=== PATIENT | female | born 1955 | race Caucasian/White ===

== ENCOUNTER 2017-10-11 14:17 | Inpatient (IN) | payer SELFPAY ==
[2017-10-11 15:46] LABS: Urine Blood 1+ (NEG); Urine Glucose NEGATIVE (NEG); Urine Protein TRACE (NEG); Urine Specific Gravity 1.025 (1.005-1.030); Urine pH 5.5 (5.0-7.0)
[2017-10-11 15:57] LABS: Absolute Lymphocytes (CBC) 1.8 K/uL (0.7-4.9); Absolute Monocytes 0.4 K/uL (0.1-1.3); Absolute Neutrophil 2.5 K/uL (1.8-8.0); Basophils % 0.5 % (0-1.3); Eosinophils % 0.9 % (0-4.4); Hematocrit 37.6 % (36.0-45.0); Lymphocytes % 38.3 % (15.3-44.8); MCH 30.5 pg (27.0-35.0); MPV 7.5 fL (7.6-11.3); Monocytes % 7.9 % (3.3-12.3); RBC Red Blood Cell Count 4.22 M/uL (3.86-4.86)
--- NOTE | 2017-10-11 16:09 | EDPHYS ---
Physician Documentation [facility] Name: Grace Case Age: 62 yrs Sex: Female : 1955 Arrival Date: 10/11/2017 Time: 14:19 Bed 8 Private MD: ED Physician Chapito Bautista HPI: 10/11 16:11 This 62 yrs old Female presents to ER via Wheelchair with complaints of Leg kdr Swelling. 16:11 The patient presents with a deformity, pain, that is chronic, swelling, Chronic kdr lymphedema with ulcerated area on left posterior distal calf. The complaints affect the left calf, left Achilles and medial aspect of left calf. Context: the patient can partially bear weight, the patient is able to ambulate, with mild difficulty, Problem is a result from a previous injury: Yes. Lympedema. Onset: The symptoms/episode began/occurred gradually, at an unknown time. Modifying factors: The symptoms are alleviated by nothing. the symptoms are aggravated by movement, weight bearing, bending knee. Associated signs and symptoms: Pertinent positives: vaginal bleeding. Treatment prior to arrival includes: no previous treatment. Severity of symptoms: At their worst the symptoms were moderate, in the emergency department the symptoms are unchanged. The patient has experienced similar episodes in the past, chronically. The patient has not recently seen a physician. Historical: - Allergies: 14:45 No Known Allergies; aa5 - PMHx: 14:45 cellulits; UTI; Lymphedema; aa5 - PSHx: 14:45 blood clot surgery; aa5 - Immunization history:: Adult Immunizations unknown. - Ebola Screening: : No symptoms or risks identified at this time. - Social history:: Smoking status: unknown. ROS: 16:13 Constitutional: Negative for fever, chills, and weight loss, Eyes: Negative for injury, kdr pain, redness, and discharge, ENT: Negative for injury, pain, and discharge, Neck: Negative for injury, pain, and swelling, Cardiovascular: Negative for chest pain, palpitations, and edema, Respiratory: Negative for shortness of breath, cough, wheezing, and pleuritic chest pain, Abdomen/GI: Negative for abdominal pain, nausea, vomiting, diarrhea, and constipation, Back: Negative for injury and pain, Neuro: Negative for headache, weakness, numbness, tingling, and seizure activity. Psych: Negative for depression, anxiety, suicide ideation, homicidal ideation, and hallucinations, Allergy/Immunology: Negative for hives, rash, and allergies, Endocrine: Negative for neck swelling, polydipsia, polyuria, polyphagia, and marked weight changes, Hematologic/Lymphatic: Negative for swollen nodes, abnormal bleeding, and unusual bruising. 16:13 : Positive for urinary symptoms, urinary frequency, small amounts, vaginal bleeding, Negative for vaginal itching. Exam: 16:13 Constitutional: This is a well developed, well nourished obese patient who is awake, kdr alert, and in no acute distress. Head/Face: Normocephalic, atraumatic. Eyes: Pupils equal round and reactive to light, extra-ocular motions intact. Lids and lashes normal. Conjunctiva and sclera are non-icteric and not injected. Cornea within normal limits. Periorbital areas with no swelling, redness, or edema. Neck: Trachea midline, no thyromegaly or masses palpated, and no cervical lymphadenopathy. Supple, full range of motion without nuchal rigidity, or vertebral point tenderness. No Meningismus. Chest/axilla: Normal chest wall appearance and motion. Nontender with no deformity. No lesions are appreciated. Cardiovascular: Regular rate and rhythm with a normal S1 and S2. No gallops, murmurs, or rubs. Normal PMI, no JVD. No pulse deficits. Respiratory: Lungs have equal breath sounds bilaterally, clear to auscultation and percussion. No rales, rhonchi or wheezes noted. No increased work of breathing, no retractions or nasal flaring. Abdomen/GI: Soft, obese non-tender, with normal bowel sounds. No distension or tympany. No guarding or rebound. Back: No spinal tenderness. No costovertebral tenderness. Full range of motion. Skin: The patient has significant swelling to both lower extremities wtih chronic lymphedema. There is a 4 cm x 6 cm ulceration that is draining to the left lower extremity. Neuro: Awake and alert, GCS 15, oriented to person, place, time, and situation. Cranial nerves II-XII grossly intact. Motor strength 5/5 in all extremities. Sensory grossly intact. Cerebellar exam normal. Normal gait. Psych: Awake, alert, with orientation to person, place and time. Behavior, mood, and affect are within normal limits. Vital Signs: 14:38 BP 156 / 77; Pulse 81; Resp 20; Temp 98.3; Pulse Ox 96% on R/A; Weight 136.08 kg (R); jl7 Height 5 ft. 5 in. (165.10 cm); 16:00 BP 138 / 67; Pulse 74; Resp 18 S; Pulse Ox 99% on R/A; aa5 17:30 BP 156 / 69; Pulse 87; Resp 18 S; Pulse Ox 97% on R/A; aa5 18:45 BP 124 / 81; Pulse 75; Resp 16 S; Pulse Ox 100% on R/A; jl7 14:38 Body Mass Index 49.92 (136.08 kg, 165.10 cm) jl7 MDM: 16:09 Patient medically screened. kdr 16:13 Data reviewed: vital signs, nurses notes, lab test result(s), radiologic studies. kdr Counseling: I had a detailed discussion with the patient and/or guardian regarding: the historical points, exam findings, and any diagnostic results supporting the discharge/admit diagnosis, lab results, radiology results. 10/11 15:30 Order name: Blood Culture Adult (2) kdr 10/11 15:30 Order name: Urine Culture kdr 10/11 15:30 Order name: CBC with Diff; Complete Time: 16:04 kdr 10/11 15:30 Order name: Chem 7; Complete Time: 17:00 kdr 10/11 15:30 Order name: LFT's; Complete Time: 17:00 kdr 10/11 15:44 Order name: Urine Dipstick--Ancillary (enter results); Complete Time: 16:04 ag 10/11 16:59 Order name: US Extremity Venous W Compression Bean kdr 10/11 17:23 Order name: C-Reactive Protein EDME 10/11 17:43 Order name: Procalcitonin EDME 10/11 18:39 Order name: EDME Administered Medications: 16:20 Drug: Lasix 60 mg Route: IVP; Site: left forearm; aa5 16:35 Follow up: Response: No adverse reaction aa5 17:03 Drug: Zofran 4 mg Route: IVP; Site: left forearm; aa5 17:10 Follow up: Response: No adverse reaction aa5 17:05 Drug: morphine 4 mg Route: IVP; Site: left forearm; aa5 17:10 Follow up: Response: No adverse reaction aa5 17:11 CANCELLED (Physician Discretion): vancoMYCIN 1 grams IVPB once over 2 hrs aa5 17:21 CANCELLED (Physician Discretion): vancoMYCIN 1.5 grams IVPB at calculated rate once aa5 17:40 Drug: Zosyn 4.5 grams Route: IVPB; Infused Over: 60 mins; Site: left forearm; aa5 18:00 Follow up: Response: No adverse reaction aa5 18:42 Follow up: Response: No adverse reaction; IV Status: Completed infusion aa5 18:47 Drug: vancomycin 2 grams Route: IV; Rate: calculated rate; Site: left forearm; aa5 19:07 Follow up: IV Status: Infusion continued upon admission jd3 Disposition: 10/11/17 16:09 Hospitalization ordered by Dontrell Reid for Inpatient Admission. Preliminary diagnosis is Lymphedema, not elsewhere classified. - Bed requested for Telemetry/MedSurg (Inpatient). - Status is Inpatient Admission. jd3 - Condition is Fair. - Problem is an ongoing problem. - Symptoms are unchanged. UTI on Admission? Yes Signatures: Dispatcher [employer] EDME Ronel Piña RN RN Chapito Bautista MD MD [facility] Tisha Cadet RN RN [facility] Michael Tejeda RN RN jd3 Corrections: (The following items were deleted from the chart) 17:11 16:58 vancoMYCIN 1 grams IVPB once over 2 hrs ordered. aa5 aa5 17:21 16:59 vancoMYCIN 1.5 grams IVPB at calculated rate once ordered. [facility] aa5 17:21 17:21 vancoMYCIN 1.5 grams IVPB at calculated rate once ordered. [facility] aa 18:18 16:09 Hospitalization Ordered by Dontrell Reid MD for Inpatient Admission. Preliminary diagnosis is Lymphedema, not elsewhere classified. Bed requested for Telemetry/MedSurg (Inpatient). Status is Inpatient Admission. Condition is Fair. Problem is an ongoing problem. Symptoms are unchanged. UTI on Admission? Yes. kdr 19:39 18:18 10/11/2017 16:09 Hospitalization Ordered by Dontrell Reid MD for Inpatient jd3 Admission. Preliminary diagnosis is Lymphedema, not elsewhere classified. Bed requested for Telemetry/MedSurg (Inpatient). Status is Inpatient Admission. Condition is Fair. Problem is an ongoing problem. Symptoms are unchanged. UTI on Admission? Yes. dw
--- NOTE | 2017-10-11 16:09 | ER ---
Nurse's Notes [facility] Name: Grace Case Age: 62 yrs Sex: Female : 1955 Arrival Date: 10/11/2017 Time: 14:19 Bed 8 Private MD: Diagnosis: Lymphedema, not elsewhere classified Presentation: 10/11 14:38 Presenting complaint: Patient states: Swelling in legs has been going on for 2-3 months jl7 but she has come in today because the weeping has gotten worse and there is a wound on her left lateral calf/ankle that is "probably infected". Pt is upset by the possibility that she may be admitted. Transition of care: patient was not received from another setting of care. Onset of symptoms is unknown. Risk Assessment: Do you want to hurt yourself or someone else?. Initial Sepsis Screen: Does the patient meet any 2 criteria? No. Patient's initial sepsis screen is negative. Does the patient have a suspected source of infection? Yes: Skin breakdown/wound. Care prior to arrival: None. 14:38 Method Of Arrival: Wheelchair jl7 14:38 Acuity: ESTEPHANIA 3 jl7 14:44 Note documentation done at 1438 was by Tammy Carrillo RN not Karie Valenzuela RN. dm5 Triage Assessment: 14:38 General: Appears in no apparent distress. uncomfortable, Behavior is cooperative, jl7 anxious. Pain: Complains of pain in right leg and left leg. Neuro: Level of Consciousness is awake, alert, obeys commands, Oriented to person, place, time. Respiratory: Airway is patent Respiratory effort is even, unlabored, Respiratory pattern is regular, symmetrical. GI: No signs and/or symptoms were reported involving the gastrointestinal system. : No signs and/or symptoms were reported regarding the genitourinary system. Derm: Skin has blisters on bilateral lower legs Skin is mostly warm pink and dry, except bilateral lower legs that are dark in color, weeping and has skin break down. Large wound noted to left lower leg. Historical: - Allergies: 14:45 No Known Allergies; aa5 - PMHx: 14:45 cellulits; UTI; Lymphedema; aa5 - PSHx: 14:45 blood clot surgery; aa5 - Immunization history:: Adult Immunizations unknown. - Ebola Screening: : No symptoms or risks identified at this time. - Social history:: Smoking status: unknown. Screenin:45 Abuse screen: Denies threats or abuse. Nutritional screening: No deficits noted. aa5 Tuberculosis screening: No symptoms or risk factors identified. Fall Risk None identified. Assessment: 14:45 General: Appears comfortable, Behavior is calm, cooperative. Pain: Complains of pain in aa5 left leg and right leg Pain does not radiate. Pain currently is 5 out of 10 on a pain scale. Quality of pain is described as pressure, Pain began 2-3 months ago Is continuous, Aggravated by increased activity, weight bearing. Neuro: Level of Consciousness is awake, alert, obeys commands, Oriented to person, place, time, situation. Cardiovascular: Heart tones S1 S2 present Rhythm is regular. Respiratory: Airway is patent Respiratory effort is even, unlabored, Respiratory pattern is regular, symmetrical, Breath sounds are clear bilaterally. GI: Abdomen is obese, Bowel sounds present X 4 quads. Abd is soft and non tender X 4 quads. : Denies burning with urination. EENT: No signs and/or symptoms were reported regarding the EENT system. Derm: Skin is pink, warm \\T\\ dry. Lymphedema noted to zander lower extremities with weeping yellowish fluid. Wound noted to left calf that is macerated with black tissue to some parts of the edges, wound measures approximately 3in in diameter, pt reports wound x 2-3 months ago. Redness noted to right lower extremity x 3 days ago. Musculoskeletal: Range of motion: intact in all extremities. 15:55 Reassessment: Patient and/or family updated on plan of care and expected duration. Pain aa5 level reassessed. Patient is alert, oriented x 3, equal unlabored respirations, skin warm/dry/pink. 16:55 Reassessment: Patient and/or family updated on plan of care and expected duration. Pain aa5 level reassessed. Patient is alert, oriented x 3, equal unlabored respirations, skin warm/dry/pink. Pt requesting pain medication, MD notified . Pain: Pain currently is 5 out of 10 on a pain scale. 17:30 Reassessment: Patient and/or family updated on plan of care and expected duration. Pain aa5 level reassessed. Patient is alert, oriented x 3, equal unlabored respirations, skin warm/dry/pink. Pain: Pain currently is 3 out of 10 on a pain scale. Quality of pain is described as dull. 18:45 Reassessment: Patient and/or family updated on plan of care and expected duration. Pain aa5 level reassessed. Patient is alert, oriented x 3, equal unlabored respirations, skin warm/dry/pink. Pt notified of wait time for transport to Room 213. 19:03 Reassessment: Patient appears in no apparent distress at this time. No changes from jd3 previously documented assessment. Patient and/or family updated on plan of care and expected duration. Pain level reassessed. Patient is alert, oriented x 3, equal unlabored respirations, skin warm/dry/pink. Vital Signs: 14:38 BP 156 / 77; Pulse 81; Resp 20; Temp 98.3; Pulse Ox 96% on R/A; Weight 136.08 kg (R); jl7 Height 5 ft. 5 in. (165.10 cm); 16:00 BP 138 / 67; Pulse 74; Resp 18 S; Pulse Ox 99% on R/A; aa5 17:30 BP 156 / 69; Pulse 87; Resp 18 S; Pulse Ox 97% on R/A; aa5 18:45 BP 124 / 81; Pulse 75; Resp 16 S; Pulse Ox 100% on R/A; jl7 14:38 Body Mass Index 49.92 (136.08 kg, 165.10 cm) jl7 ED Course: 14:19 Patient arrived in ED. rg4 14:36 Tisha Cadet, RN is Primary Nurse. aa5 14:38 Arm band placed on right wrist. Patient placed in an exam room, in a wheelchair, pt jl7 remains in wheelchair per patient request. 14:40 Triage completed. jl7 14:45 Patient has correct armband on for positive identification. Call light in reach. Pt aa5 refused to be placed on stretcher, pt states she prefers to be in wheelchair. 14:49 Chapito Bautista MD is Attending Physician. kdr 15:43 Urine collected: clean catch specimen, cloudy, fidelina colored. jb1 15:44 Initial lab(s) drawn, by me, sent to lab. Inserted saline lock: 20 gauge in left aa5 forearm, using aseptic technique. Blood collected. 16:05 No provider procedures requiring assistance completed. aa5 16:07 Dontrell Reid MD is Hospitalizing Provider. kdr 18:22 Ultrasound completed. Patient tolerated well. sg3 19:00 Report given to GIL Rodriguez. aa5 19:04 Patient admitted, IV remains in place. jd3 Administered Medications: 16:20 Drug: Lasix 60 mg Route: IVP; Site: left forearm; aa5 16:35 Follow up: Response: No adverse reaction aa5 17:03 Drug: Zofran 4 mg Route: IVP; Site: left forearm; aa5 17:10 Follow up: Response: No adverse reaction aa5 17:05 Drug: morphine 4 mg Route: IVP; Site: left forearm; aa5 17:10 Follow up: Response: No adverse reaction aa5 17:11 CANCELLED (Physician Discretion): vancoMYCIN 1 grams IVPB once over 2 hrs aa5 17:21 CANCELLED (Physician Discretion): vancoMYCIN 1.5 grams IVPB at calculated rate once aa5 17:40 Drug: Zosyn 4.5 grams Route: IVPB; Infused Over: 60 mins; Site: left forearm; aa5 18:00 Follow up: Response: No adverse reaction aa5 18:42 Follow up: Response: No adverse reaction; IV Status: Completed infusion aa5 18:47 Drug: vancomycin 2 grams Route: IV; Rate: calculated rate; Site: left forearm; aa5 19:07 Follow up: IV Status: Infusion continued upon admission jd3 Outcome: 16:09 Decision to Hospitalize by Provider. kdr 19:37 Admitted to Med/surg accompanied by tech, via wheelchair, room 213, with chart, Report jd3 called to Marilou CORDERO 19:37 Condition: stable 19:37 Instructed on the need for admit, Demonstrated understanding of instructions. 19:39 Patient left the ED. jd3 Signatures: Jeet Manriquez jbTammy Acosta RN RN dm5 Chapito Bautista MD MD kdr Tisha Cadet RN RN aa5 Ruth Cosme rg4 Karie Valenzuela RN RN jl7 Michael Tejeda, RN RN jd3 Angie Granado sg3 Corrections: (The following items were deleted from the chart) 16:04 14:45 Derm: Skin is pink, warm \\T\\ dry. Lymphedema noted to zander lower extremities with aa5 weeping yellowish fluid. Wound noted to left calf that is macerated with black tissue to some parts of the edges, wound measures approximately 3in in diameter, pt reports wound x 2-3 months ago. aa5 18:37 17:30 Pain: Pain currently is 5 out of 10 on a pain scale. aa5 aa5 18:37 17:30 Pain: Pain currently is 3 out of 10 on a pain scale. aa5 aa5 18:37 16:15 Reassessment: Patient and/or family updated on plan of care and expected aa5 duration. Pain level reassessed. Patient is alert, oriented x 3, equal unlabored respirations, skin warm/dry/pink. Pt requesting pain medication, MD notified . aa5 18:37 16:15 Pain: Pain currently is 5 out of 10 on a pain scale. aa5 aa5
[2017-10-11 16:15] LABS: Albumin 3.6 g/dL (3.4-5.0); Bilirubin Direct 0.3 mg/dL (0-0.2); Bilirubin Total 0.8 mg/dL (0.2-1.0); Potassium 3.8 mmol/L (3.5-5.1); Protein, Total 8.8 g/dL (6.4-8.2)
[2017-10-11] MEDS ORDERED: ONDANSETRON 4 MG/2 ML VIAL IV PRN (16:24)
[2017-10-11] MEDS ORDERED: ACETAMINOPHEN 500 MG TAB PO PRN (16:24)
[2017-10-11] MEDS ORDERED: VANCOMYCIN 1 GM/250 ML BAG ONE (16:55)
[2017-10-11] MEDS ORDERED: ONDANSETRON 4 MG/2 ML VIAL ONE (16:55)
[2017-10-11] MEDS ORDERED: MORPHINE 4 MG/ML SYR ONE (16:56)
[2017-10-11] MEDS ORDERED: PIPER/TAZO/NS 4.5gm 4.5 GM/100 ML BAG IV SCH (18:00)
[2017-10-11] MEDS: VANCOMYCIN 2 GM in NA CHLORIDE 0.9% 500 ML IV SCH (18:00)
--- NOTE | 2017-10-11 18:37 | HP ---
Date of Admission: 10/11/2017 Consultants: Dr. Cheatham, General Surgery. Primary Care Physician: None. Chief Complaint: Lower extremity swelling, redness, ulceration. Code Status: Full. History Of Present Illness: The patient is a 62-year-old female with past medical history of chronic lymphedema of the lower extremities, history of DVT, status post IVC filter, who was in the hospital in April 2016 for similar symptoms. The patient reports lower extremity edema, which has been wo rsening over the past 3 months. The patient also reports some ulceration on the left lower extremity with seeping wounds and some erythema. The patient denies any fevers or chills. The patient's symp toms are constant, moderate, progressively worsening. Does have some pain on the wound. Denies any trauma or insect bite. The patient otherwise denies any chest pain, shortness of breath, abdominal p ain. Comes into the ER for further evaluation. Upon arrival, her white count was normal, does not a ppear to be septic. Her vital signs were stable. The patient was then referred for admission for lo wer extremity edema with large ulcerated wound. Past Medical History: Chronic lymphedema, history of DVT, gastroesophageal reflux disease, morbid ob esity, osteoarthritis, anemia, obstructive sleep apnea. Past Surgical History: IVC filter, tubal ligation. Allergies: NO KNOWN DRUG ALLERGIES. Medications: None. Family History: Mother had lung disease. Father had cancer. Social History: The patient lives at home with her children. Ambulates without any assistive ambula tory devices. Independent in her activities of daily living. Denies any tobacco use, alcohol use, o r illicit drug use. Physical Examination: Vital Signs: Blood pressure 156/77, respirations 20, pulse 81, temperature 98.3, O2 96% on room air. General: Awake, alert, oriented x3, in some mild distress, elderly female. HEENT: Normocephalic, atraumatic. PERRLA. EOMI. Moist mucous membranes. Poor dentition. Conjunc tiva is anicteric. Neck: Supple. No JVD. Trachea midline. CV: S1, S2. Regular rate and rhythm. Peripheral pulses weak bilaterally. No murmurs. Respiratory: Clear to auscultation bilaterally. No wheezing. No stridor. No use of accessory musc les. Gastrointestinal: Abdomen is soft, nontender, nondistended. Positive bowel sounds. No guarding or rigidity. Extremities: No clubbing, cyanosis. The patient has 3+ edema bilateral lower extremities with chron ic venous stasis changes. No calf tenderness. Skin: Chronic venous stasis changes of bilateral lower extremities. The patient also has ulceration of the posterior lateral left lower extremity with weeping wound. Neuro: Cranial nerves 2 through 12 intact grossly. No focal neurological deficit. Speech is normal . Strength is 5/5 bilateral upper and lower extremities. Psych: Mood is depressed. Affect is congruent with mood. Insight and judgment are poor. Laboratory Data: Sodium 139, potassium 3.8, chloride 105, CO2 31, BUN 16, creatinine 1.2, glucose 10 1, calcium 9.2. AST 22, ALT 23. WBC 4.8, H and H 12.9 and 37.6, platelets 245. Imaging Studies: Pending. Assessment And Plan: A 62-year-old female with: 1.Cellulitis and bilateral lower extremity edema. 2.Left lower extremity ulceration. We will cover with IV antibiotics, broad-spectrum. Obtain blood cultures and wound cultures. 3.Chronic lymphedema. 4.Morbid obesity due to excess calories. 5.Gastroesophageal reflux disease without esophagitis. 6.Osteoarthritis, generalized. 7.Obstructive sleep apnea. 8.Gastrointestinal and deep venous thrombosis prophylaxis with PPI and Lovenox. Plan: Admit the patient to Med-Surg, place as inpatient. MICHEL Voice ID: [id number]
--- NOTE | 2017-10-11 18:38 | RAD REPORT ---
EXAM DESCRIPTION: VAS - Extrem Venous W Compress Bean - 10/11/2017 6:19 pm CLINICAL HISTORY: Bilateral leg pain and swelling COMPARISON: None. TECHNIQUE: Real-time sonographic evaluation of the bilateral lower extremity deep venous systems was performed. FINDINGS: Normal compressibility, flow augmentation, phasic flow and spontaneous flow are identified in the left and right lower extremity common femoral, superficial femoral and popliteal veins. Poste rior tibial veins are believed to be negative. Exam was limited at the ankle and limited in the calf soft tissues. . No intraluminal filling defects seen. IMPRESSION: Examination is limited as detailed. No DVT identifiable.
[2017-10-11 20:57] VITALS: BMI 57.0
[2017-10-11] MEDS: ENOXAPARIN 40 MG/0.4 ML SQ SCH (22:16)
[2017-10-11] MEDS ORDERED: TEMAZEPAM 15 MG CAP PO ONE (23:18)
[2017-10-12 00:17] LABS: Urine Appearance CLEAR; Urine Bilirubin NEGATIVE (NEG); Urine Blood TRACE (NEG); Urine Color YELLOW; Urine Glucose NEGATIVE (NEG); Urine Protein NEGATIVE (NEG); Urine Urobilinogen 0.2 mg/dL (0.2-1.0)
[2017-10-12 00:18] LABS: Urine Microscopic Reflex ORDER UMIC
[2017-10-12 01:19] LABS: Urine Bacteria <20 /HPF (<20); Urine Culture Reflex Order NOT NEEDED; Urine RBC <5 /HPF (NONE SEEN)
[2017-10-12] MEDS: MORPHINE 4 MG/ML SYR IV PRN ×2 (02:44→13:44)
[2017-10-12 05:00] LABS: Absolute Lymphocytes (CBC) 1.4 K/uL (0.7-4.9); Absolute Monocytes 0.4 K/uL (0.1-1.3); Hematocrit 37.6 % (36.0-45.0); Lymphocytes % 23.3 % (15.3-44.8); MCH 30.7 pg (27.0-35.0); MCV 89.7 fL (80-100); MPV 7.6 fL (7.6-11.3); Monocytes % 6.4 % (3.3-12.3)
[2017-10-12 05:27] LABS: Potassium 3.9 mmol/L (3.5-5.1)
--- NOTE | 2017-10-12 08:58 | CON ---
Date of Consultation: 10/12/2017 Reason: Lymphedema with cellulitis of left leg with an ulceration. History Of Present Illness: The patient is a 62-year-old female who comes in with a wound on her lef t leg for about 3 months. She has a history of DVT, history of chronic lymphedema. She does not hav e a primary care physician. She does not seek any medical attention until it becomes really bad and then she comes to the emergency room. She was admitted for cellulitis and ulceration. I was consult ed. She is awake, alert, sitting in a chair, complaining of some discomfort. No fever or chills. N o purulent discharge. Review of Systems: Otherwise, unremarkable. Past Medical History: Lymphedema, history of DVT, GERD, morbid obesity, osteoarthritis, anemia, slee p apnea. Past Surgical History: IVC filter placement, bilateral tubal ligation. Allergies: NO ALLERGIES. Social History: She does not smoke or drink. Family History: Significant for unknown type of cancer in the father and lung disease in the mother. Physical Examination: Vital Signs: Stable. She is afebrile. She is awake, alert, and oriented x3. Head and neck: Cranial nerves 2 through 12 grossly within normal limits. No neck masses. No JVD. Throat clear. Neck is supple. Chest: Clear. Heart: S1, S2. Abdomen: Soft. Extremities: Diminished dorsalis pedis and posterior tibial pulses secondary to significant 3+ lymph edema. On the posterior aspect of the left leg, there is approximately a 6 x 6 cm area of an ulcerat ion with some granulation tissue, a moderate amount of fibrin, surrounding erythema, warmth, and enio a. No purulent discharge. Nothing that needs immediate surgical intervention. Laboratory Data: Significant for white count of 5.9. Her procalcitonin is less than 0.05. BUN and creatinine are 20 and 1.5. Venous Dopplers are negative for acute DVT at this time. Assessment: Cellulitis with wound in left leg with chronic lymphedema. Recommendation: Medical management. For the fluid status of the patient, she has just started Lasix yesterday. Continue IV antibiotics. Check the cultures. Adjust the antibiotics accordingly. She will need a collagenase dressing and upon discharge, she can follow up with me in the [facility]. JOAN/MODL Voice ID: [id number] Report ID: [id number]
[2017-10-12] MEDS ORDERED: COLLAGENASE 30 GM OINTMENT TOP SCH (09:15)
[2017-10-12] MEDS ORDERED: FUROSEMIDE 20 MG/ 2ML VIAL IV ONE (11:52)
--- NOTE | 2017-10-12 12:56 | DS ---
Discharge Diagnoses: 1.Cellulitis of the lower extremity, improved. 2.Left lower extremity ulcerations. 3.Chronic lymphedema. 4.Morbid obesity. 5.Acid reflux. 6.Osteoarthritis. 7.Obstructive sleep apnea. Consult: General surgery, Dr. Cheatham. Procedure: Lower extremity Doppler, which was negative for DVT. History Of Present Illness: Please refer to Dr. Reid's admission note. Hospital Course: Initially, the patient presented with a progressive lower extremity edema. It was getting worse. A new ulceration on the left lower extremity. It was little bit oozing. In the ER s he was evaluated. Lower extremity Doppler was negative for DVT. Consult by Dr. Cheatham from [facility] obtained and Dr. Cheatham recommended the patient to follow up with the [facility] as well as collagenase dressing upon discharge. The patient's UA was positive and urine culture showed gram -negative rods with mixed roberto carlos. She was started initially on vancomycin IV. Wound culture done yes day is still pending. We will switch vancomycin to oral Cipro 500 mg for 14 days today after 5 p. m. as the patient should receive another dose of vancomycin before she discharged home. The patient would like to go home today, so we will start her Cipro hoping that it would cover her UTI and wound possible infection. She will be seen by Saturday at the [facility] and they will adjust antibiotic accordingly as needed after followup on culture result. The patient will be discharged o n low dose of Lasix at 20 mg once a day. She advised strongly to wear elastic stocking and see [facility] physician as outpatient to check her labs and make sure she is not getting dehydrated and adj ust Lasix accordingly. Discharge Condition: Stable. Discharge Diet: Regular. Discharge Followup: With primary care physician in 1 week. Follow up with [facility] on Saturday. Discharge Activity: As tolerated. Discharge Medications: Lasix 20 mg once a day, 7 given. Ciprofloxacin 500 mg twice a day for 14 day s. Discharge Physical Examination: Vital signs: Blood pressure is 130/58, respiratory rate 18, pulse 8 6, temperature 97.9. General: The patient is alert and oriented x3. Does not look in any distress. HEENT: Atraumatic, normocephalic. PERRLA. Oral mucosa is moist. Neck: Supple. No JVD. No bruits. Chest: Clear to auscultation. Good air entry. Heart: Regular rate and rhythm. S1, S2 normal. No gallop. Abdomen: Massively obese. Nondistended and nontender. Positive bowel sounds. Extremities: No clubbing or cyanosis. She does have +3 edema on lower extremity both side. Skin: Chronic venous stasis. Small ulceration to the posterior lateral left lower extremity. No oo zing currently. Neuro: Grossly intact. SUMAN/ELMER Voice ID: [id number] Report ID: [id number]
[2017-10-12] MEDS: ENOXAPARIN 40 MG/0.4 ML SQ SCH (17:01)
[2017-10-12] MEDS: VANCOMYCIN 2 GM in NA CHLORIDE 0.9% 500 ML IV SCH (17:01)
[2017-10-12 19:37] VITALS: BP 126/81; TEMP 98.1
[2017-10-12 20:07] VITALS: O2SAT 94
[2017-10-13] MEDS ORDERED: COLLAGENASE 30 GM OINTMENT TOP SCH (09:00)
== END 2017-10-12 20:05 | disposition home or self-care (01) | DRG 603 ==
LOC: ER 14:17 → ERHOLD 16:24 → 2ND 19:13
PROVIDERS: ADMIT Family Medicine; ATTEND Internal Medicine
DX: L03.116 Cellulitis of left lower limb (principal); L97.829 Non-pressure chronic ulcer of other part of left lower leg with unspecified severity; N39.0 Urinary tract infection, site not specified; Z68.42 Body mass index [BMI] 45.0-49.9, adult; I89.0 Lymphedema, not elsewhere classified; K21.9 Gastro-esophageal reflux disease without esophagitis; E66.01 Morbid (severe) obesity due to excess calories; G47.33 Obstructive sleep apnea (adult) (pediatric); M19.90 Unspecified osteoarthritis, unspecified site; D64.9 Anemia, unspecified; Z86.718 Personal history of other venous thrombosis and embolism; B96.89 Other specified bacterial agents as the cause of diseases classified elsewhere; I87.2 Venous insufficiency (chronic) (peripheral)
CPT/HCPCS: 36415; 80048; 80076; 81003; 81015; 84145; 85025; 86140; 87040; 87070; 87077; 87086; 87088; 87186; 87205; 93970; 94760; 96365; 96367; 96375; 99285; J1650; J1940; J2405; J3370; J3590

== ENCOUNTER 2018-02-01 21:13 | Emergency (ER) | payer SELFPAY ==
[2018-02-01 22:15] LABS: Urine Blood 3+ (NEG); Urine Glucose NEGATIVE (NEG); Urine Protein 1+ (NEG); Urine Specific Gravity 1.025 (1.005-1.030); Urine pH 6.5 (5.0-7.0)
[2018-02-01 22:22] LABS: Urine Bacteria LOADED /HPF (<20); Urine RBC 20-50 /HPF (NONE SEEN)
[2018-02-01 22:23] LABS: Calcium Oxalate Crystals- Ur FEW (NONE SEEN); Urine Culture Reflex Order NOT NEEDED
[2018-02-01] MEDS ORDERED: CLINDAMYCIN 600MG/D5W 600 MG/50 ML BAG IV ONE (22:25)
[2018-02-01] MEDS ORDERED: FENTANYL CITR 100 MCG/2 ML ONE (22:26)
[2018-02-01] MEDS ORDERED: SMZ./TMP. 800/160 MG TABLET ONE (23:03)
[2018-02-01 23:07] LABS: Absolute Monocytes 0.4 K/uL (0.1-1.3); Absolute Neutrophil 6.2 K/uL (1.8-8.0); Basophils % 0.5 % (0-1.3); Eosinophils % 0.5 % (0-4.4); Hematocrit 38.8 % (36.0-45.0); Lymphocytes % 12.7 % (15.3-44.8); MCH 30.7 pg (27.0-35.0); MCV 88.7 fL (80-100); MPV 7.8 fL (7.6-11.3); Monocytes % 4.7 % (3.3-12.3); RBC Red Blood Cell Count 4.37 M/uL (3.86-4.86)
--- NOTE | 2018-02-01 23:25 | ER ---
Nurse's Notes [facility] Name: Grace Case Age: 62 yrs Sex: Female : 1955 Arrival Date: 02/01/2018 Time: 21:15 Bed 20 Private MD: Diagnosis: Urinary tract infection, site not specified;Cellulitis of right lower limb;Lymphedema, not elsewhere classified Presentation: 02/01 21:30 Presenting complaint: Patient states: right lower leg redness, swelling and pain since cc3 2 hours back. Transition of care: patient was not received from another setting of care. Onset of symptoms was February 01, 2018. Risk Assessment: Do you want to hurt yourself or someone else? Patient reports no desire to harm self or others. Initial Sepsis Screen: Does the patient meet any 2 criteria? No. Patient's initial sepsis screen is negative. Does the patient have a suspected source of infection? No. Patient's initial sepsis screen is negative. Care prior to arrival: Medication(s) given: Tylenol, patient not sure of the dosage of each Tylenol tablet but she said she took 2 tabs. 21:30 Method Of Arrival: Wheelchair cc3 21:30 Acuity: ESTEPHANIA 3 cc3 Triage Assessment: 21:30 General: Appears in no apparent distress. uncomfortable, Behavior is calm, cooperative, cc3 appropriate for age. Historical: - Allergies: 21:30 No Known Allergies; cc3 - Home Meds: 21:30 Tylenol #3 Oral [Active]; cc3 - PMHx: 21:30 cellulits; lymphedema; UTI; cc3 - PSHx: 21:30 D \T\ C; cc3 - Immunization history:: Adult Immunizations not up to date. - Social history:: Smoking status: Patient/guardian denies using tobacco, never smoked. - Ebola Screening: : No symptoms or risks identified at this time. Screenin:30 Abuse screen: Denies threats or abuse. Denies injuries from another. Nutritional cc3 screening: No deficits noted. Tuberculosis screening: No symptoms or risk factors identified. Fall Risk Ambulatory Aid- None/Bed Rest/Nurse Assist (0 pts). Gait- Normal/Bed Rest/Wheelchair (0 pts) Mental Status- Oriented to own ability (0 pts). Assessment: 21:30 General: Appears in no apparent distress. uncomfortable, Behavior is calm, cooperative, cc3 appropriate for age. Pain: Complains of pain in right leg and right rosen and right posterior tibial artery Pain currently is 10 out of 10 on a pain scale. Quality of pain is described as aching. Neuro: Level of Consciousness is awake, alert, obeys commands, Oriented to person, place, time, situation, Appropriate for age. Cardiovascular: Denies chest pain. Respiratory: Airway is patent Respiratory effort is even, unlabored, Respiratory pattern is regular, symmetrical. GI: Abdomen is round obese. : No signs and/or symptoms were reported regarding the genitourinary system. EENT: No signs and/or symptoms were reported regarding the EENT system. Derm: bilateral lower limb edema with blisters. Musculoskeletal: Circulation, motion, and sensation intact. Range of motion: limited in bilateral lower extremities. 22:30 Reassessment: Patient appears in no apparent distress at this time. Patient and/or cc3 family updated on plan of care and expected duration. Pain level reassessed. Patient is alert, oriented x 3, equal unlabored respirations, skin warm/dry/pink. 23:50 Reassessment: Patient appears in no apparent distress at this time. Patient and/or cc3 family updated on plan of care and expected duration. Pain level reassessed. Patient is alert, oriented x 3, equal unlabored respirations, skin warm/dry/pink. JEF Reed discharged the patient home with prescription given. IV cannula removed and patient left ER vitally stable by wheelchair escorted by her son. Vital Signs: 21:30 BP 158 / 64; Pulse 111; Resp 20 S; Temp 99(O); Pulse Ox 100% on R/A; Weight 136.08 kg cc3 (R); Height 5 ft. 6 in. (167.64 cm); 22:15 BP 148 / 58; Pulse 104; Resp 20 S; Pulse Ox 98% on R/A; cc3 23:30 BP 149 / 63; Pulse 102; Resp 19 S; Pulse Ox 98% on R/A; cc3 21:30 Body Mass Index 48.42 (136.08 kg, 167.64 cm) cc3 ED Course: 21:15 Patient arrived in ED. am2 21:24 Gloria Engle is Primary Nurse. cc3 21:24 [facility]err[facility] snw 21:24 Pam Thrasher MD is Attending Physician. snw 21:30 Arm band placed on right wrist. cc3 21:30 Patient has correct armband on for positive identification. Bed in low position. Call cc3 light in reach. Pulse ox on. NIBP on. 21:43 Triage completed. cc3 22:30 Inserted saline lock: 22 gauge in right antecubital area, using aseptic technique. cc3 Blood collected. 23:50 No provider procedures requiring assistance completed. IV discontinued, intact, cc3 bleeding controlled, No redness/swelling at site. Pressure dressing applied. Administered Medications: 22:35 Drug: fentaNYL (PF) 25 mcg Route: IVP; Site: right antecubital; cc3 23:00 Follow up: Response: No adverse reaction; Pain is decreased cc3 22:39 Drug: Clindamycin 600 mg Route: IVPB; Infused Over: 30 mins; Site: right forearm; ea 23:15 Follow up: Response: No adverse reaction; IV Status: Completed infusion; IV Intake: [id number] 22:57 Drug: Bactrim (160 mg-800 mg (DS) 1 tablet Route: PO; ea 23:30 Follow up: Response: No adverse reaction cc3 23:38 Drug: Valium 5 mg Route: IVP; Site: right antecubital; cc3 23:50 Follow up: Response: No adverse reaction cc3 Intake: 23:15 IV: 50ml; Total: 50ml. cc3 Outcome: 23:25 Discharge ordered by . snw 23:50 Discharged to home via wheelchair, with family. cc3 23:50 Condition: stable 23:50 Discharge instructions given to patient, family, Instructed on discharge instructions, follow up and referral plans. medication usage, Demonstrated understanding of instructions, follow-up care, medications, Prescriptions given X 2. 23:53 Patient left the ED. cc3 Addendum: 02/07/2018 08:10 Addendum: Culture Results: Positive urine culture. Positive blood culture. Bacteria s s sensitive to prescribed antibiotics. Given Positive blood cultures, attempted to call patient to follow up and see if follow up care has been set up. Pt did not answer phone call and VM box has not been setup. Certified letter sent to listed address for patient. Signatures: Brianna Serrano FNP-C FNP-Csnw Gabby Encinas, RN RN Marjorie Aviles am2 Jaylene Hameed, RN RN Gloria Becker cc3
--- NOTE | 2018-02-01 23:25 | EDPHYS ---
Physician Documentation [facility] Name: Grace Case Age: 62 yrs Sex: Female : 1955 Arrival Date: 02/01/2018 Time: 21:15 Bed 20 Private MD: ED Physician Pam Thrasher HPI: 02/01 22:07 This 62 yrs old Female presents to ER via Wheelchair with complaints of Leg snw Swelling. 22:07 The patient presents with pain, that is acute. The complaints affect the right rosen. snw Context: The problem was sustained at home, resulted from a chronic condition, the patient can partially bear weight, must have assistance, from family. Onset: The symptoms/episode began/occurred suddenly, 2 hour(s) ago, and became persistent. Associated signs and symptoms: Pertinent positives: fever, warmth. Severity of symptoms: At their worst the symptoms were moderate, severe. The patient has experienced similar episodes in the past, multiple times. Historical: - Allergies: 21:30 No Known Allergies; cc3 - Home Meds: 21:30 Tylenol #3 Oral [Active]; cc3 - PMHx: 21:30 cellulits; lymphedema; UTI; cc3 - PSHx: 21:30 D \T\ C; cc3 - Immunization history:: Adult Immunizations not up to date. - Social history:: Smoking status: Patient/guardian denies using tobacco, never smoked. - Ebola Screening: : No symptoms or risks identified at this time. ROS: 22:06 Constitutional: Negative for fever, chills, and weight loss, Eyes: Negative for injury, snw pain, redness, and discharge, ENT: Negative for injury, pain, and discharge, Neck: Negative for injury, pain, and swelling, Cardiovascular: Negative for chest pain, palpitations, and edema, Respiratory: Negative for shortness of breath, cough, wheezing, and pleuritic chest pain, Abdomen/GI: Negative for abdominal pain, nausea, vomiting, diarrhea, and constipation, Back: Negative for injury and pain, : Negative for injury, bleeding, discharge, and swelling, Skin: Negative for injury, rash, and discoloration, Neuro: Negative for headache, weakness, numbness, tingling, and seizure. 22:06 MS/extremity: Positive for pain, of the right rosen. Exam: 22:04 Head/Face: Normocephalic, atraumatic. Eyes: Pupils equal round and reactive to light, snw extra-ocular motions intact. Lids and lashes normal. Conjunctiva and sclera are non-icteric and not injected. Cornea within normal limits. Periorbital areas with no swelling, redness, or edema. ENT: Nares patent. No nasal discharge, no septal abnormalities noted. Tympanic membranes are normal and external auditory canals are clear. Oropharynx with no redness, swelling, or masses, exudates, or evidence of obstruction, uvula midline. Mucous membranes moist. Neck: Trachea midline, no thyromegaly or masses palpated, and no cervical lymphadenopathy. Supple, full range of motion without nuchal rigidity, or vertebral point tenderness. No Meningismus. Chest/axilla: Normal chest wall appearance and motion. Nontender with no deformity. No lesions are appreciated. 22:04 Respiratory: Lungs have equal breath sounds bilaterally, clear to auscultation and percussion. No rales, rhonchi or wheezes noted. No increased work of breathing, no retractions or nasal flaring. Abdomen/GI: Soft, non-tender, with normal bowel sounds. No distension or tympany. No guarding or rebound. No evidence of tenderness throughout. Back: No spinal tenderness. No costovertebral tenderness. Full range of motion. 22:04 Neuro: Awake and alert, GCS 15, oriented to person, place, time, and situation. Cranial nerves II-XII grossly intact. Motor strength 5/5 in all extremities. Sensory grossly intact. Cerebellar exam normal. Normal gait. 22:04 Constitutional: The patient appears alert, awake, obese, uncomfortable. 22:04 Cardiovascular: Rate: tachycardic, Heart sounds: normal. 22:04 Musculoskeletal/extremity: ROM: intact in all extremities, Pulses: noted to be 2+ in the right posterior tibial artery and left posterior tibial artery, Compartment Syndrome exam of affected extremity: is normal. 22:04 Skin: Appearance: Color: normal in color, except to lower extremities, + dusky color with lymphedema. Right mid-rosen area with heat, redness, and extreme tenderness x 2 hours. Vital Signs: 21:30 BP 158 / 64; Pulse 111; Resp 20 S; Temp 99(O); Pulse Ox 100% on R/A; Weight 136.08 kg cc3 (R); Height 5 ft. 6 in. (167.64 cm); 22:15 BP 148 / 58; Pulse 104; Resp 20 S; Pulse Ox 98% on R/A; cc3 23:30 BP 149 / 63; Pulse 102; Resp 19 S; Pulse Ox 98% on R/A; cc3 21:30 Body Mass Index 48.42 (136.08 kg, 167.64 cm) cc3 MDM: 21:24 Patient medically screened. snw 23:25 Data reviewed: vital signs, nurses notes. Data interpreted: Pulse oximetry: on room air snw is 98 %. Interpretation: normal. Counseling: I had a detailed discussion with the patient and/or guardian regarding: the historical points, exam findings, and any diagnostic results supporting the discharge/admit diagnosis, the presence of at least one elevated blood pressure reading (>120/80) during this emergency department visit, lab results, the need for outpatient follow up, to return to the emergency department if symptoms worsen or persist or if there are any questions or concerns that arise at home. Special discussion: I have referred the patient to see his PCP for further evaluation of high blood pressure. Based on the history and exam findings, there is no indication for further emergent testing or inpatient evaluation. I discussed with the patient/guardian the need to see the primary care provider for further evaluation of the symptoms. 02/01 22:02 Order name: CBC with Diff; Complete Time: 23:19 snw 02/01 22:02 Order name: Chem 7; Complete Time: 23:24 snw 02/01 22:02 Order name: Blood Culture Adult (2) snw 02/01 22:02 Order name: Urine Culture snw 02/01 22:02 Order name: Urine Microscopic Only; Complete Time: 22:32 snw 02/01 22:10 Order name: Urine Dipstick--Ancillary (enter results); Complete Time: 22:18 ar5 02/01 22:02 Order name: Urine Dipstick-Ancillary (obtain specimen); Complete Time: 22:05 snw Administered Medications: 22:35 Drug: fentaNYL (PF) 25 mcg Route: IVP; Site: right antecubital; cc3 23:00 Follow up: Response: No adverse reaction; Pain is decreased cc3 22:39 Drug: Clindamycin 600 mg Route: IVPB; Infused Over: 30 mins; Site: right forearm; ea 23:15 Follow up: Response: No adverse reaction; IV Status: Completed infusion; IV Intake: [id number] 22:57 Drug: Bactrim (160 mg-800 mg (DS) 1 tablet Route: PO; ea 23:30 Follow up: Response: No adverse reaction cc3 23:38 Drug: Valium 5 mg Route: IVP; Site: right antecubital; cc3 23:50 Follow up: Response: No adverse reaction cc3 Disposition: 02/02 06:01 Co-signature as Attending Physician, Pam Thrasher MD. ma2 Disposition: 02/01/18 23:25 Discharged to Home. Impression: Urinary tract infection, site not specified, Cellulitis of right lower limb, Lymphedema, not elsewhere classified. - Condition is Stable. - Discharge Instructions: Cellulitis, Adult, Hypertension, Urinary Tract Infection, Adult, Rehydration, Adult, Heat Therapy. - Prescriptions for Clindamycin HCl 300 mg Oral Capsule - take 1 capsule by ORAL route every 6 hours for 10 days; 40 capsule. Bactrim DS 800- 160 mg Oral Tablet - take 1 tablet by ORAL route every 12 hours for 10 days; 20 tablet. - Medication Reconciliation Form, Thank You Letter, Antibiotic Education, Prescription Opioid Use form. - Follow up: Private Physician; When: 2 - 3 days; Reason: Recheck today's complaints, Continuance of care, Re-evaluation by your physician. Follow up: Emergency Department; When: As needed; Reason: Worsening of condition. Signatures: Dispatcher [employer] EDBrianna Wong FNP-C FNP-Jaylene Blevins, RN Pam Flood ea, MD MD ma2 Gloria Engle cc3 Corrections: (The following items were deleted from the chart) 02/01 23:53 23:25 02/01/2018 23:25 Discharged to Home. Impression: Urinary tract infection, site cc3 not specified; Cellulitis of right lower limb; Lymphedema, not elsewhere classified. Condition is Stable. Discharge Instructions: Cellulitis, Adult, Hypertension, Urinary Tract Infection, Adult, Rehydration, Adult, Heat Therapy. Prescriptions for Clindamycin HCl 300 mg Oral Capsule - take 1 capsule by ORAL route every 6 hours for 10 days; 40 capsule, Bactrim DS 800-160 mg Oral Tablet - take 1 tablet by ORAL route every 12 hours for 10 days; 20 tablet. and Forms are Medication Reconciliation Form, Thank You Letter, Antibiotic Education, Prescription Opioid Use. Follow up: Private Physician; When: 2 - 3 days; Reason: Recheck today's complaints, Continuance of care, Re-evaluation by your physician. Follow up: Emergency Department; When: As needed; Reason: Worsening of condition. snw
[2018-02-01] MEDS ORDERED: DIAZEPAM 10 MG/2 ML INJ SYRINGE ONE (23:45)
[2018-02-01 23:57] VITALS: TEMP 99
[2018-02-01 23:58] VITALS: BP 148/58; O2SAT 98
== END 2018-02-01 23:53 | disposition home or self-care (01) ==
LOC: ER 21:13
DX: L03.115 Cellulitis of right lower limb (principal); I89.0 Lymphedema, not elsewhere classified; N39.0 Urinary tract infection, site not specified
CPT/HCPCS: 36415; 80048; 81003; 81015; 85025; 87040; 87077; 87086; 87088; 87184; 87186; 87205; 96365; 96375; 99284; J3010; J3360

== ENCOUNTER 2018-07-14 20:50 | Inpatient (IN) | payer SELFPAY ==
[2018-07-14] MEDS ORDERED: Levofloxacin500mg IV 500 MG/100 ML BAG IV ONE (22:40)
[2018-07-14] MEDS ORDERED: NA CHLORIDE 0.9% 250 ML ONE (22:40)
[2018-07-14] MEDS ORDERED: VANCOMYCIN 1 GM/VIAL ONE (22:40)
[2018-07-14 23:03] LABS: Absolute Lymphocytes (CBC) 1.1 K/uL (0.7-4.9); Absolute Monocytes 0.4 K/uL (0.1-1.3); Absolute Neutrophil 5.9 K/uL (1.8-8.0); Basophils % 0.4 % (0-1.3); Eosinophils % 0.4 % (0-4.4); Hematocrit 40.1 % (36.0-45.0); Lymphocytes % 14.7 % (15.3-44.8); Monocytes % 5.9 % (3.3-12.3); RBC Red Blood Cell Count 4.49 M/uL (3.86-4.86)
--- NOTE | 2018-07-14 23:13 | EDPHYS ---
Physician Documentation [facility] Name: Grace Case Age: 63 yrs Sex: Female : 1955 Arrival Date: 07/14/2018 Time: 20:51 Bed 30 Private MD: ED Physician Trace Win HPI: 07/14 23:09 This 63 yrs old Female presents to ER via Wheelchair with complaints of jr8 Fever, Leg Pain. 23:09 The patient reports fever, not measured (subjective). Onset: The symptoms/episode jr8 began/occurred acutely, today. Modifying factors: there are no obvious modifying factors. Associated signs and symptoms: Pertinent positives: leg pain and erythema. Severity of symptoms: At their worst the symptoms were moderate in the emergency department the symptoms are unchanged. The patient has experienced a previous episode. The patient has not recently seen a physician. History of lymphedema and cellulitis in past. Noticed that her left leg became more swollen, tender, and red. Now having fevers at home . Historical: - Allergies: 21:14 No Known Allergies; aa1 - Home Meds: 21:14 Tylenol #3 Oral [Active]; aa1 - PMHx: 21:14 lymphedema; UTI; cellulits; aa1 - PSHx: 21:14 D \T\ C; aa1 - Immunization history:: Flu vaccine is not up to date. - Social history:: Smoking status: Patient/guardian denies using tobacco. - Ebola Screening: : No symptoms or risks identified at this time. ROS: 23:09 Eyes: Negative for injury, pain, redness, and discharge, ENT: Negative for injury, jr8 pain, and discharge, Neck: Negative for injury, pain, and swelling, Cardiovascular: Negative for chest pain, palpitations, and edema, Respiratory: Negative for shortness of breath, cough, wheezing, and pleuritic chest pain, Abdomen/GI: Negative for abdominal pain, nausea, vomiting, diarrhea, and constipation, Back: Negative for injury and pain, Neuro: Negative for headache, weakness, numbness, tingling, and seizure. 23:09 MS/extremity: Positive for erythema, pain, swelling, tenderness, warmth, of the left leg. Exam: 23:09 Eyes: Pupils equal round and reactive to light, extra-ocular motions intact. Lids and jr8 lashes normal. Conjunctiva and sclera are non-icteric and not injected. Cornea within normal limits. Periorbital areas with no swelling, redness, or edema. ENT: Nares patent. No nasal discharge, no septal abnormalities noted. Tympanic membranes are normal and external auditory canals are clear. Oropharynx with no redness, swelling, or masses, exudates, or evidence of obstruction, uvula midline. Mucous membranes moist. Neck: Trachea midline, no thyromegaly or masses palpated, and no cervical lymphadenopathy. Supple, full range of motion without nuchal rigidity, or vertebral point tenderness. No Meningismus. Cardiovascular: Regular rate and rhythm with a normal S1 and S2. No gallops, murmurs, or rubs. Normal PMI, no JVD. No pulse deficits. Respiratory: Lungs have equal breath sounds bilaterally, clear to auscultation and percussion. No rales, rhonchi or wheezes noted. No increased work of breathing, no retractions or nasal flaring. Abdomen/GI: Soft, non-tender, with normal bowel sounds. No distension or tympany. No guarding or rebound. No evidence of tenderness throughout. Back: No spinal tenderness. No costovertebral tenderness. Full range of motion. Neuro: Awake and alert, GCS 15, oriented to person, place, time, and situation. Cranial nerves II-XII grossly intact. Motor strength 5/5 in all extremities. Sensory grossly intact. Cerebellar exam normal. Normal gait. 23:09 Musculoskeletal/extremity: Extremities: grossly normal except: noted in the left leg: erythema, pain, swelling, tenderness, all noted from left foot to proximal tibia , ROM: intact in all extremities, Circulation is intact in all extremities. Sensation intact. Vital Signs: 21:14 BP 141 / 107; Pulse 98; Resp 20; Temp 99.8(O); Pulse Ox 97% on R/A; Weight 136.08 kg aa1 (R); Height 5 ft. 5 in. (165.10 cm); Pain 7/10; 23:44 BP 131 / 78; Pulse 111; Resp 18; Temp 101(O); Pulse Ox 95% on R/A; Pain 6/10; mg2 05/07 01:38 BP 130 / 78; Pulse 90; Resp 18; Temp 98.9(O); Pulse Ox 98% on R/A; Pain 1/; mg2 07/14 21:14 Body Mass Index 49.92 (136.08 kg, 165.10 cm) aa1 MDM: 07/14 21:51 Patient medically screened. jr8 23:09 Data reviewed: vital signs, nurses notes, lab test result(s). Data interpreted: Pulse jr8 oximetry: on room air is 97 %. Interpretation: normal. Counseling: I had a detailed discussion with the patient and/or guardian regarding: the historical points, exam findings, and any diagnostic results supporting the discharge/admit diagnosis, lab results, the need for further work-up and treatment in the hospital. 07/14 22:12 Order name: CBC with Diff jr8 07/14 22:12 Order name: Basic Metabolic Panel; Complete Time: 23:36 jr8 07/14 22:12 Order name: LFT's; Complete Time: 23:36 jr8 07/14 22:12 Order name: Blood Culture Adult (2) jr8 07/14 22:13 Order name: CBC with Automated Diff; Complete Time: 23:09 EDMS 07/15 00:14 Order name: Basic Metabolic Panel EDMS 07/15 00:14 Order name: CONS Pharmacy Consult EDMS 07/15 00:14 Order name: CONS Pharmacy Consult EDMS 07/15 00:22 Order name: Consistent Carb (ADA) [address] EDMS 07/15 00:22 Order name: CBC with Automated Diff EDMS 07/14 22:13 Order name: IV; Complete Time: 22:23 jr8 Administered Medications: 22:43 Drug: LevaQUIN 500 mg Volume: 100 ml; Route: IVPB; Infused Over: 60 mins; Site: right mg2 forearm; 07/15 01:00 Follow up: Response: No adverse reaction; IV Status: Completed infusion mg2 07/14 23:44 Drug: vancoMYCIN 1 grams Route: IVPB; Infused Over: 2 hrs; Site: right forearm; mg2 07/15 02:20 Follow up: Response: No adverse reaction; IV Status: Completed infusion; IV Intake: mg2 250ml 07/14 23:54 Drug: Tylenol 1000 mg Route: PO; mg2 07/15 01:00 Follow up: Response: No adverse reaction; Marked relief of symptoms mg2 00:30 Drug: fentaNYL (PF) 75 mcg Route: IVP; Site: right forearm; mg2 01:00 Follow up: Response: No adverse reaction; Marked relief of symptoms mg2 Disposition: 01:52 Co-signature as Attending Physician, Trace Win MD. federico Disposition: 07/14/18 23:13 Hospitalization ordered by Pam Bonner for Inpatient Admission. Preliminary diagnosis is Cellulitis of left lower limb. - Bed requested for Telemetry/MedSurg (Inpatient). - Status is Inpatient Admission. mg2 - Condition is Stable. - Problem is new. - Symptoms have improved. UTI on Admission? No Signatures: Dispatcher [employer] EDMS Sherry Hu RN RN aa1 Trace Win MD MD pkl Santhosh Olsen PA PA jr8 Selena Cosme, RN RN cg Crescencio Bustamante RN RN mg2 Corrections: (The following items were deleted from the chart) 01:07/14 23:13 Hospitalization Ordered by Pam Bonner MD for Inpatient Admission. cg Preliminary diagnosis is Cellulitis of left lower limb. Bed requested for Telemetry/MedSurg (Inpatient). Status is Inpatient Admission. Condition is Stable. Problem is new. Symptoms have improved. UTI on Admission? No. jr8 07/15 01:52 01:01 07/14/2018 23:13 Hospitalization Ordered by Pam Bonner MD for Inpatient mg2 Admission. Preliminary diagnosis is Cellulitis of left lower limb. Bed requested for Telemetry/MedSurg (Inpatient). Status is Inpatient Admission. Condition is Stable. Problem is new. Symptoms have improved. UTI on Admission? No. cg
--- NOTE | 2018-07-14 23:13 | ER ---
Nurse's Notes [facility] Name: Grace Case Age: 63 yrs Sex: Female : 1955 Arrival Date: 07/14/2018 Time: 20:51 Bed 30 Private MD: Diagnosis: Cellulitis of left lower limb Presentation: 07/14 21:11 Presenting complaint: Patient states: fever and L leg pain since this am. Reports hx of aa1 chronic cellulitis and lymphedema. Transition of care: patient was not received from another setting of care. Onset of symptoms was July 14, 2018 at 09:00. Risk Assessment: Do you want to hurt yourself or someone else? Patient reports no desire to harm self or others. Initial Sepsis Screen: Does the patient meet any 2 criteria? HR > 90 bpm. No. Patient's initial sepsis screen is negative. Does the patient have a suspected source of infection? Yes: Skin breakdown/wound. Care prior to arrival: None. 21:11 Method Of Arrival: Wheelchair aa1 21:11 Acuity: ESTEPHANIA 3 aa1 Triage Assessment: 21:14 General: Appears in no apparent distress. comfortable, Behavior is calm, cooperative, aa1 appropriate for age. Historical: - Allergies: 21:14 No Known Allergies; aa1 - Home Meds: 21:14 Tylenol #3 Oral [Active]; aa1 - PMHx: 21:14 lymphedema; UTI; cellulits; aa1 - PSHx: 21:14 D \T\ C; aa1 - Immunization history:: Flu vaccine is not up to date. - Social history:: Smoking status: Patient/guardian denies using tobacco. - Ebola Screening: : No symptoms or risks identified at this time. Screenin:43 Abuse screen: Denies threats or abuse. Denies injuries from another. Nutritional mg2 screening: No deficits noted. Tuberculosis screening: No symptoms or risk factors identified. Fall Risk IV access (20 points). Assessment: 23:32 General: Appears in no apparent distress. comfortable, Behavior is calm, cooperative. mg2 Pain: Complains of pain in left leg Pain does not radiate. Pain currently is 6 out of 10 on a pain scale. Quality of pain is described as burning, aching, Pain began gradually, months Is intermittent. Neuro: Level of Consciousness is awake, alert, obeys commands, Oriented to person, place, time, situation. Cardiovascular: Capillary refill < 3 seconds Patient's skin is warm and dry. Respiratory: Airway is patent Respiratory effort is even, unlabored, Respiratory pattern is regular, symmetrical. GI: No signs and/or symptoms were reported involving the gastrointestinal system. : No signs and/or symptoms were reported regarding the genitourinary system. EENT: No signs and/or symptoms were reported regarding the EENT system. Derm: Skin temperature is warm cellulitis/redness and swelling in both legs. Musculoskeletal: Circulation, motion, and sensation intact. Capillary refill < 3 seconds, Swelling present in left leg and right leg. Vital Signs: 21:14 BP 141 / 107; Pulse 98; Resp 20; Temp 99.8(O); Pulse Ox 97% on R/A; Weight 136.08 kg aa1 (R); Height 5 ft. 5 in. (165.10 cm); Pain 7/10; 23:44 BP 131 / 78; Pulse 111; Resp 18; Temp 101(O); Pulse Ox 95% on R/A; Pain 6/10; mg2 07/15 01:38 BP 130 / 78; Pulse 90; Resp 18; Temp 98.9(O); Pulse Ox 98% on R/A; Pain 1/10; mg2 07/14 21:14 Body Mass Index 49.92 (136.08 kg, 165.10 cm) aa1 ED Course: 07/14 20:51 Patient arrived in ED. mr 21:13 Triage completed. aa1 21:14 Arm band placed on right wrist. aa1 21:39 Crescencio Bustamante, GIL is Primary Nurse. mg2 21:44 Santhosh Olsen PA is PHCP. jr8 21:44 Trace Win MD is Attending Physician. jr8 23:12 Pam Bonner MD is Hospitalizing Provider. jr8 23:43 No provider procedures requiring assistance completed. Inserted saline lock: 22 gauge mg2 in right forearm, using aseptic technique. Blood collected. 23:44 Patient has correct armband on for positive identification. Pulse ox on. NIBP on. Door mg2 closed. 07/15 01:42 Patient admitted, IV remains in place. mg2 Administered Medications: 07/14 22:43 Drug: LevaQUIN 500 mg Volume: 100 ml; Route: IVPB; Infused Over: 60 mins; Site: right mg2 forearm; 07/15 01:00 Follow up: Response: No adverse reaction; IV Status: Completed infusion mg2 07/14 23:44 Drug: vancoMYCIN 1 grams Route: IVPB; Infused Over: 2 hrs; Site: right forearm; mg2 07/15 02:20 Follow up: Response: No adverse reaction; IV Status: Completed infusion; IV Intake: mg2 250ml 07/14 23:54 Drug: Tylenol 1000 mg Route: PO; mg2 07/15 01:00 Follow up: Response: No adverse reaction; Marked relief of symptoms mg2 00:30 Drug: fentaNYL (PF) 75 mcg Route: IVP; Site: right forearm; mg2 01:00 Follow up: Response: No adverse reaction; Marked relief of symptoms mg2 Intake: 02:20 IV: 250ml; Total: 250ml. mg2 Outcome: 07/14 23:13 Decision to Hospitalize by Provider. jr8 07/15 01:43 Admitted to Med/surg accompanied by tech, via wheelchair, room 220, with chart, Report mg2 called to GIL Espinal Condition: stable Instructed on the need for admit, Demonstrated understanding of instructions. 01:52 Patient left the ED. mg2 Signatures: Sherry Hu RN RN aa1 Grace Herrera mr Santhosh Olsen PA PA jr8 Crescencio Bustamante RN RN mg2
[2018-07-14 23:23] LABS: Bilirubin Direct 0.2 mg/dL (0-0.2); Bilirubin Total 0.9 mg/dL (0.2-1.0); Protein, Total 9.3 g/dL (6.4-8.2)
[2018-07-15] MEDS ORDERED: ACETAMINOPHEN 500 MG TAB ONE (00:02)
[2018-07-15] MEDS ORDERED: ACETAMINOPHEN 500 MG TAB PO PRN (00:05)
[2018-07-15] MEDS ORDERED: MORPHINE 4 MG/ML SYR IV PRN (00:05)
[2018-07-15] MEDS ORDERED: VANCOMYCIN/NS 1 gm 1 GM/250 ML BAG IVPB SCH (00:15)
[2018-07-15] MEDS ORDERED: FENTANYL CITR 100 MCG/2 ML ONE (00:28)
[2018-07-15] MEDS ORDERED: NA CHLORIDE 0.9% 1,000 ML IV SCH (01:00)
[2018-07-15] MEDS ORDERED: VANCOMYCIN 2 GM in NA CHLORIDE 0.9% 500 ML IVPB SCH ×2 (02:00→18:00)
[2018-07-15] MEDS ORDERED: VANCOMYCIN/NS 1 gm 1 GM/250 ML BAG IVPB ONE (02:30)
[2018-07-15] MEDS ORDERED: VANCOMYCIN 1 GM/VIAL ONE (03:07)
[2018-07-15] MEDS ORDERED: NA CHLORIDE 0.9% 250 ML ONE (03:11)
[2018-07-15] MEDS ORDERED: HYDROCORTISONE SUC 100 MG INJ IV ONE (03:43)
[2018-07-15] MEDS ORDERED: WATER FOR INJ,STERILE 10 ML ONE (04:32)
[2018-07-15 04:41] VITALS: BMI 49.9
[2018-07-15] MEDS ORDERED: AMPICILLIN/SULBACT 1.5GM VIAL ONE (05:30)
[2018-07-15] MEDS ORDERED: NA CHLORIDE 0.9% 100 ML ONE (05:35)
[2018-07-15] MEDS: AMPICILLIN/SULBACT 3 GM in NA CHLORIDE 0.9% 100 ML IVPB SCH ×3 (06:00→17:04)
[2018-07-15] MEDS: FUROSEMIDE 40 MG/4 ML VIAL IV SCH ×3 (06:21→16:24)
[2018-07-15 07:41] LABS: Absolute Lymphocytes (CBC) 1.1 K/uL (0.7-4.9); Absolute Monocytes 0.5 K/uL (0.1-1.3); Absolute Neutrophil 6.6 K/uL (1.8-8.0); Basophils % 0.6 % (0-1.3); Eosinophils % 0.1 % (0-4.4); Hematocrit 40.2 % (36.0-45.0); Lymphocytes % 13.3 % (15.3-44.8); MPV 7.8 fL (7.6-11.3); Monocytes % 5.5 % (3.3-12.3); RBC Red Blood Cell Count 4.56 M/uL (3.86-4.86)
[2018-07-15 07:52] LABS: Potassium 4.1 mmol/L (3.5-5.1)
--- NOTE | 2018-07-15 09:17 | RAD REPORT ---
EXAM DESCRIPTION: US - Extremity Venous Uni Ltd - 07/15/2018 9:12 am CLINICAL HISTORY: History of DVT, left lower extremity erythema COMPARISON: None. TECHNIQUE: Real-time sonographic evaluation of the left lower extremity deep venous system was perfo rmed. FINDINGS: Normal compressibility, flow augmentation, phasic flow and spontaneous flow are identified in the left lower extremity common femoral, superficial femoral, popliteal and posterior tibial vein s. No intraluminal filling defects seen. IMPRESSION: No DVT in the left lower extremity.
[2018-07-15] MEDS ORDERED: TRAMADOL HCL 50 MG TAB PO PRN (15:04)
--- NOTE | 2018-07-15 20:33 | P.HP ---
Certification for Inpatient Patient admitted to: Inpatient With expected LOS: >2 Midnights Patient will require the following post-hospital care: None Practitioner: I am a practitioner with admitting privileges, knowledge of patient current condition, hospital course, and medical plan of care. Services: Services provided to patient in accordance with Admission requirements found in Title 42 Section 412.3 of the Code of Federal Regulations Patient History Date of Service: 07/15/18 Reason for admission: left lower extremity cellulitis in a patient with lymphedema History of Present Illness: Patient is a 63-year-old female who came into the hospital with left lower extremity cellulitis. Patient has lymphedema. Patient has had recurrent cellulitis in the past. She also has a history of DVT. Patient came into the emergency room for further evaluation. In the ER her workup revealed that she had cellulitis that extended from the foot all the way to the left knee. She had significant swelling and pain and tenderness. There is not a Doppler of her lower extremity. We will get a Doppler of her left lower extremity as well. Patient will be admitted to the hospital for further workup. Allergies No Known Allergies Allergy (Verified 12/02/15 04:00) Home Medications: NK [No Home Meds] 07/15/18 - Past Medical/Surgical History Has patient received pneumonia vaccine in the past: No Diabetic: No -: chronic edema -: DVT -: UTI -: Lymphedema -: cellulitis; left calf -: tubal ligation -: IVC vinny filter placement - Family History Mother Medical History: Lung disease, Other (see notes) Notes: pulmonary embolism; emphysema Father Medical History: Cancer, Other (see notes) Notes: throat and tongue CA - Social History Smoking Status: Never smoker Alcohol use: No CD- Drugs: No Caffeine use: Yes Place of Residence: Home Review of Systems 10-point ROS is otherwise unremarkable Physical Examination - Vital Signs Temperature: 98.3 F Blood Pressure: 127/60 Pulse: 70 Respirations: 18 Pulse Ox (%): 97 - Physical Exam General: Alert, In no apparent distress, Oriented x3 HEENT: Atraumatic, PERRLA, Mucous membr. moist/pink, EOMI, Sclerae nonicteric Neck: Supple, 2+ carotid pulse no bruit, No LAD, Without JVD or thyroid abnormality Respiratory: Clear to auscultation bilaterally, Normal air movement Cardiovascular: Regular rate/rhythm, Normal S1 S2, No murmurs Gastrointestinal: Normal bowel sounds, Soft and benign, Non-distended, No tenderness Musculoskeletal: No clubbing, No swelling, No tenderness Integumentary: No rashes Neurological: Normal gait, Normal speech, Normal strength at 5/5 x4 extr, Normal tone, Sensation intact, Cranial nerves 3-12 intact, Normal affect Lymphatics: No axilla or inguinal lymphadenopathy - Studies Laboratory Data (last 24 hrs) 07/14/18 22:15: Sodium 140, Potassium 4.0, BUN 12, Creatinine 1.19, Glucose 104 , Total Bilirubin 0.9, AST 22, ALT 25, Alkaline Phosphatase 93 07/14/18 22:15: WBC 7.5, Hgb 13.7, Hct 40.1, Plt Count 239 Assessment & Plan - Problems (Diagnosis) (1) Cellulitis of left lower extremity Onset Date: 05/03/16 Current Visit: No Status: Acute (2) Lymphedema Current Visit: No Status: Acute (3) Renal insufficiency Current Visit: No Status: Acute (4) Morbid obesity Current Visit: No Status: Chronic (5) Osteoarthritis Current Visit: No Status: Chronic Qualifiers: (6) RICCARDO (obstructive sleep apnea) Current Visit: No Status: Suspected - Plan 1. Continue with IV antibiotic 2. Continue with local wound care 3. Wound care consultation 4. Gentle IV hydration 5. Monitor CBC 6. Strict blood sugar monitoring 7. Pain control 8. DVT studies 9. GI and DVT prophylaxis Discharge Plan: Home Plan to discharge in: Greater than 2 days - Advance Directives Does patient have a Living Will: No Does patient have a Durable POA for Healthcare: No - Code Status/Comfort Care Code Status Assessed: Yes Code Status: Full Code Critical Care: No Time Spent Managing PTS Care (In Minutes): 50
[2018-07-15] MEDS ORDERED: DIPHENHYDRAMINE 50 MG/ML VIAL IV ONE (21:00)
[2018-07-16] MEDS: AMPICILLIN/SULBACT 3 GM in NA CHLORIDE 0.9% 100 ML IVPB SCH ×4 (00:24→17:04)
[2018-07-16] MEDS: FUROSEMIDE 40 MG/4 ML VIAL IV SCH ×3 (00:48→17:03)
[2018-07-16 02:09] LABS: Urine Appearance CLOUDY; Urine Bilirubin NEGATIVE (NEG); Urine Blood 3+ (NEG); Urine Color YELLOW; Urine Glucose NEGATIVE (NEG); Urine Protein TRACE (NEG); Urine pH 5.5 (5.0-7.0)
[2018-07-16 02:10] LABS: Urine Microscopic Reflex ORDER UMIC
[2018-07-16 02:51] LABS: Urine Bacteria <20 /HPF (<20); Urine Culture Reflex Order REFLEXED; Urine Mucus 1+ /HPF (NONE SEEN); Urine RBC >50 /HPF (NONE SEEN)
[2018-07-16 06:38] LABS: Absolute Lymphocytes (CBC) 2.1 K/uL (0.7-4.9); Absolute Monocytes 0.5 K/uL (0.1-1.3); Absolute Neutrophil 3.8 K/uL (1.8-8.0); Basophils % 0.6 % (0-1.3); Eosinophils % 0.7 % (0-4.4); Hematocrit 39.9 % (36.0-45.0); Lymphocytes % 32.5 % (15.3-44.8); MPV 7.9 fL (7.6-11.3); Monocytes % 7.3 % (3.3-12.3); RBC Red Blood Cell Count 4.54 M/uL (3.86-4.86)
[2018-07-16 06:51] LABS: Albumin 3.7 g/dL (3.4-5.0); Bilirubin Total 0.9 mg/dL (0.2-1.0); Potassium 3.4 mmol/L (3.5-5.1)
[2018-07-16] MEDS: MUPIROCIN 2% OINT 22GM TUBE TOP SCH (09:00)
[2018-07-16] MEDS: LIDOCAINE 5% PATCH TOP SCH (10:38)
--- NOTE | 2018-07-16 13:08 | P.PN ---
Subjective Date of Service: 07/16/18 Chief Complaint: left lower extremity cellulitis in a patient with lymphedema Subjective: Improving Patient seen and examined at bedside. No family at bedside. Chart reviewed and case discussed with nursing staff. Reports improved swelling, pain and erythema Continues to be inside demarcation No other complaints or concerns this morning. No acute events noted overnight Review of Systems 10-point ROS is otherwise unremarkable Physical Examination - Vital Signs Temperature: 98.3 F Blood Pressure: 146/64 Pulse: 78 Respirations: 20 Pulse Ox (%): 95 - Physical Exam General: Alert, In no apparent distress, Oriented x3, Obese Respiratory: Clear to auscultation bilaterally, Normal air movement Cardiovascular: Regular rate/rhythm, Normal S1 S2 Musculoskeletal: Erythema, Tenderness Integumentary: Tenderness/swelling, Erythema, Warmth, Other (Chronic lymph edema and skin changes bilateral lower extremities) Assessment And Plan - Current Problems (Diagnosis) (1) Cellulitis Current Visit: No Status: Acute Plan: Continue IV antibiotics, local wound care. Wound care consulted, recommendations appreciated. Qualifiers: Site of cellulitis: extremity Site of cellulitis of extremity: lower extremity Laterality: left Qualified Code(s): L03.116 - Cellulitis of left lower limb (2) Lymphedema Current Visit: No Status: Acute Plan: Ultrasound lower extremity negative for DVT at this time. (3) Osteoarthritis Current Visit: No Status: Chronic Plan: Physical therapy consulted. Lidocaine patch to the right knee to help with symptoms. She will eventually need outpatient follow up with orthopedics, the patient is uninsured and has no resources for any outpatient/elective surgical interventions at this time. Qualifiers: Osteoarthritis location: knee Osteoarthritis type: primary Laterality: right Qualified Code(s): M17.11 - Unilateral primary osteoarthritis, right knee (4) RICCARDO (obstructive sleep apnea) Current Visit: No Status: Suspected (5) Morbid obesity Current Visit: No Status: Chronic - Plan DVT prophylaxis: Lovenox GI prophylaxis: Protonix Diet: Heart healthy/diabetic Disposition: Continue IV antibiotics. Pending symptomatic improvement. Possible discharge home in the next 24-48 hr on oral antibiotics. Discharge Plan: Home Plan to discharge in: 24 Hours
[2018-07-16] MEDS ORDERED: VANCOMYCIN 2 GM in NA CHLORIDE 0.9% 500 ML IVPB SCH (18:00)
[2018-07-16 23:57] VITALS: O2SAT 98
[2018-07-17] MEDS: AMPICILLIN/SULBACT 3 GM in NA CHLORIDE 0.9% 100 ML IVPB SCH ×2 (00:02→05:04)
[2018-07-17] MEDS: FUROSEMIDE 40 MG/4 ML VIAL IV SCH ×2 (00:25→10:06)
[2018-07-17] MEDS: MUPIROCIN 2% OINT 22GM TUBE TOP SCH (10:07)
[2018-07-17] MEDS: LIDOCAINE 5% PATCH TOP SCH (10:07)
--- NOTE | 2018-07-17 11:08 | P.DS ---
Admission Date: 07/15/18 Discharge Date: 07/17/18 Disposition: ROUTINE DISCHARGE Discharge Condition: GOOD Reason for Admission: left lower extremity cellulitis in a patient with lymphedema - Problems (1) Cellulitis Current Visit: No Status: Acute Qualifiers: Site of cellulitis: extremity Site of cellulitis of extremity: lower extremity Laterality: left Qualified Code(s): L03.116 - Cellulitis of left lower limb (2) Lymphedema Current Visit: No Status: Acute (3) Osteoarthritis Current Visit: No Status: Chronic Qualifiers: Osteoarthritis location: knee Osteoarthritis type: primary Laterality: right Qualified Code(s): M17.11 - Unilateral primary osteoarthritis, right knee (4) RICCARDO (obstructive sleep apnea) Current Visit: No Status: Suspected (5) Morbid obesity Current Visit: No Status: Chronic Brief History of Present Illness: Patient is a 63-year-old female who came into the hospital with left lower extremity cellulitis. Patient has lymphedema. Patient has had recurrent cellulitis in the past. She also has a history of DVT. Patient came into the emergency room for further evaluation. In the ER her workup revealed that she had cellulitis that extended from the foot all the way to the left knee. She had significant swelling and pain and tenderness. There is not a Doppler of her lower extremity. We will get a Doppler of her left lower extremity as well. Patient will be admitted to the hospital for further workup. Hospital Course: Patient was admitted for left lower extremity cellulitis. Doppler left lower extremity was negative for DVT. She was started on IV antibiotics and local wound care. Wound care was consulted. Her area of cellulitis improved. She otherwise remained hemodynamically stable throughout the stay. Patient does have a history of chronic lymphedema, her ultrasound lower extremity was negative for DVT at this time. She also has a history of osteoarthritis. Physical therapy was consulted. Lidocaine patch was placed on the right need to help with the symptoms. It was discussed with patient that she will need outpatient follow up with orthopedics. Patient stated that she has been told that she needs a knee surgery, but she cannot afford that at this time. She states that she will have to wait until she gets some financial help along with insurance. Prior to discharge, patient was alert oriented x3, in no acute distress and hemodynamically stable. Her area of cellulitis had improved, gotten smaller inside the area of demarcation. Patient was discharged home on oral Bactrim. Her diagnoses and treatment plan was explained to her. All questions were answered, patient verbalized understanding. She was discharged home in a safe and stable manner. Vital Signs/Physical Exam: Temp Pulse Resp BP Pulse Ox 98.1 F 78 20 116/64 96 07/17/18 08:00 07/17/18 08:00 07/17/18 08:00 07/17/18 08:00 07/17/18 08:00 General: Alert, In no apparent distress, Oriented x3, Obese HEENT: Atraumatic, PERRLA, EOMI Respiratory: Clear to auscultation bilaterally, Normal air movement Cardiovascular: Regular rate/rhythm, Normal S1 S2, Edema (Chronic, lymphedema) Gastrointestinal: Normal bowel sounds, No tenderness Integumentary: Erythema (Improved) Laboratory Data at Discharge: WBC 6.4 K/uL (4.3-10.9) D 07/16/18 06:15 Hgb 13.5 g/dL (12.0-15.0) 07/16/18 06:15 Hct 39.9 % (36.0-45.0) 07/16/18 06:15 Plt Count 230 K/uL (152-406) 07/16/18 06:15 Sodium 138 mmol/L (136-145) 07/16/18 06:15 Potassium 3.4 mmol/L (3.5-5.1) L 07/16/18 06:15 BUN 16 mg/dL (7-18) 07/16/18 06:15 Creatinine 1.24 mg/dL (0.55-1.3) 07/16/18 06:15 Glucose 114 mg/dL (74-106) H 07/16/18 06:15 Total Bilirubin 0.9 mg/dL (0.2-1.0) 07/16/18 06:15 AST 20 U/L (15-37) 07/16/18 06:15 ALT 20 U/L (12-78) 07/16/18 06:15 Alkaline Phosphatase 85 U/L (45-117) 07/16/18 06:15 Home Medications: Lidocaine 5% Patch [Lidoderm 5% Patch*] 1 patch TOP DAILY #10 patch 07/17/18 Mupirocin Oint [Bactroban 2% Ointment*] 1 appl TOP DAILY #1 tube 07/17/18 Sulfamethoxazole/Trimethoprim [Bactrim Ds Tablet] 1 each PO BID #14 tablet 07/17 traMADol HCL [Ultram*] 50 mg PO Q6H PRN #10 tab 07/17/18 New Medications: Lidocaine 5% Patch [Lidoderm 5% Patch*] 1 patch TOP DAILY #10 patch Mupirocin Oint [Bactroban 2% Ointment*] 1 appl TOP DAILY #1 tube Sulfamethoxazole/Trimethoprim [Bactrim Ds Tablet] 1 each PO BID #14 tablet traMADol HCL [Ultram*] 50 mg PO Q6H PRN #10 tab PRN Reason: Pain Scale 5-7 (Moderate) Patient Discharge Instructions: Please follow up with the primary care physician to 3 days. Please follow up with wound care in 1 week. New medications: Bactrim, an antibiotic for your infection. Bactroban and tramadol for pain. Please return to the emergency room for worsening symptoms Diet: ADA Activity: Ad javid Time spent managing pt's care (in minutes): 55
[2018-07-17 12:34] VITALS: BP 116/56; TEMP 98.2
== END 2018-07-17 13:00 | disposition home or self-care (01) | DRG 603 ==
LOC: ER 20:50 → ERHOLD 07-15 00:28 → 2ND 07-15 01:43
PROVIDERS: ADMIT Hospitalist; ATTEND Family Medicine
DX: L03.116 Cellulitis of left lower limb (principal); Z68.42 Body mass index [BMI] 45.0-49.9, adult; I89.0 Lymphedema, not elsewhere classified; E66.01 Morbid (severe) obesity due to excess calories; G47.33 Obstructive sleep apnea (adult) (pediatric); J43.9 Emphysema, unspecified; M19.90 Unspecified osteoarthritis, unspecified site; Z86.718 Personal history of other venous thrombosis and embolism; Z86.711 Personal history of pulmonary embolism; M17.11 Unilateral primary osteoarthritis, right knee
CPT/HCPCS: 36415; 80048; 80053; 80076; 80202; 81003; 81015; 83036; 85025; 87040; 87086; 87088; 93971; 96365; 96366; 96367; 96375; 97163; 99251; 99285; J0295; J1720; J1940; J3010; J3370; J7030

== ENCOUNTER 2018-10-11 04:14 | Emergency (ER) | payer SELFPAY ==
[2018-10-11] MEDS ORDERED: FUROSEMIDE 20 MG/ 2ML VIAL ONE (05:09)
[2018-10-11] MEDS ORDERED: HYDROMORPHONE HCL 1 MG/ML INJ ONE (05:10)
[2018-10-11] MEDS ORDERED: ONDANSETRON 4 MG/2 ML VIAL ONE (05:10)
[2018-10-11 05:49] LABS: Urine Blood TRACE (NEG); Urine Glucose NEGATIVE (NEG); Urine Protein TRACE (NEG); Urine pH 5.5 (5.0-7.0)
[2018-10-11 06:12] LABS: Absolute Lymphocytes (CBC) 1.5 K/uL (0.7-4.9); Basophils % 0.4 % (0-1.3); Lymphocytes % 35.5 % (15.3-44.8); MPV 7.8 fL (7.6-11.3); RBC Red Blood Cell Count 3.84 M/uL (3.86-4.86)
[2018-10-11 06:13] LABS: Protime INR 1.11
[2018-10-11 06:20] LABS: ALT/SGPT 20 U/L (12-78); AST/SGOT 17 U/L (15-37); Albumin 3.3 g/dL (3.4-5.0); Alkaline Phosphatase 80 U/L (45-117); BUN Blood Urea Nitrogen 9 mg/dL (7-18); Bicarbonate 30 mmol/L (21-32); Bilirubin Direct 0.3 mg/dL (0-0.2); Bilirubin Total 0.7 mg/dL (0.2-1.0); Glucose Level 108 mg/dL (74-106); Lipase 160 U/L (73-393); Magnesium 2.3 mg/dL (1.8-2.4); NT PRO-BNP 166 pg/mL (<125); Potassium 3.8 mmol/L (3.5-5.1); Protein, Total 8.4 g/dL (6.4-8.2); Sodium Level 141 mmol/L (136-145); Troponin (Emerg Dept Use Only) < 0.02 ng/mL (0.0-0.045)
--- NOTE | 2018-10-11 06:46 | EKG ---
Test Date: 2018-10-11 Test Time: 05:27:34 Custodian Supervisor: RR MEASUREMENT RESULTS: Intervals: Rate: 83 DE: 152 QRSD: 100 QT: 370 QTc: 434 Wilmot: P: 31 DE: 152 QRS: 55 T: 45 INTERPRETIVE STATEMENTS: Normal sinus rhythm Normal ECG Compared to ECG 03/18/2017 17:05:27 No significant changes Electronically Signed On 10-11-18 06:45:39 CDT by Azeem Moran
[2018-10-11] MEDS ORDERED: SMZ./TMP. 800/160 MG TABLET ONE (07:01)
--- NOTE | 2018-10-11 08:02 | EDPHYS ---
Physician Documentation [facility] Name: Grace Case Age: 63 yrs Sex: Female : 1955 Arrival Date: 10/11/2018 Time: 04:16 Bed 20 Private MD: SOFIA Physician Rene Mason HPI: 10/11 05:05 This 63 yrs old Female presents to ER via Wheelchair with complaints of Leg aníbal Pain. 05:05 The patient presents with decreased range of motion, pain, swelling, tenderness. The aníbal complaints affect the lateral aspect of left calf, left lateral ankle, left calf, left Achilles, medial aspect of left calf, left medial ankle, left rosen and anterior aspect of left ankle. Context: The problem was sustained at an unknown site. Onset: The symptoms/episode began/occurred 2 year(s) ago. Modifying factors: The symptoms are alleviated by elevating leg, remaining still, the symptoms are aggravated by movement, weight bearing. Associated signs and symptoms: The patient has no apparent associated signs or symptoms. Severity of symptoms: At their worst the symptoms were moderate, in the emergency department the symptoms are unchanged. The patient has not experienced similar symptoms in the past. Historical: - Allergies: 04:36 No Known Allergies; rr5 - Home Meds: 04:36 Tylenol #3 Oral [Active]; rr5 - PMHx: 04:36 cellulits; lymphedema; UTI; rr5 - PSHx: 04:36 D \T\ C; green filter in my heart and lungs; Tubal ligation; rr5 - Immunization history:: Adult Immunizations up to date. - Social history:: Smoking status: Patient/guardian denies using tobacco, Patient/guardian denies using alcohol, street drugs. - Ebola Screening: : Patient negative for fever greater than or equal to 101.5 degrees Fahrenheit, and additional compatible Ebola Virus Disease symptoms Patient denies exposure to infectious person Patient denies travel to an Ebola-affected area in the 21 days before illness onset. ROS: 05:05 Constitutional: Negative for fever, chills, and weight loss, Eyes: Negative for injury, aníbal pain, redness, and discharge, ENT: Negative for injury, pain, and discharge, Neck: Negative for injury, pain, and swelling, Cardiovascular: Negative for chest pain, palpitations, and edema, Abdomen/GI: Negative for abdominal pain, nausea, vomiting, diarrhea, and constipation, Back: Negative for injury and pain, : Negative for injury, bleeding, discharge, and swelling, Skin: Negative for injury, rash, and discoloration, Neuro: Negative for headache, weakness, numbness, tingling, and seizure, Psych: Negative for depression, anxiety, suicide ideation, homicidal ideation, and hallucinations, Allergy/Immunology: Negative for hives, rash, and allergies, Endocrine: Negative for neck swelling, polydipsia, polyuria, polyphagia, and marked weight changes, Hematologic/Lymphatic: Negative for swollen nodes, abnormal bleeding, and unusual bruising. 05:05 Respiratory: Positive for cough, shortness of breath, on exertion. 05:05 MS/extremity: Positive for decreased range of motion, erythema, pain, swelling, tenderness, of the right leg and left leg. Exam: 05:05 Constitutional: This is a well developed, well nourished patient who is awake, alert, aníbal and in no acute distress. Head/Face: Normocephalic, atraumatic. Eyes: Pupils equal round and reactive to light, extra-ocular motions intact. Lids and lashes normal. Conjunctiva and sclera are non-icteric and not injected. Cornea within normal limits. Periorbital areas with no swelling, redness, or edema. ENT: Nares patent. No nasal discharge, no septal abnormalities noted. Tympanic membranes are normal and external auditory canals are clear. Oropharynx with no redness, swelling, or masses, exudates, or evidence of obstruction, uvula midline. Mucous membranes moist. Neck: Trachea midline, no thyromegaly or masses palpated, and no cervical lymphadenopathy. Supple, full range of motion without nuchal rigidity, or vertebral point tenderness. No Meningismus. Chest/axilla: Normal chest wall appearance and motion. Nontender with no deformity. No lesions are appreciated. Cardiovascular: Regular rate and rhythm with a normal S1 and S2. No gallops, murmurs, or rubs. Normal PMI, no JVD. No pulse deficits. Respiratory: Lungs have equal breath sounds bilaterally, clear to auscultation and percussion. No rales, rhonchi or wheezes noted. No increased work of breathing, no retractions or nasal flaring. Abdomen/GI: Soft, non-tender, with normal bowel sounds. No distension or tympany. No guarding or rebound. No evidence of tenderness throughout. Back: No spinal tenderness. No costovertebral tenderness. Full range of motion. Skin: Warm, dry with normal turgor. Normal color with no rashes, no lesions, and no evidence of cellulitis. Neuro: Awake and alert, GCS 15, oriented to person, place, time, and situation. Cranial nerves II-XII grossly intact. Motor strength 5/5 in all extremities. Sensory grossly intact. Cerebellar exam normal. Normal gait. Psych: Awake, alert, with orientation to person, place and time. Behavior, mood, and affect are within normal limits. 05:05 Musculoskeletal/extremity: Extremities: decreased ROM, erythema, pain, ROM: limited active range of motion, limited passive range of motion, Circulation is intact in all extremities. Sensation intact. Compartment Syndrome exam of affected extremity: is normal. DVT Exam: negative Homans' sign noted on exam, no appreciated bluish discoloration, pain, swelling, tenderness, erythema, increased warmth. Vital Signs: 04:30 BP 132 / 40; Pulse 82; Resp 19; Temp 99.2; Pulse Ox 99% ; Weight 136.08 kg; Height 5 rr5 ft. 6 in. (167.64 cm); Pain 6/10; 05:30 BP 131 / 52; Pulse 75; Resp 17; Pulse Ox 99% on R/A; rr5 05:50 BP 126 / 79; Pulse 79; Resp 16; Pulse Ox 100% on R/A; rr5 06:00 BP 123 / 62; Pulse 70; Resp 16; Pulse Ox 93% on 2 lpm NC; Pain 0/10; rr5 06:05 Pulse Ox 100% on 2 lpm NC; rr5 07:16 BP 126 / 64; Pulse 70; Resp 18; Pulse Ox 97% on R/A; Pain 0/10; em 04:30 Body Mass Index 48.42 (136.08 kg, 167.64 cm) rr5 MDM: 04:49 Patient medically screened. [facility] 05:08 Data reviewed: vital signs, nurses notes, lab test result(s), EKG, radiologic studies, aníbal doppler, plain films. 10/11 05:05 Order name: Basic Metabolic Panel; Complete Time: 06:46 [facility] 10/11 05:05 Order name: CBC with Diff; Complete Time: 06:46 [facility] 10/11 05:05 Order name: LFT's; Complete Time: 06:46 [facility] 10/11 05:05 Order name: Magnesium; Complete Time: 06:46 [facility] 10/11 05:05 Order name: NT PRO-BNP; Complete Time: 06:46 [facility] 10/11 05:05 Order name: PT-INR; Complete Time: 06:46 [facility] 10/11 05:05 Order name: Troponin (emerg Dept Use Only); Complete Time: 06:46 [facility] 10/11 05:05 Order name: XRAY Chest (1 view) [facility] 10/11 05:05 Order name: Lipase; Complete Time: 06:46 [facility] 10/11 05:05 Order name: Urine Culture [facility] 10/11 05:05 Order name: US Extremity Venous W Compression Bean [facility] 10/11 05:29 Order name: Urine Dipstick--Ancillary (enter results); Complete Time: 06:16 cm6 10/11 05:05 Order name: EKG; Complete Time: 05:07 [facility] 10/11 05:05 Order name: Cardiac monitoring; Complete Time: 05:48 [facility] 10/11 05:05 Order name: EKG - Nurse/Tech; Complete Time: 05:48 [facility] 10/11 05:05 Order name: IV Saline Lock; Complete Time: 05:48 [facility] 10/11 05:05 Order name: Labs collected and sent; Complete Time: 05:48 [facility] 10/11 05:05 Order name: O2 Per Protocol; Complete Time: 05:48 [facility] 10/11 05:05 Order name: O2 Sat Monitoring; Complete Time: 05:48 [facility] 10/11 05:05 Order name: Urine Dipstick-Ancillary (obtain specimen); Complete Time: 05:25 [facility] Administered Medications: 05:40 Drug: Zofran 4 mg Route: IVP; Site: right forearm; rr5 06:40 Follow up: Response: No adverse reaction rr5 05:43 Drug: Lasix 20 mg Route: IVP; Site: right forearm; rr5 06:40 Follow up: Response: No adverse reaction rr5 05:45 Drug: Dilaudid 0.5 mg Route: IVP; Site: right forearm; rr5 06:45 Follow up: Response: No adverse reaction rr5 07:04 Drug: Bactrim (160 mg-800 mg (DS) 1 tablet Route: PO; rr5 07:29 Follow up: Response: No adverse reaction em 08:13 Not Given (Physician Discretion): Dilaudid 0.5 mg IVP once em Disposition: 10/11/18 08:00 Discharged to Home. Impression: Lymphedema, not elsewhere classified, Obesity, unspecified. - Condition is Fair. - Discharge Instructions: Edema, Obesity, Adult, Lymphedema, Edema, Lfio-[id number], Obesity, Adult, Qeal-mf-Eovg, Peripheral Edema. - Prescriptions for gabapentin 400 mg Oral capsule - take 1 capsule by ORAL route 3 times per day; 90 capsule. Tylenol- Codeine #3 300-30 mg Oral Tablet - take 2 tablets by ORAL route every 6 hours As needed; 20 tablet. Lasix 20 mg Oral Tablet - take 1 tablet by ORAL route once daily; 20 tablet. Potassium Chloride 20 meq Oral Packet - take 1 packet by ORAL route once daily 1 packet in 6 (six) ounces of water or juice; Take after meal; 30 packet. Bactrim DS 800- 160 mg Oral Tablet - take 1 tablet by ORAL route every 12 hours for 10 days; 20 tablet. - Medication Reconciliation Form, Thank You Letter, Antibiotic Education, Prescription Opioid Use form. - Follow up: Private Physician; When: 2 - 3 days; Reason: Recheck today's complaints, Continuance of care, Re-evaluation by your physician. Follow up: Bam Smith; When: 2 - 3 days; Reason: Recheck today's complaints, Continuance of care, Re-evaluation by your physician. - Problem is new. - Symptoms have improved. Signatures: Dispatcher [employer] EDNY Rene Mason MD MD cha Therrien, Shelly, COMMERCIAL INSTALLER-C COMMERCIAL INSTALLER-Kylahw Garett Forrest, AIR TUBE RELEASER AIR TUBE RELEASER Jack Sommer, RN RN rr5 Corrections: (The following items were deleted from the chart) 08:21 08:00 10/11/2018 08:00 Discharged to Home. Impression: Lymphedema, not elsewhere em classified; Obesity, unspecified. Condition is Fair. Discharge Instructions: Edema, Obesity, Adult, Lymphedema, Edema, Etjw-io-Bwus, Obesity, Adult, Ajof-hs-Rixn, Peripheral Edema. Prescriptions for gabapentin 400 mg Oral capsule - take 1 capsule by ORAL route 3 times per day; 90 capsule, Tylenol-Codeine #3 300-30 mg Oral Tablet - take 2 tablets by ORAL route every 6 hours As needed; 20 tablet, Lasix 20 mg Oral Tablet - take 1 tablet by ORAL route once daily; 20 tablet, Potassium Chloride 20 meq Oral Packet - take 1 packet by ORAL route once daily 1 packet in 6 (six) ounces of water or juice; Take after meal; 30 packet, Bactrim DS 800-160 mg Oral Tablet - take 1 tablet by ORAL route every 12 hours for 10 days; 20 tablet. and Forms are Medication Reconciliation Form, Thank You Letter, Antibiotic Education, Prescription Opioid Use. Follow up: Private Physician; When: 2 - 3 days; Reason: Recheck today's complaints, Continuance of care, Re-evaluation by your physician. Follow up: Bam Smith; When: 2 - 3 days; Reason: Recheck today's complaints, Continuance of care, Re-evaluation by your physician. Problem is new. Symptoms have improved. snw
--- NOTE | 2018-10-11 08:02 | ER ---
Nurse's Notes [facility] Name: Grace Case Age: 63 yrs Sex: Female : 1955 Arrival Date: 10/11/2018 Time: 04:16 Bed 20 Private MD: Diagnosis: Lymphedema, not elsewhere classified;Obesity, unspecified Presentation: 10/11 04:30 Presenting complaint: Patient states: my legs is hurting so bad. I have been diagnosed rr5 with lymph edema years ago, having this constant pain but few days ago it getting worse and worse now I cannot tolerate the pain anymore. 04:30 Transition of care: patient was not received from another setting of care. Onset of rr5 symptoms was September 2018. Risk Assessment: Do you want to hurt yourself or someone else? Patient reports no desire to harm self or others. Initial Sepsis Screen: Does the patient meet any 2 criteria? No. Patient's initial sepsis screen is negative. Does the patient have a suspected source of infection? Yes: Skin breakdown/wound. Care prior to arrival: None. 04:30 Method Of Arrival: Wheelchair rr5 04:30 Acuity: ESTEPHANIA 3 rr5 Historical: - Allergies: 04:36 No Known Allergies; rr5 - Home Meds: 04:36 Tylenol #3 Oral [Active]; rr5 - PMHx: 04:36 cellulits; lymphedema; UTI; rr5 - PSHx: 04:36 D \T\ C; green filter in my heart and lungs; Tubal ligation; rr5 - Immunization history:: Adult Immunizations up to date. - Social history:: Smoking status: Patient/guardian denies using tobacco, Patient/guardian denies using alcohol, street drugs. - Ebola Screening: : Patient negative for fever greater than or equal to 101.5 degrees Fahrenheit, and additional compatible Ebola Virus Disease symptoms Patient denies exposure to infectious person Patient denies travel to an Ebola-affected area in the 21 days before illness onset. Screenin:36 Abuse screen: Denies threats or abuse. Denies injuries from another. Nutritional rr5 screening: No deficits noted. Tuberculosis screening: No symptoms or risk factors identified. Fall Risk Gait- Normal/Bed Rest/Wheelchair (0 pts) Total Menon Fall Scale indicates No Risk (0-24 pts). Assessment: 04:30 General: Appears in no apparent distress. uncomfortable, Behavior is calm, cooperative, rr5 appropriate for age, Reports fever for. 04:30 Pain: Complains of pain in right leg and left leg Pain does not radiate. Pain currently rr5 is 6 out of 10 on a pain scale. Quality of pain is described as aching, Pain began gradually, years ago. Is intermittent, chronic. Neuro: Level of Consciousness is awake, alert, obeys commands, Oriented to person, place, time, situation, Appropriate for age. Cardiovascular: Capillary refill < 3 seconds Patient's skin is warm and dry. Respiratory: Airway is patent Respiratory effort is even, unlabored, Respiratory pattern is regular, symmetrical. GI: No signs and/or symptoms were reported involving the gastrointestinal system. : No signs and/or symptoms were reported regarding the genitourinary system. EENT: No signs and/or symptoms were reported regarding the EENT system. Derm: Skin with poor turgor has blisters on lower legs has skin tears on lower legs Skin temperature is warm Wound noted left leg Wound is skin peeled. Musculoskeletal: Capillary refill < 3 seconds, Swelling present in right leg and left leg. 05:10 Reassessment: Patient appears in no apparent distress at this time. Patient and/or rr5 family updated on plan of care and expected duration. Pain level reassessed. Patient is alert, oriented x 3, equal unlabored respirations, skin warm/dry/pink. 05:50 Reassessment: Patient appears in no apparent distress at this time. Patient is alert, rr5 oriented x 3, equal unlabored respirations, skin warm/dry/pink. eyes closed breathing spontaneously, vital signs taken hemodynamically stable. 06:04 Reassessment: Patient appears in no apparent distress at this time. Patient is alert, rr5 oriented x 3, equal unlabored respirations, skin warm/dry/pink. Patient denies pain at this time. Patient states feeling better. Patient states symptoms have improved. 06:40 Reassessment: call made by charge nurse to xray department. ultrasound staff will be rr5 available at 0700H. 06:55 Reassessment: Patient appears in no apparent distress at this time. Patient is alert, rr5 oriented x 3, equal unlabored respirations, skin warm/dry/pink. went restroom voided freely, post lasix. 07:15 Reassessment: Patient appears in no apparent distress at this time. Patient and/or em family updated on plan of care and expected duration. Pain level reassessed. Patient is alert, oriented x 3, equal unlabored respirations, skin warm/dry/pink. US at bedside Patient states feeling better. Vital Signs: 04:30 BP 132 / 40; Pulse 82; Resp 19; Temp 99.2; Pulse Ox 99% ; Weight 136.08 kg; Height 5 rr5 ft. 6 in. (167.64 cm); Pain 6/10; 05:30 BP 131 / 52; Pulse 75; Resp 17; Pulse Ox 99% on R/A; rr5 05:50 BP 126 / 79; Pulse 79; Resp 16; Pulse Ox 100% on R/A; rr5 06:00 BP 123 / 62; Pulse 70; Resp 16; Pulse Ox 93% on 2 lpm NC; Pain 0/10; rr5 06:05 Pulse Ox 100% on 2 lpm NC; rr5 07:16 BP 126 / 64; Pulse 70; Resp 18; Pulse Ox 97% on R/A; Pain 0/10; em 04:30 Body Mass Index 48.42 (136.08 kg, 167.64 cm) rr5 ED Course: 04:16 Patient arrived in ED. ag3 04:31 Jack Phelps, GIL is Primary Nurse. rr5 04:34 Triage completed. rr5 04:36 Arm band placed on left wrist. rr5 04:37 Patient has correct armband on for positive identification. Call light in reach. rr5 04:37 No provider procedures requiring assistance completed. rr5 04:49 Rene Mason MD is Attending Physician. aníbal 05:15 Urine collected: clean catch specimen, clear. rr5 05:25 EKG done, by ED staff, reviewed by Rene Mason MD. rr5 05:26 library monitor on. Pulse ox on. NIBP on. rr5 05:30 Inserted saline lock: 20 gauge in right forearm, using aseptic technique. Blood rr5 collected. 05:31 XRAY Chest (1 view) In Process Unspecified. EDMS 08:00 Bam Smith MD is Referral Physician. snw 08:02 Ultrasound completed. Patient tolerated well. Notified BUCKRAM SEWER/TOM jasso. sg3 08:14 IV discontinued, intact, bleeding controlled, No redness/swelling at site. Pressure em dressing applied. 08:23 US Extremity Venous W Compression Bean In Process Unspecified. EDMS Administered Medications: 05:40 Drug: Zofran 4 mg Route: IVP; Site: right forearm; rr5 06:40 Follow up: Response: No adverse reaction rr5 05:43 Drug: Lasix 20 mg Route: IVP; Site: right forearm; rr5 06:40 Follow up: Response: No adverse reaction rr5 05:45 Drug: Dilaudid 0.5 mg Route: IVP; Site: right forearm; rr5 06:45 Follow up: Response: No adverse reaction rr5 07:04 Drug: Bactrim (160 mg-800 mg (DS) 1 tablet Route: PO; rr5 07:29 Follow up: Response: No adverse reaction em 08:13 Not Given (Physician Discretion): Dilaudid 0.5 mg IVP once em Outcome: 08:00 Discharge ordered by . snw 08:13 Discharged to home ambulatory, with family. em 08:13 Condition: good 08:13 Discharge instructions given to patient, family, Instructed on discharge instructions, follow up and referral plans. medication usage, Demonstrated understanding of instructions, follow-up care, medications, wound care, Prescriptions given X 5 08:21 Patient left the ED. em Addendum: 10/14/2018 10:37 Addendum: Culture Results: Positive urine culture. If symptoms still persist or have s s worsened, add Augmentin 875 mg PO BID # 20 and continue Bactrim. Called patient who stated she was feeling better, but was currently visiting granddaughter who just had baby in [place] and will call back. Bacteria is resistant to, has intermediate sensitivity, or is not tested against prescribed antibiotics. Report given to MERT for further evaluation and then to cricket coach for follow up with patient. Signatures: Dispatcher [employer] EDMS Rene Mason MD MD cha Therrien, Shelly, FOOD SAMPLER-C FOOD SAMPLER-Kylahw Garett Forrest, TRUST OPERATIONS ASSISTANT TRUST OPERATIONS ASSISTANT em Gabby Encinas, GIL CORDERO ss Angie Granado sg3 Natalie Robles 3 Jack Phelps, RN RN rr5
[2018-10-11 08:40] VITALS: TEMP 99.2
[2018-10-11 08:47] VITALS: BP 126/64; O2SAT 97
--- NOTE | 2018-10-11 09:25 | RAD REPORT ---
EXAM DESCRIPTION: USExtrem Venous W Compress Bil10/11/2018 8:23 am CLINICAL HISTORY: Bilateral leg swelling COMPARISON: July 2018 FINDINGS: The common femoral, superficial femoral, popliteal veins bilaterally are compressible and demonstrate augmentation. Doppler demonstrates good flow. IMPRESSION: No evidence of deep venous thrombosis involving either lower extremity.
--- NOTE | 2018-10-11 11:05 | RAD REPORT ---
EXAM DESCRIPTION: Karen Single View10/11/2018 5:31 am CLINICAL HISTORY: cough COMPARISON: 2018 FINDINGS: The lungs appear clear of acute infiltrate. The heart is mildly enlarged IMPRESSION: No acute abnormalities displayed
== END 2018-10-11 08:21 | disposition home or self-care (01) ==
LOC: ER 04:14
DX: I89.0 Lymphedema, not elsewhere classified (principal); E66.9 Obesity, unspecified
CPT/HCPCS: 36415; 71045; 80048; 80076; 81003; 83690; 83735; 83880; 84484; 85025; 85610; 87077; 87086; 87088; 87186; 93005; 93970; 96374; 96375; 99285; J1170; J1940; J2405

== ENCOUNTER 2018-11-21 20:30 | Emergency (ER) | payer SELFPAY ==
[2018-11-21] MEDS ORDERED: SMZ./TMP. 800/160 MG TABLET ONE (22:10)
[2018-11-21] MEDS ORDERED: HYDROMORPHONE HCL 0.5 MG/0.5 ML INJ ONE (22:11)
[2018-11-21] MEDS ORDERED: NA CHLORIDE 0.9% 0 ML ONE (22:11)
[2018-11-21] MEDS ORDERED: DOXYCYCLINE 100 MG CAP PO ONE (22:11)
[2018-11-21] MEDS ORDERED: ONDANSETRON 4 MG/2 ML VIAL ONE (22:11)
[2018-11-22 00:12] LABS: Absolute Lymphocytes (CBC) 1.6 K/uL (0.7-4.9); Basophils % 0.4 % (0-1.3); Hematocrit 35.8 % (36.0-45.0); Lymphocytes % 30.7 % (15.3-44.8); MPV 7.5 fL (7.6-11.3); RBC Red Blood Cell Count 4.02 M/uL (3.86-4.86)
[2018-11-22] MEDS ORDERED: ONDANSETRON 4 MG (ODT) TAB ONE (00:12)
[2018-11-22] MEDS ORDERED: HYDROCODONE/APAP 10/325 TAB ONE (00:12)
[2018-11-22 00:19] LABS: Protime INR 1.13
[2018-11-22 00:29] LABS: ALT/SGPT 20 U/L (12-78); AST/SGOT 20 U/L (15-37); Albumin 3.5 g/dL (3.4-5.0); Alkaline Phosphatase 88 U/L (45-117); BUN Blood Urea Nitrogen 12 mg/dL (7-18); Bicarbonate 30 mmol/L (21-32); Bilirubin Direct 0.2 mg/dL (0-0.2); Bilirubin Total 0.6 mg/dL (0.2-1.0); Glucose Level 111 mg/dL (74-106); Lipase 171 U/L (73-393); Magnesium 2.2 mg/dL (1.8-2.4); NT PRO-BNP 46 pg/mL (<125); Potassium 3.9 mmol/L (3.5-5.1); Protein, Total 8.9 g/dL (6.4-8.2); Sodium Level 140 mmol/L (136-145); Troponin (Emerg Dept Use Only) < 0.02 ng/mL (0.0-0.045)
--- NOTE | 2018-11-22 00:42 | ER ---
Nurse's Notes [facility] Name: Grace Case Age: 63 yrs Sex: Female : 1955 Arrival Date: 11/21/2018 Time: 20:32 Bed 7 Private MD: Diagnosis: Lymphedema, not elsewhere classified;Cellulitis and acute lymphangitis of other parts of limb;Obesity, unspecified Presentation: 11/21 21:00 Presenting complaint: Patient states: Increased pain, swelling; States "there are bumps lp1 on my ankles that are causing severe pain and making my skin break"; Hx of lymphedema. Transition of care: patient was not received from another setting of care. Onset of symptoms was November 21, 2018. Risk Assessment: Do you want to hurt yourself or someone else? Patient reports no desire to harm self or others. Initial Sepsis Screen: Does the patient meet any 2 criteria? No. Patient's initial sepsis screen is negative. Does the patient have a suspected source of infection? No. Patient's initial sepsis screen is negative. Care prior to arrival: None. 21:00 Method Of Arrival: Wheelchair lp1 21:00 Acuity: ESTEPHANIA 3 lp1 Historical: - Allergies: 21:03 No Known Allergies; lp1 - Home Meds: 21:03 gabapentin oral oral [Active]; Tylenol #3 Oral [Active]; lp1 - PMHx: 21:03 cellulits; lymphedema; UTI; lp1 - PSHx: 21:03 "green filter"; Tubal ligation; D \\T\\ C; lp1 - Immunization history:: Adult Immunizations up to date. - Social history:: Smoking status: Patient/guardian denies using tobacco. - Ebola Screening: : No symptoms or risks identified at this time. - Family history:: not pertinent. Screenin:20 Abuse screen: Denies threats or abuse. Denies injuries from another. Nutritional aa1 screening: No deficits noted. Tuberculosis screening: No symptoms or risk factors identified. Fall Risk Gait- Impaired (20 pts.). Assessment: 21:20 General: Appears in no apparent distress. comfortable, obese, Behavior is calm, aa1 cooperative, appropriate for age. Pain: Complains of pain in left leg and right leg Quality of pain is described as shooting, throbbing, Is episodic, chronic, Aggravated by weight bearing. Neuro: Level of Consciousness is awake, alert, obeys commands, Oriented to person, place, time, situation, Moves all extremities. Cardiovascular: Denies chest pain, palpitations, shortness of breath, Heart tones S1 S2 present Rhythm is regular. Respiratory: Airway is patent Respiratory effort is even, unlabored, Respiratory pattern is regular, symmetrical. GI: No signs and/or symptoms were reported involving the gastrointestinal system. : No signs and/or symptoms were reported regarding the genitourinary system. EENT: No signs and/or symptoms were reported regarding the EENT system. Derm: Skin is intact, is healthy with good turgor, Skin is pink, warm \\T\\ dry. erythema and duskiness noted BLE. Musculoskeletal: Circulation, motion, and sensation intact. Capillary refill is sluggish, in bilateral toes. Swelling present in right foot, left foot, right leg and left leg. 21:45 Reassessment: Patient appears in no apparent distress at this time. Patient and/or aa1 family updated on plan of care and expected duration. Pain level reassessed. Patient is alert, oriented x 3, equal unlabored respirations, skin warm/dry/pink. MD at bedside for initial assessment. 22:03 Reassessment: Patient appears in no apparent distress at this time. Patient is alert, aa1 oriented x 3, equal unlabored respirations, skin warm/dry/pink. Pt taken to radiology department at this time for u/s and x-rays. 22:22 Reassessment: patient is in xray. mg2 22:44 Reassessment: Pt still in radiology department; unable to complete orders at this time. aa1 23:50 Reassessment: Patient appears in no apparent distress at this time. Patient and/or aa1 family updated on plan of care and expected duration. Pain level reassessed. Patient is alert, oriented x 3, equal unlabored respirations, skin warm/dry/pink. MD notified of multiple failed attempts to obtain IV access; per MD will have lab draw pt's blood and cancel IV at this time. 11/22 00:51 Reassessment: Patient appears in no apparent distress at this time. Patient is alert, aa1 oriented x 3, equal unlabored respirations, skin warm/dry/pink. Discussed d/c \\T\\ f/u instructions with pt; denies questions or concerns at this time Patient states feeling better. Vital Signs: 11/21 21:02 BP 139 / 71; Pulse 85; Resp 18; Temp 98.5(O); Pulse Ox 99% on R/A; Weight 136.08 kg lp1 (R); Height 5 ft. 6 in. (167.64 cm); Pain 9/10; 22:30 BP 137 / 81; Pulse 85; Resp 20; Pulse Ox 96% on R/A; aa1 23:40 BP 127 / 76; Pulse 88; Resp 18; Pulse Ox 97% on R/A; aa1 11/22 00:43 BP 121 / 61; Pulse 89; Resp 17; Temp 99.4(TE); Pulse Ox 97% on R/A; ar5 11/21 21:02 Body Mass Index 48.42 (136.08 kg, 167.64 cm) lp1 ED Course: 11/21 20:32 Patient arrived in ED. cf2 21:01 Triage completed. lp1 21:02 Arm band placed on right wrist. lp1 21:08 Rene Mason MD is Attending Physician. aníbal 21:09 Sherry Hu, GIL is Primary Nurse. aa1 21:20 Patient has correct armband on for positive identification. Bed in low position. Call aa1 light in reach. Pulse ox on. NIBP on. Warm blanket given. 22:38 XRAY Chest (1 view) In Process Unspecified. EDMS 22:39 Tib Fib Right XRAY In Process Unspecified. EDMS 22:39 Tib Fib Left XRAY In Process Unspecified. EDMS 23:06 Ultrasound completed. Patient tolerated well. Notified ED Physician haily. dean 23:10 US Extremity Venous W Compression Bean In Process Unspecified. EDMS 23:35 Missed attempt(s): 22 gauge in left antecubital area. Bleeding controlled, band aid aa1 applied, catheter tip intact. 23:45 Missed attempt(s): 24 gauge in right forearm. Bleeding controlled, band aid applied, aa1 catheter tip intact. 11/22 00:40 Bam Smith MD is Referral Physician. aníbal 00:53 No provider procedures requiring assistance completed. Patient did not have IV access aa1 during this emergency room visit. Administered Medications: 00:20 Drug: Doxycycline 200 mg Route: PO; mg2 00:53 Follow up: Response: No adverse reaction aa1 00:20 Drug: Bactrim (160 mg-800 mg (DS) 1 tablet Route: PO; mg2 00:53 Follow up: Response: No adverse reaction aa1 00:21 Not Given (no iv): NS 0.9% 1000 ml IV at 125 ml/hr continuous mg2 00:21 Not Given (no iv): Dilaudid 0.5 mg IVP once; RASS on ADMIN: Combtv4, Very Agttd3, mg2 Agttd2, Rstlss1, AlertClm0, Drwsy-1, Lt Sdtn-2, Mod Sdtn-3, Dp Sdtn-4, UnArsble-5 00:21 Not Given (no iv): Dilaudid 0.5 mg IVP once; RASS on ADMIN: Combtv4, Very Agttd3, mg2 Agttd2, Rstlss1, AlertClm0, Drwsy-1, Lt Sdtn-2, Mod Sdtn-3, Dp Sdtn-4, UnArsble-5 00:21 Not Given (no iv): Zofran 4 mg IVP once; over 2 minutes mg2 00:22 Drug: [place] 10 mg-325 mg 1 tabs Route: PO; mg2 00:53 Follow up: Response: No adverse reaction; Pain is decreased aa1 00:22 Drug: Zofran 4 mg Route: PO; mg2 00:53 Follow up: Response: No adverse reaction; Nausea is decreased aa1 Outcome: 00:40 Discharge ordered by . aníbal 01:00 Discharged to home via wheelchair, with family. aa1 01:00 Condition: good 01:00 Discharge instructions given to patient, family, Instructed on discharge instructions, follow up and referral plans. medication usage, Demonstrated understanding of instructions, follow-up care, medications, Prescriptions given X 5 01:01 Patient left the ED. aa1 Signatures: Dispatcher [employer] EDMS Sherry Hu RN RN aa1 Rene Mason MD MD cha Pena, Laura, RN RN lp1 Tomas Breaux jd, Michele, RN RN mg2 Yanci Zhao ar5 Mariya Modi
--- NOTE | 2018-11-22 00:43 | EDPHYS ---
Physician Documentation [facility] Name: Grace Case Age: 63 yrs Sex: Female : 1955 Arrival Date: 11/21/2018 Time: 20:32 Bed 7 Private MD: SOFIA Physician Rene Mason HPI: 11/21 21:51 This 63 yrs old Female presents to ER via Wheelchair with complaints of Leg aníbal Swelling, Leg Pain. 21:51 The patient presents with decreased range of motion, pain, swelling, tenderness. The aníbal complaints affect the right leg and left leg. Context: The problem was sustained at an unknown site. Onset: The symptoms/episode began/occurred 3 year(s) ago. Modifying factors: The symptoms are alleviated by nothing. elevating leg, the symptoms are aggravated by movement, weight bearing. Associated signs and symptoms: Pertinent positives: calf tenderness, swelling. Severity of symptoms: At their worst the symptoms were mild, moderate, in the emergency department the symptoms are unchanged. The patient has experienced similar episodes in the past, several times. Historical: - Allergies: 21:03 No Known Allergies; lp1 - Home Meds: 21:03 gabapentin oral oral [Active]; Tylenol #3 Oral [Active]; lp1 - PMHx: 21:03 cellulits; lymphedema; UTI; lp1 - PSHx: 21:03 "green filter"; Tubal ligation; D \\T\\ C; lp1 - Immunization history:: Adult Immunizations up to date. - Social history:: Smoking status: Patient/guardian denies using tobacco. - Ebola Screening: : No symptoms or risks identified at this time. - Family history:: not pertinent. ROS: 21:51 Constitutional: Negative for fever, chills, and weight loss, Eyes: Negative for injury, aníbal pain, redness, and discharge, ENT: Negative for injury, pain, and discharge, Neck: Negative for injury, pain, and swelling, Cardiovascular: Negative for chest pain, palpitations, and edema, Respiratory: Negative for shortness of breath, cough, wheezing, and pleuritic chest pain, Abdomen/GI: Negative for abdominal pain, nausea, vomiting, diarrhea, and constipation, Back: Negative for injury and pain, : Negative for injury, bleeding, discharge, and swelling, Neuro: Negative for headache, weakness, numbness, tingling, and seizure, Psych: Negative for depression, anxiety, suicide ideation, homicidal ideation, and hallucinations, Allergy/Immunology: Negative for hives, rash, and allergies, Endocrine: Negative for neck swelling, polydipsia, polyuria, polyphagia, and marked weight changes, Hematologic/Lymphatic: Negative for swollen nodes, abnormal bleeding, and unusual bruising. 21:51 MS/extremity: Positive for decreased range of motion, erythema, pain, swelling, tenderness, of the right leg and left leg. 21:51 Skin: Positive for erythema, swelling, of the right leg and left leg. Exam: 21:51 Constitutional: This is a well developed, well nourished patient who is awake, alert, aníbal and in no acute distress. Head/Face: Normocephalic, atraumatic. Eyes: Pupils equal round and reactive to light, extra-ocular motions intact. Lids and lashes normal. Conjunctiva and sclera are non-icteric and not injected. Cornea within normal limits. Periorbital areas with no swelling, redness, or edema. ENT: Nares patent. No nasal discharge, no septal abnormalities noted. Tympanic membranes are normal and external auditory canals are clear. Oropharynx with no redness, swelling, or masses, exudates, or evidence of obstruction, uvula midline. Mucous membranes moist. Neck: Trachea midline, no thyromegaly or masses palpated, and no cervical lymphadenopathy. Supple, full range of motion without nuchal rigidity, or vertebral point tenderness. No Meningismus. Chest/axilla: Normal chest wall appearance and motion. Nontender with no deformity. No lesions are appreciated. Cardiovascular: Regular rate and rhythm with a normal S1 and S2. No gallops, murmurs, or rubs. Normal PMI, no JVD. No pulse deficits. Respiratory: Lungs have equal breath sounds bilaterally, clear to auscultation and percussion. No rales, rhonchi or wheezes noted. No increased work of breathing, no retractions or nasal flaring. Back: No spinal tenderness. No costovertebral tenderness. Full range of motion. Neuro: Awake and alert, GCS 15, oriented to person, place, time, and situation. Cranial nerves II-XII grossly intact. Motor strength 5/5 in all extremities. Sensory grossly intact. Cerebellar exam normal. Normal gait. Psych: Awake, alert, with orientation to person, place and time. Behavior, mood, and affect are within normal limits. 21:51 Abdomen/GI: Inspection: distension, Bowel sounds: normal, Palpation: abdomen is soft and non-tender, Liver: no appreciated palpable abnormalities, Hernia: not appreciated. Vital Signs: 21:02 BP 139 / 71; Pulse 85; Resp 18; Temp 98.5(O); Pulse Ox 99% on R/A; Weight 136.08 kg lp1 (R); Height 5 ft. 6 in. (167.64 cm); Pain 9/10; 22:30 BP 137 / 81; Pulse 85; Resp 20; Pulse Ox 96% on R/A; aa1 23:40 BP 127 / 76; Pulse 88; Resp 18; Pulse Ox 97% on R/A; aa1 11/22 00:43 BP 121 / 61; Pulse 89; Resp 17; Temp 99.4(TE); Pulse Ox 97% on R/A; ar5 11/21 21:02 Body Mass Index 48.42 (136.08 kg, 167.64 cm) lp1 MDM: 11/21 21:08 Patient medically screened. [facility] 21:54 Data reviewed: vital signs, nurses notes, lab test result(s), EKG, radiologic studies, aníbal ultrasound. 11/21 21:51 Order name: Basic Metabolic Panel; Complete Time: 00:40 [facility] 11/21 21:51 Order name: CBC with Diff [facility] 11/21 21:51 Order name: LFT's; Complete Time: 00:40 [facility] 11/21 21:51 Order name: Magnesium; Complete Time: 00:40 [facility] 11/21 21:51 Order name: NT PRO-BNP; Complete Time: 00:40 [facility] 11/21 21:51 Order name: PT-INR; Complete Time: 00:40 [facility] 11/21 21:51 Order name: Troponin (emerg Dept Use Only); Complete Time: 00:40 [facility] 11/21 21:51 Order name: XRAY Chest (1 view) [facility] 11/21 21:51 Order name: US Extremity Venous W Compression Bean [facility] 11/21 21:51 Order name: Lipase; Complete Time: 00:40 [facility] 11/21 21:51 Order name: Tib Fib Right XRAY [facility] 11/21 21:51 Order name: Tib Fib Left XRAY [facility] 11/21 21:51 Order name: EKG; Complete Time: 21:52 [facility] 11/21 21:51 Order name: Cardiac monitoring; Complete Time: 00:03 [facility] 11/21 21:51 Order name: EKG - Nurse/Tech; Complete Time: 23:10 [facility] 11/21 21:51 Order name: Labs collected and sent; Complete Time: 00:54 [facility] 11/21 21:51 Order name: O2 Per Protocol; Complete Time: 00:03 [facility] 11/21 21:51 Order name: O2 Sat Monitoring; Complete Time: 00:03 [facility] Administered Medications: 11/22 00:20 Drug: Doxycycline 200 mg Route: PO; mg2 00:53 Follow up: Response: No adverse reaction aa1 00:20 Drug: Bactrim (160 mg-800 mg (DS) 1 tablet Route: PO; mg2 00:53 Follow up: Response: No adverse reaction aa1 00:21 Not Given (no iv): NS 0.9% 1000 ml IV at 125 ml/hr continuous mg2 00:21 Not Given (no iv): Dilaudid 0.5 mg IVP once; RASS on ADMIN: Combtv4, Very Agttd3, mg2 Agttd2, Rstlss1, AlertClm0, Drwsy-1, Lt Sdtn-2, Mod Sdtn-3, Dp Sdtn-4, UnArsble-5 00:21 Not Given (no iv): Dilaudid 0.5 mg IVP once; RASS on ADMIN: Combtv4, Very Agttd3, mg2 Agttd2, Rstlss1, AlertClm0, Drwsy-1, Lt Sdtn-2, Mod Sdtn-3, Dp Sdtn-4, UnArsble-5 00:21 Not Given (no iv): Zofran 4 mg IVP once; over 2 minutes mg2 00:22 Drug: [place] 10 mg-325 mg 1 tabs Route: PO; mg2 00:53 Follow up: Response: No adverse reaction; Pain is decreased aa1 00:22 Drug: Zofran 4 mg Route: PO; mg2 00:53 Follow up: Response: No adverse reaction; Nausea is decreased aa1 Disposition: 11/22/18 00:40 Discharged to Home. Impression: Lymphedema, not elsewhere classified, Cellulitis and acute lymphangitis of other parts of limb, Obesity, unspecified. - Condition is Stable. - Discharge Instructions: Obesity, Adult, Cellulitis, Adult, [id number], Lymphedema, Obesity, Adult, [id number]. - Prescriptions for Maxzide- 25mg 37.5-25 mg Oral tablet - take 1 tablet by ORAL route every 3 days; 10 tablet. Tylenol- Codeine #3 300-30 mg Oral Tablet - take 2 tablet by ORAL route every 6 hours As needed; 30 tablet. Doxycycline Hyclate 100 mg Oral Tablet - take 1 tablet by ORAL route every 12 hours; 20 tablet. Bactrim DS 800- 160 mg Oral Tablet - take 1 tablet by ORAL route every 12 hours for 10 days; 20 tablet. Restoril 15 mg Oral capsule - take 1 capsule by ORAL route once daily at bedtime as needed; 20 capsule. - Medication Reconciliation Form, Thank You Letter, Antibiotic Education, Prescription Opioid Use form. - Follow up: Private Physician; When: 2 - 3 days; Reason: Recheck today's complaints, Continuance of care, Re-evaluation by your physician. Follow up: Bam Smith; When: 2 - 3 days; Reason: Recheck today's complaints, Continuance of care, Re-evaluation by your physician. - Problem is new. - Symptoms have improved. Signatures: Dispatcher [employer] EDSherry Mena RN RN aa1 Rene Mason MD MD cha Pena, Laura, GIL RN lp1 Crescencio Bustamante RN RN mg2 Corrections: (The following items were deleted from the chart) 00:54 11/21 21:51 IV Saline Lock ordered. aníbal gomez 11/22 01:01 00:40 11/22/2018 00:40 Discharged to Home. Impression: Lymphedema, not elsewhere aa1 classified; Cellulitis and acute lymphangitis of other parts of limb; Obesity, unspecified. Condition is Stable. Discharge Instructions: Obesity, Adult, Cellulitis, Adult, [id number], Lymphedema, Obesity, Adult, [id number]. Prescriptions for Maxzide-25mg 37.5-25 mg Oral tablet - take 1 tablet by ORAL route every 3 days; 10 tablet, Tylenol-Codeine #3 300-30 mg Oral Tablet - take 2 tablet by ORAL route every 6 hours As needed; 30 tablet, Doxycycline Hyclate 100 mg Oral Tablet - take 1 tablet by ORAL route every 12 hours; 20 tablet, Bactrim DS 800-160 mg Oral Tablet - take 1 tablet by ORAL route every 12 hours for 10 days; 20 tablet. and Forms are Medication Reconciliation Form, Thank You Letter, Antibiotic Education, Prescription Opioid Use. Follow up: Private Physician; When: 2 - 3 days; Reason: Recheck today's complaints, Continuance of care, Re-evaluation by your physician. Follow up: Bam Smith; When: 2 - 3 days; Reason: Recheck today's complaints, Continuance of care, Re-evaluation by your physician. Problem is new. Symptoms have improved. aníbal
[2018-11-22 02:09] VITALS: O2SAT 97
[2018-11-22 02:10] VITALS: BP 121/61; TEMP 99.4
--- NOTE | 2018-11-22 09:01 | RAD REPORT ---
EXAM DESCRIPTION: USExtrem Venous W Compress Bil11/21/2018 11:09 pm CLINICAL HISTORY: Bilateral leg swelling COMPARISON: October 2018 FINDINGS: The common femoral, superficial femoral, popliteal and posterior tibial veins bilaterally are compressible and demonstrate augmentation. Doppler demonstrates good flow. IMPRESSION: No evidence of deep venous thrombosis involving either lower extremity.
--- NOTE | 2018-11-22 09:21 | RAD REPORT ---
EXAM DESCRIPTION: Karen Single View11/21/2018 10:40 pm CLINICAL HISTORY: Chest pain COMPARISON: October 2018 FINDINGS: Areas subsegmental atelectasis present within the left lung base Remainder lungs appear clear of acute infiltrate The heart is borderline enlarged
--- NOTE | 2018-11-22 09:27 | RAD REPORT ---
EXAM DESCRIPTION: RAD - Tib Fib Right - 11/21/2018 10:40 pm CLINICAL HISTORY: Right leg pain FINDINGS: No fracture is seen No bony lesion. Diffuse edema within the subcutaneous tissues with small calcifications Marked arthritis medial joint space knee
--- NOTE | 2018-11-22 09:28 | RAD REPORT ---
EXAM DESCRIPTION: Jeromy Chowdhury Left11/21/2018 10:38 pm CLINICAL HISTORY: Left leg pain FINDINGS: No fracture is seen No bony lesion. Diffuse edema within the subcutaneous tissues with small calcifications Moderate osteoarthritis medial compartment knee
--- NOTE | 2018-11-23 18:26 | EKG ---
Test Date: 2018-11-21 Test Time: 23:09:17 Instructional Technology Instructor: SANDRITA MEASUREMENT RESULTS: Intervals: Rate: 82 MA: 156 QRSD: 96 QT: 382 QTc: 446 [place]: P: 47 MA: 156 QRS: 53 T: 54 INTERPRETIVE STATEMENTS: Normal sinus rhythm Normal ECG Compared to ECG 10/11/2018 05:27:34 No significant changes Electronically Signed On 11-23-18 18:23:09 CDT by Azeem Moran
== END 2018-11-22 01:01 | disposition home or self-care (01) ==
LOC: ER 20:30
DX: L03.116 Cellulitis of left lower limb (principal); L03.115 Cellulitis of right lower limb; L03.126 Acute lymphangitis of left lower limb; L03.125 Acute lymphangitis of right lower limb; E66.9 Obesity, unspecified
CPT/HCPCS: 36415; 71045; 80048; 80076; 83690; 83735; 83880; 84484; 85025; 85610; 93005; 93970; 99284; J1170; J2405; J7030

== ENCOUNTER 2018-12-11 01:05 | Inpatient (IN) | payer SELFPAY ==
[2018-12-11] MEDS ORDERED: ACETAMINOPHEN 500 MG TAB ONE (02:50)
[2018-12-11] MEDS ORDERED: VANCOMYCIN 1 GM/VIAL ONE (03:42)
[2018-12-11] MEDS ORDERED: CLINDAMYCIN 900MG/D5W 900 MG/50 ML IVPB IV ONE (03:43)
[2018-12-11] MEDS ORDERED: NA CHLORIDE 0.9% 250 ML ONE (03:43)
[2018-12-11 03:56] LABS: Absolute Lymphocytes (CBC) 0.9 K/uL (0.7-4.9); Basophils % 0.4 % (0-1.3); Hematocrit 35.1 % (36.0-45.0); Lymphocytes % 9.9 % (15.3-44.8); MPV 7.6 fL (7.6-11.3); RBC Red Blood Cell Count 3.96 M/uL (3.86-4.86)
--- NOTE | 2018-12-11 03:57 | P.HP ---
Certification for Inpatient Patient admitted to: Observation With expected LOS: <2 Midnights Patient will require the following post-hospital care: None Practitioner: I am a practitioner with admitting privileges, knowledge of patient current condition, hospital course, and medical plan of care. Services: Services provided to patient in accordance with Admission requirements found in Title 42 Section 412.3 of the Code of Federal Regulations Patient History Date of Service: 12/11/18 Primary Care Provider: Failed outpatient recurrent LLE cellulitis Allergies No Known Allergies Allergy (Verified 12/02/15 04:00) Home Medications: Lidocaine 5% Patch [Lidoderm 5% Patch*] 1 patch TOP DAILY #10 patch 07/17/18 Mupirocin Oint [Bactroban 2% Ointment*] 1 appl TOP DAILY #1 tube 07/17/18 Sulfamethoxazole/Trimethoprim [Bactrim Ds Tablet] 1 each PO BID #14 tablet 07/17 traMADol HCL [Ultram*] 50 mg PO Q6H PRN #10 tab 07/17/18 - Past Medical/Surgical History Diabetic: No -: chronic edema -: DVT -: UTI -: Lymphedema -: cellulitis; left calf -: tubal ligation -: IVC vinny filter placement - Family History Mother -: Lung disease, Other (see notes) Notes: pulmonary embolism; emphysema Father -: Cancer, Other (see notes) Notes: throat and tongue CA - Social History Alcohol use: No CD- Drugs: No Caffeine use: Yes Assessment and Plan - Advance Directives Does patient have a Living Will: No Does patient have a Durable POA for Healthcare: No
--- NOTE | 2018-12-11 03:59 | ER ---
Nurse's Notes [facility] Name: Grace Case Age: 63 yrs Sex: Female : 1955 Arrival Date: 12/11/2018 Time: 01:07 Bed 4 Private MD: Diagnosis: Cellulitis of lower extremities;Lymphedema;SIRS Presentation: 12/11 01:16 Presenting complaint: Patient states: she has not been feeling well for the past couple aa1 days and has been extremely cold and can't stop shaking. Transition of care: patient was not received from another setting of care. Onset of symptoms was December 09, 2018. Risk Assessment: Do you want to hurt yourself or someone else? Patient reports no desire to harm self or others. Initial Sepsis Screen: Does the patient meet any 2 criteria? Temp <36.0*C (96.8*F)) or > 38.3*C (100.9*F). HR > 90 bpm. Yes Does the patient have a suspected source of infection? No. Patient's initial sepsis screen is negative. Care prior to arrival: None. 01:16 Method Of Arrival: Wheelchair aa1 01:16 Acuity: ESTEPHANIA 3 aa1 Triage Assessment: 01:16 General: Appears in no apparent distress. uncomfortable, Behavior is calm, cooperative, aa1 appropriate for age. Pain: Denies pain. Historical: - Allergies: 02:05 No Known Allergies; aa1 - Home Meds: 02:05 gabapentin Oral [Active]; Tylenol #3 Oral [Active]; aa1 - PMHx: 02:05 cellulits; lymphedema; UTI; aa1 - PSHx: 02:05 "green filter"; Tubal ligation; D \\T\\ C; aa1 - Immunization history:: Flu vaccine is not up to date. - Social history:: Smoking status: Patient/guardian denies using tobacco. - Ebola Screening: : Patient denies exposure to infectious person Patient denies travel to an Ebola-affected area in the 21 days before illness onset. Screenin:30 Abuse screen: Denies threats or abuse. Denies injuries from another. Nutritional rr5 screening: No deficits noted. Tuberculosis screening: No symptoms or risk factors identified. Fall Risk IV access (20 points). Gait- Normal/Bed Rest/Wheelchair (0 pts) Total Menon Fall Scale indicates No Risk (0-24 pts). Assessment: 01:16 General: Appears in no apparent distress. uncomfortable, Behavior is calm, cooperative, rr5 appropriate for age, Reports chills for fever for feeling ill for. 01:16 Pain: Complains of pain in right leg and left leg Pain does not radiate. Pain Quality rr5 of pain is described as aching, Pain began gradually, Is intermittent. Neuro: Level of Consciousness is awake, alert, obeys commands, Oriented to person, place, time, situation, Appropriate for age. Cardiovascular: Capillary refill < 3 seconds Patient's skin is warm and dry. Edema. Respiratory: Airway is patent Respiratory effort is even, unlabored, Respiratory pattern is regular, symmetrical. GI: No signs and/or symptoms were reported involving the gastrointestinal system. : No signs and/or symptoms were reported regarding the genitourinary system. EENT: No signs and/or symptoms were reported regarding the EENT system. Derm: Skin with poor turgor has blisters on right and left lower leg has skin tears on multiple abrasion at right and left lower leg Skin temperature is warm swelling cellulitis with multiple wounds lower legs. Musculoskeletal: Circulation, motion, and sensation intact. Capillary refill < 3 seconds. 02:20 Reassessment: Patient appears in no apparent distress at this time. Patient is alert, rr5 oriented x 3, equal unlabored respirations, skin warm/dry/pink. Patient states feeling better. Patient states symptoms have improved. 03:40 Reassessment: Patient appears in no apparent distress at this time. Patient is alert, rr5 oriented x 3, equal unlabored respirations, skin warm/dry/pink. seen and examined by , advised for admission patient agreed. 04:40 Reassessment: Patient appears in no apparent distress at this time. Patient is alert, rr5 oriented x 3, equal unlabored respirations, skin warm/dry/pink. ongoing antibiotic no complaints made for transfer to room 413. Patient states feeling better. Patient states symptoms have improved. Vital Signs: 01:16 BP 154 / 106; Pulse 105; Resp 20; Temp 102.0(O); Pulse Ox 99% on R/A; Weight 136.08 kg aa1 (R); Height 5 ft. 6 in. (167.64 cm); Pain 0/10; 02:00 BP 159 / 98; Pulse 110; Resp 23; Temp 102; Pulse Ox 98% ; rr5 03:00 BP 140 / 89; Pulse 105; Resp 22; Temp 101.2; Pulse Ox 99% ; rr5 04:20 BP 143 / 74; Pulse 98; Resp 19; Temp 100.9; Pulse Ox 98% ; rr5 01:16 Body Mass Index 48.42 (136.08 kg, 167.64 cm) aa1 ED Course: 01:07 Patient arrived in ED. cf2 01:16 Arm band placed on right wrist. Patient placed in an exam room, on a stretcher. aa1 01:20 Patient has correct armband on for positive identification. Bed in low position. Call rr5 light in reach. Pulse ox on. NIBP on. 01:39 Jack Phelps RN is Primary Nurse. rr5 02:03 Triage completed. aa1 02:52 Papa Plasencia MD is Attending Physician. ps1 03:53 Inserted saline lock: 22 gauge in right antecubital area, using aseptic technique. oe Blood collected. 03:58 Cody Montes DO is Hospitalizing Provider. ps1 04:32 No provider procedures requiring assistance completed. Patient admitted, IV remains in rr5 place. intact, No redness/swelling at site. Administered Medications: 02:52 Drug: Tylenol 1000 mg Route: PO; cc3 04:00 Follow up: Response: No adverse reaction; Temperature is decreased rr5 03:55 Drug: Clindamycin 900 mg Route: IVPB; Infused Over: 30 mins; Site: right antecubital; rr5 04:25 Follow up: Response: No adverse reaction; IV Status: Completed infusion; IV Intake: [id number] 04:25 Drug: vancoMYCIN 1 grams Route: IVPB; Infused Over: 2 hrs; Site: right antecubital; rr5 04:44 Follow up: Response: No adverse reaction; IV Status: Infusion continued upon admission rr5 Intake: 04:25 IV: 50ml; Total: 50ml. rr5 Outcome: 03:59 Decision to Hospitalize by Provider. ps1 04:32 Admitted to Tele accompanied by tech, room 413, with chart, Report called to maikel rr5 04:32 Condition: stable 04:32 Instructed on the need for admit. 05:07 Patient left the ED. rr5 Signatures: Sherry Hu RN RN aa1 Zay Arroyo Phillip, MD MD ps1 Gloria Engle cc3 Jack Phelps RN RN rr5 Mariya Modi cf2 Corrections: (The following items were deleted from the chart) 04:53 01:16 Derm: Skin is intact, Skin temperature is warm swelling cellulitis with multiple rr5 wounds lower legs rr5
--- NOTE | 2018-12-11 04:00 | EDPHYS ---
Physician Documentation [facility] Name: Grace Case Age: 63 yrs Sex: Female : 1955 Arrival Date: 12/11/2018 Time: 01:07 Bed 4 Private MD: ED Physician Papa Plasencia HPI: 12/11 03:10 This 63 yrs old Female presents to ER via Wheelchair with complaints of ps1 SHIVERING. 03:10 aptient was recently seen and evaluated for lower extremity cellulitis. Patient states ps1 that she finished her antibiotic therapy (bactrim and doxy) and did not improve her symptoms. She has red and painful legs complicated from longstanding lymphedema and granulation tissue. She is febrile and has chills. Temp 102. Tachy. . Historical: - Allergies: 02:05 No Known Allergies; aa1 - Home Meds: 02:05 gabapentin Oral [Active]; Tylenol #3 Oral [Active]; aa1 - PMHx: 02:05 cellulits; lymphedema; UTI; aa1 - PSHx: 02:05 "green filter"; Tubal ligation; D \\T\\ C; aa1 - Immunization history:: Flu vaccine is not up to date. - Social history:: Smoking status: Patient/guardian denies using tobacco. - Ebola Screening: : Patient denies exposure to infectious person Patient denies travel to an Ebola-affected area in the 21 days before illness onset. ROS: 03:10 Eyes: Negative for injury, pain, redness, and discharge, ENT: Negative for injury, ps1 pain, and discharge, Cardiovascular: Negative for chest pain, palpitations, and edema, Respiratory: Negative for shortness of breath, cough, wheezing, and pleuritic chest pain, Abdomen/GI: Negative for abdominal pain, nausea, vomiting, diarrhea, and constipation, MS/Extremity: Negative for injury and deformity, Neuro: Negative for headache, weakness, numbness, tingling, and seizure. 03:10 Constitutional: Positive for body aches, chills, fatigue, fever. 03:10 Skin: Positive for cellulitis, discoloration, erythema, lesions, swelling, of the right leg and left leg. Exam: 03:10 Constitutional: This is a well developed, well nourished patient who is awake, alert, ps1 and in no acute distress. Head/Face: Normocephalic, atraumatic. Eyes: Pupils equal round and reactive to light, extra-ocular motions intact. Lids and lashes normal. Conjunctiva and sclera are non-icteric and not injected. Chest/axilla: Normal chest wall appearance and motion. Nontender with no deformity. No lesions are appreciated. Cardiovascular: Regular rate and rhythm. No gallops, murmurs, or rubs. Normal PMI, no JVD. No pulse deficits. Respiratory: Lungs have equal breath sounds bilaterally, clear to auscultation and percussion. No rales, rhonchi or wheezes noted. No increased work of breathing, no retractions or nasal flaring. Abdomen/GI: Soft, non-tender, with normal bowel sounds. No distension or tympany. No guarding or rebound. No evidence of tenderness throughout. 03:10 Skin: cellulitis, lesion(s), severe lymphedema. Vital Signs: 01:16 BP 154 / 106; Pulse 105; Resp 20; Temp 102.0(O); Pulse Ox 99% on R/A; Weight 136.08 kg aa1 (R); Height 5 ft. 6 in. (167.64 cm); Pain 0/10; 02:00 BP 159 / 98; Pulse 110; Resp 23; Temp 102; Pulse Ox 98% ; rr5 03:00 BP 140 / 89; Pulse 105; Resp 22; Temp 101.2; Pulse Ox 99% ; rr5 04:20 BP 143 / 74; Pulse 98; Resp 19; Temp 100.9; Pulse Ox 98% ; rr5 01:16 Body Mass Index 48.42 (136.08 kg, 167.64 cm) aa1 MDM: 03:31 Patient medically screened. ps1 03:59 Data reviewed: vital signs, nurses notes, lab test result(s), and as a result, I will ps1 admit patient. Counseling: I had a detailed discussion with the patient and/or guardian regarding: the historical points, exam findings, and any diagnostic results supporting the discharge/admit diagnosis, lab results, the need for further work-up and treatment in the hospital. 12/11 03:04 Order name: CBC with Diff ps1 12/11 03:04 Order name: CMP; Complete Time: 04:21 ps1 12/11 03:04 Order name: Blood Culture Adult (2) ps1 12/11 03:04 Order name: Procalcitonin ps1 12/11 03:04 Order name: Lactate; Complete Time: 04:21 ps1 12/11 04:05 Order name: Manual Differential EDMS 12/11 04:12 Order name: Social Service Consult EDMS Administered Medications: 02:52 Drug: Tylenol 1000 mg Route: PO; cc3 04:00 Follow up: Response: No adverse reaction; Temperature is decreased rr5 03:55 Drug: Clindamycin 900 mg Route: IVPB; Infused Over: 30 mins; Site: right antecubital; rr5 04:25 Follow up: Response: No adverse reaction; IV Status: Completed infusion; IV Intake: [id number] 04:25 Drug: vancoMYCIN 1 grams Route: IVPB; Infused Over: 2 hrs; Site: right antecubital; rr5 04:44 Follow up: Response: No adverse reaction; IV Status: Infusion continued upon admission rr5 Disposition: 12/11/18 03:59 Hospitalization ordered by Cody Montes for Inpatient Admission. Preliminary diagnosis are Cellulitis of lower extremities, Lymphedema, SIRS. - Bed requested for Telemetry/MedSurg (Inpatient). - Status is Inpatient Admission. rr5 - Condition is Stable. - Problem is an ongoing problem. - Symptoms have worsened. UTI on Admission? No Signatures: Dispatcher [employer] EDSherry Mena RN RN aa1 Selena Cosme RN RN cg Papa Plasencia MD MD ps1 Gloria Engle cc3 Jack Phelps RN RN rr5 Corrections: (The following items were deleted from the chart) 04:10 03:59 Hospitalization Ordered by Cody Montes DO for Inpatient Admission. Preliminary cg diagnosis is Cellulitis of lower extremities; Lymphedema; SIRS. Bed requested for Telemetry/MedSurg (Inpatient). Status is Inpatient Admission. Condition is Stable. Problem is an ongoing problem. Symptoms have worsened. UTI on Admission? No. ps1 04:10 04:10 12/11/2018 03:59 Hospitalization Ordered by Cody Montes DO for Inpatient cg Admission. Preliminary diagnosis is Cellulitis of lower extremities; Lymphedema; SIRS. Bed requested for Telemetry/MedSurg (Inpatient). Status is Inpatient Admission. Condition is Stable. Problem is an ongoing problem. Symptoms have worsened. UTI on Admission? No. cg 05:07 04:10 12/11/2018 03:59 Hospitalization Ordered by Cody Montes DO for Inpatient rr5 Admission. Preliminary diagnosis is Cellulitis of lower extremities; Lymphedema; SIRS. Bed requested for Telemetry/MedSurg (Inpatient). Status is Inpatient Admission. Condition is Stable. Problem is an ongoing problem. Symptoms have worsened. UTI on Admission? No. cg
--- NOTE | 2018-12-11 04:10 | P.HP ---
Certification for Inpatient Patient admitted to: Inpatient With expected LOS: >2 Midnights Patient will require the following post-hospital care: Other (Set up PCP) Practitioner: I am a practitioner with admitting privileges, knowledge of patient current condition, hospital course, and medical plan of care. Services: Services provided to patient in accordance with Admission requirements found in Title 42 Section 412.3 of the Code of Federal Regulations Patient History Date of Service: 12/11/18 Primary Care Provider: None Reason for admission: Failed outpatient recurrent LLE cellulitis History of Present Illness: 63-year-old female presented to the emergency room with fever, and left lower extremity cellulitis. Patient with history of chronic lymphedema and recurrent cellulitis. Patient last hospitalized for left lower extremity cellulitis in July of 2018. Since that time patient has been seen multiple times in the emergency room. She was recently seen in the ER and given Bactrim and doxycycline without any significant relief. Today she reported fever, swelling to the left lower extremity. Warmth also noted. Patient can the ER for further evaluation. In the ER patient evaluated. Patient found have a fever of 102. Patient with mild tachycardia. CBC, BMP and blood cultures pending at this time. Patient was given IV antibiotic therapy and IV fluids. Patient admitted for failed outpatient treatment. When I saw the patient in the ER, she was sitting. She felt warm to touch. Left lower extremity erythema and warmth noted. Patient admitted for further treatment. Allergies No Known Allergies Allergy (Verified 12/02/15 04:00) Home medications list reviewed: Yes Home Medications: Lidocaine 5% Patch [Lidoderm 5% Patch*] 1 patch TOP DAILY #10 patch 07/17/18 Mupirocin Oint [Bactroban 2% Ointment*] 1 appl TOP DAILY #1 tube 07/17/18 Sulfamethoxazole/Trimethoprim [Bactrim Ds Tablet] 1 each PO BID #14 tablet 07/17 traMADol HCL [Ultram*] 50 mg PO Q6H PRN #10 tab 07/17/18 - Past Medical/Surgical History Diabetic: No -: Chronic lymphedema -: History of DVT -: Morbid obesity -: Recurrent left lower extremity cellulitis -: Tubal ligation -: IVC vinny filter placement Psychosocial/ Personal History: Patient is . She lives at home. - Family History Family History: Reviewed- Non-Contributory - Family History Mother -: Lung disease, Other (see notes) Notes: pulmonary embolism; emphysema Father -: Cancer, Other (see notes) Notes: throat and tongue CA - Social History Smoking Status: Never smoker Alcohol use: No CD- Drugs: No Caffeine use: Yes Place of Residence: Home Review of Systems General: Fever, Weakness, As per HPI Eyes: Unremarkable ENT: Unremarkable Respiratory: Unremarkable Cardiovascular: Unremarkable Gastrointestinal: Unremarkable Genitourinary: Unremarkable Musculoskeletal: Leg Pain, Pedal edema, As per HPI Integumentary: As per HPI Neurological: Unremarkable Lymphatics: Unremarkable Physical Examination - Physical Exam General: Alert, In no apparent distress, Oriented x3, Cooperative HEENT: Atraumatic, Normocephalic, PERRLA, Mucous membr. moist/pink Neck: Supple, No Thyromegaly Respiratory: Clear to auscultation bilaterally, Normal air movement Cardiovascular: Normal pulses, Regular rate/rhythm Gastrointestinal: Normal bowel sounds, Soft and benign, Non-distended, No tenderness, No masses, No rebound, No guarding Musculoskeletal: Other (Warmth to the left lower extremity below the knee) Integumentary: Other (Erythema noted to the left lower extremity below the knee. Chronic lymphedema noted bilaterally. Mild swelling noted to the left lower extremity greater than the right.) Neurological: Normal speech, Normal strength at 5/5 x4 extr, Normal tone, Normal affect Assessment and Plan - Plan Impression: Recurrent left lower extremity cellulitis with chronic lymphedema, failed outpatient therapy Morbid obesity Plan: Recurrent left lower extremity cellulitis with chronic lymphedema, failed outpatient therapy: Patient will be admitted for further evaluation and treatment. Patient failed outpatient therapy for cellulitis. Patient with recurrent cellulitis at this time. Will start IV vancomycin and cefepime. Pharmacy to monitor and adjust medication. Blood cultures obtained. Await CBC , BMP, lactic acid and pro calcitonin. Patient given IV fluid bolus in the emergency room. Will continue with IV fluid hydration. Will monitor for sepsis. Will provide medication for pain. Will elevate leg when sitting or lying. Will check venous Doppler to rule out DVT. Will provide DVT prophylaxis -Lovenox. Daytime hospitalist will continue her care. Anticipate discharge in the next 3-5 days pending clinical improvement. Morbid obesity: Will address lifestyle modification education. Calculate BMI. Discharge Plan: Home Plan to discharge in: Greater than 2 days - Advance Directives Does patient have a Living Will: No Does patient have a Durable POA for Healthcare: No - Code Status/Comfort Care Code Status Assessed: Yes (Patient is full code) Time Spent Managing Pts Care (In Minutes): 55
[2018-12-11 04:13] LABS: Albumin 3.6 g/dL (3.4-5.0); Bilirubin Total 0.8 mg/dL (0.2-1.0); Potassium 4.1 mmol/L (3.5-5.1)
[2018-12-11] MEDS ORDERED: ONDANSETRON 4 MG/2 ML VIAL IV PRN (05:14)
[2018-12-11] MEDS ORDERED: TRAMADOL HCL 50 MG TAB PO PRN (05:14)
[2018-12-11 05:20] LABS: Blood Morphology Comment NOT SEEN (NOT SEEN); Platelet Estimate ADEQ
[2018-12-11 05:46] VITALS: BMI 55.3
[2018-12-11] MEDS: NA CHLORIDE 0.9% 1,000 ML IV SCH ×2 (06:27→16:34)
[2018-12-11] MEDS: ACETAMINOPHEN 500 MG TAB PO PRN ×2 (06:27→10:40)
[2018-12-11] MEDS ORDERED: VANCOMYCIN 1 GM in NA CHLORIDE 0.9% 500 ML IVPB SCH (09:00)
[2018-12-11] MEDS ORDERED: CEFEPIME 1 GM/VIAL IV SCH (09:00)
[2018-12-11] MEDS: HYDROCODONE/APAP 7.5/325 MG TAB PO PRN (09:21)
[2018-12-11] MEDS: CEFEPIME/SWI 1gm 10 ML IV SCH ×2 (09:22→22:27)
[2018-12-11] MEDS: ENOXAPARIN 40 MG/0.4 ML SQ SCH (09:23)
[2018-12-11] MEDS: FAMOTIDINE 20 MG TAB PO SCH ×2 (09:23→22:27)
[2018-12-11] MEDS: GABAPENTIN 100 MG CAP PO SCH ×2 (09:23→22:27)
[2018-12-11] MEDS: FOLIC ACID 1 MG TABLET PO SCH (09:23)
[2018-12-11] MEDS ORDERED: IBUPROFEN 400 MG TAB PO ONE (12:49)
--- NOTE | 2018-12-11 13:55 | RAD REPORT ---
EXAM DESCRIPTION: US - Extrem Venous W Compress Bean - 12/11/2018 1:43 pm CLINICAL HISTORY: LLE edema, cellulitis Bilateral leg edema and swelling. COMPARISON: Extrem Venous W Compress Bean dated 11/21/2018 TECHNIQUE: Real-time sonographic interrogation of the left and right lower extremity deep venous sys tems was performed. FINDINGS: Normal compressibility, flow augmentation, phasic flow and spontaneous flow is identified in both the left and right lower extremity deep venous systems to the level of the popliteal vessels. Lower leg vessels could not be adequately interrogated. IMPRESSION: No sonographic evidence of left or right lower extremity deep venous thrombosis to the l evel of the popliteal vessels.
[2018-12-11] MEDS: DIPHENHYDRAMINE 25 MG TAB/CAP PO PRN (22:47)
[2018-12-12] MEDS ORDERED: VANCOMYCIN 2 GM in NA CHLORIDE 0.9% 500 ML IVPB SCH (01:00)
[2018-12-12] MEDS: NA CHLORIDE 0.9% 1,000 ML IV SCH ×3 (01:14→11:14)
[2018-12-12] MEDS: VANCOMYCIN 2 GM in NA CHLORIDE 0.9% 500 ML IVPB SCH (05:15)
[2018-12-12 06:26] LABS: Absolute Lymphocytes (CBC) 1.2 K/uL (0.7-4.9); Basophils % 0.2 % (0-1.3); Hematocrit 34.9 % (36.0-45.0); Lymphocytes % 21.1 % (15.3-44.8); MPV 7.7 fL (7.6-11.3); RBC Red Blood Cell Count 3.87 M/uL (3.86-4.86)
[2018-12-12 06:30] LABS: Potassium 4.1 mmol/L (3.5-5.1)
[2018-12-12] MEDS: GABAPENTIN 100 MG CAP PO SCH ×2 (09:09→21:13)
[2018-12-12] MEDS: FAMOTIDINE 20 MG TAB PO SCH ×2 (09:09→21:13)
[2018-12-12] MEDS: ENOXAPARIN 40 MG/0.4 ML SQ SCH (09:09)
[2018-12-12] MEDS: FOLIC ACID 1 MG TABLET PO SCH (09:10)
[2018-12-12] MEDS: ACETAMINOPHEN 500 MG TAB PO PRN (09:10)
[2018-12-12] MEDS: CEFEPIME/SWI 1gm 10 ML IV SCH ×2 (09:10→21:13)
--- NOTE | 2018-12-12 17:52 | P.PN ---
Subjective Date of Service: 12/12/18 Primary Care Provider: None Chief Complaint: Failed outpatient recurrent LLE cellulitis Subjective: No new changes, Improving Patient seen and examined at bedside. No family at bedside. Chart reviewed and case discussed with nursing staff. Continued to have fever overnight Review of Systems 10-point ROS is otherwise unremarkable Physical Examination - Vital Signs Temperature: 97.3 F Blood Pressure: 125/55 Pulse: 67 Respirations: 20 Pulse Ox (%): 95 - Physical Exam General: Alert, In no apparent distress, Oriented x3, Obese HEENT: Atraumatic, PERRLA, EOMI Neck: Supple, JVD not distended Respiratory: Clear to auscultation bilaterally, Normal air movement Cardiovascular: Regular rate/rhythm, Normal S1 S2, Edema Gastrointestinal: Normal bowel sounds, No tenderness Musculoskeletal: No tenderness Integumentary: No rashes Neurological: Normal speech, Normal tone, Normal affect Assessment And Plan - Plan Impression: Recurrent left lower extremity cellulitis with chronic lymphedema, failed outpatient therapy Morbid obesity Plan: Recurrent left lower extremity cellulitis with chronic lymphedema, failed outpatient therapy: Patient will be admitted for further evaluation and treatment. Patient failed outpatient therapy for cellulitis. Patient with recurrent cellulitis at this time. Will start IV vancomycin and cefepime. Pharmacy to monitor and adjust medication. Blood cultures obtained. Will continue with IV fluid hydration. Will monitor for sepsis. Will provide medication for pain. Will elevate leg when sitting or lying. Morbid obesity: Will address lifestyle modification education. Calculate BMI. Discharge Plan: Home Plan to discharge in: 48 Hours
[2018-12-12] MEDS: DIPHENHYDRAMINE 25 MG TAB/CAP PO PRN (21:37)
[2018-12-12 21:54] LABS: Urine Appearance CLEAR; Urine Bilirubin NEGATIVE (NEG); Urine Blood NEGATIVE (NEG); Urine Color YELLOW; Urine Glucose NEGATIVE (NEG); Urine Protein NEGATIVE (NEG); Urine Specific Gravity 1.015 (1.005-1.030)
[2018-12-12 21:56] LABS: Urine Microscopic Reflex NO UMIC
[2018-12-13] MEDS: HYDROCODONE/APAP 7.5/325 MG TAB PO PRN (00:56)
[2018-12-13] MEDS: VANCOMYCIN 2 GM in NA CHLORIDE 0.9% 500 ML IVPB SCH (03:28)
[2018-12-13 06:12] LABS: Magnesium 2.1 mg/dL (1.8-2.4)
[2018-12-13 06:21] LABS: Absolute Lymphocytes (CBC) 1.6 K/uL (0.7-4.9); Basophils % 0.7 % (0-1.3); Hematocrit 28.6 % (36.0-45.0); Lymphocytes % 38.9 % (15.3-44.8); MPV 8.1 fL (7.6-11.3); RBC Red Blood Cell Count 3.24 M/uL (3.86-4.86)
[2018-12-13] MEDS ORDERED: MAXZIDE (HCTZ 25/TRIAMTERENE 37.5MG) TAB PO SCH (09:00)
[2018-12-13 09:06] VITALS: O2SAT 96
[2018-12-13] MEDS: CEFEPIME/SWI 1gm 10 ML IV SCH (09:09)
[2018-12-13] MEDS: GABAPENTIN 100 MG CAP PO SCH (09:14)
[2018-12-13] MEDS: FOLIC ACID 1 MG TABLET PO SCH (09:14)
[2018-12-13] MEDS: ENOXAPARIN 40 MG/0.4 ML SQ SCH (09:14)
[2018-12-13] MEDS: FAMOTIDINE 20 MG TAB PO SCH (09:15)
--- NOTE | 2018-12-13 11:48 | RAD REPORT ---
EXAM DESCRIPTION: [facility] Single View12/13/2018 8:31 am CLINICAL HISTORY: Shortness of breath COMPARISON: November 2018 FINDINGS: The lungs appear clear of acute infiltrate. The heart is borderline enlarged Mediastinum is more prominent IMPRESSION: Mediastinum is more prominent. I suspect this is secondary to positioning and technique. PA and lateral chest series recommended
--- NOTE | 2018-12-13 12:15 | P.DS ---
Admission Date: 12/11/18 Discharge Date: 12/13/18 Primary Care Provider: None Disposition: ROUTINE DISCHARGE Discharge Condition: GOOD Reason for Admission: Failed outpatient recurrent LLE cellulitis Brief History of Present Illness: 63-year-old female presented to the emergency room with fever, and left lower extremity cellulitis. Patient with history of chronic lymphedema and recurrent cellulitis. Patient last hospitalized for left lower extremity cellulitis in July of 2018. Since that time patient has been seen multiple times in the emergency room. She was recently seen in the ER and given Bactrim and doxycycline without any significant relief. Today she reported fever, swelling to the left lower extremity. Warmth also noted. Patient can the ER for further evaluation. In the ER patient evaluated. Patient found have a fever of 102. Patient with mild tachycardia. CBC, BMP and blood cultures pending at this time. Patient was given IV antibiotic therapy and IV fluids. Patient admitted for failed outpatient treatment. When I saw the patient in the ER, she was sitting. She felt warm to touch. Left lower extremity erythema and warmth noted. Patient admitted for further treatment. Hospital Course: Patient was admitted for recurrent left lower extremity cellulitis with chronic lymphedema. She was started on IV vancomycin and cefepime. Wound cultures were sent, cultures grew Pseudomonas that is sensitive to Levaquin. Extensive discussion was had regarding the chronic lymphedema and recurrent cellulitis of the patient. She will likely benefit from some sort of wound care help once her benefits her sorted out. Her diagnoses and treatment plan was explained to her, all questions were answered and she verbalized understanding. She was discharged home on oral Levaquin. She was discharged in a safe and stable manner. Vital Signs/Physical Exam: Temp Pulse Resp BP Pulse Ox 97.2 F 62 16 133/67 95 12/13/18 08:00 12/13/18 08:00 12/13/18 08:00 12/13/18 08:00 12/13/18 08:00 General: Alert, In no apparent distress, Obese HEENT: Atraumatic, PERRLA, EOMI Neck: Supple, JVD not distended Respiratory: Clear to auscultation bilaterally, Normal air movement Cardiovascular: Regular rate/rhythm, Normal S1 S2 Gastrointestinal: Normal bowel sounds, No tenderness Musculoskeletal: No tenderness Integumentary: Other (Bilateral lower extremity: Chronic skin changes, chronic lymphedema. Erythema improved) Neurological: Normal speech, Normal tone, Normal affect Lymphatics: No axilla or inguinal lymphadenopathy Laboratory Data at Discharge: WBC 4.2 K/uL (4.3-10.9) L D 12/13/18 05:33 Hgb 9.8 g/dL (12.0-15.0) L 12/13/18 05:33 Hct 28.6 % (36.0-45.0) L D 12/13/18 05:33 Plt Count 196 K/uL (152-406) 12/13/18 05:33 Sodium 143 mmol/L (136-145) 12/13/18 05:33 Potassium 4.0 mmol/L (3.5-5.1) 12/13/18 05:33 BUN 14 mg/dL (7-18) 12/13/18 05:33 Creatinine 1.06 mg/dL (0.55-1.3) 12/13/18 05:33 Glucose 94 mg/dL (74-106) 12/13/18 05:33 Magnesium 2.1 mg/dL (1.8-2.4) 12/13/18 05:33 Total Bilirubin 0.8 mg/dL (0.2-1.0) 12/11/18 03:35 AST 24 U/L (15-37) 12/11/18 03:35 ALT 20 U/L (12-78) 12/11/18 03:35 Alkaline Phosphatase 89 U/L (45-117) 12/11/18 03:35 Home Medications: Acetaminophen with Codeine [Acetaminophen-Cod #3 Tablet] 2 tab PO Q6H 12/11/18 Triamterene/Hydrochlorothiazid [Triamterene-Hctz 37.5-25 mg Tb] 1 tab PO DIRECTED 12/11/18 Gabapentin 400 mg PO TID #120 capsule 12/13/18 Levofloxacin [Levaquin] 500 mg PO DAILY #7 tablet 12/13/18 New Medications: Gabapentin 400 mg PO TID #120 capsule Levofloxacin [Levaquin] 500 mg PO DAILY #7 tablet Patient Discharge Instructions: Please make sure to keep your appointment with Dr. Nj on the as scheduled. Return to the ER for worsening sympotms. Diet: Regular Activity: Ad javid Followup: Angelo Saucedo MD [ACTIVE - CAN ADMIT] - (as scheduled) Time spent managing pt's care (in minutes): 60
[2018-12-13 12:21] VITALS: BP 127/62; TEMP 98
== END 2018-12-13 13:50 | disposition home or self-care (01) | DRG 603 ==
LOC: ER 01:05 → 4TH 04:39
PROVIDERS: ADMIT Family Medicine; ATTEND Family Medicine
DX: L03.116 Cellulitis of left lower limb (principal); Z68.43 Body mass index [BMI] 50.0-59.9, adult; I89.0 Lymphedema, not elsewhere classified; B96.5 Pseudomonas (aeruginosa) (mallei) (pseudomallei) as the cause of diseases classified elsewhere; E66.01 Morbid (severe) obesity due to excess calories; Z86.718 Personal history of other venous thrombosis and embolism
CPT/HCPCS: 36415; 71045; 80048; 80053; 80202; 81003; 83605; 83735; 84145; 85025; 87040; 87070; 87077; 87186; 87205; 93970; 96365; 96367; 97116; 97161; 97530; 99285; J0692; J1650; J7030; J7040

== ENCOUNTER 2019-02-21 14:44 | Inpatient (IN) | payer SELFPAY ==
--- OUTSIDE RECORDS SUMMARY | 2019-02-21 14:45 | XMS REPORT ---
:1955 [facility] Organization [facility] Address [address] [place] [address] [address] [place] [address] Care Team Providers Name Role Phone Unavailable Unavailable Unavailable Problems This patient has no known problems. Allergies, Adverse Reactions, Alerts This patient has no known allergies or adverse reactions. Medications This patient has no known medications.
[2019-02-21] MEDS ORDERED: ACETAMINOPHEN 500 MG TAB ONE (15:13)
[2019-02-21] MEDS ORDERED: NA CHLORIDE 0.9% 4,000 ML ONE (15:14)
[2019-02-21] MEDS ORDERED: CEFEPIME 2 GM/200 ML BAG IV ONE (15:31)
[2019-02-21] MEDS ORDERED: CEFTRIAXONE/SWI 1gm 2 GM/20 ML SYR ONE (15:32)
[2019-02-21] MEDS ORDERED: VANCOMYCIN/NS 1 gm 1 GM/250 ML BAG IV ONE (15:45)
[2019-02-21 15:46] LABS: Absolute Lymphocytes (CBC) 0.7 K/uL (0.7-4.9); Basophils % 0.5 % (0-1.3); Hematocrit 34.8 % (36.0-45.0); Lymphocytes % 8.7 % (15.3-44.8); MPV 7.6 fL (7.6-11.3); RBC Red Blood Cell Count 3.96 M/uL (3.86-4.86)
[2019-02-21 16:05] LABS: ALT/SGPT 24 U/L (12-78); AST/SGOT 10 U/L (15-37); Albumin 3.4 g/dL (3.4-5.0); Alkaline Phosphatase 97 U/L (45-117); BUN Blood Urea Nitrogen 12 mg/dL (7-18); Bicarbonate 28 mmol/L (21-32); Bilirubin Direct 0.4 mg/dL (0-0.2); Bilirubin Total 1.1 mg/dL (0.2-1.0); CKMB Creatine Kinase MB < 1.0 ng/mL (0.3-3.6); Creatine Phosphokinase 69 U/L (26-192); Glucose Level 111 mg/dL (74-106); Lipase 138 U/L (73-393); Potassium 4.2 mmol/L (3.5-5.1); Protein, Total 9.8 g/dL (6.4-8.2); Sodium Level 136 mmol/L (136-145); Troponin (Emerg Dept Use Only) < 0.02 ng/mL (0.0-0.045)
[2019-02-21 16:33] LABS: Protime INR 1.18
--- NOTE | 2019-02-21 16:33 | RAD REPORT ---
EXAM DESCRIPTION: RAD - Chest Single View - 02/21/2019 3:49 pm CLINICAL HISTORY: FEVER Chest pain. COMPARISON: Chest Single View dated 12/12/2018; Chest Single View dated 11/21/2018; Chest Single View dated 10/11/2018; Chest Pa And Lat (2 Views) dated 03/18/2017 FINDINGS: Portable technique limits examination quality. The lungs are grossly clear. The heart is moderately enlarged in size. Fullness in the upper mediasti num persists, similar to comparative study. . No displaced fractures. IMPRESSION: No acute intrathoracic process suspected.
[2019-02-21 16:36] LABS: Blood Morphology Comment NOT SEEN (NOT SEEN); Platelet Estimate ADEQ; Urine White Blood Cell Casts OK
--- NOTE | 2019-02-21 17:22 | ER ---
Nurse's Notes [facility] Name: Grace Case Age: 63 yrs Sex: Female : 1955 Arrival Date: 02/21/2019 Time: 14:45 Bed 17 Private MD: Diagnosis: Cellulitis of left lower limb;Cellulitis of right lower limb;Urinary tract infection, site not specified;Urosepsis Presentation: 02/21 14:47 Presenting complaint: Patient states: fever Tmax 103, BLE seeping hx lyphedema " I just sv feel bad, it sucks.". Transition of care: patient was not received from another setting of care. Onset of symptoms was February 21, 2019. Care prior to arrival: None. 14:47 Method Of Arrival: Wheelchair sv 14:47 Acuity: ESTEPHANIA 2 sv 14:56 Risk Assessment: Do you want to hurt yourself or someone else? Patient reports no iw desire to harm self or others. Initial Sepsis Screen: Does the patient meet any 2 criteria? RR > 20 per min. Temp <36.0*C (96.8*F)) or > 38.3*C (100.9*F). Systolic BP < 90 mmHg. HR > 90 bpm. Does the patient have a suspected source of infection? Yes: Skin breakdown/wound If YES to both, name of provider notified: Rene Mason MD Historical: - Allergies: 14:50 No Known Allergies; sv - PMHx: 16:04 cellulits; lymphedema; UTI; aj1 - PSHx: 16:04 "green filter"; Tubal ligation; D \\T\\ C; aj1 - Immunization history:: Adult Immunizations not up to date. - Social history:: Smoking status: . - Ebola Screening: : Patient negative for fever greater than or equal to 101.5 degrees Fahrenheit, and additional compatible Ebola Virus Disease symptoms Patient denies exposure to infectious person. Screenin:00 Abuse screen: Denies threats or abuse. Denies injuries from another. Nutritional aj1 screening: No deficits noted. Tuberculosis screening: No symptoms or risk factors identified. 19:15 Fall Risk None identified. wh Assessment: 14:57 Reassessment: Code Sepsis called. aj1 15:00 General: Appears uncomfortable, ill, Behavior is agitated, anxious. Pain: Complains of aj1 pain in right leg and left leg. Neuro: Level of Consciousness is awake, alert, obeys commands, Oriented to person, place, time, situation. Cardiovascular: Heart tones S1 S2 present Patient's skin is warm and dry. Rhythm is sinus tachycardia. Respiratory: Reports cough that is non-productive, Airway is patent Respiratory effort is even, unlabored, Respiratory pattern is regular, symmetrical, tachypnea Breath sounds are diminished bilaterally. GI: Abdomen is distended, Bowel sounds present X 4 quads. Abd is non tender X 4 quads. : No signs and/or symptoms were reported regarding the genitourinary system. EENT: No signs and/or symptoms were reported regarding the EENT system. Derm: Wound noted Other: multiple wounds noted to stomach, patient states that she picks at her stomach when she gets mad. Patient has lymphedema to bilateral lower legs, redness noted to bilateral lower legs with open wounds. Patient states that her legs have been hurting her. Musculoskeletal: Circulation, motion, and sensation intact. 15:05 Reassessment: Patient is upset that staff will not allow her to sit in a wheelchair. aj1 Explained to patient that because she has low blood pressure, high heart rate and a fever it is not safe for her to do so. Patient verbalized understanding. 15:30 Reassessment: Patient is yelling at X-Ray staff, states that she does not want to do aj1 the X-Ray because the position they are putting her in is making her uncomfortable. Explained to patient that she needs the X-Ray to rule out pneumonia. Patient verbalized understanding. 16:25 Reassessment: Patient states that she wants to scoot to the end of the bed and hang her aj1 feet off. Explained to patient that this is not safe for her to do with how sick she is and with her limited mobility. Patient verbalized understanding, but remains agitated. 16:40 Reassessment: Patient is screaming that she wants to leave, she is uncomfortable and aj1 wants to sit in a chair. Notified Nellie Henriquez NP who will come speak to the patient. 16:45 Reassessment: Nellie Henriquez NP at bedside to talk to patient. aj1 17:00 Reassessment: pt appears a bit agitated but cooperative, pt educated on need for iw admission and further evaluation. pt updated on need for urine specimen , pt verbalizes need for urine collection via straight cath, urine specimen collected and sent to lab. 17:29 Reassessment: pt transported to Ct via stretcher with radiation control technician. iw 18:00 Reassessment: Patient appears in no apparent distress at this time. pt appears relaxed, iw states she feels comfortable in the bed for now, denies need to be moved to recliner chair, pt updated on POC. 19:15 Reassessment: Patient appears in no apparent distress at this time. Patient and/or wh family updated on plan of care and expected duration. Pain level reassessed. Patient is alert, oriented x 3, equal unlabored respirations, skin warm/dry/pink. Vital Signs: 14:50 BP 84 / 57; Pulse 105; Resp 22; Temp 101.9(O); Pulse Ox 95% ; Weight 158.76 kg; Height sv 5 ft. 8 in. (172.72 cm); 15:50 BP 144 / 54; Pulse 117; Resp 26 S; Temp 100.3(O); Pulse Ox 96% on R/A; iw 16:53 BP 110 / 96; Pulse 112; Resp 28 S; Temp 101.7(O); Pulse Ox 96% on R/A; iw 18:41 BP 99 / 52; Pulse 114; Resp 36; Temp 101.3(O); Pulse Ox 96% on R/A; mh5 19:30 BP 104 / 46; Pulse 116; Resp 20; Temp 100; Pulse Ox 98% on R/A; wh 14:50 Body Mass Index 53.22 (158.76 kg, 172.72 cm) sv ED Course: 14:45 Patient arrived in ED. as 14:49 Triage completed. sv 14:52 Arm band placed on. sv 14:58 Bouchra Horn, RN is Primary Nurse. aj1 15:00 No provider procedures requiring assistance completed. aj1 15:01 Lucho Henriquez NP is PHCP. pm1 15:01 Rene Mason MD is Attending Physician. pm1 15:05 First set of blood cultures drawn by oh. jp3 15:08 Inserted saline lock: 20 gauge in right antecubital area, using aseptic technique. iw Blood collected. IV inserted by Bo, diesel lube tech. 15:10 Inserted saline lock: 20 gauge in left antecubital area, using aseptic technique. iw 15:10 Second set of blood cultures drawn. iw 15:32 Placed in gown. Call light in reach. Side rails up X 1. Side rails up X2. Verbal jp3 reassurance given. monitor tech on. Pulse ox on. NIBP on. 15:32 Flu and/or RSV swab sent to lab. Patient maintains SpO2 saturation greater than 95% on jp3 room air. 15:33 X-ray(s) taken. jp3 15:50 Chest Single View XRAY In Process Unspecified. EDMS 17:15 Radiology exam delayed due to procedure being done by nurses. sg3 17:15 Urine collected: straight cath specimen, fidelina colored. Straight cath inserted, using iw sterile technique, 16 Fr. Returned fidelina urine. Patient tolerated well. 17:21 Dontrell Reid MD is Hospitalizing Provider. pm1 17:48 CT Head Brain wo Cont In Process Unspecified. EDMS 19:53 Patient admitted, IV remains in place. wh Administered Medications: 15:10 Drug: NS 0.9% (30 ml/kg) 30 ml/kg Route: IV; Rate: bolus; Site: right antecubital; aj1 19:54 Follow up: Response: No adverse reaction; IV Status: Completed infusion; IV Intake: wh 3500ml 20:10 Follow up: IV Status: Infusion continued upon admission 15:10 Drug: Tylenol 1000 mg Route: PO; aj1 16:15 Follow up: Response: No adverse reaction iw 15:30 Drug: Rocephin 2 grams Route: IV; Rate: bolus; Site: right antecubital; iw 15:35 Follow up: IV Status: Completed infusion iw 15:39 CANCELLED (Duplicate Order): NS 0.9% (30 ml/kg) 30 ml/kg IV at bolus once; Sepsis aj1 Protocol 15:39 CANCELLED (Duplicate Order): Tylenol 1000 mg PO once aj1 15:40 Drug: Cefepime 2 grams Route: IVPB; Rate: 200 ml/hr; Infused Over: 30 mins; Site: right iw antecubital; 16:10 Follow up: IV Status: Completed infusion iw 16:50 Drug: vancoMYCIN 1 grams Route: IVPB; Infused Over: 2 hrs; Site: right antecubital; aj1 19:40 Follow up: Response: No adverse reaction; IV Status: Completed infusion 18:15 Drug: Ibuprofen 600 mg Route: PO; iw 19:42 Follow up: Response: No adverse reaction; Temperature is decreased Intake: 19:54 IV: 3500ml; Total: 3500ml. Outcome: 17:21 Decision to Hospitalize by Provider. pm1 19:52 Admitted to Tele accompanied by tech, via wheelchair, room 409, with chart, Report called to Diana Blackman RN 19:52 Condition: stable 19:52 Instructed on the need for admit. 20:10 Patient left the ED. Signatures: Dispatcher [employer] EDMS Bouchra Horn RN RN aj1 Miya Crowley RN Eva Cain Irene, RN RN Lucho Henriquez, DELI WORKER DELI WORKER pm1 Vernon, Taya 5 Nelsy, Nancie Loy, Angie 3 Rogelio Cramer jp3 Corrections: (The following items were deleted from the chart) 14:53 14:47 Acuity: ESTEPHANIA 3 sv sv 14:53 14:50 Resp 22bpm; Pulse Ox 95%; Temp 101.9F Oral; sv sv 15:20 15:10 Inserted saline lock: 20 gauge in left antecubital area, using aseptic technique. iw iw 16:55 16:53 BP 110 / 96; Pulse 112bpm; Resp 30bpm; Spontaneous; Pulse Ox 96% RA; Temp 101.7F iw Oral; iw 17:28 17:00 Reassessment: pt updated on need for urine specimen , pt verbalizes need for iw urine collection via straight cath, urine specimen collected and sent to lab iw 19:50 19:30 BP 104 / 46; Pulse 116bpm; Resp 20bpm; Pulse Ox 98% RA; [facility]
--- NOTE | 2019-02-21 17:23 | EDPHYS ---
Physician Documentation [facility] Name: Grace Case Age: 63 yrs Sex: Female : 1955 Arrival Date: 02/21/2019 Time: 14:45 Bed 17 Private MD: ED Physician Rene Mason HPI: 02/21 15:29 This 63 yrs old Female presents to ER via Wheelchair with complaints of Cold pm1 Symptoms. 15:29 The patient reports fever, not measured (subjective). Onset: The symptoms/episode pm1 began/occurred today. Modifying factors: history of recurrent lower extremity cellulitis with lymphedema. Associated signs and symptoms: Pertinent positives: chills, lower extremity pain and weeping from wounds, Pertinent negatives: abdominal pain, chest pain, cough, diarrhea, shortness of breath, vomiting. The patient has experienced similar episodes in the past. The patient has not recently seen a physician, and does not have an established primary care provider. Historical: - Allergies: 14:50 No Known Allergies; sv - PMHx: 16:04 cellulits; lymphedema; UTI; aj1 - PSHx: 16:04 "green filter"; Tubal ligation; D \\T\\ C; aj1 - Immunization history:: Adult Immunizations not up to date. - Social history:: Smoking status: . - Ebola Screening: : Patient negative for fever greater than or equal to 101.5 degrees Fahrenheit, and additional compatible Ebola Virus Disease symptoms Patient denies exposure to infectious person. ROS: 17:00 Eyes: Negative for injury, pain, redness, and discharge, ENT: Negative for injury, pm1 pain, and discharge, Neck: Negative for injury, pain, and swelling, Cardiovascular: Negative for chest pain, palpitations, and edema, Respiratory: Negative for shortness of breath, cough, wheezing, and pleuritic chest pain, Abdomen/GI: Negative for abdominal pain, nausea, vomiting, diarrhea, and constipation, Back: Negative for injury and pain, : Negative for injury, bleeding, discharge, and swelling, MS/Extremity: Negative for injury and deformity, Skin: Negative for injury, rash, and discoloration. 17:00 Neuro: Negative for headache, weakness, numbness, tingling, and seizure. 17:00 Constitutional: Positive for chills, fever, Negative for poor PO intake. Exam: 17:00 Head/Face: Normocephalic, atraumatic. Neck: Trachea midline, no thyromegaly or masses pm1 palpated, and no cervical lymphadenopathy. Supple, full range of motion without nuchal rigidity, or vertebral point tenderness. No Meningismus. Chest/axilla: Normal chest wall appearance and motion. Nontender with no deformity. No lesions are appreciated. Cardiovascular: Regular rate and rhythm with a normal S1 and S2. No gallops, murmurs, or rubs. Normal PMI, no JVD. No pulse deficits. Respiratory: Lungs have equal breath sounds bilaterally, clear to auscultation and percussion. No rales, rhonchi or wheezes noted. No increased work of breathing, no retractions or nasal flaring. Abdomen/GI: Soft, non-tender, with normal bowel sounds. No distension or tympany. No guarding or rebound. No evidence of tenderness throughout. Back: No spinal tenderness. No costovertebral tenderness. Full range of motion. 17:00 MS/ Extremity: Pulses equal, no cyanosis. Neurovascular intact. Full, normal range of motion. 17:00 Constitutional: The patient appears alert, awake, non-toxic, febrile, obese, obviously ill, unkempt. 17:00 Skin: Appearance: normal except for affected area, abscess, not appreciated, Bilateral lower extremity lymphedema with redness and serous fluid drainage. 2 cm diameter abrasion present to right rosen. 17:00 Neuro: Orientation: is normal, Motor: is normal, moves all fours, Sensation: is normal, no obvious gross deficits. Vital Signs: 14:50 BP 84 / 57; Pulse 105; Resp 22; Temp 101.9(O); Pulse Ox 95% ; Weight 158.76 kg; Height sv 5 ft. 8 in. (172.72 cm); 15:50 BP 144 / 54; Pulse 117; Resp 26 S; Temp 100.3(O); Pulse Ox 96% on R/A; iw 16:53 BP 110 / 96; Pulse 112; Resp 28 S; Temp 101.7(O); Pulse Ox 96% on R/A; iw 18:41 BP 99 / 52; Pulse 114; Resp 36; Temp 101.3(O); Pulse Ox 96% on R/A; mh5 19:30 BP 104 / 46; Pulse 116; Resp 20; Temp 100; Pulse Ox 98% on R/A; wh 14:50 Body Mass Index 53.22 (158.76 kg, 172.72 cm) sv MDM: 15:03 Patient medically screened. pm1 17:16 Data reviewed: vital signs. Data interpreted: Pulse oximetry: on room air is 96 %. pm1 Interpretation: normal. Counseling: I had a detailed discussion with the patient and/or guardian regarding: the historical points, exam findings, and any diagnostic results supporting the discharge/admit diagnosis, lab results, radiology results, the need for further work-up and treatment in the hospital. 17:26 ED course: Patient with SIRS criteria on initial presentation with UTI. Will admit the pm1 patient for IV antibiotics. 17:30 Physician consultation: Dontrell Reid MD was called at 17:30, was contacted at 17:30, pm1 regarding admission, patient's condition, and will see patient. 02/21 15:03 Order name: Basic Metabolic Panel; Complete Time: 16:38 pm1 02/21 15:03 Order name: Blood Culture Adult (2) pm1 02/21 15:03 Order name: CBC with Diff; Complete Time: 16:38 pm1 02/21 15:03 Order name: Ckmb; Complete Time: 16:38 pm1 02/21 15:03 Order name: CPK; Complete Time: 16:38 pm1 02/21 15:03 Order name: Lactate; Complete Time: 16:01 pm1 02/21 15:03 Order name: LFT's; Complete Time: 16:38 pm1 02/21 15:03 Order name: Lipase; Complete Time: 16:38 pm1 02/21 15:03 Order name: Procalcitonin; Complete Time: 16:38 pm1 02/21 15:03 Order name: Protime (+inr); Complete Time: 16:38 pm1 02/21 15:03 Order name: Ptt, Activated; Complete Time: 16:38 pm1 02/21 15:03 Order name: Troponin (emerg Dept Use Only); Complete Time: 16:38 pm1 02/21 15:03 Order name: Urine Microscopic Only; Complete Time: 18:02 pm1 02/21 15:03 Order name: Flu; Complete Time: 16:01 pm1 02/21 15:04 Order name: Sputum Culture [facility] 02/21 15:04 Order name: Urine Culture [facility] 02/21 15:04 Order name: Urine Microscopic Only [facility] 02/21 15:04 Order name: Chest Single View XRAY; Complete Time: 16:38 [facility] 02/21 15:04 Order name: Accucheck; Complete Time: 15:33 [facility] 02/21 15:04 Order name: Cardiac monitoring; Complete Time: 15:33 [facility] 02/21 15:04 Order name: EKG - Nurse/Tech; Complete Time: 15:33 [facility] 02/21 15:04 Order name: IV Saline Lock - Large Bore; Complete Time: 15:33 [facility] 02/21 15:05 Order name: Labs collected and sent; Complete Time: 15:33 [facility] 02/21 15:05 Order name: O2 Per Protocol; Complete Time: 15:33 [facility] 02/21 15:05 Order name: O2 Sat Monitoring; Complete Time: 15:33 [facility] 02/21 15:05 Order name: Urine Dipstick-Ancillary (obtain specimen); Complete Time: 19:53 [facility] 02/21 15:16 Order name: Extrem Venous W Compression Bean US pm1 02/21 15:29 Order name: Glucose, Ancillary Testing; Complete Time: 15:48 EDMS 02/21 15:58 Order name: CBC Smear Scan; Complete Time: 16:38 EDMS 02/21 16:57 Order name: CT Head Brain wo Cont; Complete Time: 18:10 pm1 02/21 17:18 Order name: Urine Dipstick--Ancillary (enter results); Complete Time: 18:02 ms 02/21 19:04 Order name: US; Complete Time: 19:25 EDMS Administered Medications: 15:10 Drug: NS 0.9% (30 ml/kg) 30 ml/kg Route: IV; Rate: bolus; Site: right antecubital; aj1 19:54 Follow up: Response: No adverse reaction; IV Status: Completed infusion; IV Intake: wh 3500ml 20:10 Follow up: IV Status: Infusion continued upon admission wh 15:10 Drug: Tylenol 1000 mg Route: PO; aj1 16:15 Follow up: Response: No adverse reaction iw 15:30 Drug: Rocephin 2 grams Route: IV; Rate: bolus; Site: right antecubital; iw 15:35 Follow up: IV Status: Completed infusion iw 15:39 CANCELLED (Duplicate Order): NS 0.9% (30 ml/kg) 30 ml/kg IV at bolus once; Sepsis [facility] Protocol 15:39 CANCELLED (Duplicate Order): Tylenol 1000 mg PO once aj1 15:40 Drug: Cefepime 2 grams Route: IVPB; Rate: 200 ml/hr; Infused Over: 30 mins; Site: right iw antecubital; 16:10 Follow up: IV Status: Completed infusion iw 16:50 Drug: vancoMYCIN 1 grams Route: IVPB; Infused Over: 2 hrs; Site: right antecubital; aj1 19:40 Follow up: Response: No adverse reaction; IV Status: Completed infusion 18:15 Drug: Ibuprofen 600 mg Route: PO; 19:42 Follow up: Response: No adverse reaction; Temperature is decreased Disposition: 02/21/19 17:21 Hospitalization ordered by Dontrell Reid for Inpatient Admission. Preliminary diagnosis are Cellulitis of left lower limb, Cellulitis of right lower limb, Urinary tract infection, site not specified, Urosepsis. - Bed requested for Telemetry/MedSurg (Inpatient). - Status is Inpatient Admission. - Condition is Stable. - Problem is new. - Symptoms have improved. UTI on Admission? Yes Addendum: 02/23/2019 10:20 Co-signature as Attending Physician, Rene Mason MD I agree with the assessment and c bourne plan of care. Signatures: Dispatcher [employer] EDBouchra Mario RN RN [facility] Miya Crowley RN RN sv Anderson, Corey, MD MD cha Williams, Irene, RN RN Taya Meeks ms, Patrick, GLASS PULVERIZER EQUIPMENT OPERATOR GLASS PULVERIZER EQUIPMENT OPERATOR [facility] Nancie Whittington Corrections: (The following items were deleted from the chart) 02/21 15:18 15:06 Chest Single View+RAD.RAD.BRZ ordered. EDME EDME 15:39 15:03 NS 0.9% (30 ml/kg) 30 ml/kg IV at bolus once; Sepsis Protocol ordered. [place] [id number] 15:39 15:03 Urine Dipstick-Ancillary ordered. [place] [id number] 15:39 15:16 Tylenol 1000 mg PO once ordered. [place] [address] 15:40 15:03 Labs collected and sent ordered. pm1 aj1 15:40 15:03 Oxygen Per Protocol ordered. pm1 1 15:40 15:03 O2 Sat Monitoring ordered. pm1 1 15:41 15:03 Accucheck ordered. pm1 aj1 15:41 15:03 Cardiac monitoring ordered. pm1 1 15:41 15:03 EKG - Nurse/Tech ordered. pm1 1 15:41 15:03 IV Saline Lock - Large Bore ordered. pm1 [facility] 16:37 15:06 BASIC METABOLIC PANEL+C.LAB.BRZ ordered. EDME EDME 16:37 15:06 BLOOD CULTURE*+BA.LAB.BRZ ordered. EDME EDMS 16:37 15:06 CKMB+C.LAB.BRZ ordered. EDME EDMS 16:37 15:06 CREATINE PHOSPHOKINASE+C.LAB.BRZ ordered. EDME EDMS 16:37 15:06 HEPATIC FUNCTION+C.LAB.BRZ ordered. EDME EDMS 16:37 15:06 LIPASE+C.LAB.BRZ ordered. EDME EDMS 16:37 15:06 TROPONIN (EMERG DEPT USE ONLY)+C.LAB.BRZ ordered. EDME EDMS 16:37 15:07 Influenza Screen (A \\T\\ B)+BA.LAB.BRZ ordered. EDME EDMS 16:38 15:06 CBC+H.LAB.BRZ ordered. EDME EDMS 16:38 15:06 LACTATE+C.LAB.BRZ ordered. EDME EDMS 16:38 15:06 Procalcitonin+C.LAB.BRZ ordered. EDME EDMS 16:38 15:06 PROTIME (+INR)+COAG.LAB.BRZ ordered. EDME EDMS 16:38 15:06 PTT, ACTIVATED+COAG.LAB.BRZ ordered. EDME EDMS 18:46 17:21 Hospitalization Ordered by Dontrell Reid MD for Inpatient Admission. Preliminary ms diagnosis is Cellulitis of left lower limb; Cellulitis of right lower limb; Urinary tract infection, site not specified; Urosepsis. Bed requested for Telemetry/MedSurg (Inpatient). Status is Inpatient Admission. Condition is Stable. Problem is new. Symptoms have improved. UTI on Admission? Yes. pm1 20:10 18:46 02/21/2019 17:21 Hospitalization Ordered by Dontrell Reid MD for Inpatient Admission. Preliminary diagnosis is Cellulitis of left lower limb; Cellulitis of right lower limb; Urinary tract infection, site not specified; Urosepsis. Bed requested for Telemetry/MedSurg (Inpatient). Status is Inpatient Admission. Condition is Stable. Problem is new. Symptoms have improved. UTI on Admission? Yes. ms
[2019-02-21 17:33] LABS: Urine Blood NEGATIVE (NEG); Urine Glucose NEGATIVE (NEG); Urine Protein NEGATIVE (NEG); Urine Specific Gravity 1.015 (1.005-1.030)
--- NOTE | 2019-02-21 17:48 | RAD REPORT ---
EXAM DESCRIPTION: CT - Head Brain Wo Cont - 02/21/2019 5:41 pm CLINICAL HISTORY: AMS Headache, drowsiness COMPARISON: No comparisons TECHNIQUE: All CT scans are performed using dose optimization technique as appropriate and may inclu de automated exposure control or mA/KV adjustment according to patient size. FINDINGS: No intracranial hemorrhage, hydrocephalus or extra-axial fluid collection.No areas of brai n edema or evidence of midline shift. The paranasal sinuses and mastoids are clear. The calvarium is intact. IMPRESSION: No acute intracranial abnormality.
[2019-02-21 17:52] LABS: Urine Bacteria >50 /HPF (<20); Urine Culture Reflex Order NOT NEEDED; Urine RBC <5 /HPF (NONE SEEN)
[2019-02-21] MEDS ORDERED: IBUPROFEN 200 MG TAB PO ONE (18:14)
--- NOTE | 2019-02-21 18:58 | RAD REPORT ---
EXAM DESCRIPTION: US - Extrem Venous W Compress Bean - 02/21/2019 6:52 pm CLINICAL HISTORY: SWELLING Bilateral leg edema and swelling. COMPARISON: <Comparisons> TECHNIQUE: Real-time sonographic interrogation of the left and right lower extremity deep venous sys tems was performed. FINDINGS: Normal compressibility, flow augmentation, phasic flow and spontaneous flow is identified in both the left and right lower extremity deep venous systems. IMPRESSION: No sonographic evidence of left or right lower extremity deep venous thrombosis.
[2019-02-21] MEDS ORDERED: IBUPROFEN 400 MG TAB PO PRN (20:22)
[2019-02-21] MEDS ORDERED: VANCOMYCIN 1.25 GM in NA CHLORIDE 0.9% 250 ML IVPB SCH (20:22)
[2019-02-21] MEDS: NA CHLORIDE 0.9% 1,000 ML IV SCH (20:22)
[2019-02-21 20:43] VITALS: BMI 56.5
[2019-02-21] MEDS ORDERED: VANCOMYCIN 1 GM/VIAL ONE (21:45)
[2019-02-21] MEDS ORDERED: VANCOMYCIN 1 GM in NA CHLORIDE 0.9% 250 ML IV SCH (22:00)
[2019-02-21] MEDS ORDERED: NA CHLORIDE 0.9% 250 ML ONE (22:18)
[2019-02-21] MEDS: ONDANSETRON 4 MG/2 ML VIAL IV PRN (22:30)
--- NOTE | 2019-02-21 23:19 | HP ---
Date of Admission: 02/21/2019 Chief Complaint: Lower extremity leg swelling, altered mental status. Code Status: Full. History Of Present Illness: Patient is a 63-year-old female with past medical history of chronic lym phedema, history of DVT, morbid obesity, comes in with pain in both of her legs along with significan t amount of swelling, redness, erythema. Patient also had some altered mental status according to th e wharf hand, who is the grandson; however, in the ER, her mental status was back to baseline. She wa s hypotensive and met criteria for SIRS. She was tachycardic as well. Patient was given sepsis bolu s with 4 L of normal saline. Her blood pressure did respond to IV fluids. Her workup was negative i ncluding procalcitonin level and lactate level. The patient's white blood cell count was normal. He r chest x-ray was clear. Head CT scan also did not show any acute changes. Doppler sonogram was und erway. The patient's symptoms are constant, moderate, progressively worsening. Does report some sub jective fever and chills. The patient's temperature in the ER was around 102. Patient was given IV antibiotics and then referred for admission. Past Medical History: Chronic lymphedema, recurrent cellulitis of the lower extremities, history of DVT, morbid obesity. Past Surgical History: Tubal ligation, IVC Mandi filter placement in 2005. Allergies: NO KNOWN DRUG ALLERGIES. Medications: List reviewed. Social History: Patient denies any tobacco use, alcohol use, or illicit drug use. Lives at home wit h her grandson, mainly independent in her activities of daily living. Does need some assistance. Family History: Mother had lung disease, pulmonary embolism, and emphysema. Mother had throat and t ongue cancer. Review of Systems: Nine point system reviewed, negative except as per HPI. Physical Examination: Vital Signs: Blood pressure 84/57, pulse 105, respirations 22, temperature 101.9, O2 95% on room air , BMI is 53. General: Awake, alert, and oriented x3. Ill-appearing female, morbidly obese. HEENT: Normocephalic, atraumatic. PERRLA. EOMI. Dry mucous membranes. Oropharynx is clear. Conj unctivae anicteric. Neck: Supple. No JVD. Trachea midline. CV: S1, S2. Sinus tachycardia. Peripheral pulses are weak, but palpable. Respiratory: Moving air well bilaterally. No wheezing or stridor. No use of accessory muscles. HEART: The patient is tachypneic. Gastrointestinal: Abdomen is soft, nontender, nondistended. Positive bowel sounds. No rebound or g uarding. No rigidity. Extremities: No clubbing, cyanosis. Patient has significant peripheral edema. No calf tenderness. Skin: Bilateral lower extremity chronic venous stasis changes. Patient also has erythema and abrasi on on the right lower extremity. Patient has pain, tenderness to touch on the lower extremities, war m. Neuro: Cranial nerves 2 through 12 are intact grossly. No focal neurological deficits. Speech is n ormal. Psych: Mood is somewhat anxious. Affect is congruent with mood. Insight and judgment are fair. Laboratory Data: Sodium 136, potassium 4.2, chloride 103, CO2 of 28, BUN 12, creatinine 1.26, glucos e 111, lactate 1.7, calcium 8.6, AST 10, ALT 24, total bilirubin 1.1, direct bilirubin 0.4. Troponin less than 0.02. Albumin 3.4, lipase 138. Procalcitonin 0.21. WBC 8.2, H and H 12 and 34.8, platel ets 245, neutrophils 86%. INR 1.18. UA positive nitrite, trace leukocyte esterase, greater than 50 bacteria. Influenza screen is negative. Imaging Studies: Head CT scan is negative for any acute intracranial abnormality. Chest x-ray, no a cute intrathoracic process. Mediastinal fullness in the upper mediastinum persist similar to compara tive study. Assessment And Plan: A 63-year-old female with, 1.Systemic inflammatory response syndrome, likely secondary to urinary tract infection. Patient is hypertensive, tachycardic, fever of 101.7. Patient did respond to IV fluids. She got 4 L of normal saline bolus according to the 30 mL/kg sepsis bolus. The patient's blood pressure improved. We will continue with broad-spectrum IV antibiotics likely secondary to urinary tract infection and cellulit is. 2.Acute cystitis without hematuria. We will start on cefepime. Patient has history of recurrent ur inary tract infections. 3.Bilateral lower extremity cellulitis. Patient has chronic lymphedema, has abrasions in her skin, likely developed bacterial cellulitis. We will start on gram-positive coverage with IV vancomycin. We will obtain blood cultures. Patient would benefit from Lymphedema Clinic. Currently, doppler son ogram is being done to rule out DVT. Patient has history of lower extremity DVT, has Mandi filt er. 4.History of DVT in 2005, no longer on anticoagulation status post Mandi filter. 5.Morbid obesity, BMI 53. DVT prophylaxis with Lovenox. Plan: Admit the patient to Med-Surg, place as inpatient. Length of stay greater than 2 midnights. MICHEL Voice ID: [id number]
[2019-02-22] MEDS ORDERED: CEFEPIME 2 GM VIAL ONE (03:11)
[2019-02-22] MEDS ORDERED: CEFEPIME 2 GM VIAL IV SCH (04:00)
[2019-02-22] MEDS: ONDANSETRON 4 MG/2 ML VIAL IV PRN (04:05)
[2019-02-22] MEDS: NA CHLORIDE 0.9% 1,000 ML IV SCH ×2 (05:38→15:52)
[2019-02-22 06:51] LABS: Absolute Lymphocytes (CBC) 0.9 K/uL (0.7-4.9); Basophils % 0.2 % (0-1.3); Lymphocytes % 9.3 % (15.3-44.8); MPV 7.7 fL (7.6-11.3); RBC Red Blood Cell Count 3.54 M/uL (3.86-4.86)
[2019-02-22 06:59] LABS: Albumin 2.8 g/dL (3.4-5.0); Bilirubin Total 0.9 mg/dL (0.2-1.0); Potassium 4.1 mmol/L (3.5-5.1); Protein, Total 7.9 g/dL (6.4-8.2)
[2019-02-22 08:54] LABS: Anisocytosis 1+; Blood Morphology Comment NOTED (NOT SEEN); Platelet Estimate ADEQ; Urine White Blood Cell Casts OK
[2019-02-22] MEDS: ENOXAPARIN 40 MG/0.4 ML SQ SCH (09:12)
[2019-02-22] MEDS: ACETAMINOPHEN 500 MG TAB PO PRN ×2 (09:12→21:24)
[2019-02-22] MEDS: GABAPENTIN 400 MG CAP PO SCH ×2 (14:00→21:24)
[2019-02-22] MEDS: CEFEPIME/SWI 2gm 2 GM/20 ML SYR IVP SCH (15:00)
[2019-02-22] MEDS ORDERED: INFLUENZA VACCINE (for 3y+) 0.5 ML DOSE IMVAC ONE (15:00)
--- NOTE | 2019-02-22 15:02 | PN ---
Date of Progress Note: 02/22/2019 Subjective: Patient seen and examined. Chart reviewed and case discussed with RN. Patient is still having some fevers overnight, complaining of pain in her legs due to the swelling. Medications: List reviewed. Physical Examination: Vital Signs: Temperature, T-max 101.9, T-current 100.8, heart rate 83, blood pressure 123/57, respir ations 18, O2 95% on room air. General: Awake, alert, oriented x3. Morbidly obese female, ill appearing. CV: S1, S2. Regular rate and rhythm. Peripheral pulses present. Respiratory: Diminished breath sounds. No wheezing or stridor. No use of accessory muscles. Gastrointestinal: Abdomen is soft, nontender, nondistended. Positive bowel sounds. Extremities: No clubbing, cyanosis. Patient has diffuse peripheral edema and anasarca. Neurologic: Nonfocal. Skin: Patient has chronic venous stasis changes of bilateral lower extremities. Has abrasions and e rythema of the lower extremities. Laboratory Data: Sodium 140, potassium 4.1, chloride 107, CO2 of 27, BUN 16, creatinine 1.33, glucos e 107, calcium 8.4, magnesium 1.9, albumin 2.8. WBC 9.9, H and H 10.8 and 32, platelets 208. Blood cultures pending. Wound culture is also pending. Assessment And Plan: 63-year-old female with; 1.Systemic inflammatory response syndrome secondary to urinary tract infection. Patient no longer h ypotensive. Blood pressure improved with IV fluid bolus. Blood pressure is 108 to 123. We will con tinue with IV antibiotics. 2.Acute cystitis without hematuria. Urine culture is currently pending. We will continue with IV c efepime. 3.Bilateral lower extremity cellulitis secondary to chronic lymphedema, abrasions in her skin. Cont inue with IV vancomycin and cefepime. Deep venous thrombosis has been ruled out. 4.History of deep venous thrombosis. No longer on anticoagulation. Patient has Mandi filter. 5.Morbid obesity. BMI 56. Counseled. 6.Deep venous thrombosis prophylaxis with Lovenox. 7.Acute kidney injury. We will continue to monitor creatinine, continue IV fluids, avoid NSAIDs. Pooja holbrook due to prerenal azotemia. Plan: Wound healing evaluation in a.m. [facility] as outpatient. Follow up on culture s. Likely discharge in the next 24 to 48 hours depending on clinical response. SA/MODL Voice ID: [id number] Report ID: [id number]
[2019-02-22] MEDS: VANCOMYCIN 2 GM in NA CHLORIDE 0.9% 500 ML IVPB SCH (21:24)
[2019-02-22] MEDS: IBUPROFEN 400 MG TAB PO SCH (23:35)
[2019-02-23] MEDS: HYDROCODONE/APAP 7.5/325 MG TAB PO PRN ×2 (03:23→22:03)
[2019-02-23] MEDS: CEFEPIME/SWI 2gm 2 GM/20 ML SYR IVP SCH ×2 (03:23→14:45)
[2019-02-23 06:27] LABS: Absolute Lymphocytes (CBC) 1.4 K/uL (0.7-4.9); Basophils % 0.3 % (0-1.3); Hematocrit 26.4 % (36.0-45.0); Lymphocytes % 23.9 % (15.3-44.8); MPV 8.1 fL (7.6-11.3); RBC Red Blood Cell Count 2.97 M/uL (3.86-4.86)
[2019-02-23 06:50] LABS: Albumin 2.6 g/dL (3.4-5.0); Bilirubin Total 0.5 mg/dL (0.2-1.0); Potassium 3.8 mmol/L (3.5-5.1); Protein, Total 7.1 g/dL (6.4-8.2)
[2019-02-23] MEDS: NA CHLORIDE 0.9% 1,000 ML IV SCH ×4 (07:38→20:12)
[2019-02-23] MEDS: ENOXAPARIN 40 MG/0.4 ML SQ SCH (07:40)
[2019-02-23] MEDS: GABAPENTIN 400 MG CAP PO SCH ×3 (07:40→20:11)
[2019-02-23] MEDS: IBUPROFEN 400 MG TAB PO SCH ×3 (07:40→20:11)
[2019-02-23] MEDS ORDERED: POTASSIUM CL SA 10 MEQ TAB PO ONE (08:40)
--- NOTE | 2019-02-23 20:00 | PN ---
Date of Progress Note: 02/22/2019 Subjective: Patient is seen and examined. Chart reviewed and case discussed with RN and Wound Healing nurse. Patient continues to spike high fevers, had a temperature of 102 last night, reporting pain in her lower extremities. Medications: List reviewed. Physical Examination: Vital Signs: Temperature, T-max is 102. Current temperature 98.1, heart rate 60, blood pressure 112/59, respirations 17, O2 of 95% on room air. General: Awake, alert, and oriented x3. Morbidly obese female, ill-appearing. CV: S1, S2. Regular rate and rhythm. Peripheral pulses weak. Respiratory: Diminished breath sounds at the bases, otherwise moving air well bilaterally. Gastrointestinal: Abdomen is soft, nontender, nondistended. Positive bowel sounds. Extremities: No clubbing, cyanosis. Patient has diffuse peripheral edema, bilateral lower extremities. Skin: Chronic venous stasis changes and multiple abrasions on the lower extremities with mild erythema and warm to touch. Tenderness to palpation. Neurologic: Nonfocal. Laboratory Data: Sodium 140, potassium 3.8, chloride 110, CO2 of 26, BUN 15, creatinine 1.09, glucose 103, calcium 8, albumin 2.6. WBC 5.9, H and H 9 and 26.4, platelets 186. Blood cultures pending. Gram stain shows gram-positive cocci in pairs and chains, 4/4 bottles. Urine culture shows no growth. Wound culture from the right ankle shows 2+ gram-negative rods and 3+ staph coagulase positive. Assessment And Plan: 63-year-old female with: 1. Systemic inflammatory response syndrome secondary to urinary tract infection and bilateral lower extremity cellulitis. Patient is still spiking high fevers, no longer hypotensive. Continue with IV fluids and IV antibiotics preliminarily. Blood cultures are positive for coagulase positive staphylococcus. Wound cultures are positive for gram-negative rods and staphylococcus. 2. Acute cystitis without hematuria. Urine culture shows no growth to date. Continue with IV antibiotics. 3. Bilateral lower extremity cellulitis secondary to chronic lymphedema. Patient has multiple abrasions as well. Wound cultures showing gram-negative rods and staphylococcus. Continue with broad-spectrum IV antibiotics, wound care, elevate. Patient will need to follow up with [facility] as an outpatient and Lymphedema Clinic. 4. Bacteremia. Gram stain is positive for 4/4 for coagulase positive staphylococcus. If culture comes back with staphylococcus or streptococcus we will need to obtain echocardiogram to rule out vegetation. 5. Morbid obesity, BMI 56. 6. Acute kidney injury. We will continue with IV fluids. Monitor creatinine level, now normalized. 7. Moderate protein-calorie malnutrition. 8. Deep venous thrombosis prophylaxis with Lovenox. Disposition: Likely discharge in the next 48-72 hours. If bacteremic with staph for strep, may need long-term IV antibiotics and ID consultation. /ELMER Voice ID: [id number] Report ID: [id number]
[2019-02-23] MEDS: VANCOMYCIN 2 GM in NA CHLORIDE 0.9% 500 ML IVPB SCH (22:00)
[2019-02-23] MEDS: ONDANSETRON 4 MG/2 ML VIAL IV PRN (22:04)
[2019-02-24] MEDS ORDERED: TEMAZEPAM 15 MG CAP PO PRN (00:28)
[2019-02-24] MEDS: CEFEPIME/SWI 2gm 2 GM/20 ML SYR IVP SCH ×2 (03:34→14:54)
[2019-02-24 04:21] LABS: Absolute Lymphocytes (CBC) 1.2 K/uL (0.7-4.9); Basophils % 0.4 % (0-1.3); Hematocrit 26.3 % (36.0-45.0); Lymphocytes % 36.1 % (15.3-44.8); MPV 7.9 fL (7.6-11.3); RBC Red Blood Cell Count 2.95 M/uL (3.86-4.86)
[2019-02-24 04:46] LABS: Albumin 2.4 g/dL (3.4-5.0); Bilirubin Total 0.3 mg/dL (0.2-1.0); Potassium 4.2 mmol/L (3.5-5.1); Protein, Total 6.7 g/dL (6.4-8.2)
[2019-02-24] MEDS ORDERED: MEDIHONEY 44 ML TOPICAL TUBE TOP SCH (09:00)
[2019-02-24] MEDS: NA CHLORIDE 0.9% 1,000 ML IV SCH ×2 (09:10→18:21)
[2019-02-24] MEDS: ENOXAPARIN 40 MG/0.4 ML SQ SCH (09:11)
[2019-02-24] MEDS: GABAPENTIN 400 MG CAP PO SCH ×2 (09:11→13:13)
[2019-02-24] MEDS: IBUPROFEN 400 MG TAB PO SCH ×2 (09:11→13:12)
[2019-02-24 10:07] VITALS: O2SAT 96
[2019-02-24 17:30] VITALS: BP 134/75; TEMP 98.4
--- NOTE | 2019-02-24 17:31 | PN ---
Date of Progress Note: 02/24/2019 Subjective: Patient seen and examined. Chart reviewed and case discussed with RN and Dr. Sanford. Patient is doing better. Medications: List reviewed. Physical Examination: Vital Signs: Temperature 97.6, heart rate 79, blood pressure 114/64, respirations 18, O2 of 94% on room air. General: Awake, alert, oriented x3, some mild distress, morbidly obese, ill- appearing female. CV: S1 and S2. Regular rate and rhythm. Peripheral pulses present. Respiratory: Moving air well bilaterally. No wheezing or stridor. No use of accessory muscles. Gastrointestinal: Abdomen is soft, nontender, nondistended. Positive bowel sounds. Extremities: No clubbing or cyanosis. Patient has lower extremity edema. Skin: Bilateral lower extremity cellulitis with erythema, abrasions. Laboratory Data: Sodium 142, potassium 4.2, chloride 112, CO2 of 26, BUN 13, creatinine 0.91, glucose 106, calcium 8.1, albumin 2.4. WBC 3.4, hemoglobin and hematocrit 8.8 and 26.3, platelets 183, neutrophils 54%. Blood cultures growing out skin contaminant. Wound culture from the right ankle is growing out pseudomonas and Staphylococcus aureus, which is methicillin sensitive. Assessment: A 63-year-old female with: 1. Systemic inflammatory response syndrome, resolved. 2. Acute cystitis without hematuria. Urine cultures, no growth to date. Continue IV antibiotics. 3. Bilateral lower extremity cellulitis secondary to chronic lymphedema. Patient now growing out pseudomonas and methicillin-susceptible Staphylococcus aureus. We will discontinue vancomycin, switch over to beta-lactam and continue with cefepime. Consult ID. Patient may need long-term IV antibiotics. 4. Bacteremia apparently per microbiology lab growing out Strep anginosus, which is skin roberto carlos contaminant. 5. Morbid obesity, BMI 56. 6. Acute kidney injury. Creatinine now normalized. We will continue to monitor. 7. Moderate protein-calorie malnutrition. We will continue with supplements. 8. Deep venous thrombosis prophylaxis with Lovenox. Plan: Pending ID consultation. May need to be set up for long-term IV antibiotics. Continue wound care. SA/MODL Voice ID: [id number] Report ID: [id number] [facility] CENTERShahid
--- NOTE | 2019-02-24 17:43 | CON ---
History Of Present Illness: This is a 63-year-old female, morbidly obese, lymphedema, stasis ulcers, and stasis dermatitis to the lower extremity. I was consulted for stasis ulcers, infection and cell ulitis. Patient has significant past medical history of DVT also with morbid obesity. Denies any fe bell or other problems. Past Medical History: As per HPI. Social History: Nonsmoker, nondrinker. Surgical History: Tubal ligation, Mandi filter in 2005. Medications: Patient is currently on cefepime. See MAR for other medications. Allergies: NO KNOWN DRUG ALLERGIES. Review of Systems: A 10-point review was performed. Physical Examination: General: This is a 63-year-old female, lying in bed, not in any acute cardiopulmonary distress. Vital Signs: Temperature 97.9, pulse 66, respirations 18, blood pressure 135/61. HEENT: Unremarkable. Neck: Supple. Lungs: Basal crackles. Heart: S1 and S2 are regular. Abdomen: Soft, nontender. Bowel sounds present. Extremities: 4+ nonpitting edema. Large stasis ulcer noted on the right lower extremity and smaller lesions noted at the left lower extremity, thickened, xerotic skin also noted on both lower extremit y with erythematous changes. Laboratory Data: Shows WBC 3.4, hemoglobin 8.8, platelets are 183. Chemistry shows sodium 142, pota ssium 4.2, chloride 112, bicarb 26, BUN 13, creatinine 0.9, glucose is 106. Prealbumin is 2.4. Micro data is growing pseudomonas and Staphylococcus aureus. Assessment And Plan: A 63-year-old female with bilateral lower extremities stasis dermatitis and ulc eration with lymphedema. We will recommend to apply Xeroform to the wounds and Elvis wrap. Keep legs elevated when possible. The patient can be switched to oral antibiotic, ciprofloxacin 500 mg p.o. ev latrell 12 hours for 7 more days and follow up at [facility]. Continue current treatment. Ex ercise and hygiene were recommended. NF/MODL Voice ID: [id number] Report ID: [id number]
--- NOTE | 2019-02-25 02:38 | DS ---
Date of Discharge: 02/24/2019 Blanket Maker: Dr. Sanford with Infectious Disease. Admitting Diagnoses: 1.Bilateral lower extremity cellulitis. 2.Chronic lymphedema. 3.Venous stasis ulcers. 4.Acute cystitis without hematuria. 5.Systemic inflammatory response syndrome. 6.History of deep venous thrombosis, no longer on anticoagulation, status post Mandi filter. 7.Morbid obesity, BMI 53. Discharge Diagnoses: 1.Systemic inflammatory response syndrome, resolved. 2.Acute cystitis without hematuria, no growth on urine culture. 3.Bilateral lower extremity cellulitis secondary to venous ulcers growing out Pseudomonas and methic illin-susceptible Staphylococcus aureus. 4.History of deep venous thrombosis in 2005, no longer on anticoagulation, status post Mandi fi lter. 5.Obesity, BMI 53. 6.Acute kidney injury. Hospital Course: Patient is a 63-year-old female, comes in with lower extremity swelling and altered mental status. Patient was found to be hypotensive, had multiple source of infection including UTI and cellulitis of the lower extremities due to acute venous stasis ulcers. Patient received 4 L of n ormal saline boluses. Her blood pressure improved. She did have 5 spiking temperatures, which daniel nued for 48 hours post admission. Patient was started on broad-spectrum IV antibiotics. Ultrasound of the lower extremities was done to rule out DVT, which was negative. Head CT scan was also done, w hich did not show any acute changes. Her chest x-ray was clear. The patient was seen by Infectious Disease, Dr. Sanford. Her blood cultures grew out Streptococcus anginosus, which is skin contaminant. Her wound cultures from the right ankle, however, did grow out Pseudomonas and Staph aureus. Zenaida patterson was receiving wound care and was then cleared for discharge. Her condition improved significantly . She was afebrile for greater than 24 hours. White blood cell count was normal. There were no fur ther signs of sepsis. Her kidney dysfunction also resolved. The patient was then discharged home in a stable condition. Activity: As tolerated. Medications: As per medication reconciliation list. Followup: Follow up with primary care physician in 2-3 days. Follow up with Infectious Disease, Dr. Sanford in 2 weeks. Follow up in wound healing center 1 week. Return to ER for worsening condition. Diet: Heart healthy, calorie-restricted diet. Activity: As tolerated. Discharge Instructions: Patient is instructed to keep her feet elevated. Ambulation is okay, but wilian valenzuela needs to keep her legs elevated while at rest, especially when sitting to avoid chronic fluid reten tion. The patient once healed from her infection and medically optimized will benefit from bariatric surgery for weight loss. Her BMI is 56. She has high morbidity. Patient was counseled extensively . She voiced understanding. Family was at the bedside. Total time spent discharging the patient was 39 minutes. For physical exam findings, please see progress note dictated on the day of discharge. /ELMER Voice ID: [id number] Report ID: [id number]
== END 2019-02-24 18:37 | disposition home or self-care (01) | DRG 690 ==
LOC: ER 14:44 → ERHOLD 17:49 → 4TH 19:52
PROVIDERS: ADMIT Family Medicine; ATTEND Family Medicine
DX: N30.00 Acute cystitis without hematuria (principal); L03.116 Cellulitis of left lower limb; Z68.43 Body mass index [BMI] 50.0-59.9, adult; N17.9 Acute kidney failure, unspecified; E44.0 Moderate protein-calorie malnutrition; L03.115 Cellulitis of right lower limb; B96.5 Pseudomonas (aeruginosa) (mallei) (pseudomallei) as the cause of diseases classified elsewhere; B95.61 Methicillin susceptible Staphylococcus aureus infection as the cause of diseases classified elsewhere; E66.01 Morbid (severe) obesity due to excess calories; I87.8 Other specified disorders of veins
CPT/HCPCS: 36415; 51702; 70450; 71045; 80048; 80053; 80076; 81003; 81015; 82550; 82553; 82947; 83605; 83690; 83735; 84145; 84484; 85025; 85610; 85730; 87040; 87070; 87077; 87086; 87088; 87186; 87205; 87804; 93970; 94760; 94762; 96365; 96366; 96367; 96375; 99251; 99285; J0692; J0696; J1650; J2405; J3370; J7030; J7040

== ENCOUNTER 2019-04-01 18:59 | Emergency (ER) | payer SELFPAY ==
--- OUTSIDE RECORDS SUMMARY | 2019-04-01 19:01 | XMS REPORT ---
:1955 [facility] Address [address] [place] [address] Dr. Portillo [address] [place] [address] Care Team Providers Name Role Phone Unavailable Unavailable Unavailable Problems This patient has no known problems. Allergies, Adverse Reactions, Alerts This patient has no known allergies or adverse reactions. Medications This patient has no known medications.
[2019-04-01 20:36] LABS: Urine Bacteria >50 /HPF (<20); Urine Culture Reflex Order REFLEXED; Urine Mucus 1+ /HPF (NONE SEEN)
[2019-04-01 20:54] LABS: Urine Blood 1+ (NEG); Urine Glucose NEGATIVE (NEG); Urine Protein NEGATIVE (NEG); Urine Specific Gravity 1.015 (1.005-1.030)
[2019-04-01 21:01] LABS: Basophils % 0.6 % (0-1.3); Hematocrit 36.8 % (36.0-45.0); Lymphocytes % 17.9 % (15.3-44.8); MPV 7.3 fL (7.6-11.3); RBC Red Blood Cell Count 4.13 M/uL (3.86-4.86)
[2019-04-01 21:18] LABS: Albumin 3.3 g/dL (3.4-5.0); Potassium 3.9 mmol/L (3.5-5.1); Protein, Total 8.8 g/dL (6.4-8.2)
[2019-04-01] MEDS ORDERED: CEFTRIAXONE/SWI 1gm 1 GM/10 ML SYR ONE (21:20)
--- NOTE | 2019-04-01 22:24 | EDPHYS ---
Physician Documentation [facility] Name: Grace Case Age: 63 yrs Sex: Female : 1955 Arrival Date: 04/01/2019 Time: 19:04 Bed 5 Private MD: ED Physician Rc Taylor HPI: 04/02 01:32 This 63 yrs old Female presents to ER via Wheelchair with complaints of tw4 Fever, Urinary Problem. 01:32 The patient presents with urinary symptoms, dysuria, frequency. Onset: The tw4 symptoms/episode began/occurred yesterday. Modifying factors: The symptoms are alleviated by nothing, the symptoms are aggravated by nothing. Associated signs and symptoms: Pertinent positives: dysuria, fever, Pertinent negatives: constipation, cramping, diarrhea, dyspareunia, hematuria, nausea, urinary frequency, vaginal bleeding, vaginal discharge, vomiting. Severity of symptoms: At their worst the symptoms were mild, in the emergency department the symptoms are unchanged. The patient has not experienced similar symptoms in the past. Historical: - Allergies: 04/01 19:57 No Known Allergies; ca1 - PMHx: 19:57 cellulits; lymphedema; UTI; ca1 - PSHx: 19:57 "green filter"; Tubal ligation; D \\T\\ C; ca1 - Immunization history:: Adult Immunizations up to date, Flu vaccine is not up to date. - Social history:: Smoking status: Patient denies any tobacco usage or history of. - Ebola Screening: : Patient negative for fever greater than or equal to 101.5 degrees Fahrenheit, and additional compatible Ebola Virus Disease symptoms Patient denies exposure to infectious person Patient denies travel to an Ebola-affected area in the 21 days before illness onset No symptoms or risks identified at this time. ROS: 04/02 01:32 Positive for urinary symptoms, urinary frequency, burning with urination, Negative tw4 for injury or acute deformity, difficulty urinating, bladder incontinence, foul smelling urine, vaginal bleeding, vaginal itching, menstrual abnormality, missed period. Cardiovascular: Negative for chest pain, palpitations, and edema, Respiratory: Negative for shortness of breath, cough, wheezing, and pleuritic chest pain, Abdomen/GI: Negative for abdominal pain, nausea, vomiting, diarrhea, and constipation, Back: Negative for injury and pain, MS/Extremity: Negative for injury and deformity, Skin: Negative for injury, rash, and discoloration, Neuro: Negative for headache, weakness, numbness, tingling, and seizure. Constitutional: Positive for fever, Negative for body aches, chills, fatigue. Exam: 01:32 Constitutional: This is a well developed, well nourished patient who is awake, alert, tw4 and in no acute distress. Head/Face: Normocephalic, atraumatic. Chest/axilla: Normal chest wall appearance and motion. Nontender with no deformity. No lesions are appreciated. Cardiovascular: Regular rate and rhythm with a normal S1 and S2. No gallops, murmurs, or rubs. Normal PMI, no JVD. No pulse deficits. Respiratory: Lungs have equal breath sounds bilaterally, clear to auscultation and percussion. No rales, rhonchi or wheezes noted. No increased work of breathing, no retractions or nasal flaring. Abdomen/GI: Soft, non-tender, with normal bowel sounds. No distension or tympany. No guarding or rebound. No evidence of tenderness throughout. Back: No spinal tenderness. No costovertebral tenderness. Full range of motion. MS/ Extremity: Pulses equal, no cyanosis. Neurovascular intact. Full, normal range of motion. Neuro: Awake and alert, GCS 15, oriented to person, place, time, and situation. Cranial nerves II-XII grossly intact. Motor strength 5/5 in all extremities. Sensory grossly intact. Cerebellar exam normal. Normal gait. Vital Signs: 04/01 19:57 BP 131 / 87; Pulse 94; Resp 17 S; Temp 99.5(O); Pulse Ox 96% on R/A; Weight 136.08 kg; ca1 Height 5 ft. (152.40 cm) (R); Pain 3/10; 20:32 BP 128 / 65; Pulse 93; Resp 20; Temp 99.5(O); Pulse Ox 100% on R/A; lp1 21:49 BP 126 / 71; Pulse 89; Resp 18; Pulse Ox 97% on R/A; rv 19:57 Body Mass Index 58.59 (136.08 kg, 152.40 cm) ca1 MDM: 20:42 Patient medically screened. tw4 04/02 01:32 Differential diagnosis: urinary tract infection. Data reviewed: vital signs, nurses 4 notes. Data reviewed: lab test result(s), CBC, electrolytes, urinalysis, bacteruria. Counseling: I had a detailed discussion with the patient and/or guardian regarding: the historical points, exam findings, and any diagnostic results supporting the discharge/admit diagnosis. Special discussion: I discussed with the patient/guardian in detail that at this point there is no indication for admission to the hospital. It is understood, however, that if the symptoms persist or worsen the patient needs to return immediately for re-evaluation. 04/01 19:56 Order name: Urine Culture aa1 04/01 19:56 Order name: Urine Microscopic Only; Complete Time: 20:42 [facility] 04/01 20:42 Interpretation: Normal except: SQEPI 10-20; UBACT >50; URBC 5-10; UWBC 10-20. rust 04/01 20:00 Order name: Urine Dipstick--Ancillary (enter results); Complete Time: 22:22 [facility] 04/01 22:22 Interpretation: Normal except: UBLD 1+; UESTR 1+; U NIT POSITIVE. 04/01 20:44 Order name: CBC with Diff; Complete Time: 22:22 rust 04/01 22:22 Interpretation: Normal except: RDW 16.5; MPV 7.3; ESA% 74.5. rust 04/01 20:44 Order name: CMP; Complete Time: 22:22 rust 04/01 19:57 Order name: Urine Dipstick-Ancillary (obtain specimen); Complete Time: 19:57 mg2 Administered Medications: 04/01 21:21 Drug: Rocephin - (cefTRIAXone) 1 grams Route: IVPB; Infused Over: 30 mins; Site: right rv forearm; 22:29 Follow up: IV Status: Completed infusion rv Disposition: 04/01/19 22:24 Discharged to Home. Impression: Urinary tract infection, site not specified. - Condition is Stable. - Discharge Instructions: Urinary Tract Infection, Adult, Urinary Tract Infection, Adult, [id number]. - Prescriptions for Pyridium 200 mg Oral Tablet - take 1 tablet by ORAL route every 8 hours for 3 days; 9 tablet. Macrobid 100 mg Oral Capsule - take 1 capsule by ORAL route every 12 hours for 10 days; 20 capsule. - Medication Reconciliation Form, Thank You Letter, Antibiotic Education, Prescription Opioid Use form. - Follow up: Private Physician; When: Upon discharge from the Emergency Department; Reason: Recheck today's complaints, Continuance of care. - Problem is new. - Symptoms have improved. Signatures: Dispatcher [employer] cR Peguero MD MD tw4 Crescencio Bustamante, GIL RN [facility] Tra Monroe RN RN rv Acob, GIL Kim RN ca1 Corrections: (The following items were deleted from the chart) 22:30 22:24 04/01/2019 22:24 Discharged to Home. Impression: Urinary tract infection, site rv not specified. Condition is Stable. Forms are Medication Reconciliation Form, Thank You Letter, Antibiotic Education, Prescription Opioid Use. Follow up: Private Physician; When: Upon discharge from the Emergency Department; Reason: Recheck today's complaints, Continuance of care. Problem is new. Symptoms have improved. tw4
--- NOTE | 2019-04-01 22:24 | ER ---
Nurse's Notes [facility] Name: Grace Case Age: 63 yrs Sex: Female : 1955 Arrival Date: 04/01/2019 Time: 19:04 Bed 5 Private MD: Diagnosis: Urinary tract infection, site not specified Presentation: 04/01 19:52 Presenting complaint: Patient states: "Just about every month I get UTI and fever". ca1 This time, fever started today. Htemp 101.3. Urinary symptoms started 4-5 days ago. Reports nausea. Denies vomiting and diarrhea. Transition of care: patient was not received from another setting of care. Onset of symptoms was April 01, 2019. Risk Assessment: Do you want to hurt yourself or someone else?. Risk Assessment: Do you want to hurt yourself or someone else? Patient reports no desire to harm self or others. Initial Sepsis Screen: Does the patient meet any 2 criteria? No. Patient's initial sepsis screen is negative. Does the patient have a suspected source of infection? No. Patient's initial sepsis screen is negative. Care prior to arrival: None. 19:52 Method Of Arrival: Wheelchair ca1 19:52 Acuity: ESTEPHANIA 3 ca1 Historical: - Allergies: 19:57 No Known Allergies; ca1 - PMHx: 19:57 cellulits; lymphedema; UTI; ca1 - PSHx: 19:57 "green filter"; Tubal ligation; D \\T\\ C; ca1 - Immunization history:: Adult Immunizations up to date, Flu vaccine is not up to date. - Social history:: Smoking status: Patient denies any tobacco usage or history of. - Ebola Screening: : Patient negative for fever greater than or equal to 101.5 degrees Fahrenheit, and additional compatible Ebola Virus Disease symptoms Patient denies exposure to infectious person Patient denies travel to an Ebola-affected area in the 21 days before illness onset No symptoms or risks identified at this time. Screenin:35 Abuse screen: Denies threats or abuse. Denies injuries from another. Nutritional rv screening: No deficits noted. Tuberculosis screening: No symptoms or risk factors identified. Fall Risk None identified. Assessment: 20:35 General: Appears in no apparent distress. Behavior is calm, cooperative. Pain: Denies rv pain. Neuro: Level of Consciousness is awake, alert, obeys commands, Oriented to person, place, time, situation. Cardiovascular: Patient's skin is warm and dry. Respiratory: Airway is patent. : Reports urgency, urinary frequency. Vital Signs: 19:57 BP 131 / 87; Pulse 94; Resp 17 S; Temp 99.5(O); Pulse Ox 96% on R/A; Weight 136.08 kg; ca1 Height 5 ft. (152.40 cm) (R); Pain 3/10; 20:32 BP 128 / 65; Pulse 93; Resp 20; Temp 99.5(O); Pulse Ox 100% on R/A; lp1 21:49 BP 126 / 71; Pulse 89; Resp 18; Pulse Ox 97% on R/A; rv 19:57 Body Mass Index 58.59 (136.08 kg, 152.40 cm) ca1 ED Course: 19:04 Patient arrived in ED. mr 19:56 Triage completed. ca1 19:57 Arm band placed on right wrist. ca1 20:34 Tra Monroe RN is Primary Nurse. rv 20:36 Patient has correct armband on for positive identification. Pulse ox on. NIBP on. rv 20:42 Rc Taylor MD is Attending Physician. tw4 21:00 Inserted saline lock: 22 gauge in right forearm, using aseptic technique. rv 21:50 No provider procedures requiring assistance completed. IV discontinued, intact, rv bleeding controlled, No redness/swelling at site. Pressure dressing applied. Administered Medications: 21:21 Drug: Rocephin - (cefTRIAXone) 1 grams Route: IVPB; Infused Over: 30 mins; Site: right rv forearm; 22:29 Follow up: IV Status: Completed infusion rv Outcome: 22:24 Discharge ordered by . tw4 22:30 Discharged to home ambulatory, with family. rv 22:30 Condition: good 22:30 Discharge instructions given to patient, Instructed on discharge instructions, follow up and referral plans. medication usage, Demonstrated understanding of instructions, follow-up care, medications, Prescriptions given X 2. 22:30 Patient left the ED. rv Addendum: 04/05/2019 08:00 Addendum: Culture Results: Positive urine culture. No further action required. Bacteria s s sensitive to prescribed antibiotic. Signatures: Grace Herrera mr Gabby Encinas RN RN ss Hedy Whittington RN RN lp1 Rc Taylor MD MD tw4 Tra Monroe, RN RN rv AcJudy penaloza, RN RN ca1
[2019-04-02 04:35] VITALS: TEMP 99.5
[2019-04-02 04:38] VITALS: BP 126/71; O2SAT 97
== END 2019-04-01 22:30 | disposition home or self-care (01) ==
LOC: ER 18:59
DX: N39.0 Urinary tract infection, site not specified (principal)
CPT/HCPCS: 36415; 80053; 81003; 81015; 85025; 87077; 87086; 87088; 87186; 96365; 99284; J0696

== ENCOUNTER 2019-04-25 17:59 | Emergency (ER) | payer SELFPAY ==
--- OUTSIDE RECORDS SUMMARY | 2019-04-25 18:01 | XMS REPORT ---
:1955 [facility] Address [address] [place] [address] Dr. Portillo [address] [place] [address] Care Team Providers Name Role Phone Unavailable Unavailable Unavailable Problems This patient has no known problems. Allergies, Adverse Reactions, Alerts This patient has no known allergies or adverse reactions. Medications This patient has no known medications.
[2019-04-25 19:18] LABS: Urine Blood TRACE (NEG); Urine Glucose NEGATIVE (NEG); Urine Protein 1+ (NEG); Urine pH 5.5 (5.0-7.0)
[2019-04-25 19:34] LABS: Absolute Lymphocytes (CBC) 1.4 K/uL (0.7-4.9); Basophils % 0.3 % (0-1.3); Hematocrit 35.2 % (36.0-45.0); Lymphocytes % 18.3 % (15.3-44.8); MPV 7.9 fL (7.6-11.3); RBC Red Blood Cell Count 4.04 M/uL (3.86-4.86)
[2019-04-25 19:44] LABS: Urine Amorphous Sediment 3+ /HPF (NONE SEEN); Urine Bacteria >50 /HPF (<20); Urine Culture Reflex Order REFLEXED; Urine RBC NONE SEEN /HPF (NONE SEEN)
[2019-04-25 19:50] LABS: Albumin 3.2 g/dL (3.4-5.0); Bilirubin Total 0.9 mg/dL (0.2-1.0); Potassium 3.4 mmol/L (3.5-5.1); Protein, Total 9.8 g/dL (6.4-8.2)
--- NOTE | 2019-04-25 21:46 | ER ---
Nurse's Notes [facility] Name: Grace Case Age: 63 yrs Sex: Female : 1955 Arrival Date: 04/25/2019 Time: 18:03 Bed 4 Private MD: Diagnosis: Urinary tract infection, site not specified;Lymphedema, not elsewhere classified Presentation: 04/25 18:32 Presenting complaint: Patient states: Fever, redness and swelling to her left leg for aj1 the past 2 weeks. Transition of care: patient was not received from another setting of care. Onset of symptoms was April 2019. Risk Assessment: Do you want to hurt yourself or someone else? Patient reports no desire to harm self or others. Initial Sepsis Screen: Does the patient meet any 2 criteria? No. Patient's initial sepsis screen is negative. Does the patient have a suspected source of infection? No. Patient's initial sepsis screen is negative. Care prior to arrival: None. 18:32 Method Of Arrival: Wheelchair aj1 18:32 Acuity: ESTEPHANIA 3 aj1 Triage Assessment: 18:34 General: Appears in no apparent distress. comfortable, Behavior is calm, cooperative, aj1 appropriate for age. Pain: Complains of pain in left leg. Neuro: Level of Consciousness is awake, alert, obeys commands. Cardiovascular: Patient's skin is warm and dry. Respiratory: Airway is patent Respiratory effort is even, unlabored, Respiratory pattern is regular, symmetrical. Historical: - Allergies: 18:34 No Known Allergies; aj1 - PMHx: 18:34 cellulits; lymphedema; UTI; aj1 - Immunization history:: Flu vaccine is not up to date. - Coronavirus screen:: The patient has NOT traveled to [place] in the past 14 days. - Social history:: Smoking status: Patient/guardian denies using tobacco. - Ebola Screening: : Patient denies travel to an Ebola-affected area in the 21 days before illness onset. Screenin:10 Abuse screen: Denies threats or abuse. Nutritional screening: No deficits noted. jb4 Tuberculosis screening: No symptoms or risk factors identified. Fall Risk None identified. Assessment: 19:10 General: Appears in no apparent distress. comfortable, Behavior is calm, cooperative, jb4 appropriate for age. Pain: Denies pain. Neuro: Level of Consciousness is awake, alert, obeys commands, Oriented to person, place, time, situation. Cardiovascular: Patient's skin is warm and dry. Respiratory: Airway is patent Respiratory effort is even, unlabored, Respiratory pattern is regular, symmetrical. GI: No signs and/or symptoms were reported involving the gastrointestinal system. : Reports burning with urination, urinary frequency. EENT: No signs and/or symptoms were reported regarding the EENT system. Derm: Skin is intact, Skin is pink, warm \T\ dry. Musculoskeletal: Circulation, motion, and sensation intact. Range of motion: intact in all extremities, Swelling present in right leg and left leg. 20:11 Reassessment: Patient appears in no apparent distress at this time. Patient and/or jb4 family updated on plan of care and expected duration. Pain level reassessed. Patient is alert, oriented x 3, equal unlabored respirations, skin warm/dry/pink. 21:00 Reassessment: Patient appears in no apparent distress at this time. Patient and/or jb4 family updated on plan of care and expected duration. Pain level reassessed. Patient is alert, oriented x 3, equal unlabored respirations, skin warm/dry/pink. 22:00 Reassessment: Patient appears in no apparent distress at this time. Patient and/or jb4 family updated on plan of care and expected duration. Pain level reassessed. Patient is alert, oriented x 3, equal unlabored respirations, skin warm/dry/pink. Vital Signs: 18:34 BP 132 / 89; Pulse 72; Resp 18; Temp 97.4; Pulse Ox 98% on R/A; Weight 136.08 kg (R); aj1 Height 5 ft. 5 in. (165.10 cm) (R); Pain 8/10; 20:00 BP 111 / 52; Pulse 73; Resp 16; Pulse Ox 99% on R/A; jb4 22:00 BP 114 / 68; Pulse 77; Resp 16; Temp 98.2(O); Pulse Ox 98% on R/A; jb4 18:34 Body Mass Index 49.92 (136.08 kg, 165.10 cm) aj ED Course: 18:03 Patient arrived in ED. mr 18:33 Triage completed. aj1 18:34 Arm band placed on Patient placed in an exam room. aj1 18:39 Lucho Henriquez NP is PHCP. pm1 18:39 Rene Mason MD is Attending Physician. pm1 19:06 Urine Microscopic Only Sent. jp3 19:10 Patient has correct armband on for positive identification. Bed in low position. Call jb4 light in reach. Side rails up X 1. Pulse ox on. NIBP on. Warm blanket given. 19:15 Inserted saline lock: 20 gauge in right antecubital area, using aseptic technique. ds4 Blood collected. 19:25 CMP Sent. ds4 19:25 CBC with Diff Sent. ds4 20:07 Lei Rojas, RN is Primary Nurse. jb4 22:13 No provider procedures requiring assistance completed. IV discontinued, intact, jb4 bleeding controlled, No redness/swelling at site. Pressure dressing applied. Administered Medications: 22:08 Drug: Rocephin 1 grams Route: IV; Rate: calculated rate; Site: right antecubital; jb4 22:11 Follow up: Response: No adverse reaction; IV Status: Completed infusion; IV Intake: [id number] Intake: 22:11 IV: 10ml; Total: 10ml. jb4 Outcome: 21:46 Discharge ordered by MD. pm1 22:13 Discharged to home via wheelchair, with family. jb4 22:13 Condition: stable 22:13 Discharge instructions given to patient, family, Instructed on discharge instructions, follow up and referral plans. medication usage, Demonstrated understanding of instructions, follow-up care, medications, Prescriptions given X 1. 22:15 Patient left the ED. jb4 Addendum: 04/29/2019 19:12 Addendum: Culture Results: Positive urine culture. No further action required. Bacteria i w sensitive to prescribed antibiotic. Signatures: Bouchra Horn, RN RN aj1 Grace Herrera mr Shelly Kurtz RN RN iw Swanson, Donovan ds4 Lucho Henriquez, JEF INTERNATIONAL EDITORIAL PRODUCER pm1 Lei Rojas, GIL RN keely4 Rogelio Cramer jp3 Corrections: (The following items were deleted from the chart) 04/25 22:13 22:00 No provider procedures requiring assistance completed. jb4 jb4 22:13 22:00 IV discontinued, intact, bleeding controlled, No redness/swelling at site. jb4 Pressure dressing applied, jb4 22:15 19:10 Musculoskeletal: Circulation, motion, and sensation intact. Range of motion: jb4 intact in all extremities, jb4
--- NOTE | 2019-04-25 21:46 | EDPHYS ---
Physician Documentation [facility] Name: Grace Case Age: 63 yrs Sex: Female : 1955 Arrival Date: 04/25/2019 Time: 18:03 Bed 4 Private MD: SOFIA Physician Rene Mason HPI: 04/25 18:58 This 63 yrs old Female presents to ER via Wheelchair with complaints of Leg pm1 Swelling, Fever. 18:58 The patient presents with swelling, lower extremities, history of lymphedema, pm1 subjective fevers, urinary tract infection. Onset: The symptoms/episode began/occurred. 18:58 The complaints affect the left leg greater than right leg. Onset: The symptoms/episode pm1 began/occurred 2 week(s) ago. Modifying factors: The symptoms are alleviated by nothing. the symptoms are aggravated by urinary tract infection not improved because the patient did not take her antibiotics for her prior UTI diagnosed 3 weeks ago in the ER here. Associated signs and symptoms: Pertinent positives: fever, Pertinent negatives nausea, vomiting. Treatment prior to arrival includes: no previous treatment. Severity of symptoms: in the emergency department the symptoms are unchanged. The patient has experienced similar episodes in the past, multiple times. Historical: - Allergies: 18:34 No Known Allergies; aj1 - PMHx: 18:34 cellulits; lymphedema; UTI; aj1 - Immunization history:: Flu vaccine is not up to date. - Coronavirus screen:: The patient has NOT traveled to [place] in the past 14 days. - Social history:: Smoking status: Patient/guardian denies using tobacco. - Ebola Screening: : Patient denies travel to an Ebola-affected area in the 21 days before illness onset. ROS: 18:58 Neck: Negative for injury, pain, and swelling, Cardiovascular: Negative for chest pain, pm1 palpitations, and edema, Respiratory: Negative for shortness of breath, cough, wheezing, and pleuritic chest pain, Abdomen/GI: Negative for abdominal pain, nausea, vomiting, diarrhea, and constipation. 18:58 Back: Negative for injury and pain. 18:58 Skin: Negative for injury, rash, and discoloration. 18:58 Neuro: Negative for headache, weakness, numbness, tingling, and seizure. 18:58 Constitutional: Positive for poor PO intake, subjective fever. 18:58 : Positive for urinary symptoms. 18:58 MS/extremity: Positive for swelling, of the left leg. Exam: 18:58 Constitutional: This is a well developed, well nourished patient who is awake, alert, pm1 and in no acute distress. Head/Face: Normocephalic, atraumatic. Neck: Trachea midline, no thyromegaly or masses palpated, and no cervical lymphadenopathy. Supple, full range of motion without nuchal rigidity, or vertebral point tenderness. No Meningismus. Chest/axilla: Normal chest wall appearance and motion. Nontender with no deformity. No lesions are appreciated. Cardiovascular: Regular rate and rhythm with a normal S1 and S2. No gallops, murmurs, or rubs. No pulse deficits. Respiratory: Lungs have equal breath sounds bilaterally, clear to auscultation and percussion. No rales, rhonchi or wheezes noted. No increased work of breathing, no retractions or nasal flaring. Abdomen/GI: Soft, non-tender, with normal bowel sounds. No distension or tympany. No guarding or rebound. No evidence of tenderness throughout. Back: No spinal tenderness. No costovertebral tenderness. Full range of motion. Skin: Warm, dry with normal turgor. Normal color with no rashes, no lesions, and no evidence of cellulitis. 18:58 Musculoskeletal/extremity: Extremities: grossly normal except: bilateral lower extremity lymph edema, Sensation intact. Vital Signs: 18:34 BP 132 / 89; Pulse 72; Resp 18; Temp 97.4; Pulse Ox 98% on R/A; Weight 136.08 kg (R); aj1 Height 5 ft. 5 in. (165.10 cm) (R); Pain 8/10; 20:00 BP 111 / 52; Pulse 73; Resp 16; Pulse Ox 99% on R/A; jb4 22:00 BP 114 / 68; Pulse 77; Resp 16; Temp 98.2(O); Pulse Ox 98% on R/A; jb4 18:34 Body Mass Index 49.92 (136.08 kg, 165.10 cm) aj1 MDM: 18:40 Patient medically screened. [facility] 21:44 Data reviewed: vital signs. Data interpreted: Pulse oximetry: on room air is 99 %. pm1 Interpretation: normal. Counseling: I had a detailed discussion with the patient and/or guardian regarding: the historical points, exam findings, and any diagnostic results supporting the discharge/admit diagnosis, lab results, the need for outpatient follow up, to return to the emergency department if symptoms worsen or persist or if there are any questions or concerns that arise at home. 04/25 18:54 Order name: Urine Microscopic Only pm1 04/25 18:57 Order name: CBC with Diff pm1 04/25 18:57 Order name: CMP pm1 04/25 19:08 Order name: Urine Dipstick--Ancillary (enter results) 6 04/25 21:37 Order name: Urine Dipstick-Ancillary; Complete Time: 21:41 EDMS 04/25 21:38 Order name: CBC with Automated Diff; Complete Time: 21:41 EDMS 04/25 18:54 Order name: Urine Dipstick-Ancillary (obtain specimen); Complete Time: 19:06 pm1 04/25 18:57 Order name: IV Saline Lock; Complete Time: 19:25 pm1 04/25 21:38 Order name: Urine Microscopic Only; Complete Time: 21:41 EDMS 04/25 21:38 Order name: Comprehensive Metabolic Panel; Complete Time: 21:41 EDMS Administered Medications: 22:08 Drug: Rocephin 1 grams Route: IV; Rate: calculated rate; Site: right antecubital; jb4 22:11 Follow up: Response: No adverse reaction; IV Status: Completed infusion; IV Intake: [id number] Disposition: 04/25/19 21:46 Discharged to Home. Impression: Urinary tract infection, site not specified, Lymphedema, not elsewhere classified. - Condition is Stable. - Discharge Instructions: Urinary Tract Infection, Adult, Lymphedema. - Prescriptions for Keflex 500 mg Oral Capsule - take 1 capsule by ORAL route every 6 hours for 10 days; 40 capsule. - Medication Reconciliation Form, Thank You Letter, Antibiotic Education, Prescription Opioid Use form. - Follow up: Emergency Department; When: As needed; Reason: Worsening of condition. Follow up: Private Physician; When: 2 - 3 days; Reason: Recheck today's complaints, Continuance of care, Re-evaluation by your physician. - Problem is new. - Symptoms have improved. Addendum: 04/27/2019 07:50 Co-signature as Attending Physician, Rene Mason MD I agree with the assessment and c bourne plan of care. Signatures: Dispatcher [employer] EDBouchra Mario, RN RN aj1 Rene Mason MD MD cha Marinas, Patrick, UNION ORGANIZER UNION ORGANIZER pm1 Lei Rojas, RN RN jb4 Corrections: (The following items were deleted from the chart) 04/25 21:48 21:46 04/25/2019 21:46 Discharged to Home. Impression: Urinary tract infection, site pm1 not specified. Condition is Stable. Forms are Medication Reconciliation Form, Thank You Letter, Antibiotic Education, Prescription Opioid Use. Follow up: Emergency Department; When: As needed; Reason: Worsening of condition. Follow up: Private Physician; When: 2 - 3 days; Reason: Recheck today's complaints, Continuance of care, Re-evaluation by your physician. Problem is new. Symptoms have improved. pm1 :15 21:48 04/25/2019 21:46 Discharged to Home. Impression: Urinary tract infection, site jb4 not specified; Lymphedema, not elsewhere classified. Condition is Stable. Discharge Instructions: Urinary Tract Infection, Adult, Lymphedema. Prescriptions for Keflex 500 mg Oral Capsule - take 1 capsule by ORAL route every 6 hours for 10 days; 40 capsule. and Forms are Medication Reconciliation Form, Thank You Letter, Antibiotic Education, Prescription Opioid Use. Follow up: Emergency Department; When: As needed; Reason: Worsening of condition. Follow up: Private Physician; When: 2 - 3 days; Reason: Recheck today's complaints, Continuance of care, Re-evaluation by your physician. Problem is new. Symptoms have improved. pm1
[2019-04-25] MEDS ORDERED: CEFTRIAXONE/SWI 1gm 1 GM/10 ML SYR ONE (22:00)
[2019-04-25 22:54] VITALS: BP 114/68; TEMP 98.2; O2SAT 98
== END 2019-04-25 22:15 | disposition home or self-care (01) ==
LOC: ER 17:59
DX: I89.0 Lymphedema, not elsewhere classified (principal); N39.0 Urinary tract infection, site not specified
CPT/HCPCS: 36415; 80053; 81003; 81015; 85025; 87077; 87086; 87088; 87186; 96374; 99284; J0696

== ENCOUNTER 2019-05-26 19:32 | Inpatient (IN) | payer SELFPAY ==
--- OUTSIDE RECORDS SUMMARY | 2019-05-26 19:33 | XMS REPORT ---
:1955 [facility] Address [address] [place] [address] [address] [place] [address] Care Team Providers Name Role Phone Unavailable Unavailable Unavailable Problems This patient has no known problems. Allergies, Adverse Reactions, Alerts This patient has no known allergies or adverse reactions. Medications This patient has no known medications.
--- NOTE | 2019-05-26 20:23 | ER ---
Nurse's Notes [facility] Name: Grace Case Age: 63 yrs Sex: Female : 1955 Arrival Date: 05/26/2019 Time: 19:32 Bed 19 Private MD: Diagnosis: Fever, unspecified;Cellulitis and acute lymphangitis of other parts of limb;Weakness;Lymphedema, not elsewhere classified;Urinary tract infection, site not specified;Obesity, unspecified Presentation: 05/25 19:43 Chief complaint: Patient states: fever x 3 days. Urinary symptoms reported. Cellulitis ca1 on both legs. Tylenol taken at 1730. Ibuprofen taken at 1400. Coronavirus screen: The patient has NOT traveled to a country currently being monitored by the [facility] within the last 14 days. The patient has NOT had contact with any known and/or suspected case of coronavirus. Ebola Screen: Patient negative for fever greater than or equal to 101.5 degrees Fahrenheit, and additional compatible Ebola Virus Disease symptoms Patient denies exposure to infectious person. Patient denies travel to an Ebola-affected area in the 21 days before illness onset. No symptoms or risks identified at this time. Initial Sepsis Screen: Does the patient meet any 2 criteria? No. Patient's initial sepsis screen is negative. Does the patient have a suspected source of infection? No. Patient's initial sepsis screen is negative. Risk Assessment: Do you want to hurt yourself or someone else? Patient reports no desire to harm self or others. Onset of symptoms was May 26, 2019. 19:43 Method Of Arrival: Wheelchair ca1 19:43 Acuity: ESTEPHANIA 3 ca1 Triage Assessment: 20:00 General: Appears in no apparent distress. uncomfortable, obese, unkempt, Behavior is vc calm, cooperative, appropriate for age, Smells of infection. Pain: Complains of pain in right leg. Historical: - Allergies: 19:47 No Known Allergies; ca1 - Home Meds: 19:47 None [Active]; ca1 - PMHx: 19:47 cellulits; lymphedema; UTI; ca1 - PSHx: 19:47 None; ca1 - Immunization history:: Adult Immunizations not up to date, Flu vaccine is not up to date. - Social history:: Smoking status: Patient denies any tobacco usage or history of. - Family history:: not pertinent. Screenin:00 Abuse screen: Denies threats or abuse. Nutritional screening: No deficits noted. vc Tuberculosis screening: No symptoms or risk factors identified. Fall Risk None identified. Assessment: 20:00 General: Appears in no apparent distress. uncomfortable, obese, unkempt, Behavior is vc calm, cooperative, appropriate for age, Smells of infection. Pain: Complains of pain in right leg. Neuro: Level of Consciousness is awake, alert, obeys commands, Oriented to person, place, time, situation, Appropriate for age. Cardiovascular: Patient's skin is warm and dry. Respiratory: Airway is patent Respiratory effort is even, unlabored, Respiratory pattern is regular, symmetrical. GI: No signs and/or symptoms were reported involving the gastrointestinal system. : No signs and/or symptoms were reported regarding the genitourinary system. Derm: Skin is moist, Skin is red, edema with weeping to bilateral lower extremities. Musculoskeletal:. 20:28 Reassessment: Ultrasound at bedside. vc 21:00 Reassessment: Patient and/or family updated on plan of care and expected duration. Pain vc level reassessed. Patient is alert, oriented x 3, equal unlabored respirations, skin warm/dry/pink. 22:00 Reassessment: Patient and/or family updated on plan of care and expected duration. Pain vc level reassessed. Patient is alert, oriented x 3, equal unlabored respirations, skin warm/dry/pink. Patient states symptoms have not improved. 23:00 Reassessment: Patient and/or family updated on plan of care and expected duration. Pain vc level reassessed. Handed over care to GIL [place]. Vital Signs: 19:43 BP 135 / 105; Pulse 100; Resp 19 S; Temp 99.9(O); Pulse Ox 96% on R/A; Weight 136.08 kg ca1 (R); Height 5 ft. 5 in. (165.10 cm) (R); Pain 0/10; 05/26 00:00 BP 121 / 59; Pulse 90; Resp 18; Temp 98.8; Pulse Ox 95% on R/A; wh 05/25 19:43 Body Mass Index 49.92 (136.08 kg, 165.10 cm) ca1 ED Course: 05/25 19:32 Patient arrived in ED. ds1 19:43 Rene Mason MD is Attending Physician. aníbal 19:45 Yolanda Naidu RN is Primary Nurse. vc 19:47 Triage completed. ca1 19:47 Arm band placed on right wrist. ca1 20:00 Patient has correct armband on for positive identification. Call light in reach. vc 20:21 Chandu Rey MD is Hospitalizing Provider. aníbal 20:35 XRAY Chest (1 view) In Process Unspecified. EDMS 20:38 Radiology exam delayed due to PT GETTING ULTRASOUND AT THIS TIME. nj 20:45 Inserted saline lock: 22 gauge in right antecubital area, using aseptic technique. vc Blood collected. 20:56 US Extremity Venous W Compression Bean In Process Unspecified. EDMS 21:22 CT Stone Protocol In Process Unspecified. EDMS 23:00 Report given to GIL [place]. vc 23:00 No provider procedures requiring assistance completed. Patient admitted, IV remains in place. Administered Medications: 22:52 Drug: morphine 4 mg {Note: RASS 0.} Route: IVP; Site: right antecubital; 05/26 00:09 Follow up: Response: No adverse reaction; Pain is decreased; RASS: Alert and Calm (0) 05/25 22:54 Drug: Zofran (Ondansetron) 4 mg Route: IVP; Site: right antecubital; 05/26 00:09 Follow up: Response: No adverse reaction; Nausea is decreased 05/25 22:55 Drug: Lovenox 40 mg Route: Sub-Q; Site: left lower abdomen; vc 23:43 Follow up: Response: No adverse reaction 22:56 Drug: NS 0.9% (30 ml/kg) 30 ml/kg Route: IV; Rate: bolus; Site: right antecubital; 22:56 Drug: Cefepime 2 grams Route: IVPB; Rate: 200 ml/hr; Infused Over: 30 mins; Site: right vc antecubital; 23:41 Follow up: Response: No adverse reaction; IV Status: Completed infusion 22:56 Drug: Tylenol 1000 mg Route: PO; vc 23:42 Follow up: Response: No adverse reaction; Temperature is decreased 22:56 Drug: Pepcid 20 mg Route: IVP; Site: right antecubital; vc 23:43 Follow up: Response: No adverse reaction 22:57 Drug: NS 0.9% (30 ml/kg) 30 ml/kg Route: IV; Rate: bolus; Site: right antecubital; vc 23:57 Follow up: Response: No adverse reaction; IV Status: Order to discontinue infusion; IV Intake: 1000ml 23:40 Drug: vancoMYCIN 2 grams Route: IVPB; Rate: calculated rate; Site: right antecubital; 05/26 00:10 Follow up: Response: No adverse reaction; IV Status: Infusion continued upon admission Intake: 05/25 23:57 IV: 1000ml; Total: 1000ml. Outcome: 20:23 Decision to Hospitalize by Provider. [facility] 23:00 Admitted to ER Hold. Please see [facility] for further documentation. 23:00 Condition: stable 23:00 Instructed on the need for admit. 05/26 08:21 Patient left the ED. jl7 Signatures: Dispatcher [employer] EDRene Yu MD MD cha Sanford, Demi ds1 [employer] Jahala, RN RN jl7 Nancie Whittington Judy Ceja RN RN ca1 Yolanda Naidu RN RN vc
--- NOTE | 2019-05-26 20:24 | EDPHYS ---
Physician Documentation [facility] Name: Grace Case Age: 63 yrs Sex: Female : 1955 Arrival Date: 05/26/2019 Time: 19:32 Bed 19 Private MD: ED Physician Rene Mason HPI: 05/25 20:16 This 63 yrs old Female presents to ER via Wheelchair with complaints of Fever.aníbal 20:16 The patient reports fever, that was measured at 101 degrees Fahrenheit. Onset: The aníbal symptoms/episode began/occurred 3 day(s) ago. Modifying factors: there are no obvious modifying factors. Associated signs and symptoms: Pertinent positives: chills, cough, RIGHT LOWER LEG PAIN SWELLING AND ERYTHEMA, AND DYSURIA. Severity of symptoms: At their worst the symptoms were mild in the emergency department the symptoms are unchanged. The patient has not experienced similar symptoms in the past. Historical: - Allergies: 19:47 No Known Allergies; ca1 - Home Meds: 19:47 None [Active]; ca1 - PMHx: 19:47 cellulits; lymphedema; UTI; ca1 - PSHx: 19:47 None; ca1 - Immunization history:: Adult Immunizations not up to date, Flu vaccine is not up to date. - Social history:: Smoking status: Patient denies any tobacco usage or history of. - Family history:: not pertinent. ROS: 20:16 Eyes: Negative for injury, pain, redness, and discharge, ENT: Negative for injury, aníbal pain, and discharge, Neck: Negative for injury, pain, and swelling, Cardiovascular: Negative for chest pain, palpitations, and edema, Respiratory: Negative for shortness of breath, cough, wheezing, and pleuritic chest pain, Abdomen/GI: Negative for abdominal pain, nausea, vomiting, diarrhea, and constipation, MS/Extremity: Negative for injury and deformity, Neuro: Negative for headache, weakness, numbness, tingling, and seizure, Psych: Negative for depression, anxiety, suicide ideation, homicidal ideation, and hallucinations, Allergy/Immunology: Negative for hives, rash, and allergies, Endocrine: Negative for neck swelling, polydipsia, polyuria, polyphagia, and marked weight changes, Hematologic/Lymphatic: Negative for swollen nodes, abnormal bleeding, and unusual bruising. 20:16 Constitutional: Positive for body aches, chills, fever, malaise. 20:16 Back: Positive for flank pain, bilaterally. 20:16 MS/extremity: Positive for decreased range of motion, erythema, pain, swelling, tenderness, of the right leg. Exam: 20:16 Constitutional: This is a well developed, well nourished patient who is awake, alert, aníbal and in no acute distress. Head/Face: Normocephalic, atraumatic. Eyes: Pupils equal round and reactive to light, extra-ocular motions intact. Lids and lashes normal. Conjunctiva and sclera are non-icteric and not injected. Cornea within normal limits. Periorbital areas with no swelling, redness, or edema. ENT: Nares patent. No nasal discharge, no septal abnormalities noted. Tympanic membranes are normal and external auditory canals are clear. Oropharynx with no redness, swelling, or masses, exudates, or evidence of obstruction, uvula midline. Mucous membranes moist. Neck: Trachea midline, no thyromegaly or masses palpated, and no cervical lymphadenopathy. Supple, full range of motion without nuchal rigidity, or vertebral point tenderness. No Meningismus. Chest/axilla: Normal chest wall appearance and motion. Nontender with no deformity. No lesions are appreciated. Cardiovascular: Regular rate and rhythm with a normal S1 and S2. No gallops, murmurs, or rubs. Normal PMI, no JVD. No pulse deficits. Respiratory: Lungs have equal breath sounds bilaterally, clear to auscultation and percussion. No rales, rhonchi or wheezes noted. No increased work of breathing, no retractions or nasal flaring. Abdomen/GI: Soft, non-tender, with normal bowel sounds. No distension or tympany. No guarding or rebound. No evidence of tenderness throughout. Female : Normal external genitalia. Neuro: Awake and alert, GCS 15, oriented to person, place, time, and situation. Cranial nerves II-XII grossly intact. Motor strength 5/5 in all extremities. Sensory grossly intact. Cerebellar exam normal. Normal gait. Psych: Awake, alert, with orientation to person, place and time. Behavior, mood, and affect are within normal limits. 20:16 Back: ROM is painful, with all movement, normal spinal alignment noted, CVA tenderness, that is moderate, is noted bilaterally. 20:16 Musculoskeletal/extremity: Circulation is intact in all extremities. Sensation intact. Compartment Syndrome exam of affected extremity: is normal. DVT Exam: negative Homans' sign noted on exam, no appreciated bluish discoloration, pain, swelling, tenderness, erythema, increased warmth. Vital Signs: 19:43 BP 135 / 105; Pulse 100; Resp 19 S; Temp 99.9(O); Pulse Ox 96% on R/A; Weight 136.08 kg ca1 (R); Height 5 ft. 5 in. (165.10 cm) (R); Pain 0/10; 05/26 00:00 BP 121 / 59; Pulse 90; Resp 18; Temp 98.8; Pulse Ox 95% on R/A; wh 05/25 19:43 Body Mass Index 49.92 (136.08 kg, 165.10 cm) ca1 MDM: 05/25 19:43 Patient medically screened. [facility] 20:21 Data reviewed: vital signs, nurses notes, lab test result(s), EKG, radiologic studies, [facility] CT scan, doppler, plain films. 05/25 20:15 Order name: Basic Metabolic Panel; Complete Time: 07:03 [facility] 05/25 20:15 Order name: CBC with Diff; Complete Time: 07:03 [facility] 05/25 20:15 Order name: LFT's; Complete Time: 07:03 [facility] 05/25 20:15 Order name: Magnesium; Complete Time: 07:03 [facility] 05/25 20:15 Order name: NT PRO-BNP; Complete Time: 07:03 [facility] 05/25 20:15 Order name: PT-INR; Complete Time: 07:03 [facility] 05/25 20:15 Order name: Troponin (emerg Dept Use Only); Complete Time: 07:03 [facility] 05/25 20:15 Order name: Amylase, Serum; Complete Time: 07:03 [facility] 05/25 20:15 Order name: Blood Culture Adult (2) [facility] 05/25 20:15 Order name: Ckmb; Complete Time: 07:03 [facility] 05/25 20:15 Order name: CPK; Complete Time: 07:03 [facility] 05/25 20:15 Order name: Lactate; Complete Time: 07:03 [facility] 05/25 20:15 Order name: Lipase; Complete Time: 07:03 [facility] 05/25 20:15 Order name: Procalcitonin; Complete Time: 07:03 [facility] 05/25 20:15 Order name: XRAY Chest (1 view); Complete Time: 20:54 [facility] 05/25 20:15 Order name: Ptt, Activated; Complete Time: 07:03 [facility] 05/25 20:15 Order name: Urine Microscopic Only; Complete Time: 07:03 [facility] 05/25 20:15 Order name: US Extremity Venous W Compression Bean; Complete Time: 07:03 [facility] 05/25 20:15 Order name: CT Stone Protocol [facility] 05/25 21:54 Order name: CBC with Automated Diff [facility] 05/25 21:54 Order name: CBC with Automated Diff; Complete Time: 07:03 [facility] 05/25 21:54 Order name: Comprehensive Metabolic Panel [facility] 05/25 21:54 Order name: Comprehensive Metabolic Panel; Complete Time: 07:03 [facility] 05/25 21:54 Order name: Creatine Phosphokinase [facility] 05/25 21:54 Order name: Creatine Phosphokinase; Complete Time: 07:03 [facility] 05/25 21:54 Order name: Creatine Phosphokinase [facility] 05/25 21:54 Order name: Creatine Phosphokinase [facility] 05/26 00:12 Order name: Manual Differential; Complete Time: 07:03 [facility] 05/25 20:15 Order name: EKG; Complete Time: 20:17 [facility] 05/25 20:15 Order name: Cardiac monitoring; Complete Time: 22:43 [facility] 05/25 20:15 Order name: EKG - Nurse/Tech; Complete Time: 22:42 [facility] 05/25 20:15 Order name: IV Saline Lock; Complete Time: 22:42 [facility] 05/25 20:15 Order name: Labs collected and sent; Complete Time: 22:42 [facility] 05/25 20:15 Order name: O2 Per Protocol; Complete Time: 22:42 [facility] 05/25 20:15 Order name: O2 Sat Monitoring; Complete Time: 22:42 [facility] 05/25 20:15 Order name: Accucheck; Complete Time: 22:42 [facility] 05/25 20:15 Order name: IV Saline Lock - Large Bore; Complete Time: 22:42 [facility] 05/25 20:15 Order name: Urine Dipstick-Ancillary (obtain specimen); Complete Time: 01:58 [facility] 05/25 21:06 Order name: IV Saline Lock - Large Bore; Complete Time: 22:42 [facility] 05/25 21:47 Order name: Social Service Consult [facility] 05/25 21:53 Order name: CONS Pharmacy Consult [facility] 05/25 21:53 Order name: CONS Pharmacy Consult [facility] 05/25 21:53 Order name: CONS Pharmacy Consult [facility] 05/25 21:53 Order name: CONS Wound Healing Center Cons [facility] 05/25 21:53 Order name: CONS Physician Consult [facility] 05/25 21:53 Order name: Physical Therapy Consult [facility] 05/25 21:53 Order name: [facility] Administered Medications: 22:52 Drug: morphine 4 mg {Note: RASS 0.} Route: IVP; Site: right antecubital; 05/26 00:09 Follow up: Response: No adverse reaction; Pain is decreased; RASS: Alert and Calm (0) 05/25 22:54 Drug: Zofran (Ondansetron) 4 mg Route: IVP; Site: right antecubital; 05/26 00:09 Follow up: Response: No adverse reaction; Nausea is decreased 05/25 22:55 Drug: Lovenox 40 mg Route: Sub-Q; Site: left lower abdomen; vc 23:43 Follow up: Response: No adverse reaction 22:56 Drug: NS 0.9% (30 ml/kg) 30 ml/kg Route: IV; Rate: bolus; Site: right antecubital; 22:56 Drug: Cefepime 2 grams Route: IVPB; Rate: 200 ml/hr; Infused Over: 30 mins; Site: right vc antecubital; 23:41 Follow up: Response: No adverse reaction; IV Status: Completed infusion 22:56 Drug: Tylenol 1000 mg Route: PO; vc 23:42 Follow up: Response: No adverse reaction; Temperature is decreased 22:56 Drug: Pepcid 20 mg Route: IVP; Site: right antecubital; vc 23:43 Follow up: Response: No adverse reaction 22:57 Drug: NS 0.9% (30 ml/kg) 30 ml/kg Route: IV; Rate: bolus; Site: right antecubital; vc 23:57 Follow up: Response: No adverse reaction; IV Status: Order to discontinue infusion; IV wh Intake: 1000ml 23:40 Drug: vancoMYCIN 2 grams Route: IVPB; Rate: calculated rate; Site: right antecubital; 05/26 00:10 Follow up: Response: No adverse reaction; IV Status: Infusion continued upon admission Disposition: 05/26/19 20:23 Hospitalization ordered by Chandu Rey for Inpatient Admission. Preliminary diagnosis are Fever, unspecified, Cellulitis and acute lymphangitis of other parts of limb, Weakness, Lymphedema, not elsewhere classified, Urinary tract infection, site not specified, Obesity, unspecified. - Bed requested for Telemetry/MedSurg (Inpatient). - Status is Inpatient Admission. lian - Condition is Fair. - Problem is new. - Symptoms have improved. Signatures: Dispatcher [employer] EDMS Rita Perez Ruthann Holley RN Rene Sharma MD MD cha Leal, Jahala, RN RN [id number] Nancie Whittington Judy Ceja RN Yolanda Crockett RN RN vc Corrections: (The following items were deleted from the chart) 05/25 22:14 20:23 Hospitalization Ordered by Chandu Rey MD for Inpatient Admission. Preliminary diagnosis is Fever, unspecified; Cellulitis and acute lymphangitis of other parts of limb; Weakness; Lymphedema, not elsewhere classified; Urinary tract infection, site not specified; Obesity, unspecified. Bed requested for Telemetry/MedSurg (Inpatient). Status is Inpatient Admission. Condition is Fair. Problem is new. Symptoms have improved. [facility] 05/26 05:52 05/25 22:14 05/26/2019 20:23 Hospitalization Ordered by Chandu Rey MD for Inpatient Admission. Preliminary diagnosis is Fever, unspecified; Cellulitis and acute lymphangitis of other parts of limb; Weakness; Lymphedema, not elsewhere classified; Urinary tract infection, site not specified; Obesity, unspecified. Bed requested for RUST ER HOLD. Status is Inpatient Admission. Condition is Fair. Problem is new. Symptoms have improved. 05/26 07:16 05:52 05/26/2019 20:23 Hospitalization Ordered by Chandu Rey MD for Inpatient bd Admission. Preliminary diagnosis is Fever, unspecified; Cellulitis and acute lymphangitis of other parts of limb; Weakness; Lymphedema, not elsewhere classified; Urinary tract infection, site not specified; Obesity, unspecified. Bed requested for Telemetry/MedSurg (Inpatient). Status is Inpatient Admission. Condition is Fair. Problem is new. Symptoms have improved. mw 08:21 07:16 05/26/2019 20:23 Hospitalization Ordered by Chandu Rey MD for Inpatient jl7 Admission. Preliminary diagnosis is Fever, unspecified; Cellulitis and acute lymphangitis of other parts of limb; Weakness; Lymphedema, not elsewhere classified; Urinary tract infection, site not specified; Obesity, unspecified. Bed requested for Telemetry/MedSurg (Inpatient). Status is Inpatient Admission. Condition is Fair. Problem is new. Symptoms have improved. bd
--- NOTE | 2019-05-26 20:45 | RAD REPORT ---
EXAM DESCRIPTION: RAD - Chest Single View - 05/26/2019 8:33 pm CLINICAL HISTORY: COUGH Chest pain. COMPARISON: Chest Single View dated 02/21/2019; Chest Single View dated 12/12/2018; Chest Single View dated 11/21/2018; Chest Single View dated 10/11/2018 FINDINGS: Portable technique limits examination quality. The lungs are grossly clear. The heart is mildly enlarged. No displaced fractures. IMPRESSION: Mild cardiomegaly.
--- NOTE | 2019-05-26 21:03 | RAD REPORT ---
EXAM DESCRIPTION: US - Extrem Venous W Compress Bean - 05/26/2019 8:56 pm CLINICAL HISTORY: Pain;Swelling Bilateral leg edema and swelling. COMPARISON: Extrem Venous W Compress Bean dated 02/21/2019 TECHNIQUE: Real-time sonographic interrogation of the left and right lower extremity deep venous sys tems was performed. FINDINGS: Normal compressibility, flow augmentation, phasic flow and spontaneous flow is identified in both the left and right lower extremity deep venous systems. IMPRESSION: No sonographic evidence of left or right lower extremity deep venous thrombosis.
--- NOTE | 2019-05-26 21:37 | P.HP ---
Certification for Inpatient Patient admitted to: Inpatient With expected LOS: >2 Midnights Patient will require the following post-hospital care: Home Health Services Practitioner: I am a practitioner with admitting privileges, knowledge of patient current condition, hospital course, and medical plan of care. Services: Services provided to patient in accordance with Admission requirements found in Title 42 Section 412.3 of the Code of Federal Regulations Patient History Date of Service: 05/26/19 Reason for admission: fever, LE redness and pain History of Present Illness: 63-year-old female with morbid obesity, previous bilateral lower extremity DVT, chronic lower extremity venous insufficiency with chronic lymphedema, recurrent lower extremity cellulitis, recurrent UTI requiring multiple hospitalization, unable to will do outpatient wound care due to lack of insurance; admitted for recurrent fever , patient report temperature was up to 101 at home but in the ED was reported at 99.9. She also admits to a new redness of the lower extremity with increasing pain which is typical for a recurrent cellulitis episodes. She admits to some dysuria or flank pain. She admits to wiping from front to back through the perineal area Allergies No Known Allergies Allergy (Verified 02/21/19 20:51) Home medications list reviewed: Yes Home Medications: Gabapentin [Neurontin*] 400 mg PO TID 02/21/19 Calcium Alginate [Mode] 1 each TP DAILY #30 bandage 02/24/19 Ciprofloxacin HCl [Cipro 500 MG Tablet] 500 mg PO BID #14 tab 02/24/19 Medihoney [Medihoney Woundcare Gel*] 1 appl TOP DAILY #1 tube 02/24/19 - Past Medical/Surgical History Diabetic: No -: Chronic lymphedema -: History of DVT -: Morbid obesity -: Recurrent left lower extremity cellulitis -: cellulitis; left calf -: Tubal ligation -: IVC vinny filter placement Psychosocial/ Personal History: Patient is . She lives at home. - Family History Mother -: Lung disease, Other (see notes) Notes: pulmonary embolism; emphysema Father -: Cancer, Other (see notes) Notes: throat and tongue CA - Social History Alcohol use: No CD- Drugs: No Caffeine use: Yes Review of Systems General: Fever, Chills, Weakness Eyes: Unremarkable ENT: Unremarkable Respiratory: Unremarkable Cardiovascular: Unremarkable Gastrointestinal: Unremarkable Genitourinary: Dysuria, Urgency Musculoskeletal: Unremarkable Integumentary: Rash, Other, As per HPI Neurological: Unremarkable Lymphatics: Enlarged lymph nodes (LE) Physical Examination - Physical Exam General: Oriented x3, Cooperative, Obese (morbid) HEENT: Atraumatic, Normocephalic, PERRLA, Mucous membr. moist/pink Neck: 2+ carotid pulse no bruit, JVD not distended Respiratory: Clear to auscultation bilaterally, Normal air movement Cardiovascular: Regular rate/rhythm, Normal S1 S2, Edema Gastrointestinal: Soft and benign, Non-distended, W/out splenomegaly, No tenderness Musculoskeletal: Swelling, Erythema, Tenderness, Warmth (chronic lymphedema ++) Integumentary: Rash(es), Skin breakdown, Skin lesion, Erythema External genitalia: Edema - Studies labs pending Microbiology Data (last 24 hrs): blood culture pending Assessment and Plan Plan to discharge in: 48 Hours - Advance Directives Does patient have a Living Will: No Does patient have a Durable POA for Healthcare: No - Code Status/Comfort Care Code Status: Full Code Physician Review: Patient Assessed, Agree with Above Assessment and Plan Physician Review Additional Text: # bilateral lower extremity cellulitis-due to chronic lymphedema with associated chronic dermatitis/skin breakdown with punctate lesions -will obtain blood culture -we start empirical antibiotics with unasyn or Keflex -if negative blood culture x 48 hr, discharge patient home with p.o. antibiotics. -will consult wound care for daily wound dressing. -Given lesions patient will benefit from lower extremity compression device as well as topical antibiotics preferably with emollients/steroids to improve chronic dermatitis changes -need for regular home wound dressing discuss -will consult case management to help with home meds although patient reports financial issues now # Hypertension-continue home regimen -Given mild elevated heart rate, may benefit from increased beta blockade # morbid obesity-reduce calorie intake advised # Recurrent UTI-likely due to poor genital hygiene, patient counselled -follow UA and culture # DVT prop - sc heparin Critical Care: Yes Time Spent Managing Pts Care (In Minutes): 65
[2019-05-26] MEDS ORDERED: MORPHINE 2 MG/ML SYR IV PRN (21:44)
[2019-05-26] MEDS ORDERED: ONDANSETRON 4 MG/2 ML VIAL IV PRN (21:44)
[2019-05-26] MEDS ORDERED: VANCOMYCIN/NS 1 gm 1 GM/250 ML BAG IVPB SCH (21:45)
[2019-05-26] MEDS: Levofloxacin 750mg IV 750 MG/150 ML BAG IV SCH (22:00)
[2019-05-26 22:22] VITALS: BMI 49.9
[2019-05-26] MEDS ORDERED: MORPHINE 4 MG/ML SYR ONE (22:38)
[2019-05-26] MEDS ORDERED: CEFEPIME 2 GM VIAL ONE (22:38)
[2019-05-26] MEDS ORDERED: NA CHLORIDE 0.9% 2,000 ML ONE (22:39)
[2019-05-26] MEDS ORDERED: ACETAMINOPHEN 500 MG TAB ONE (22:39)
[2019-05-26] MEDS ORDERED: ONDANSETRON 4 MG/2 ML VIAL ONE (22:39)
[2019-05-26] MEDS ORDERED: FAMOTIDINE 20 MG/2 ML VIAL IV ONE (22:39)
[2019-05-26] MEDS ORDERED: NA CHLORIDE 0.9% 100 ML IV ONE (22:39)
[2019-05-26] MEDS ORDERED: ENOXAPARIN 40 MG/0.4 ML SQ ONE (22:39)
[2019-05-26 22:40] LABS: Protime INR 1.25
[2019-05-26 22:41] LABS: Basophils % 0.3 % (0-1.3); Lymphocytes % 8.2 % (15.3-44.8); MPV 7.5 fL (7.6-11.3); RBC Red Blood Cell Count 3.78 M/uL (3.86-4.86)
[2019-05-26 22:56] LABS: ALT/SGPT 12 U/L (12-78); AST/SGOT 16 U/L (15-37); Alkaline Phosphatase 76 U/L (45-117); BUN Blood Urea Nitrogen 14 mg/dL (7-18); Bicarbonate 27 mmol/L (21-32); Bilirubin Direct 0.5 mg/dL (0-0.2); Bilirubin Total 1.4 mg/dL (0.2-1.0); CKMB Creatine Kinase MB < 1.0 ng/mL (0.3-3.6); Creatine Phosphokinase 40 U/L (26-192); Glucose Level 109 mg/dL (74-106); NT PRO-BNP 299 pg/mL (<125); Potassium 3.7 mmol/L (3.5-5.1); Sodium Level 136 mmol/L (136-145); Troponin (Emerg Dept Use Only) < 0.02 ng/mL (0.0-0.045)
[2019-05-26 22:57] LABS: Amylase Level 24 U/L (25-115); Lipase 89 U/L (73-393)
[2019-05-26] MEDS ORDERED: VANCOMYCIN 1 GM/VIAL ONE (23:26)
[2019-05-26] MEDS ORDERED: NA CHLORIDE 0.9% 500 ML ONE (23:27)
[2019-05-27 00:11] LABS: Blood Morphology Comment NOT SEEN (NOT SEEN); Platelet Estimate ADEQ
[2019-05-27] MEDS ORDERED: Levofloxacin 750mg IV 750 MG/150 ML BAG IV ONE (00:38)
[2019-05-27 02:08] LABS: Urine Culture Reflex Order REFLEXED; Urine Urothelial Cells <5 /HPF (NONE SEEN)
[2019-05-27 02:09] LABS: Urine Bacteria <20 /HPF (<20); Urine RBC NONE SEEN /HPF (NONE SEEN); Urine Yeast FEW (NONE SEEN)
[2019-05-27 05:17] LABS: Absolute Lymphocytes (CBC) 0.9 K/uL (0.7-4.9); Basophils % 0.3 % (0-1.3); Lymphocytes % 9.6 % (15.3-44.8); MPV 7.4 fL (7.6-11.3); RBC Red Blood Cell Count 3.66 M/uL (3.86-4.86)
[2019-05-27 05:32] LABS: Albumin 2.6 g/dL (3.4-5.0); Bilirubin Total 1.2 mg/dL (0.2-1.0); Potassium 3.7 mmol/L (3.5-5.1)
--- NOTE | 2019-05-27 06:27 | EKG ---
Test Date: 2019-05-26 Test Time: 21:54:51 Knocker Out: SANDRITA MEASUREMENT RESULTS: Intervals: Rate: 90 MS: 160 QRSD: 102 QT: 366 QTc: 447 Cornelius: P: 36 MS: 160 QRS: 59 T: 48 INTERPRETIVE STATEMENTS: Normal sinus rhythm Normal ECG Compared to ECG 11/21/2018 23:09:17 No significant changes Electronically Signed On 05-27-19 06:26:05 CDT by Stan Blanco
[2019-05-27] MEDS ORDERED: INFLUENZA VACCINE (for 3y+) 0.5 ML DOSE IMVAC ONE (08:00)
[2019-05-27] MEDS ORDERED: BACITRACIN/POLYMYXIN TOPICAL OINT TOP SCH (09:00)
[2019-05-27] MEDS ORDERED: TRAMADOL HCL 50 MG TAB PO PRN (09:19)
[2019-05-27] MEDS ORDERED: GABAPENTIN 100 MG CAP PO PRN (09:19)
--- NOTE | 2019-05-27 09:29 | P.PN ---
Subjective Date of Service: 05/27/19 Primary Care Provider: Unknown Chief Complaint: fever, LE redness and pain Subjective: Doing well Physical Examination - Vital Signs Temperature: 98.4 F Blood Pressure: 110/47 Pulse: 70 Respirations: 18 Pulse Ox (%): 97 - Physical Exam General: Alert, In no apparent distress, Oriented x3, Cooperative HEENT: Atraumatic Neck: Supple Respiratory: Clear to auscultation bilaterally, Normal air movement Cardiovascular: Normal pulses, Regular rate/rhythm Gastrointestinal: Normal bowel sounds, Soft and benign, Non-distended Integumentary: Other (Erythema to the lower extremities bilateral below the knees. Right greater than left. Patient with chronic lymphedema.) Neurological: Normal speech, Normal strength at 5/5 x4 extr, Normal tone, Normal affect - Studies Medications List Reviewed: Yes Assessment & Plan Discharge Plan: Home Plan to discharge in: 72 Hours Physician Review Additional Text: Impression: Bilateral lower extremity cellulitis with chronic lymphedema Hypertension Morbid obesity Plan: Bilateral lower extremity cellulitis with chronic lymphedema: Will continue with IV antibiotic therapy. Pharmacy to monitor and adjust. Anticipate improvement over the next 48-72 hr. Will provide medication for pain. Will have wound care evaluate and assess and treat. Patient will likely require leg wrappings in the near future. Will provide DVT prophylaxis at this time. Hypertension: Obtain and verify home medication. Blood pressure stable this time without medication. Morbid obesity: Address lifestyle modification education. Time Spent Managing Pts Care (In Minutes): 55
[2019-05-27] MEDS ORDERED: BACI/NEOMYCIN/POLY OINT 15GM TOP SCH (09:30)
[2019-05-27] MEDS: ACETAMINOPHEN 500 MG TAB PO PRN (09:54)
--- NOTE | 2019-05-27 12:01 | RAD REPORT ---
EXAM DESCRIPTION: Stone Protocol CLINICAL HISTORY: Flank pain. COMPARISON: None. TECHNIQUE: CT scan of the abdomen and pelvis was performed without IV contrast. This exam was perfor med according to our departmental dose-optimization program, which includes automated exposure contro l, adjustment of the mA and/or kV according to patient size and/or use of iterative reconstruction te chnique. FINDINGS: The lung bases are clear. No pleural or pericardial effusions. There has been a prior chol ecystectomy. The liver, spleen, pancreas, right adrenal gland, and left kidney are unremarkable. Ther e is a 2.5 cm left adrenal nodule. There is a tiny nonobstructing stone in the right kidney. No hydro nephrosis. Unremarkable pelvic organs. The appendix is not visualized. The small and large bowel are unremarkable. No intraperitoneal free f luid or free air is seen. There are mild degenerative changes of the spine. Infrarenal IVC filter is noted. The aorta is unremarkable. No abnormal body wall hernia is seen. IMPRESSION: Tiny nonobstructing stone in the right kidney. No hydronephrosis. Electronically signed by: Tye Urbano MD 05/26/2019 9:51 PM CDT Due to temporary technical issues with the PACS/Fluency reporting system, reports are being signed by the in house radiologist as a courtesy to ensure prompt reporting. The interpreting radiologist is jonas jolley responsible for the content of the report.
[2019-05-27] MEDS: HYDROCODONE/APAP 7.5/325 MG TAB PO PRN ×2 (12:11→19:33)
--- NOTE | 2019-05-27 14:18 | CON ---
History Of Present Illness: This is a 63-year-old female known to me from previous admissions. Radha ent has significant history of bilateral lower extremity lymphedema, coming in with right lower extre mity cellulitis and stasis dermatitis and stasis ulceration. Patient denies any headache, nausea, vo miting, chest pain, abdominal pain, constipation, diarrhea, having pain in her right leg and fevers. Temperature at admission was 101, right now, the patient is running 99.9. Patient without any other complaints. Past Medical History: Chronic lymphedema, history of DVT, morbid obesity, recurrent left lower extre mity cellulitis and tubal ligation, IVC Green filter. Social History: Nonsmoker. Nondrinker. Family History: Noncontributory. Medications: Levaquin and vancomycin. Allergies: NO KNOWN DRUG ALLERGIES. Review of Systems: A 10-point review was performed. Physical Examination: General: This is 63-year-old female, lying in bed, not in any acute cardiopulmonary distress. Vital Signs: Temperature 99.9, pulse 70, respirations 18, blood pressure 110/47. HEENT: Unremarkable. Neck: Supple. Lungs: Basal crackles. Heart: S1, S2. Regular. Abdomen: Soft, nontender. Bowel sounds present. Extremities: 4+ nonpitting edema. Hyperpigmentation noted with hyperkeratosis also noted to the bot h legs with right leg has erythematous changes and tenderness also noted at this time. Laboratory Data: Shows WBC 9.3, down from 11.8, hemoglobin 10.7, platelets is 203. Chemistry shows sodium 138, potassium 3.7, chloride 108, bicarb 26, BUN 13, creatinine 1.24, glucose 127. Albumin le andre is 2.6. Procalcitonin is 0.29. Micro data, blood cultures are pending. Urine and wound culture s are pending. Chest x-ray done earlier shows mild cardiomegaly, otherwise no acute infiltrate. Assessment And Plan: Right lower extremity cellulitis in a patient with lymphedema and stasis dermat itis changes and the patient coming in with fever of 101 and leukocytosis. Agree with broad-spectrum antibiotic, pending culture results. We will follow the patient closely. Thank you Dr. Montes for consult. NF/MODL Voice ID: [id number] Report ID: [id number]
[2019-05-27] MEDS: Levofloxacin 750mg IV 750 MG/150 ML BAG IV SCH (22:08)
[2019-05-28] MEDS: VANCOMYCIN 2 GM in NA CHLORIDE 0.9% 500 ML IVPB SCH (00:57)
[2019-05-28] MEDS: HYDROCODONE/APAP 7.5/325 MG TAB PO PRN ×2 (01:08→10:36)
[2019-05-28 05:58] LABS: Absolute Lymphocytes (CBC) 1.6 K/uL (0.7-4.9); Basophils % 0.6 % (0-1.3); Hematocrit 29.1 % (36.0-45.0); Lymphocytes % 20.5 % (15.3-44.8); MPV 7.6 fL (7.6-11.3); RBC Red Blood Cell Count 3.33 M/uL (3.86-4.86)
[2019-05-28 06:15] LABS: Potassium 3.8 mmol/L (3.5-5.1)
[2019-05-28] MEDS: ENSURE HIGH PROTEIN 237 ML CAN PO SCH ×3 (09:00→21:13)
--- NOTE | 2019-05-28 14:16 | P.PN ---
Subjective Date of Service: 05/28/19 Primary Care Provider: Unknown Chief Complaint: fever, LE redness and pain Subjective: Improving, Doing well Physical Examination - Vital Signs Temperature: 97.7 F Blood Pressure: 111/55 Pulse: 69 Respirations: 16 Pulse Ox (%): 96 - Physical Exam General: Alert, In no apparent distress, Oriented x3, Cooperative HEENT: Atraumatic Neck: Supple Respiratory: Clear to auscultation bilaterally, Normal air movement Cardiovascular: Normal pulses, Regular rate/rhythm Gastrointestinal: Normal bowel sounds, No masses, No rebound, No guarding Musculoskeletal: Other (Patient with chronic lymphedema. Erythema and swelling to the right lower extremity improved.) Neurological: Normal speech, Normal strength at 5/5 x4 extr, Normal tone, Normal affect - Studies Medications List Reviewed: Yes Assessment & Plan Discharge Plan: Home Plan to discharge in: 24 Hours Physician Review Additional Text: Impression: Bilateral lower extremity cellulitis with chronic lymphedema Hypertension Chronic renal disease stage III Anemia likely iron deficiency Morbid obesity Plan: Bilateral lower extremity cellulitis with chronic lymphedema: Improvement noted. Patient does not qualify for any skilled needs due to lack of insurance. Patient may benefit with home health and PT at discharge. Continue IV antibiotic therapy. Anticipate improvement over the next 24 hr with possible discharge. Continue with wound care recommendation. Hypertension: Blood pressure stable. Will verify and review home medication. Chronic renal disease stage III: Overall stable. Will continue to monitor closely. Electrolyte protocol in place. Anemia likely of iron deficiency: Overall stable. Will check iron and B12 studies. Patient would benefit with GI evaluation as an outpatient. Morbid obesity: Address lifestyle modification education. Time Spent Managing Pts Care (In Minutes): 55
[2019-05-28] MEDS: Levofloxacin 750mg IV 750 MG/150 ML BAG IV SCH (21:02)
[2019-05-28] MEDS ORDERED: LORAZEPAM 1 MG TABLET PO PRN (21:24)
[2019-05-28] MEDS: ACETAMINOPHEN 500 MG TAB PO PRN (22:08)
[2019-05-28 22:17] VITALS: O2SAT 97
[2019-05-29] MEDS: VANCOMYCIN 2 GM in NA CHLORIDE 0.9% 500 ML IVPB SCH (00:07)
[2019-05-29 05:09] VITALS: TEMP 97.8
[2019-05-29 06:31] LABS: Absolute Lymphocytes (CBC) 1.5 K/uL (0.7-4.9); Basophils % 0.1 % (0-1.3); Hematocrit 30.4 % (36.0-45.0); Lymphocytes % 31.3 % (15.3-44.8); MPV 7.6 fL (7.6-11.3); RBC Red Blood Cell Count 3.48 M/uL (3.86-4.86)
[2019-05-29 07:23] LABS: Ferritin 180.2 ng/mL (8-388)
[2019-05-29 07:24] LABS: Magnesium 2.3 mg/dL (1.8-2.4); Potassium 4.4 mmol/L (3.5-5.1)
[2019-05-29] MEDS: ENSURE HIGH PROTEIN 237 ML CAN PO SCH (08:19)
--- NOTE | 2019-05-29 08:34 | P.DS ---
Admission Date: 05/26/19 Discharge Date: 05/29/19 Primary Care Provider: Unknown Disposition: [facility] HOME/HOME HEALTH CARE Discharge Condition: GOOD Reason for Admission: fever, LE redness and pain Consultations: HEATHER-Dr. Sanford Procedures: CT AB: FINDINGS: The lung bases are clear. No pleural or pericardial effusions. There has been a prior cholecystectomy. The liver, spleen, pancreas, right adrenal gland, and left kidney are unremarkable. There is a 2.5 cm left adrenal nodule. There is a tiny nonobstructing stone in the right kidney. No hydronephrosis. Unremarkable pelvic organs. The appendix is not visualized. The small and large bowel are unremarkable. No intraperitoneal free fluid or free air is seen. There are mild degenerative changes of the spine. Infrarenal IVC filter is noted. The aorta is unremarkable. No abnormal body wall hernia is seen. IMPRESSION: Tiny nonobstructing stone in the right kidney. No hydronephrosis. Venous Doppler: FINDINGS: Normal compressibility, flow augmentation, phasic flow and spontaneous flow is identified in both the left and right lower extremity deep venous systems. IMPRESSION: No sonographic evidence of left or right lower extremity deep venous thrombosis. Medical Problem List: Bilateral lower extremity cellulitis and stasis dermatitis with chronic lymphedema Chronic renal disease stage III Anemia likely iron deficiency Morbid obesity, BMI 49 Tiny nonobstructing stone in the right kidney Brief History of Present Illness: 63-year-old female with history of bilateral lower extremity chronic lymphedema. Patient has had cellulitis in the past. Patient has had poor follow up with any physician due to lack of insurance. She also has not been able to be seen at the wound Care Clinic. Patient presented with fever and erythema. Patient admitted for treatment. Hospital Course: Patient presented with bilateral lower extremity recurrent cellulitis and stasis dermatitis with chronic lymphedema. Patient admitted for IV antibiotic therapy. Patient had not followed up at wound Care Center due to lack of financial resources. Patient has done well then the course of her stay. Blood cultures negative. Wound cultures negative at this time. Patient seen and evaluated by infectious disease. Erythema and swelling have significantly improved. At discharge patient will continue with Augmentin 500 mg twice daily and doxycycline 100 mg twice daily for 10 days. Patient will be provided Neurontin 100 mg 3 times a day as needed for pain. Patient will continue with current wound care as recommended by infectious disease. Patient to elevate her legs when sitting or lying. Patient is to monitor her weight daily. Recommend a 1500 cc per day fluid restriction and low-salt diet. Patient will also continue with wrappings for lymphedema. At discharge patient may follow up at the Wound Care Center in 7-10 days to follow her progress. Patient will be provided information to establish care with a local PCP. Home health will be arranged prior to discharge. Patient with chronic renal disease stage III. This has significantly improved since her initial evaluation. Recommend no further use of nonsteroidal anti- inflammatories. Future medications will need to be renally dose. As recommended above patient will continue with a 1500 cc per day fluid restriction and low-salt diet. Recommend to monitor weight daily. If her weight increases by more than 5 lb she may require diuretic therapy. This can be further addressed by her PCP. Recommend to recheck BMP in 1-2 weeks to monitor her progress. Recommend follow up with nephrology to establish care and follow. Patient with anemia secondary to iron deficiency and B12 deficiency. At discharge patient may continue with iron supplementation and B12 supplementation. Recommend to recheck CBC, iron and B12 in 1 month to monitor her progress. CT scan showed nonobstructing stone on the right side. This can be followed as an outpatient. Lifestyle modification education provided. Vital Signs/Physical Exam: Temp Pulse Resp BP Pulse Ox 97.8 F 81 20 109/55 L 95 05/29/19 04:00 05/29/19 04:00 05/29/19 04:00 05/29/19 04:00 05/29/19 04:00 General: Alert, In no apparent distress, Oriented x3, Cooperative HEENT: Atraumatic Neck: Supple Respiratory: Clear to auscultation bilaterally, Normal air movement Cardiovascular: Normal pulses, Regular rate/rhythm Gastrointestinal: Normal bowel sounds, Soft and benign, Non-distended, No tenderness, No masses, No rebound, No guarding Integumentary: Other (chronic lymphedema, erythema and swelling to the lower extremities improved.) Neurological: Normal speech, Normal strength at 5/5 x4 extr, Normal tone Laboratory Data at Discharge: WBC 4.8 K/uL (4.3-10.9) D 05/29/19 05:39 Hgb 10.1 g/dL (12.0-15.0) L 05/29/19 05:39 Hct 30.4 % (36.0-45.0) L 05/29/19 05:39 Plt Count 231 K/uL (152-406) 05/29/19 05:39 PT 14.6 SECONDS (9.5-12.5) H 05/26/19 22:22 INR 1.25 05/26/19 22:22 APTT 30.9 SECONDS (24.3-36.9) 05/26/19 22:22 Sodium 141 mmol/L (136-145) 05/29/19 05:39 Potassium 4.4 mmol/L (3.5-5.1) 05/29/19 05:39 BUN 13 mg/dL (7-18) 05/29/19 05:39 Creatinine 1.01 mg/dL (0.55-1.3) 05/29/19 05:39 Glucose 89 mg/dL (74-106) 05/29/19 05:39 Magnesium 2.3 mg/dL (1.8-2.4) 05/29/19 05:39 Total Bilirubin 1.2 mg/dL (0.2-1.0) H 05/27/19 05:03 AST 13 U/L (15-37) L 05/27/19 05:03 ALT 14 U/L (12-78) 05/27/19 05:03 Alkaline Phosphatase 70 U/L (45-117) 05/27/19 05:03 Amylase 24 U/L (25-115) L 05/26/19 22:22 Lipase 89 U/L (73-393) 05/26/19 22:22 Home Medications: Amoxicillin/Potassium Clav [Augmentin 500-125 Tablet] 1 each PO BID #20 tablet 05/29/19 Cyanocobalamin (Vitamin B-12) [Vitamin B-12] 1,000 mcg PO DAILY #90 tablet 05/28 Doxycycline Hyclate 100 mg PO 20 #20 tablet 05/29/19 Gabapentin [Neurontin*] 100 mg PO TID PRN #90 cap 05/29/19 Iron 18 mg PO DAILY #90 tablet 05/29/19 New Medications: Amoxicillin/Potassium Clav [Augmentin 500-125 Tablet] 1 each PO BID #20 tablet Cyanocobalamin (Vitamin B-12) [Vitamin B-12] 1,000 mcg PO DAILY #90 tablet Doxycycline Hyclate 100 mg PO 20 #20 tablet Gabapentin [Neurontin*] 100 mg PO TID PRN #90 cap PRN Reason: Pain Scale 2-4 (Mild) Iron 18 mg PO DAILY #90 tablet Patient Discharge Instructions: 1. Follow up with a PCP in 1-2 weeks to follow up this hospitalization. 2. Patient presented with bilateral lower extremity recurrent cellulitis and stasis dermatitis with chronic lymphedema. Patient admitted for IV antibiotic therapy. Patient had not followed up at wound Care Center due to lack of financial resources. Patient has done well then the course of her stay. Blood cultures negative. Wound cultures negative at this time. Patient seen and evaluated by infectious disease. Erythema and swelling have significantly improved. At discharge patient will continue with Augmentin 500 mg twice daily and doxycycline 100 mg twice daily for 10 days. Patient will be provided Neurontin 100 mg 3 times a day as needed for pain. Patient will continue with current wound care as recommended by infectious disease. Patient to elevate her legs when sitting or lying. Patient is to monitor her weight daily. Recommend a 1500 cc per day fluid restriction and low-salt diet. Patient will also continue with wrappings for lymphedema. At discharge patient may follow up at the Wound Care Center in 7-10 days to follow her progress. Patient will be provided information to establish care with a local PCP. Home health will be arranged prior to discharge. 3. Patient with chronic renal disease stage III. This has significantly improved since her initial evaluation. Recommend no further use of nonsteroidal anti- inflammatories. Future medications will need to be renally dose. As recommended above patient will continue with a 1500 cc per day fluid restriction and low-salt diet. Recommend to monitor weight daily. If her weight increases by more than 5 lb she may require diuretic therapy. This can be further addressed by her PCP. Recommend to recheck BMP in 1-2 weeks to monitor her progress. Recommend follow up with nephrology to establish care and follow. 4. Patient with anemia secondary to iron deficiency and B12 deficiency. At discharge patient may continue with iron supplementation and B12 supplementation. Recommend to recheck CBC, iron and B12 in 1 month to monitor her progress. 5. CT scan showed nonobstructing stone on the right side. This can be followed as an outpatient. 6. Lifestyle modification education provided. Diet: AHA Activity: Fall precautions Time spent managing pt's care (in minutes): 55
[2019-05-29 09:38] VITALS: BP 129/60
== END 2019-05-29 10:44 | disposition home or self-care (01) | DRG 603 ==
LOC: ER 19:32 → ERHOLD 22:01 → 2ND 05-27 08:03
PROVIDERS: ADMIT Internal Medicine; ATTEND Internal Medicine
DX: L03.116 Cellulitis of left lower limb (principal); Z68.42 Body mass index [BMI] 45.0-49.9, adult; L03.115 Cellulitis of right lower limb; B96.82 Vibrio vulnificus as the cause of diseases classified elsewhere; B96.1 Klebsiella pneumoniae [K. pneumoniae] as the cause of diseases classified elsewhere; B95.62 Methicillin resistant Staphylococcus aureus infection as the cause of diseases classified elsewhere; I87.2 Venous insufficiency (chronic) (peripheral); I89.0 Lymphedema, not elsewhere classified; I12.9 Hypertensive chronic kidney disease with stage 1 through stage 4 chronic kidney disease, or unspecified chronic kidney disease; N18.3 Chronic kidney disease, stage 3 (moderate); D50.9 Iron deficiency anemia, unspecified; E66.01 Morbid (severe) obesity due to excess calories; N20.0 Calculus of kidney
CPT/HCPCS: 36415; 71045; 74176; 76377; 80048; 80053; 80076; 80202; 81015; 82150; 82550; 82553; 82607; 82728; 83540; 83605; 83690; 83735; 83880; 84145; 84466; 84484; 85025; 85610; 85730; 87040; 87070; 87077; 87086; 87088; 87186; 87205; 93005; 93970; 96365; 96367; 96372; 96375; 97116; 97161; 99285; J0692; J1650; J2270; J2405; J7030; J7040

== ENCOUNTER 2019-10-11 12:31 | Emergency (ER) | payer SELFPAY ==
--- OUTSIDE RECORDS SUMMARY | 2019-10-11 12:33 | XMS REPORT | Continuity of Care Document ---
:1955 Author Organization [facility] t Address [address] [place] [address] Care Team Providers Name Role Phone Unavailable Unavailable Unavailable Problems This patient has no known problems. Allergies, Adverse Reactions, Alerts This patient has no known allergies or adverse reactions. Medications This patient has no known medications. Procedures This patient has no known procedures. Results This patient has no known results.
[2019-10-11 14:29] LABS: Absolute Lymphocytes (CBC) 0.8 K/uL (0.7-4.9); Basophils % 0.3 % (0-1.3); Lymphocytes % 6.1 % (15.3-44.8); MPV 7.2 fL (7.6-11.3); RBC Red Blood Cell Count 3.98 M/uL (3.86-4.86)
[2019-10-11 14:42] LABS: Albumin 3.2 g/dL (3.4-5.0); Bilirubin Total 0.7 mg/dL (0.2-1.0); Potassium 4.1 mmol/L (3.5-5.1); Protein, Total 9.3 g/dL (6.4-8.2)
--- NOTE | 2019-10-11 14:53 | EDPHYS ---
Physician Documentation [facility] Name: Grace Case Age: 64 yrs Sex: Female : 1955 Arrival Date: 10/11/2019 Time: 12:41 Bed 14 Private MD: ED Physician Pam Thrasher HPI: 10/10 13:31 This 64 yrs old Female presents to ER via Wheelchair with complaints of ma2 Fever, LYMPHODEMA. 13:31 Associated signs and symptoms: Pertinent negatives: altered mental status, backache, ma2 chills, diarrhea. Severity of symptoms: At their worst the symptoms were mild in the emergency department the symptoms are unchanged. The patient has experienced similar episodes in the past. Historical: - Allergies: 12:46 No Known Allergies; ll1 - PMHx: 12:46 UTI; lymphedema; cellulits; ll1 - PSHx: 12:46 None; ll1 - Immunization history:: Flu vaccine is not up to date. - Social history:: Smoking status: Patient denies any tobacco usage or history of. Patient/guardian denies using alcohol, street drugs, tobacco products, Patient/guardian denies using. - Family history:: not pertinent. ROS: 13:31 Constitutional: Negative for fever, chills, and weight loss, Neck: Negative for injury, ma2 pain, and swelling, Abdomen/GI: Negative for abdominal pain, nausea, diarrhea, and constipation, : Negative for injury, bleeding, discharge, and swelling, MS/Extremity: Negative for injury and deformity. 13:31 All other systems are negative. Exam: 13:31 Constitutional: This is a well developed, well nourished patient who is awake, alert, ma2 and in no acute distress. Neck: Trachea midline, no thyromegaly or masses palpated, and no cervical lymphadenopathy. Supple, full range of motion without nuchal rigidity, or vertebral point tenderness. No Meningismus. Chest/axilla: Normal chest wall appearance and motion. Nontender with no deformity. No lesions are appreciated. Cardiovascular: Regular rate and rhythm with a normal S1 and S2. No gallops, murmurs, or rubs. Normal PMI, no JVD. No pulse deficits. Respiratory: Lungs have equal breath sounds bilaterally, clear to auscultation and percussion. No rales, rhonchi or wheezes noted. No increased work of breathing, no retractions or nasal flaring. Abdomen/GI: Soft, non-tender, with normal bowel sounds. No distension or tympany. No guarding or rebound. No evidence of tenderness throughout. Back: No spinal tenderness. No costovertebral tenderness. Full range of motion. Skin: Warm, dry with normal turgor. Normal color with no rashes, no lesions, and no evidence of cellulitis. MS/ Extremity: escalante bilateral lymphedema, with diffuse erythema, no fluctuence no tenderness, no crepitatios, Pulses equal, no cyanosis. Neurovascular intact. Full, normal range of motion. Neuro: Awake and alert, GCS 15, oriented to person, place, time, and situation. Cranial nerves II-XII grossly intact. Motor strength 5/5 in all extremities. Sensory grossly intact. Cerebellar exam normal. Normal gait. Vital Signs: 12:47 BP 112 / 64; Pulse 102; Resp 18; Temp 99.8; Pulse Ox 97% ; Weight 140.61 kg; Height 5 ll1 ft. 6 in. (167.64 cm); Pain 7/10; 14:35 BP 118 / 78; Pulse 92; Resp 18; Temp 98.6(O); Pulse Ox 99% on R/A; ph 12:47 Body Mass Index 50.03 (140.61 kg, 167.64 cm) ll1 MDM: 12:53 Patient medically screened. nc2 13:31 Differential diagnosis: viral Infection, bacterial infection, URI, cellulitis. nc2 14:52 Data reviewed: vital signs, nurses notes. Counseling: I had a detailed discussion with ma2 the patient and/or guardian regarding: the historical points, exam findings, and any diagnostic results supporting the discharge/admit diagnosis, the presence of at least one elevated blood pressure reading (>120/80) during this emergency department visit, the need for outpatient follow up. Response to treatment: the patient's symptoms have markedly improved after treatment. 10/10 13:28 Order name: CBC with Diff ma2 10/10 13:28 Order name: CMP; Complete Time: 14:52 ma2 Administered Medications: 15:15 Drug: Clindamycin 600 mg Route: IVPB; Infused Over: 30 mins; Site: right antecubital; ph 15:40 Follow up: Response: No adverse reaction; IV Status: Completed infusion ph Disposition: 10/11/19 14:53 Discharged to Home. Impression: Cellulitis of left lower limb, Cellulitis of right lower limb. - Condition is Stable. - Discharge Instructions: Cellulitis, Adult. - Prescriptions for Clindamycin HCl 300 mg Oral Capsule - take 1 capsule by ORAL route every 6 hours for 10 days; 40 capsule. Bactrim DS 800- 160 mg Oral Tablet - take 1 tablet by ORAL route every 12 hours for 10 days; 20 tablet. Bactroban 2 % Topical Cream - Apply to affected area 1 application by TOPICAL route every 12 hours; 150 gram. - Medication Reconciliation Form, Thank You Letter, Antibiotic Education, Prescription Opioid Use form. - Follow up: Private Physician; When: Tomorrow; Reason: If symptoms return, Continuance of care. Signatures: Dispatcher [employer] Belen Diaz RN RN Pam Thrasher MD MD ma2 Azucena Spence RN RN ll1 Corrections: (The following items were deleted from the chart) 15:57 14:53 10/11/2019 14:53 Discharged to Home. Impression: Cellulitis of left lower limb; ph Cellulitis of right lower limb. Condition is Stable. Prescriptions for Clindamycin HCl 300 mg Oral Capsule - take 1 capsule by ORAL route every 6 hours for 10 days; 40 capsule. and Forms are Medication Reconciliation Form, Thank You Letter, Antibiotic Education, Prescription Opioid Use. Follow up: Private Physician; When: Tomorrow; Reason: If symptoms return, Continuance of care. castro
--- NOTE | 2019-10-11 14:53 | ER ---
Nurse's Notes [facility] Name: Grace Case Age: 64 yrs Sex: Female : 1955 Arrival Date: 10/11/2019 Time: 12:41 Bed 14 Private MD: Diagnosis: Cellulitis of left lower limb;Cellulitis of right lower limb Presentation: 10/10 12:47 Chief complaint: Patient states: Redness, swelling to right leg last week. Started to ll1 amoxicillin from [place]. Started having fever at night. Fever 102 at home. Coronavirus screen: Client denies travel out of the [place] in the last 14 days. fever, Client presents with at least one sign or symptom that may indicate coronavirus-19. Standard/surgical mask placed on the client. Ebola Screen: Patient denies travel to an Ebola-affected area in the 21 days before illness onset. Initial Sepsis Screen: Does the patient meet any 2 criteria? HR > 90 bpm. Does the patient have a suspected source of infection? Yes: Skin breakdown/wound. Risk Assessment: Do you want to hurt yourself or someone else? Patient reports no desire to harm self or others. Onset of symptoms was October 01, 2019. 12:47 Method Of Arrival: Wheelchair ll1 12:47 Acuity: ESTEPHANIA 3 ll1 Historical: - Allergies: 12:46 No Known Allergies; ll1 - PMHx: 12:46 UTI; lymphedema; cellulits; ll1 - PSHx: 12:46 None; ll1 - Immunization history:: Flu vaccine is not up to date. - Social history:: Smoking status: Patient denies any tobacco usage or history of. Patient/guardian denies using alcohol, street drugs, tobacco products, Patient/guardian denies using. - Family history:: not pertinent. Screenin:00 Abuse screen: Denies threats or abuse. Denies injuries from another. Nutritional ph screening: No deficits noted. Tuberculosis screening: No symptoms or risk factors identified. Fall Risk None identified. Assessment: 13:00 General: Appears in no apparent distress. comfortable, obese, well groomed, Behavior is ph calm, cooperative, appropriate for age, Reports chills for fever for > 3 days. Pain: Complains of pain in right leg. Neuro: Level of Consciousness is awake, alert, obeys commands, Oriented to person, place, time, situation. Cardiovascular: Capillary refill < 3 seconds in bilateral fingers Patient's skin is warm and dry. Respiratory: Airway is patent Respiratory effort is even, unlabored. Derm: Skin is intact, is healthy with good turgor, Skin is pink, warm \T\ dry. Musculoskeletal: Swelling present in right leg. 14:00 Reassessment: Patient appears in no apparent distress at this time. Patient and/or ph family updated on plan of care and expected duration. Pain level reassessed. Patient is alert, oriented x 3, equal unlabored respirations, skin warm/dry/pink. 15:00 Reassessment: Patient appears in no apparent distress at this time. Patient and/or ph family updated on plan of care and expected duration. Pain level reassessed. Patient is alert, oriented x 3, equal unlabored respirations, skin warm/dry/pink. D/C pending completion of IV antibiotics. Vital Signs: 12:47 BP 112 / 64; Pulse 102; Resp 18; Temp 99.8; Pulse Ox 97% ; Weight 140.61 kg; Height 5 ll1 ft. 6 in. (167.64 cm); Pain 7/10; 14:35 BP 118 / 78; Pulse 92; Resp 18; Temp 98.6(O); Pulse Ox 99% on R/A; ph 12:47 Body Mass Index 50.03 (140.61 kg, 167.64 cm) ll1 ED Course: 12:41 Patient arrived in ED. fj1 12:47 Arm band placed on Patient notified of wait time. ll1 12:49 Triage completed. ll1 12:53 Pam Thrasher MD is Attending Physician. ma2 13:00 Patient has correct armband on for positive identification. Bed in low position. Call ph light in reach. Side rails up X 1. Pulse ox on. NIBP on. Door closed. Noise minimized. 13:36 Belen Friedman, GIL is Primary Nurse. ph 14:30 Inserted saline lock: 22 gauge in right antecubital area, using aseptic technique. ph Blood collected. 15:00 No provider procedures requiring assistance completed. ph 15:30 IV discontinued, intact, bleeding controlled, No redness/swelling at site. Pressure ph dressing applied. Administered Medications: 15:15 Drug: Clindamycin 600 mg Route: IVPB; Infused Over: 30 mins; Site: right antecubital; ph 15:40 Follow up: Response: No adverse reaction; IV Status: Completed infusion ph Outcome: 14:53 Discharge ordered by . castro 15:57 Patient left the ED. ph 15:57 Discharged to home via wheelchair, with family. ph 15:57 Condition: good 15:57 Discharge instructions given to patient, Instructed on discharge instructions, follow up and referral plans. medication usage, Demonstrated understanding of instructions, follow-up care, medications, Prescriptions given X 3. Signatures: Belen Friedman, RN RN Pam Thrasher MD MD ma2 Gil Odom1 Azucena Spence RN RN 1
[2019-10-11] MEDS ORDERED: CLINDAMYCIN 600MG/D5W 600 MG/50 ML BAG IV ONE (15:22)
[2019-10-11 16:01] VITALS: BP 112/64; TEMP 99.8; O2SAT 97
[2019-10-11 19:04] LABS: Blood Morphology Comment NOT SEEN (NOT SEEN); Platelet Estimate ADEQ; White Blood Cell Scan OK
== END 2019-10-11 15:57 | disposition home or self-care (01) ==
LOC: ER 12:31
DX: L03.116 Cellulitis of left lower limb (principal); L03.115 Cellulitis of right lower limb
CPT/HCPCS: 36415; 80053; 85025; 96365; 99284

== ENCOUNTER 2020-07-17 16:16 | Inpatient (IN) | payer OTHER, SELFPAY ==
--- OUTSIDE RECORDS SUMMARY | 2020-07-17 16:19 | XMS REPORT | Continuity of Care Document ---
:1955 [address] [facility] t Address [address] [place] [address] Care Team Providers Name Role Phone Unavailable Unavailable Unavailable Problems This patient has no known problems. Allergies, Adverse Reactions, Alerts This patient has no known allergies or adverse reactions. Medications This patient has no known medications. Procedures This patient has no known procedures. Results This patient has no known results.
--- NOTE | 2020-07-17 18:21 | EDPHYS ---
Physician Documentation [facility] Name: Grace Case Age: 65 yrs Sex: Female : 1955 Arrival Date: 07/17/2020 Time: 16:19 Bed 3 Private MD: SOFIA Physician Rene Mason HPI: 07/17 17:55 This 65 yrs old Female presents to ER via Wheelchair with complaints of Leg aníbal Pain, Fever, Back Pain. 17:55 The patient presents with decreased range of motion, pain, that is acute. The aníbal complaints affect the lateral aspect of right calf, right calf, medial aspect of right calf and right rosen. Historical: - Allergies: 16:55 No Known Allergies; bp - Home Meds: 16:55 None [Active]; bp - PMHx: 16:55 cellulits; lymphedema; UTI; bp - Immunization history:: Adult Immunizations up to date. - Social history:: Smoking status: Patient denies any tobacco usage or history of. ROS: 18:08 Eyes: Negative for injury, pain, redness, and discharge, ENT: Negative for injury, aníbal pain, and discharge, Neck: Negative for injury, pain, and swelling, Cardiovascular: Negative for chest pain, palpitations, and edema, Respiratory: Negative for shortness of breath, cough, wheezing, and pleuritic chest pain, Abdomen/GI: Negative for abdominal pain, nausea, vomiting, diarrhea, and constipation, : Negative for injury, bleeding, discharge, and swelling, Skin: Negative for injury, rash, and discoloration, Neuro: Negative for headache, weakness, numbness, tingling, and seizure. 18:08 Back: Positive for pain at rest, pain with movement, of the lumbar area, low back area and left low back. 18:08 MS/extremity: Positive for pain, swelling, tenderness, warmth, of the right leg, lateral aspect of left calf, left lateral ankle, left calf, left Achilles, medial aspect of left calf, left medial ankle, left rosen and anterior aspect of left ankle. Exam: 18:13 Head/Face: Normocephalic, atraumatic. Eyes: Pupils equal round and reactive to light, aníbal extra-ocular motions intact. Lids and lashes normal. Conjunctiva and sclera are non-icteric and not injected. Cornea within normal limits. Periorbital areas with no swelling, redness, or edema. ENT: Nares patent. No nasal discharge, no septal abnormalities noted. Tympanic membranes are normal and external auditory canals are clear. Oropharynx with no redness, swelling, or masses, exudates, or evidence of obstruction, uvula midline. Mucous membranes moist. Neck: Trachea midline, no thyromegaly or masses palpated, and no cervical lymphadenopathy. Supple, full range of motion without nuchal rigidity, or vertebral point tenderness. No Meningismus. Chest/axilla: Normal chest wall appearance and motion. Nontender with no deformity. No lesions are appreciated. Respiratory: Lungs have equal breath sounds bilaterally, clear to auscultation and percussion. No rales, rhonchi or wheezes noted. No increased work of breathing, no retractions or nasal flaring. Female : Normal external genitalia. Neuro: Awake and alert, GCS 15, oriented to person, place, time, and situation. Cranial nerves II-XII grossly intact. Motor strength 5/5 in all extremities. Sensory grossly intact. Cerebellar exam normal. Normal gait. Psych: Awake, alert, with orientation to person, place and time. Behavior, mood, and affect are within normal limits. 18:13 Cardiovascular: Rate: tachycardic, actual rate is 105 bpm, Rhythm: regular, Pulses: Pulses are 4+ in bilateral radial, brachial, femoral, popliteal, posterior tibial and and dorsalis pedis arteries.. Heart sounds: normal, normal S1and S2, no S3 or S4, no murmur, no rub, no gallop, Edema: 3+ edema to level of left midcalf and right midcalf, JVD: is not appreciated. 18:37 ECG was reviewed by the Attending Physician. [facility] Vital Signs: 16:51 BP 112 / 69; Pulse 105; Resp 20; Temp 97.3; Pulse Ox 97% ; bp 20:00 BP 157 / 93; Pulse 93; Resp 18; Pulse Ox 98% on R/A; wh 21:15 BP 120 / 53; Pulse 74; Resp 18; Pulse Ox 98% ; wh MDM: 17:29 Patient medically screened. [facility] 18:14 Differential diagnosis: contusion, tendonitis. Data reviewed: vital signs, nurses [facility] notes, lab test result(s), EKG, radiologic studies, CT scan, doppler, plain films. Data interpreted: awake overnight monitor: rate is 105 beats/min, rhythm is regular, Pulse oximetry: on room air is 97 %. Test interpretation: by ED physician or midlevel provider: ECG, plain radiologic studies. Counseling: I had a detailed discussion with the patient and/or guardian regarding: the historical points, exam findings, and any diagnostic results supporting the discharge/admit diagnosis, lab results, radiology results, the need for further work-up and treatment in the hospital. 07/17 17:53 Order name: Basic Metabolic Panel [facility] 07/17 17:53 Order name: CBC with Diff [facility] 07/17 17:53 Order name: LFT's [facility] 07/17 17:53 Order name: Magnesium [facility] 07/17 17:53 Order name: NT PRO-BNP [facility] 07/17 17:53 Order name: PT-INR [facility] 07/17 17:53 Order name: Troponin (emerg Dept Use Only) [facility] 07/17 17:53 Order name: Lipase [facility] 07/17 17:53 Order name: Blood Culture Adult (2) [facility] 07/17 17:53 Order name: Urine Culture [facility] 07/17 17:53 Order name: COVID-19 : Document "Date of Symptom Onset" if Symptomatic. [facility] 07/17 17:53 Order name: Lactate [facility] 07/17 17:54 Order name: Basic Metabolic Panel [facility] 07/17 17:54 Order name: CBC with Automated Diff [facility] 07/17 17:53 Order name: XRAY Chest (1 view) [facility] 07/17 17:53 Order name: US Extremity Venous W Compression Bean [facility] 07/17 17:54 Order name: Liver (Hepatic) Function [facility] 07/17 17:54 Order name: Magnesium [facility] 07/17 17:54 Order name: NT PRO-BNP [facility] 07/17 17:54 Order name: Protime (+INR) [facility] 07/17 17:54 Order name: Troponin (Emerg Dept Use Only) [facility] 07/17 18:12 Order name: CT Chest Abdomen Pelvis W/O Contrast: fever , back pain, no iv, no oral [facility] 07/17 19:54 Order name: CBC Smear Scan [facility] 07/17 20:40 Order name: SARS-COV-2 RT PCR [facility] 07/17 17:53 Order name: EKG; Complete Time: 17:55 [facility] 07/17 17:53 Order name: Cardiac monitoring; Complete Time: 18:47 [facility] 07/17 17:53 Order name: EKG - Nurse/Tech; Complete Time: 18:47 [facility] 07/17 17:53 Order name: IV Saline Lock; Complete Time: 19:12 [facility] 07/17 17:53 Order name: Labs collected and sent; Complete Time: 19:12 [facility] 07/17 17:53 Order name: O2 Per Protocol; Complete Time: 19:12 [facility] 07/17 17:53 Order name: O2 Sat Monitoring; Complete Time: 19:12 [facility] 07/17 17:53 Order name: Urine Dipstick-Ancillary (obtain specimen); Complete Time: 21:28 [facility] 07/17 18:21 Order name: IV Saline Lock - Large Bore; Complete Time: 18:47 [facility] 07/17 19:52 Order name: CONS Physician Consult EDMS EC:37 Rate is 99 beats/min. Rhythm is regular. QRS [place] is Normal. OR interval is normal. QRS aníbal interval is normal. QT interval is normal. No Q waves. T waves are Normal. No ST changes noted. Clinical impression: Normal ECG and No evidence of ischemia. Interpreted by me. Reviewed by me. Administered Medications: 18:50 Drug: NS 0.9% 1000 ml Route: IV; Rate: 1 bolus; Site: left forearm; sv 21:27 Follow up: Response: No adverse reaction; IV Status: Completed infusion 18:50 Drug: Zofran (Ondansetron) 4 mg Route: IVP; Site: left forearm; sv 21:27 Follow up: Response: No adverse reaction 18:50 Drug: vancoMYCIN 2 grams Route: IVPB; Rate: calculated rate; Site: left forearm; sv 21:26 Follow up: Response: No adverse reaction; IV Status: Completed infusion 18:52 Drug: fentaNYL (PF) 50 mcg Route: IVP; Site: left forearm; sv 21:27 Follow up: Response: No adverse reaction; Pain is decreased; RASS: Alert and Calm (0) 18:53 Drug: Pepcid (famotidine) 20 mg Route: IVP; Site: left forearm; sv 21:26 Follow up: Response: No adverse reaction 19:46 Drug: Zosyn (piperacillin-tazobactam) 3.375 grams Route: IVPB; Infused Over: 60 mins; Site: right wrist; 21:27 Follow up: Response: No adverse reaction; IV Status: Completed infusion 19:48 Drug: Lovenox (enoxaparin) 40 mg Route: Sub-Q; Site: left lower abdomen; 21:26 Follow up: Response: No adverse reaction Disposition: 07/17/20 18:20 Hospitalization ordered by Cody Montes for Inpatient Admission. Preliminary diagnosis are Cellulitis and acute lymphangitis of other parts of limb - right lower extremity cellulitis, Lymphedema, not elsewhere classified, Fever, unspecified, Obesity, unspecified. - Bed requested for Telemetry/MedSurg (Inpatient). - Status is Inpatient Admission. mw2 - Condition is Fair. - Problem is new. - Symptoms have improved. Signatures: Dispatcher [employer] EDMiya De La Cruz RN GIL Ruthann Holley RN Rene Sharma MD MD cha Habalo, Winsy, RN RN Rafael Ahumada RN RN bp [place], MyKena mw2 Corrections: (The following items were deleted from the chart) 20:53 18:20 Hospitalization Ordered by Cody Montes DO for Inpatient Admission. Preliminary diagnosis is Cellulitis and acute lymphangitis of other parts of limb - right lower extremity cellulitis; Lymphedema, not elsewhere classified; Fever, unspecified; Obesity, unspecified. Bed requested for Telemetry/MedSurg (Inpatient). Status is Inpatient Admission. Condition is Fair. Problem is new. Symptoms have improved. [facility] 21:30 20:53 07/17/2020 18:20 Hospitalization Ordered by Cody Montes DO for Inpatient 2 Admission. Preliminary diagnosis is Cellulitis and acute lymphangitis of other parts of limb - right lower extremity cellulitis; Lymphedema, not elsewhere classified; Fever, unspecified; Obesity, unspecified. Bed requested for Telemetry/MedSurg (Inpatient). Status is Inpatient Admission. Condition is Fair. Problem is new. Symptoms have improved.
--- NOTE | 2020-07-17 18:21 | ER ---
Nurse's Notes [facility] Name: Grace Case Age: 65 yrs Sex: Female : 1955 Arrival Date: 07/17/2020 Time: 16:19 Bed 3 Private MD: Diagnosis: Cellulitis and acute lymphangitis of other parts of limb-right lower extremity cellulitis;Lymphedema, not elsewhere classified;Fever, unspecified;Obesity, unspecified Presentation: 07/17 16:51 Chief complaint: Patient states: FEVER AND BACK PAIN x2 DAYS, TMAX 102. Coronavirus bp screen: At this time, the client does not indicate any symptoms associated with coronavirus-19. Ebola Screen: No symptoms or risks identified at this time. Initial Sepsis Screen: Does the patient meet any 2 criteria? HR > 90 bpm. No. Patient's initial sepsis screen is negative. Does the patient have a suspected source of infection? No. Patient's initial sepsis screen is negative. Risk Assessment: Do you want to hurt yourself or someone else? Patient reports no desire to harm self or others. Onset of symptoms is unknown. 16:51 Method Of Arrival: Wheelchair bp 16:51 Acuity: ESTEPHANIA 3 bp Triage Assessment: 16:55 General: Appears distressed, uncomfortable, obese, Behavior is cooperative, appropriate bp for age, anxious. Pain: Complains of pain in lumbar area. EENT: No deficits noted. Neuro: No deficits noted. Cardiovascular: No deficits noted. Respiratory: No deficits noted. GI: No signs and/or symptoms were reported involving the gastrointestinal system. : No signs and/or symptoms were reported regarding the genitourinary system. Derm: No deficits noted. Musculoskeletal: Circulation, motion, and sensation intact. Range of motion: intact in all extremities. Historical: - Allergies: 16:55 No Known Allergies; bp - Home Meds: 16:55 None [Active]; bp - PMHx: 16:55 cellulits; lymphedema; UTI; bp - Immunization history:: Adult Immunizations up to date. - Social history:: Smoking status: Patient denies any tobacco usage or history of. Screenin:31 Abuse screen: Denies threats or abuse. Denies injuries from another. Nutritional sv screening: No deficits noted. Tuberculosis screening: No symptoms or risk factors identified. Fall Risk None identified. Assessment: 18:30 General: Appears in no apparent distress. uncomfortable, obese, well developed, well sv nourished, Behavior is calm, cooperative, appropriate for age. Pain: Complains of pain in back, right leg and left leg Pain began 2-3 days ago. Is continuous. Neuro: Level of Consciousness is awake, alert, obeys commands, Oriented to person, place, time, situation, Moves all extremities. Full function. Respiratory: Airway is patent Respiratory effort is even, unlabored, Respiratory pattern is regular, symmetrical. Derm: Skin is normal, Pt has lymphedema to BLE with wraps to BLE. 19:15 Reassessment: Patient appears in no apparent distress at this time. Patient and/or wh family updated on plan of care and expected duration. Pain level reassessed. Patient is alert, oriented x 3, equal unlabored respirations, skin warm/dry/pink. 21:00 Reassessment: Patient appears in no apparent distress at this time. Patient and/or wh family updated on plan of care and expected duration. Pain level reassessed. Patient is alert, oriented x 3, equal unlabored respirations, skin warm/dry/pink. Vital Signs: 16:51 BP 112 / 69; Pulse 105; Resp 20; Temp 97.3; Pulse Ox 97% ; bp 20:00 BP 157 / 93; Pulse 93; Resp 18; Pulse Ox 98% on R/A; wh 21:15 BP 120 / 53; Pulse 74; Resp 18; Pulse Ox 98% ; wh ED Course: 16:19 Patient arrived in ED. ds1 16:54 Triage completed. bp 16:55 Arm band placed on. bp 17:29 Rene Mason MD is Attending Physician. aníbal 17:30 Miya Crowley, GIL is Primary Nurse. sv 17:31 Patient has correct armband on for positive identification. Call light in reach. Door sv closed. 18:14 XRAY Chest (1 view) In Process Unspecified. EDMS 18:15 Cody Montes DO is Hospitalizing Provider. aníbal 18:30 First set of blood cultures drawn by sd. Inserted saline lock: 20 gauge in left sv forearm, using aseptic technique. Blood collected. Flushed left forearm with 5 ml normal saline. 18:35 Inserted saline lock: 20 gauge in right forearm, using aseptic technique. Blood jl7 collected. 18:35 EKG done, by ED staff, reviewed by Rene Mason MD. jl7 18:40 Second set of blood cultures drawn by ED staff, COVID swab sent to lab. sv 19:12 Troponin (emerg Dept Use Only) Sent. sv 19:12 PT-INR Sent. sv 19:12 NT PRO-BNP Sent. sv 19:12 Magnesium Sent. sv 19:12 LFT's Sent. sv 19:13 CBC with Diff Sent. sv 19:13 Basic Metabolic Panel Sent. sv 19:15 US Extremity Venous W Compression Bean In Process Unspecified. EDMS 19:22 Report given to Nancie CORDERO and Hedy RN. sv 19:26 Primary Nurse role handed off by Miya Crowley RN mw2 19:30 CT Chest Abdomen Pelvis W/O Contrast: fever , back pain, no iv, no oral In Process EDMS Unspecified. 21:25 No provider procedures requiring assistance completed. Patient admitted, IV remains in place. 21:28 Nancie Whittington, RN is Primary Nurse. Administered Medications: 18:50 Drug: NS 0.9% 1000 ml Route: IV; Rate: 1 bolus; Site: left forearm; sv 21:27 Follow up: Response: No adverse reaction; IV Status: Completed infusion 18:50 Drug: Zofran (Ondansetron) 4 mg Route: IVP; Site: left forearm; sv 21:27 Follow up: Response: No adverse reaction 18:50 Drug: vancoMYCIN 2 grams Route: IVPB; Rate: calculated rate; Site: left forearm; sv 21:26 Follow up: Response: No adverse reaction; IV Status: Completed infusion 18:52 Drug: fentaNYL (PF) 50 mcg Route: IVP; Site: left forearm; sv 21:27 Follow up: Response: No adverse reaction; Pain is decreased; RASS: Alert and Calm (0) 18:53 Drug: Pepcid (famotidine) 20 mg Route: IVP; Site: left forearm; sv 21:26 Follow up: Response: No adverse reaction 19:46 Drug: Zosyn (piperacillin-tazobactam) 3.375 grams Route: IVPB; Infused Over: 60 mins; Site: right wrist; 21:27 Follow up: Response: No adverse reaction; IV Status: Completed infusion 19:48 Drug: Lovenox (enoxaparin) 40 mg Route: Sub-Q; Site: left lower abdomen; 21:26 Follow up: Response: No adverse reaction Outcome: 18:20 Decision to Hospitalize by Provider. [facility] 21:26 Admitted to Tele accompanied by nurse, via wheelchair, room 422, with chart, Report called to Hedy CORDERO 21:26 Condition: stable 21:26 Instructed on the need for admit. 21:30 Patient left the ED. mw2 Signatures: Dispatcher [employer] Miya Noble, RN Rene Leyva MD MD cha Sanford, Demi ds1 Karie Valenzuela RN RN jl7 Nancie Whittington RN RN wh Peltier, Brian RN RN Poly Fuentes mw2
[2020-07-17] MEDS ORDERED: FENTANYL CITR 100 MCG/2 ML ONE (18:34)
[2020-07-17] MEDS ORDERED: ONDANSETRON 4 MG/2 ML VIAL ONE (18:34)
[2020-07-17] MEDS ORDERED: VANCOMYCIN 1 GM/VIAL ONE (18:35)
[2020-07-17] MEDS ORDERED: FAMOTIDINE 20 MG/2 ML VIAL IV ONE (18:35)
[2020-07-17] MEDS ORDERED: NA CHLORIDE 0.9% 1,000 ML ONE (18:35)
[2020-07-17] MEDS ORDERED: NA CHLORIDE 0.9% 500 ML ONE (18:35)
[2020-07-17] MEDS ORDERED: PIPER/TAZO/NS 3.375gm 3.375 GM/100 ML BAG ONE (18:35)
[2020-07-17 19:01] LABS: Protime INR 1.23
[2020-07-17 19:02] LABS: Absolute Lymphocytes (CBC) 1.1 K/uL (0.7-4.9); Basophils % 0.3 % (0-1.3); Hematocrit 36.5 % (36.0-45.0); Lymphocytes % 8.2 % (15.3-44.8); MPV 7.8 fL (7.6-11.3); RBC Red Blood Cell Count 4.18 M/uL (3.86-4.86)
[2020-07-17 19:17] LABS: ALT/SGPT 18 U/L (12-78); AST/SGOT 16 U/L (15-37); Albumin 3.4 g/dL (3.4-5.0); Alkaline Phosphatase 80 U/L (45-117); BUN Blood Urea Nitrogen 13 mg/dL (7-18); Bicarbonate 27 mmol/L (21-32); Bilirubin Direct 0.5 mg/dL (0-0.2); Bilirubin Total 1.4 mg/dL (0.2-1.0); Glucose Level 128 mg/dL (74-106); Lipase 79 U/L (73-393); Magnesium 2.1 mg/dL (1.8-2.4); NT PRO-BNP 314 pg/mL (<125); Potassium 3.8 mmol/L (3.5-5.1); Protein, Total 9.2 g/dL (6.4-8.2); Sodium Level 139 mmol/L (136-145); Troponin (Emerg Dept Use Only) < 0.02 ng/mL (0.0-0.045)
--- NOTE | 2020-07-17 19:31 | P.HP ---
Certification for Inpatient Patient admitted to: Inpatient With expected LOS: >2 Midnights Patient will require the following post-hospital care: None Practitioner: I am a practitioner with admitting privileges, knowledge of patient current condition, hospital course, and medical plan of care. Services: Services provided to patient in accordance with Admission requirements found in Title 42 Section 412.3 of the Code of Federal Regulations Patient History Date of Service: 07/17/20 Reason for admission: cellulitis History of Present Illness: Ms. Ospina is a 65 yo F with HTN, venous insufficiency and chronic lymphedema, history of recurrent cellulitis and UTIs for the past 4 years and prior DVT in 2006 here today for 2 days of fever (102F at home) and increased edema and erythema in her R leg. She says the pain in her legs is constant. She reports night sweats and chills. Denies nausea, vomiting, dysuria, and polyuria. Bilateral venous ultrasound negative for DVT. WBC 13.4. GFR 44. Allergies No Known Allergies Allergy (Verified 05/26/19 22:18) Home Medications: Amoxicillin/Potassium Clav [Augmentin 500-125 Tablet] 1 each PO BID #20 tablet 05/29/19 Cyanocobalamin (Vitamin B-12) [Vitamin B-12] 1,000 mcg PO DAILY #90 tablet 05/29/19 Doxycycline Hyclate 100 mg PO 20 #20 tablet 05/29/19 Gabapentin [Neurontin*] 100 mg PO TID PRN #90 cap 05/29/19 Iron 18 mg PO DAILY #90 tablet 05/29/19 levoFLOXacin [Levaquin] 500 mg PO DAILY 10 Days #10 tab 06/01/19 - Past Medical/Surgical History Diabetic: No -: Chronic lymphedema -: History of DVT -: Morbid obesity -: Recurrent left lower extremity cellulitis -: cellulitis; left calf -: Tubal ligation -: IVC vinny filter placement Psychosocial/ Personal History: Patient is . She lives at home. - Family History Mother -: Lung disease, Other (see notes) Notes: pulmonary embolism; emphysema Father -: Cancer, Other (see notes) Notes: throat and tongue CA - Social History Smoking Status: Never smoker Alcohol use: No CD- Drugs: No Caffeine use: Yes Place of Residence: Home Review of Systems General: Fever, Chills, Sweats, Unremarkable Eyes: Unremarkable ENT: Unremarkable Respiratory: Unremarkable Cardiovascular: Unremarkable Gastrointestinal: Unremarkable Genitourinary: Unremarkable Musculoskeletal: Leg Pain, As per HPI Integumentary: Rash, As per HPI Neurological: Unremarkable Lymphatics: Unremarkable Physical Examination - Physical Exam General: Alert, In no apparent distress, Oriented x3, Cooperative HEENT: Atraumatic, Normocephalic, PERRLA, Mucous membr. moist/pink, EOMI, Sclerae nonicteric Neck: Supple, 2+ carotid pulse no bruit, JVD not distended, No Thyromegaly, No LAD Respiratory: Clear to auscultation bilaterally, Normal air movement Cardiovascular: Normal pulses, Regular rate/rhythm, Normal S1 S2, No gallops, No rubs, No murmurs Capillary refill: <2 Seconds Gastrointestinal: Normal bowel sounds, Soft and benign, Non-distended, No ascites, No tenderness, No masses, No rebound, No guarding Musculoskeletal: No clubbing, No contractures, Swelling, Erythema, Tenderness, Warmth Integumentary: No cyanosis, Rash(es), Skin breakdown, Skin lesion, Tenderness/swelling, Erythema, Warmth Neurological: Normal speech, Normal strength at 5/5 x4 extr, Normal tone, Sensation intact, Cranial nerves 3-12 intact, Normal affect Lymphatics: No axilla or inguinal lymphadenopathy Assessment and Plan - Plan continue IV vancomycin consult ID and wound care for dressing changes monitor BP, PRN hydralazine for BP control continue pain management tylenol PRN for fever control DVT U/S negative, DVT ppx UA pending consult [place] Discharge Plan: Home Plan to discharge in: 72 Hours - Advance Directives Does patient have a Living Will: No Does patient have a Durable POA for Healthcare: No - Code Status/Comfort Care Code Status Assessed: Yes (full code) Critical Care: No Time Spent Managing Pts Care (In Minutes): 70
--- NOTE | 2020-07-17 19:38 | RAD REPORT ---
EXAM DESCRIPTION: USExtrem Venous W Compress Bil07/17/2020 7:15 pm CLINICAL HISTORY: Leg swelling COMPARISON: 2019 FINDINGS: The common femoral, superficial femoral veins bilaterally, left popliteal and left posteri or tibial veins are compressible and demonstrate augmentation. Doppler demonstrates good flow. Limited evaluation of the right popliteal and right posterior tibial vein secondary to difficulty wit h patient positioning and body habitus IMPRESSION: No evidence of deep venous thrombosis involving either lower extremity. Limited evaluation of the right popliteal and right posterior tibial veins
[2020-07-17 19:54] LABS: Blood Morphology Comment NOT SEEN (NOT SEEN); Platelet Estimate ADEQ; White Blood Cell Scan OK (OK)
--- NOTE | 2020-07-17 19:56 | RAD REPORT ---
EXAM DESCRIPTION: CT - Chest Abd Pelvis Wo Con - 07/17/2020 7:30 pm CLINICAL HISTORY: Cough and abdominal pain COMPARISON: CT abdomen 2019 CT chest 2012 TECHNIQUE: Computed axial tomography of the chest, abdomen and pelvis was obtained. Oral and IV cont rast not requested All CT scans are performed using dose optimization technique as appropriate and may include automated exposure control or mA/KV adjustment according to patient size. FINDINGS: The evaluation of mediastinum, [place], bowel, appendix, vessels and solid organs is limited secondary to the lack of IV contrast administration No mediastinal or hilar lymphadenopathy is seen. A pleural effusion is not present. A pericardial effusion is not seen. A couple of right lung granulomas. Remainder lungs are clear. A subcentimeter hepatic cyst. Spleen, pancreas, right adrenal and left kidney grossly normal. Tiny nonobstructing right renal calculus is unchanged Stable left adrenal adenoma. Cholecystectomy. Filter within the IVC. No evidence of diverticulitis. Marked laxity of the anterior abdominal wall. The appendix is not clearly seen. No stranding adjacent to the cecum. Calcification within the region of the medial aspect of the cecum There is no evidence of diverticulitis. Mild anterior subluxation of L5 on S1 IMPRESSION: Tiny nonobstructing right renal calculus Stable left adrenal adenoma Marked laxity of the anterior abdominal wall
--- NOTE | 2020-07-17 19:56 | RAD REPORT ---
EXAM DESCRIPTION: Karen Single View07/17/2020 6:14 pm CLINICAL HISTORY: Cough COMPARISON: 2019 FINDINGS: The lungs appear clear of acute infiltrate. The heart is normal size IMPRESSION: No acute abnormalities displayed
[2020-07-17] MEDS ORDERED: ENOXAPARIN 40 MG/0.4 ML SQ ONE (20:06)
[2020-07-17 21:43] VITALS: BMI 56.9
[2020-07-17] MEDS ORDERED: ONDANSETRON 4 MG/2 ML VIAL IV PRN (21:49)
[2020-07-17] MEDS ORDERED: HYDRALAZINE HCL 20 MG/ML VIAL IV PRN (21:49)
[2020-07-17] MEDS ORDERED: MORPHINE 4 MG/ML SYR IV PRN (21:49)
[2020-07-17] MEDS: MELATONIN 5 MG TABLET PO PRN (23:15)
[2020-07-18] MEDS ORDERED: HEPARIN 5000 UNIT/ML 1 ML VIAL SQ SCH (01:00)
[2020-07-18 03:32] LABS: Urine Appearance CLEAR (Clear); Urine Bilirubin NEGATIVE (Negataive); Urine Blood NEGATIVE (Negative); Urine Color YELLOW (Yellow); Urine Glucose NEGATIVE (Negative); Urine Protein NEGATIVE (Negative); Urine Specific Gravity 1.015 (1.005-1.030); Urine pH 5.5 (5.0-7.0)
[2020-07-18] MEDS: ACETAMINOPHEN 500 MG TAB PO PRN ×2 (03:32→08:22)
[2020-07-18 03:55] LABS: Urine Microscopic Reflex ORDER UMIC
[2020-07-18 04:06] LABS: Absolute Lymphocytes (CBC) 1.3 K/uL (0.7-4.9); Basophils % 0.4 % (0-1.3); Hematocrit 32.9 % (36.0-45.0); Lymphocytes % 15.5 % (15.3-44.8); MPV 7.8 fL (7.6-11.3); RBC Red Blood Cell Count 3.73 M/uL (3.86-4.86)
[2020-07-18 04:17] LABS: Bilirubin Total 0.9 mg/dL (0.2-1.0); Phosphorus 2.6 mg/dL (2.5-4.9); Potassium 3.9 mmol/L (3.5-5.1); Thyroid Stimulating Hormone 0.882 uIU/mL (0.360-3.740)
[2020-07-18 04:37] LABS: Urine Bacteria <20 /HPF (<20); Urine RBC NONE SEEN /HPF (NONE SEEN)
[2020-07-18] MEDS ORDERED: Pharmacy Consult 1 EA XX PRN (07:00)
[2020-07-18] MEDS ORDERED: PNEUMOCOCCAL VACCINE 0.5 ML IMVAC ONE (08:00)
[2020-07-18] MEDS: CEFTRIAXONE/SWI 1gm 1 GM/10 ML SYR IV SCH (08:10)
[2020-07-18] MEDS: HEPARIN 5000 UNIT/ML 1 ML VIAL SQ SCH ×2 (08:10→16:20)
[2020-07-18] MEDS ORDERED: CEFTRIAXONE 1 GM/NS 50 ML 1 GM/50 ML BAG IV SCH (09:00)
[2020-07-18] MEDS ORDERED: POTASSIUM CL SA 10 MEQ TAB PO ONE (09:00)
--- NOTE | 2020-07-18 10:55 | P.CNS ---
Date of Consult: 07/18/20 Chief Complaint: cellulitis History of Present Illness: Patient is a 65-year-old female with a past medical history of hypertension, venous insufficiency/chronic lymphedema, recurrent cellulitis in UTIs for the last 4 years with a prior to the DVT in 2016 who presented to the emergency department due to 2 days of fever and increased edema/erythema to her right leg. Patient states that she has bilateral chronic pain in her lower extremities. Bilateral venous ultrasound was negative for DVT. Blood culture pending, urine culture pending. Vitals today: Temperature 100 F, blood pressure 107/55, pulse of 92. Leukocytosis has resolved since admission, WBC today 8.6. Patient empirically started on vancomycin and Rocephin. Patient denies nausea, vomiting, diarrhea, shortness breath, chest pain. Allergies No Known Allergies Allergy (Verified 05/26/19 22:18) Home Medications: NK [No Home Meds] 07/18/20 - Past Medical/Surgical History Diabetic: No -: Chronic lymphedema -: History of DVT -: Morbid obesity -: Recurrent left lower extremity cellulitis -: cellulitis; left calf -: Tubal ligation -: IVC vinny filter placement Psychosocial/ Personal History: Patient is . She lives at home. - Family History Mother Medical History: Lung disease, Other (see notes) Notes: pulmonary embolism; emphysema Father Medical History: Cancer, Other (see notes) Notes: throat and tongue CA - Social History Smoking Status: Never smoker Alcohol use: No CD- Drugs: No Caffeine use: Yes Place of Residence: Home Review of Systems 10-point ROS is otherwise unremarkable Physical Examination Temp Pulse Resp BP Pulse Ox 97.7 F 70 16 112/55 L 93 07/18/20 07:43 07/18/20 07:43 07/18/20 07:43 07/18/20 07:43 07/18/20 07:43 General: Alert, In no apparent distress, Obese HEENT: Atraumatic, Normocephalic, PERRLA Neck: Supple, 2+ carotid pulse no bruit Respiratory: Diminished Cardiovascular: Normal pulses, Regular rate/rhythm, Edema Capillary refill: >2 Seconds Gastrointestinal: Normal bowel sounds Musculoskeletal: No swelling Integumentary: Venous stasis ulcer, Other (Bilateral lower extremity stasis dermatitis. Right lower extremity cellulitis with increased redness, warmth to touch, swelling.) Laboratory Data (last 24 hrs) 07/17/20 18:30: PT 14.2 H, INR 1.23 07/17/20 18:30: WBC 13.40 H, Hgb 11.9 L, Hct 36.5, Plt Count 318 07/17/20 18:30: Sodium 139, Potassium 3.8, BUN 13, Creatinine 1.23, Glucose 128 H, Magnesium 2.1, Total Bilirubin 1.4 H, AST 16, ALT 18, Alkaline Phosphatase 80, Lipase 79 Conclusions/Impression: Antibiotics: Vancomycin start: 07/18 stop:-- Rocephin start: 07/18 stop: -- Assessment: -right lower extremity cellulitis -venous insufficiency/chronic lymphedema to bilateral lower extremities -history of recurrent cellulitis in UTIs -hypertension -morbid obesity -anemia Plan: -continue empiric antibiotic therapy. Patient tolerating antibiotics well with no nausea, vomiting, diarrhea. -recommend wrapping bilateral lower extremities. 2 areas of tissue breakdown/ulcer formation: Apply xerofrom cover with foam -blood culture in urine culture pending] -medical management per primary team -continue monitor CBC and BMP -continue to monitor for signs of infection Plan of care discussed with Dr. Sanford. Thank you for consultation.
[2020-07-18] MEDS ORDERED: VANCOMYCIN 2 GM in NA CHLORIDE 0.9% 500 ML IVPB SCH (12:00)
--- NOTE | 2020-07-18 14:46 | P.PN ---
Subjective Date of Service: 07/18/20 Primary Care Provider: none Chief Complaint: cellulitis Subjective: Doing well Physical Examination - Vital Signs Temperature: 97.3 F Blood Pressure: 106/52 Pulse: 67 Respirations: 17 Pulse Ox (%): 95 - Studies Laboratory Data (last 24 hrs) 07/17/20 18:30: PT 14.2 H, INR 1.23 07/17/20 18:30: WBC 13.40 H, Hgb 11.9 L, Hct 36.5, Plt Count 318 07/17/20 18:30: Sodium 139, Potassium 3.8, BUN 13, Creatinine 1.23, Glucose 128 H, Magnesium 2.1, Total Bilirubin 1.4 H, AST 16, ALT 18, Alkaline Phosphatase 80, Lipase 79 Assessment & Plan Discharge Plan: Home Plan to discharge in: 48 Hours Physician Review Additional Text: Physical Exam: GENERAL: The patient is a well-developed, well-nourished, in no apparent distress. Alert and oriented x3. VITAL SIGNS: Reviewed NECK: Supple. No carotid bruits. No lymphadenopathy or thyromegaly. LUNGS: Clear to auscultation. No crackles or wheezes are heard. HEART: Regular rate and rythem, no appreciable gallops, rubs, murmurs or extra heart sounds ABDOMEN: Soft, nontender, and nondistended. Positive bowel sounds. No hepa tosplenomegaly was noted. EXTREMITIES: Patient with chronic lymphedema to the lower extremities. Erythema noted bilateral below the knees. Wrappings in place. NEUROLOGIC: The patient is oriented to person, place and time. Strength and sensation are grossly intact. Face is symmetric. SKIN: Chronic lymphedema to the lower extremities Impression: Recurrent lower extremity cellulitis with chronic lymphedema Hypertension Chronic renal disease stage III Prediabetes Chronic pain Morbid obesity, BMI of 57 Plan: Recurrent lower extremity cellulitis with chronic lymphedema: Continue IV antibiotic therapy. Continue wound care. Infectious disease consulted to help with evaluation and treatment. Anticipate improvement over the next 48 to 72 hours. Hypertension: Patient no longer on medication. Will monitor this closely. Will consider adding oral medication if blood pressure remains elevated. Chronic renal disease stage III: We will monitor renal function closely. Prediabetes: Hemoglobin A1c 6.2. Will monitor blood sugars. Chronic pain: Continue with medication Morbid obesity, BMI of 57: Address lifestyle modification education. Code Status: Full Code DVT prophylaxis: Heparin Advanced Care Planning-30 minutes: Plan of care for the patient's discharge was discussed in detail with the patient. Patient will continue with antibiotic therapy at this time. Patient will be discharged home once improved. We will try to arrange for patient to establish care locally with a PCP. Time Spent Managing Pts Care (In Minutes): 55
[2020-07-18] MEDS ORDERED: LORAZEPAM 0.5 MG TABLET PO PRN (14:48)
[2020-07-18] MEDS: HYDROCODONE/APAP 7.5/325 MG TAB PO PRN ×2 (15:12→23:59)
[2020-07-18] MEDS: VANCOMYCIN 2 GM in NA CHLORIDE 0.9% 500 ML IVPB SCH (17:35)
[2020-07-19 05:57] LABS: Magnesium 2.1 mg/dL (1.8-2.4); Potassium 4.1 mmol/L (3.5-5.1)
[2020-07-19 05:58] LABS: Absolute Lymphocytes (CBC) 1.5 K/uL (0.7-4.9); Basophils % 0.4 % (0-1.3); Hematocrit 29.9 % (36.0-45.0); MPV 7.8 fL (7.6-11.3)
[2020-07-19] MEDS: CEFTRIAXONE/SWI 1gm 1 GM/10 ML SYR IV SCH (07:37)
[2020-07-19] MEDS: HEPARIN 5000 UNIT/ML 1 ML VIAL SQ SCH ×3 (07:37→17:27)
--- NOTE | 2020-07-19 09:22 | P.PN ---
Subjective Date of Service: 07/19/20 Primary Care Provider: none Chief Complaint: cellulitis Subjective: Improving, Doing well Physical Examination - Vital Signs Temperature: 97.9 F Blood Pressure: 107/56 Pulse: 75 Respirations: 17 Pulse Ox (%): 95 Assessment & Plan Discharge Plan: Home Plan to discharge in: 48 Hours Physician Review Additional Text: Physical Exam: GENERAL: The patient is a well-developed, well-nourished, in no apparent distress. Alert and oriented x3. VITAL SIGNS: Reviewed NECK: Supple. No carotid bruits. No lymphadenopathy or thyromegaly. LUNGS: Clear to auscultation. No crackles or wheezes are heard. HEART: Regular rate and rythem, no appreciable gallops, rubs, murmurs or extra heart sounds ABDOMEN: Soft, nontender, and nondistended. Positive bowel sounds. No hepatosplenomegaly was noted. EXTREMITIES: Patient with chronic lymphedema to the lower extremities. Erythema noted bilateral below the knees. Wrappings in place. Right greater than left. Less erythema noted today. NEUROLOGIC: The patient is oriented to person, place and time. Strength and sensation are grossly intact. Face is symmetric. SKIN: Chronic lymphedema to the lower extremities Impression: Recurrent lower extremity cellulitis with chronic lymphedema Hypertension Chronic renal disease stage III Prediabetes Chronic pain Morbid obesity, BMI of 57 Plan: Recurrent lower extremity cellulitis with chronic lymphedema, right greater than left: Swelling and edema improved. Continue IV antibiotic therapy. Continue wound care as recommended by infectious disease. Infectious disease consulted to help with evaluation and treatment. Will discuss with infectious disease about plan of care. Anticipate improvement over the next 48 hours. Hypertension: Patient remains off medication. Will monitor this closely. Will consider adding oral medication if blood pressure remains elevated. Chronic renal disease stage III: We will monitor renal function closely. Prediabetes: Hemoglobin A1c 6.2. Will monitor blood sugars. Accu-Cheks in place. Insulin sliding scale in place. Chronic pain: Continue with medication Morbid obesity, BMI of 57: Address lifestyle modification education. Code Status: Full Code DVT prophylaxis: Heparin Advanced Care Planning-30 minutes: Plan of care for the patient's discharge was discussed in detail with the patient. Patient will continue with antibiotic therapy at this time. Patient will be discharged home once improved. We will try to arrange for patient to establish care locally with a PCP. Patient is willing to establish care with Dr. Guerrero. Time Spent Managing Pts Care (In Minutes): 55
--- NOTE | 2020-07-19 10:49 | P.PN ---
Subjective Date of Service: 07/19/20 Primary Care Provider: none Chief Complaint: cellulitis Patient seen examined at bedside. Erythema to her right lower extremity still present. Continue broad-spectrum antibiotic coverage. Labs reviewed, no leukocytosis. Patient remains afebrile. Pending vancomycin trough. Review of Systems 10-point ROS is otherwise unremarkable Physical Examination - Vital Signs Temperature: 97.9 F Blood Pressure: 107/56 Pulse: 75 Respirations: 17 Pulse Ox (%): 95 Assessment And Plan - Plan Physical Exam: General: Alert, In no apparent distress, Obese HEENT: Atraumatic, Normocephalic, PERRLA Neck: Supple, 2+ carotid pulse no bruit Respiratory: Diminished Cardiovascular: Normal pulses, Regular rate/rhythm, Edema Capillary refill: >2 Seconds Gastrointestinal: Normal bowel sounds Musculoskeletal: No swelling Integumentary: Venous stasis ulcer, Other (Bilateral lower extremity stasis dermatitis. Right lower extremity cellulitis with increased redness, warmth to touch, swelling.) Conclusions/Impression: Antibiotics: Vancomycin start: 07/18 stop:-- Rocephin start: 07/18 stop: -- Assessment: -right lower extremity cellulitis -venous insufficiency/chronic lymphedema to bilateral lower extremities -history of recurrent cellulitis in UTIs -hypertension -morbid obesity -anemia Plan: -continue empiric antibiotic therapy. Patient tolerating antibiotics well with no nausea, vomiting, diarrhea. Blood cultures negative, and urine culture negative. Vancomycin trough goal pending. Goal of 10-15. -recommend wrapping bilateral lower extremities. To areas of tissue breakdown/ulcer formation: Apply xerofrom cover with foam -medical management per primary team -continue monitor CBC and BMP -continue to monitor for signs of infection Plan of care discussed with Dr. Sanford. Thank you for consultation. Physician Review Additional Text: Physical Exam: GENERAL: The patient is a well-developed, well-nourished, in no apparent distress. Alert and oriented x3. VITAL SIGNS: Reviewed NECK: Supple. No carotid bruits. No lymphadenopathy or thyromegaly. LUNGS: Clear to auscultation. No crackles or wheezes are heard. HEART: Regular rate and rythem, no appreciable gallops, rubs, murmurs or extra heart sounds ABDOMEN: Soft, nontender, and nondistended. Positive bowel sounds. No hepatosplenomegaly was noted. EXTREMITIES: Patient with chronic lymphedema to the lower extremities. Erythema noted bilateral below the knees. Wrappings in place. Right greater than left. Less erythema noted today. NEUROLOGIC: The patient is oriented to person, place and time. Strength and sensation are grossly intact. Face is symmetric. SKIN: Chronic lymphedema to the lower extremities Impression: Recurrent lower extremity cellulitis with chronic lymphedema Hypertension Chronic renal disease stage III Prediabetes Chronic pain Morbid obesity, BMI of 57 Plan: Recurrent lower extremity cellulitis with chronic lymphedema, right greater than left: Swelling and edema improved. Continue IV antibiotic therapy. Continue wound care as recommended by infectious disease. Infectious disease consulted to help with evaluation and treatment. Will discuss with infectious disease about plan of care. Anticipate improvement over the next 48 hours. Hypertension: Patient remains off medication. Will monitor this closely. Will consider adding oral medication if blood pressure remains elevated. Chronic renal disease stage III: We will monitor renal function closely. Prediabetes: Hemoglobin A1c 6.2. Will monitor blood sugars. Accu-Cheks in place. Insulin sliding scale in place. Chronic pain: Continue with medication Morbid obesity, BMI of 57: Address lifestyle modification education. Code Status: Full Code DVT prophylaxis: Heparin Advanced Care Planning-30 minutes: Plan of care for the patient's discharge was discussed in detail with the patient. Patient will continue with antibiotic therapy at this time. Patient will be discharged home once improved. We will try to arrange for patient to establish care locally with a PCP. Patient is willing to establish care with Dr. Guerrero.
[2020-07-19] MEDS: ACETAMINOPHEN 500 MG TAB PO PRN (10:54)
[2020-07-19] MEDS: HYDROCODONE/APAP 7.5/325 MG TAB PO PRN (21:10)
[2020-07-19] MEDS: MELATONIN 5 MG TABLET PO PRN (21:11)
[2020-07-19] MEDS: VANCOMYCIN 2 GM in NA CHLORIDE 0.9% 500 ML IVPB SCH (21:13)
[2020-07-20] MEDS: HEPARIN 5000 UNIT/ML 1 ML VIAL SQ SCH ×3 (00:22→17:07)
[2020-07-20 05:46] LABS: Absolute Lymphocytes (CBC) 1.5 K/uL (0.7-4.9); Basophils % 0.6 % (0-1.3); Hematocrit 32.1 % (36.0-45.0); Lymphocytes % 36.3 % (15.3-44.8); MPV 7.8 fL (7.6-11.3); RBC Red Blood Cell Count 3.65 M/uL (3.86-4.86)
[2020-07-20 05:59] LABS: Magnesium 2.1 mg/dL (1.8-2.4); Potassium 4.1 mmol/L (3.5-5.1)
[2020-07-20] MEDS: HYDROCODONE/APAP 7.5/325 MG TAB PO PRN ×3 (07:35→20:35)
[2020-07-20] MEDS: CEFTRIAXONE/SWI 1gm 1 GM/10 ML SYR IV SCH (07:36)
[2020-07-20] MEDS: ACETAMINOPHEN 500 MG TAB PO PRN (10:18)
--- NOTE | 2020-07-20 10:30 | P.PN ---
Subjective Date of Service: 07/20/20 Primary Care Provider: none Chief Complaint: cellulitis Patient seen examined at bedside. Erythema still present on right leg however is not increasing. Patient states she is having pain to her right knee and posterior aspect of right ankle. vancomycin trough taken on 07/19 within therapeutic range at 10.1ug/mL/ Review of Systems 10-point ROS is otherwise unremarkable Physical Examination - Vital Signs Temperature: 98.0 F Blood Pressure: 115/56 Pulse: 75 Respirations: 16 Pulse Ox (%): 94 - Studies Temp Pulse Resp BP Pulse Ox 98.0 F 75 16 115/56 L 94 07/20/20 08:00 07/20/20 08:00 07/20/20 08:35 07/20/20 08:00 07/20/20 08:35 Laboratory Last Values WBC 13.40 K/uL (4.3-10.9) H 07/17/20 18:30 RBC 4.18 M/uL (3.86-4.86) 07/17/20 18:30 Hgb 11.9 g/dL (12.0-15.0) L 07/17/20 18:30 Hct 36.5 % (36.0-45.0) 07/17/20 18:30 MCV 87.5 fL (80-100) 07/17/20 18:30 MCH 28.5 pg (27.0-35.0) 07/17/20 18:30 MCHC 32.6 g/dL (32.0-36.0) 07/17/20 18:30 RDW 17.3 % (12.1-15.2) H 07/17/20 18:30 Plt Count 318 K/uL (152-406) 07/17/20 18:30 MPV 7.8 fL (7.6-11.3) 07/17/20 18:30 Neutrophils % 88.7 % (41.7-73.7) H 07/17/20 18:30 Lymphocytes % 8.2 % (15.3-44.8) L 07/17/20 18:30 Monocytes % 2.8 % (3.3-12.3) L 07/17/20 18:30 Eosinophils % 0.0 % (0-4.4) 07/17/20 18:30 Basophils % 0.3 % (0-1.3) 07/17/20 18:30 Absolute Neutrophils 11.8 K/uL (1.8-8.0) H 07/17/20 18:30 Absolute Lymphocytes 1.1 K/uL (0.7-4.9) 07/17/20 18:30 Absolute Monocytes 0.4 K/uL (0.1-1.3) 07/17/20 18:30 Absolute Eosinophils 0.0 K/uL (0-0.5) 07/17/20 18:30 Absolute Basophils 0.0 K/uL (0-0.5) 07/17/20 18:30 Platelet Estimate Adeq 07/17/20 18:30 Morphology Comment Not seen (NOT SEEN) 07/17/20 18:30 PT 14.2 SECONDS (9.5-12.5) H 07/17/20 18:30 INR 1.23 07/17/20 18:30 Sodium 139 mmol/L (136-145) 07/17/20 18:30 Potassium 3.8 mmol/L (3.5-5.1) 07/17/20 18:30 Chloride 105 mmol/L (98-107) 07/17/20 18:30 Carbon Dioxide 27 mmol/L (21-32) 07/17/20 18:30 BUN 13 mg/dL (7-18) 07/17/20 18:30 Creatinine 1.23 mg/dL (0.55-1.3) 07/17/20 18:30 Estimated GFR 44 mL/min (=/>90) L 07/17/20 18:30 Glucose 128 mg/dL (74-106) H 07/17/20 18:30 Lactic Acid 1.4 mmol/L (0.4-2.0) 07/17/20 18:30 Calcium 8.9 mg/dL (8.5-10.1) 07/17/20 18:30 Magnesium 2.1 mg/dL (1.8-2.4) 07/17/20 18:30 Total Bilirubin 1.4 mg/dL (0.2-1.0) H 07/17/20 18:30 Direct Bilirubin 0.5 mg/dL (0-0.2) H 07/17/20 18:30 AST 16 U/L (15-37) 07/17/20 18:30 ALT 18 U/L (12-78) 07/17/20 18:30 Alkaline Phosphatase 80 U/L (45-117) 07/17/20 18:30 Rapid Troponin I < 0.02 ng/mL (0.0-0.045) 07/17/20 18:30 NT-Pro-B Natriuret Pep 314 pg/mL (<125) H 07/17/20 18:30 Serum Total Protein 9.2 g/dL (6.4-8.2) H 07/17/20 18:30 Albumin 3.4 g/dL (3.4-5.0) 07/17/20 18:30 Globulin 5.8 g/dL (2.3-3.5) H 07/17/20 18:30 Albumin/Globulin Ratio 0.6 (1.1-1.8) L 07/17/20 18:30 Lipase 79 U/L (73-393) 07/17/20 18:30 SARS-CoV-2 RNA (RT-PCR) Negative (NEGATIVE) 07/17/20 18:42 Smear Scan Ok (OK) 07/17/20 18:30 Assessment And Plan - Plan Physical Exam: General: Alert, In no apparent distress, Obese HEENT: Atraumatic, Normocephalic, PERRLA Neck: Supple, 2+ carotid pulse no bruit Respiratory: Diminished Cardiovascular: Normal pulses, Regular rate/rhythm, Edema Capillary refill: >2 Seconds Gastrointestinal: Normal bowel sounds Musculoskeletal: No swelling Integumentary: Venous stasis ulcer, Other (Bilateral lower extremity stasis dermatitis. Right lower extremity cellulitis with increased redness, warmth to touch, swelling.) Conclusions/Impression: Antibiotics: Vancomycin start: 07/18 stop:-- Rocephin start: 07/18 stop: -- Assessment: -right lower extremity cellulitis -venous insufficiency/chronic lymphedema to bilateral lower extremities -history of recurrent cellulitis in UTIs -hypertension -morbid obesity -anemia Plan: -continue empiric antibiotic therapy. Patient tolerating antibiotics well with no nausea, vomiting, diarrhea. Blood cultures negative, and urine culture negative. Vancomycin trough goal pending. Vancomycin trough taken on 07/19 10.1--within therapeutic range. Patient noted to have mild leukopenia on most recent CBC with a WBC of 4.0. Continue to monitor closely. Vitals stable. -recommend wrapping bilateral lower extremities. To areas of tissue breakdown/ulcer formation: Apply xerofrom cover with foam -medical management per primary team -continue monitor CBC and BMP -continue to monitor for signs of infection Plan of care discussed with Dr. Sanford. Thank you for consultation.
[2020-07-20] MEDS: TRAMADOL HCL 50 MG TAB PO PRN (15:30)
--- NOTE | 2020-07-20 15:35 | P.PN ---
Subjective Date of Service: 07/20/20 Primary Care Provider: none Chief Complaint: cellulitis Subjective: Doing well Physical Examination - Vital Signs Temperature: 97.5 F Blood Pressure: 115/56 Pulse: 61 Respirations: 16 Pulse Ox (%): 94 Assessment & Plan Discharge Plan: Home Plan to discharge in: 24 Hours Physician Review Additional Text: Physical Exam: GENERAL: The patient is a well-developed, well-nourished, in no apparent distress. Alert and oriented x3. VITAL SIGNS: Reviewed NECK: Supple. No carotid bruits. No lymphadenopathy or thyromegaly. LUNGS: Clear to auscultation. No crackles or wheezes are heard. HEART: Regular rate and rythem, no appreciable gallops, rubs, murmurs or extra heart sounds ABDOMEN: Soft, nontender, and nondistended. Positive bowel sounds. No hepatosp lenomegaly was noted. EXTREMITIES: Patient with chronic lymphedema to the lower extremities. Erythema noted bilateral below the knees. Wrappings in place. Right greater than left. Less erythema noted today. NEUROLOGIC: The patient is oriented to person, place and time. Strength and sensation are grossly intact. Face is symmetric. SKIN: Chronic lymphedema to the lower extremities Impression: Recurrent lower extremity cellulitis with chronic lymphedema Hypertension Chronic renal disease stage III Prediabetes Chronic pain Morbid obesity, BMI of 57 Plan: Recurrent lower extremity cellulitis with chronic lymphedema, right greater than left: Swelling and edema continues to improved. Continue IV antibiotic therapy. Continue wound care as recommended by infectious disease. Infectious disease consulted to help with evaluation and treatment. Will discuss with infectious disease about plan of care. Anticipate discharge likely tomorrow if improved Hypertension: Patient remains off medication. Will monitor this closely. Will consider adding oral medication if blood pressure remains elevated. Chronic renal disease stage III: We will monitor renal function closely. Prediabetes: Hemoglobin A1c 6.2. Will monitor blood sugars. Accu-Cheks in place. Insulin sliding scale in place. Chronic pain: Continue with medication Morbid obesity, BMI of 57: Address lifestyle modification education. Code Status: Full Code DVT prophylaxis: Heparin Advanced Care Planning-30 minutes: Plan of care for the patient's discharge was discussed in detail with the patient. Patient will continue with antibiotic therapy at this time. Patient will be discharged home once improved. We will try to arrange for patient to establish care locally with a PCP. Patient is willing to establish care with Dr. Guerrero. Time Spent Managing Pts Care (In Minutes): 55
[2020-07-20] MEDS: VANCOMYCIN 2 GM in NA CHLORIDE 0.9% 500 ML IVPB SCH (17:07)
[2020-07-20] MEDS: MELATONIN 5 MG TABLET PO PRN (21:41)
[2020-07-21] MEDS: HEPARIN 5000 UNIT/ML 1 ML VIAL SQ SCH ×2 (00:50→07:21)
[2020-07-21] MEDS: TRAMADOL HCL 50 MG TAB PO PRN ×2 (01:03→07:21)
[2020-07-21] MEDS: HYDROCODONE/APAP 7.5/325 MG TAB PO PRN ×2 (04:47→10:52)
[2020-07-21 05:51] LABS: Absolute Lymphocytes (CBC) 1.4 K/uL (0.7-4.9); Basophils % 0.6 % (0-1.3); Hematocrit 30.7 % (36.0-45.0); Lymphocytes % 38.3 % (15.3-44.8); MPV 7.8 fL (7.6-11.3)
[2020-07-21 06:09] LABS: Magnesium 2.2 mg/dL (1.8-2.4); Potassium 4.3 mmol/L (3.5-5.1)
[2020-07-21] MEDS: CEFTRIAXONE/SWI 1gm 1 GM/10 ML SYR IV SCH (07:20)
--- NOTE | 2020-07-21 08:05 | P.DS ---
Admission Date: 07/17/20 Discharge Date: 07/21/20 Primary Care Provider: none Disposition: ROUTINE DISCHARGE Discharge Condition: GOOD Reason for Admission: cellulitis Consultations: Infectious disease-Dr. Sanford Procedures: COVID: Negative CT scan: FINDINGS: The evaluation of mediastinum, aparna, bowel, appendix, vessels and solid organs is limited secondary to the lack of IV contrast administration No mediastinal or hilar lymphadenopathy is seen. A pleural effusion is not present. A pericardial effusion is not seen. A couple of right lung granulomas. Remainder lungs are clear. A subcentimeter hepatic cyst. Spleen, pancreas, right adrenal and left kidney grossly normal. Tiny nonobstructing right renal calculus is unchanged Stable left adrenal adenoma. Cholecystectomy. Filter within the IVC. No evidence of diverticulitis. Marked laxity of the anterior abdominal wall. The appendix is not clearly seen. No stranding adjacent to the cecum. Calcification within the region of the medial aspect of the cecum There is no evidence of diverticulitis. Mild anterior subluxation of L5 on S1 IMPRESSION: Tiny nonobstructing right renal calculus Stable left adrenal adenoma Marked laxity of the anterior abdominal wall Venous doppler: FINDINGS: The common femoral, superficial femoral veins bilaterally, left popliteal and left posterior tibial veins are compressible and demonstrate augmentation. Doppler demonstrates good flow. Limited evaluation of the right popliteal and right posterior tibial vein secondary to difficulty with patient positioning and body habitus IMPRESSION: No evidence of deep venous thrombosis involving either lower extremity. Limited evaluation of the right popliteal and right posterior tibial veins Medical problem List: Recurrent lower extremity cellulitis with chronic lymphedema Chronic renal disease stage III Prediabetes Chronic pain Morbid obesity, BMI of 57 Brief History of Present Illness: 65 yo female with HTN, venous insufficiency and chronic lymphedema, history of recurrent cellulitis and UTIs for the past 4 years and prior DVT in 2006 here today for 2 days of fever (102F at home) and increased edema and erythema in her R leg. She says the pain in her legs is constant. She reports night sweats and chills. Denies nausea, vomiting, dysuria, and polyuria. Bilateral venous ultrasound negative for DVT. WBC 13.4. GFR 44. Patient was admitted for further evaluation and treatment. Hospital Course: Patient presented with recurrent lower extremity cellulitis complicated with chronic lymphedema. Patient was admitted for treatment. Patient received IV antibiotic therapy with improvement. Patient was seen and evaluated by infectious disease. At discharge she has done well. White count within normal range. At discharge she will continue with Augmentin 500 mg 1 pill twice daily and doxycycline 100 mg 1 pill twice daily for 10 days. She will continue with current wound care as recommended by infectious disease. She will continue with wrappings as recommended for lymphedema. Patient plans to establish care with Dr. Guerrero to follow-up his hospitalization and also to follow her at the wound care center. Recommend follow-up at the wound care center within 1 week to follow her progress. A limited supply of tramadol 50 mg 1 pill twice daily as needed for pain will be provided. Recommend no further use of nonsteroidal anti-inflammatories. Patient may take Tylenol as needed. Recommend follow-up with Dr. Guerrero in 1 week to establish care and follow-up this hospitalization. Patient with prediabetes. Hemoglobin A1c 6.2. Blood sugars remained stable. Education on prediabetes address. Recommend to recheck hemoglobin A1c in 3 to 6 months to monitor her progress. If hemoglobin A1c remains above 6.5 patient may require medication for diabetes. This can be further addressed by her PCP. Patient with chronic renal disease stage III. This appears stable. Recommend establish care with nephrology as an outpatient to further monitor. Recommend no further use of nonsteroidal anti-inflammatories. Future medications may need to be renally dosed. Recommend to recheck labBMP in 2 to 4 weeks to monitor her progress. A list of nephrology offices will be provided so that she can establish care. Patient with chronic pain. Patient will be provided elements of supply of tramadol 50 mg 1 pill twice daily as needed for pain. Recommend no further use of an ulcer anti-inflammatories due to her chronic renal disease. Patient may take Tylenol as needed. Patient may benefit with orthopedic evaluation of her knees. This can be done as an outpatient. Patient with morbid obesity, BMI 57. Lifestyle modification education provided. Vital Signs/Physical Exam: Temp Pulse Resp BP Pulse Ox 97.8 F 68 18 132/59 L 94 07/21/20 04:00 07/21/20 04:00 07/21/20 07:21 07/21/20 04:00 07/21/20 07:21 General: Alert, In no apparent distress, Oriented x3, Cooperative HEENT: Atraumatic Neck: Supple Respiratory: Clear to auscultation bilaterally, Normal air movement Cardiovascular: Normal pulses, Regular rate/rhythm Gastrointestinal: Normal bowel sounds, No tenderness, No masses, No rebound, No guarding Integumentary: Other (Bandages to the right and left lower extremities. Swelling improved. Erythema also improved.) Neurological: Normal speech, Normal strength at 5/5 x4 extr, Normal tone, Normal affect Laboratory Data at Discharge: WBC 3.70 K/uL (4.3-10.9) L 07/21/20 05:22 Hgb 10.1 g/dL (12.0-15.0) L 07/21/20 05:22 Hct 30.7 % (36.0-45.0) L 07/21/20 05:22 Plt Count 261 K/uL (152-406) 07/21/20 05:22 PT 14.2 SECONDS (9.5-12.5) H 07/17/20 18:30 INR 1.23 07/17/20 18:30 Sodium 142 mmol/L (136-145) 07/21/20 05:22 Potassium 4.3 mmol/L (3.5-5.1) 07/21/20 05:22 BUN 15 mg/dL (7-18) 07/21/20 05:22 Creatinine 1.02 mg/dL (0.55-1.3) 07/21/20 05:22 Glucose 109 mg/dL (74-106) H 07/21/20 05:22 Phosphorus 2.6 mg/dL (2.5-4.9) 07/18/20 03:00 Magnesium 2.2 mg/dL (1.8-2.4) 07/21/20 05:22 Total Bilirubin 0.9 mg/dL (0.2-1.0) 07/18/20 03:00 AST 15 U/L (15-37) 07/18/20 03:00 ALT 16 U/L (12-78) 07/18/20 03:00 Alkaline Phosphatase 70 U/L (45-117) 07/18/20 03:00 Triglycerides 169 mg/dL (<150) H 07/18/20 03:00 Cholesterol 116 mg/dL (<200) 07/18/20 03:00 HDL Cholesterol 30 mg/dL (40-60) L 07/18/20 03:00 Cholesterol/HDL Ratio 3.87 07/18/20 03:00 Lipase 79 U/L (73-393) 07/17/20 18:30 Home Medications: Amox/Clavulanate [Augmentin 500-125 mg Tab] 500 mg PO BID #20 tab 07/21/20 Doxycycline Hyclate 100 mg PO BID #20 tablet 07/21/20 Melatonin 10 mg PO BEDTIME PRN #30 tablet 07/21/20 traMADol HCL [Ultram*] 50 mg PO BID PRN #10 tab 07/21/20 New Medications: Amox/Clavulanate [Augmentin 500-125 mg Tab] 500 mg PO BID #20 tab Doxycycline Hyclate 100 mg PO BID #20 tablet Melatonin 10 mg PO BEDTIME PRN #30 tablet PRN Reason: Insomnia traMADol HCL [Ultram*] 50 mg PO BID PRN #10 tab PRN Reason: Pain Physician Discharge Instructions: Patient presented with recurrent lower extremity cellulitis complicated with chronic lymphedema. Patient was admitted for treatment. Patient received IV antibiotic therapy with improvement. Patient was seen and evaluated by infectious disease. At discharge she has done well. White count within normal range. At discharge she will continue with Augmentin 500 mg 1 pill twice daily and doxycycline 100 mg 1 pill twice daily for 10 days. She will continue with c urrent wound care as recommended by infectious disease. She will continue with wrappings as recommended for lymphedema. Patient plans to establish care with Dr. Guerrero to follow-up his hospitalization and also to follow her at the wound care center. Recommend follow-up at the wound care center within 1 week to follow her progress. A limited supply of tramadol 50 mg 1 pill twice daily as needed for pain will be provided. Recommend no further use of nonsteroidal anti-inflammatories. Patient may take Tylenol as needed. Recommend follow-up with Dr. Guerrero in 1 week to establish care and follow-up this hospitalization. Patient with prediabetes. Hemoglobin A1c 6.2. Blood sugars remained stable. Education on prediabetes address. Recommend to recheck hemoglobin A1c in 3 to 6 months to monitor her progress. If hemoglobin A1c remains above 6.5 patient may require medication for diabetes. This can be further addressed by her PCP. Patient with chronic renal disease stage III. This appears stable. Recommend establish care with nephrology as an outpatient to further monitor. Recommend no further use of nonsteroidal anti-inflammatories. Future medications may need to be renally dosed. Recommend to recheck labBMP in 2 to 4 weeks to monitor her progress. A list of nephrology offices will be provided so that she can establish care. Patient with chronic pain. Patient will be provided elements of supply of tramadol 50 mg 1 pill twice daily as needed for pain. Recommend no further use of an ulcer anti-inflammatories due to her chronic renal disease. Patient may take Tylenol as needed. Patient may benefit with orthopedic evaluation of her knees. This can be done as an outpatient. Patient with morbid obesity, BMI 57. Lifestyle modification education provided. Diet: ADA Activity: Fall precautions Followup: Isaac Guerrero MD [ACTIVE - CAN ADMIT] - NONE,NONE [Primary Care Provider] - Time spent managing pt's care (in minutes): 55
[2020-07-21 10:23] VITALS: O2SAT 92
[2020-07-21 14:43] VITALS: BP 113/54; TEMP 97.8
== END 2020-07-21 14:13 | disposition home or self-care (01) | DRG 603 ==
LOC: ER 16:16 → ERHOLD 19:56 → 4TH 21:27 → 2ND 07-18 17:28
PROVIDERS: ADMIT Family Medicine; ATTEND Family Medicine
DX: L03.115 Cellulitis of right lower limb (principal); Z68.43 Body mass index [BMI] 50.0-59.9, adult; I83.209 Varicose veins of unspecified lower extremity with both ulcer of unspecified site and inflammation; L97.919 Non-pressure chronic ulcer of unspecified part of right lower leg with unspecified severity; L97.929 Non-pressure chronic ulcer of unspecified part of left lower leg with unspecified severity; E66.01 Morbid (severe) obesity due to excess calories; I87.8 Other specified disorders of veins; G89.29 Other chronic pain; D64.9 Anemia, unspecified; I12.9 Hypertensive chronic kidney disease with stage 1 through stage 4 chronic kidney disease, or unspecified chronic kidney disease; N18.30 Chronic kidney disease, stage 3 unspecified; I89.0 Lymphedema, not elsewhere classified; R73.03 Prediabetes; Z86.718 Personal history of other venous thrombosis and embolism; Z98.51 Tubal ligation status; Z79.899 Other long term (current) drug therapy; Z20.822 Contact with and (suspected) exposure to COVID-19
CPT/HCPCS: 36415; 71045; 71250; 74176; 80048; 80053; 80061; 80076; 80202; 81003; 81015; 83036; 83605; 83690; 83735; 83880; 84100; 84439; 84443; 84484; 85025; 85610; 87040; 87086; 87088; 93005; 93970; 94760; 96372; 97162; 99285; J0696; J1644; J1650; J2405; J2543; J3010; J3370; J7030; J7040; U0003

== ENCOUNTER 2020-09-19 19:06 | Inpatient (IN) | payer OTHER ==
--- OUTSIDE RECORDS SUMMARY | 2020-09-19 19:09 | XMS REPORT | Continuity of Care Document ---
:1955 Author Organization [facility] t Address [address] [place] [address] Care Team Providers Name Role Phone Unavailable Unavailable Unavailable Problems This patient has no known problems. Allergies, Adverse Reactions, Alerts This patient has no known allergies or adverse reactions. Medications This patient has no known medications. Procedures This patient has no known procedures. Results This patient has no known results.
--- NOTE | 2020-09-19 22:49 | ER ---
Nurse's Notes [facility] Name: Grace Case Age: 65 yrs Sex: Female : 1955 Arrival Date: 09/19/2020 Time: 19:09 Bed 20 Private MD: Diagnosis: Cellulitis and acute lymphangitis of other parts of limb-RIGHT LOWER EXTREMITY;Lymphedema, not elsewhere classified;Fever, unspecified;Morbid (severe) obesity due to excess calories Presentation: 09/19 20:01 Chief complaint: Patient states: Fever today 102.8F. Motrin given at 1600. Denies ca1 cough, congestion. Reports urinary urgency and frequency. Coronavirus screen: Client denies travel out of the [place] in the last 14 days. fever, Client presents with at least one sign or symptom that may indicate coronavirus-19. Standard/surgical mask placed on the client. Provider contacted for isolation considerations. Ebola Screen: Patient negative for fever greater than or equal to 101.5 degrees Fahrenheit, and additional compatible Ebola Virus Disease symptoms Patient denies exposure to infectious person. Patient denies travel to an Ebola-affected area in the 21 days before illness onset. No symptoms or risks identified at this time. Initial Sepsis Screen: Does the patient meet any 2 criteria? No. Patient's initial sepsis screen is negative. Does the patient have a suspected source of infection? No. Patient's initial sepsis screen is negative. Risk Assessment: Do you want to hurt yourself or someone else? Patient reports no desire to harm self or others. Onset of symptoms was September 19, 2020. 20:01 Method Of Arrival: Wheelchair ca1 20:01 Acuity: ESTEPHANIA 3 ca1 Historical: - Allergies: 20:03 No Known Allergies; ca1 - PMHx: 20:03 cellulits; lymphedema; UTI; ca1 - Immunization history:: Client reports having NOT received the Covid vaccine. Pneumococcal vaccine is not up to date, Flu vaccine is not up to date. - Social history:: Smoking status: Patient denies any tobacco usage or history of. - Family history:: not pertinent. Screenin:26 Abuse screen: Denies threats or abuse. Denies injuries from another. Nutritional ld1 screening: No deficits noted. Tuberculosis screening: No symptoms or risk factors identified. Fall Risk None identified. Assessment: 22:26 General: Appears in no apparent distress. comfortable, Behavior is calm, cooperative, ld1 appropriate for age. Pain: Denies pain. Neuro: Level of Consciousness is awake, alert, obeys commands, Oriented to person, place, time, situation. Cardiovascular: Capillary refill < 3 seconds Patient's skin is warm and dry. Respiratory: Airway is patent Respiratory effort is even, unlabored, Respiratory pattern is regular, symmetrical. GI: Abdomen is non-distended, obese. : No signs and/or symptoms were reported regarding the genitourinary system. EENT: No signs and/or symptoms were reported regarding the EENT system. Derm: No signs and/or symptoms reported regarding the dermatologic system. Musculoskeletal: No signs and/or symptoms reported regarding the musculoskeletal system. 23:46 Reassessment: Patient appears in no apparent distress at this time. No changes from ld1 previously documented assessment. Patient and/or family updated on plan of care and expected duration. Pain level reassessed. Patient is alert, oriented x 3, equal unlabored respirations, skin warm/dry/pink. Vital Signs: 20:01 BP 117 / 62; Pulse 104; Resp 18 S; Temp 98.7(TE); Pulse Ox 95% on R/A; ca1 22:26 BP 120 / 61; Pulse 86; Resp 18; Pulse Ox 99% on R/A; Pain 0/10; ld1 23:46 BP 149 / 79; Pulse 86; Resp 18; Pulse Ox 100% ; ld1 ED Course: 19:09 Patient arrived in ED. cf2 20:03 Triage completed. ca1 20:03 Arm band placed on right wrist. ca1 22:05 Amena Lepe, GIL is Primary Nurse. ld1 22:08 Rene Mason MD is Attending Physician. aníbal 22:26 Patient has correct armband on for positive identification. Bed in low position. Call ld1 light in reach. Side rails up X2. Pulse ox on. NIBP on. 22:26 No provider procedures requiring assistance completed. ld1 22:46 Ron Calderon MD is Hospitalizing Provider. aníbal 22:46 Jack Calderon MD is Hospitalizing Provider. aníbal 23:13 US Extremity Venous W Compression Bean In Process Unspecified. EDMS 23:47 XRAY Chest (1 view) In Process Unspecified. EDMS 07 01:50 Patient admitted, IV remains in place. em Administered Medications: 09/19 23:45 Drug: Meropenem 1 grams Route: IV; Rate: per protocol; Site: left antecubital; 1 09/20 03:27 Follow up: Response: No adverse reaction; IV Status: Completed infusion [id number] 00:04 Drug: NS 0.9% 1000 ml Route: IV; Rate: 1 bolus; Site: left antecubital; ld1 03:27 Follow up: IV Status: Completed infusion 8 00:04 Drug: vancoMYCIN 1 grams Route: IVPB; Infused Over: 2 hrs; Site: left antecubital; ld1 03:27 Follow up: Response: No adverse reaction; IV Status: Completed infusion 8 03:34 Drug: NS 0.9% 1000 ml Route: IV; Rate: 125 ml/hr; Site: left antecubital; jm8 Outcome: 09/19 22:48 Decision to Hospitalize by Provider. [facility] 09/20 01:50 Admitted to ER Hold. Please see [facility] for further documentation. em Condition: stable Instructed on the need for admit, Demonstrated understanding of instructions. 15:34 Patient left the ED. tr6 Signatures: Dispatcher [employer] Rene Swain MD MD cha Munoz, Edgar, Judy Epstein RN RN Mariya Red Amena Fierro RN RN [email or web address] Herrera Perez RN RN [id number] Ramnanan, Tiffany, RN RN tr6
--- NOTE | 2020-09-19 22:49 | EDPHYS ---
Physician Documentation [facility] Name: Garce Case Age: 65 yrs Sex: Female : 1955 Arrival Date: 09/19/2020 Time: 19:09 Bed 20 Private MD: ED Physician Rene Mason HPI: 09/19 22:42 This 65 yrs old Female presents to ER via Wheelchair with complaints of Fever.aníbal 22:42 The patient reports fever, that was measured at 102.3 degrees Fahrenheit. Onset: The aníbal symptoms/episode began/occurred today. Modifying factors: there are no obvious modifying factors. Associated signs and symptoms: Pertinent positives: RIGHT LEG PAIN. Severity of symptoms: At their worst the symptoms were mild moderate in the emergency department the symptoms are unchanged. The patient has experienced similar episodes in the past, multiple times. Historical: - Allergies: 20:03 No Known Allergies; ca1 - PMHx: 20:03 cellulits; lymphedema; UTI; ca1 - Immunization history:: Client reports having NOT received the Covid vaccine. Pneumococcal vaccine is not up to date, Flu vaccine is not up to date. - Social history:: Smoking status: Patient denies any tobacco usage or history of. - Family history:: not pertinent. ROS: 22:42 Constitutional: Negative for fever, chills, and weight loss, Eyes: Negative for injury, aníbal pain, redness, and discharge, ENT: Negative for injury, pain, and discharge, Neck: Negative for injury, pain, and swelling, Cardiovascular: Negative for chest pain, palpitations, and edema, Respiratory: Negative for shortness of breath, cough, wheezing, and pleuritic chest pain, Abdomen/GI: Negative for abdominal pain, nausea, vomiting, diarrhea, and constipation, Back: Negative for injury and pain, : Negative for injury, bleeding, discharge, and swelling, Skin: Negative for injury, rash, and discoloration, Neuro: Negative for headache, weakness, numbness, tingling, and seizure, Psych: Negative for depression, anxiety, suicide ideation, homicidal ideation, and hallucinations, Allergy/Immunology: Negative for hives, rash, and allergies, Endocrine: Negative for neck swelling, polydipsia, polyuria, polyphagia, and marked weight changes, Hematologic/Lymphatic: Negative for swollen nodes, abnormal bleeding, and unusual bruising. 22:42 MS/extremity: Positive for decreased range of motion, erythema, pain, swelling, tenderness, of the lateral aspect of right calf and right rosen. Exam: 22:42 Constitutional: This is a well developed, well nourished patient who is awake, alert, aníbal and in no acute distress. Head/Face: Normocephalic, atraumatic. Eyes: Pupils equal round and reactive to light, extra-ocular motions intact. Lids and lashes normal. Conjunctiva and sclera are non-icteric and not injected. Cornea within normal limits. Periorbital areas with no swelling, redness, or edema. ENT: Nares patent. No nasal discharge, no septal abnormalities noted. Tympanic membranes are normal and external auditory canals are clear. Oropharynx with no redness, swelling, or masses, exudates, or evidence of obstruction, uvula midline. Mucous membranes moist. Neck: Trachea midline, no thyromegaly or masses palpated, and no cervical lymphadenopathy. Supple, full range of motion without nuchal rigidity, or vertebral point tenderness. No Meningismus. Chest/axilla: Normal chest wall appearance and motion. Nontender with no deformity. No lesions are appreciated. Cardiovascular: Regular rate and rhythm with a normal S1 and S2. No gallops, murmurs, or rubs. Normal PMI, no JVD. No pulse deficits. Respiratory: Lungs have equal breath sounds bilaterally, clear to auscultation and percussion. No rales, rhonchi or wheezes noted. No increased work of breathing, no retractions or nasal flaring. Abdomen/GI: Soft, non-tender, with normal bowel sounds. No distension or tympany. No guarding or rebound. No evidence of tenderness throughout. Back: No spinal tenderness. No costovertebral tenderness. Full range of motion. Female : Normal external genitalia. Skin: Warm, dry with normal turgor. Normal color with no rashes, no lesions, and no evidence of cellulitis. Neuro: Awake and alert, GCS 15, oriented to person, place, time, and situation. Cranial nerves II-XII grossly intact. Motor strength 5/5 in all extremities. Sensory grossly intact. Cerebellar exam normal. Normal gait. Psych: Awake, alert, with orientation to person, place and time. Behavior, mood, and affect are within normal limits. 22:42 Musculoskeletal/extremity: ROM: full active range of motion, in all extremities, full passive range of motion, in all extremities, Circulation is intact in all extremities. Sensation intact. Compartment Syndrome exam of affected extremity: is normal. DVT Exam: negative Homans' sign noted on exam, no appreciated bluish discoloration, pain, swelling, tenderness, erythema, increased warmth, that is moderate, of the right leg, of the lateral aspect of right calf and right rosen. 23:47 ECG was reviewed by the Attending Physician. [facility] Vital Signs: 20:01 BP 117 / 62; Pulse 104; Resp 18 S; Temp 98.7(TE); Pulse Ox 95% on R/A; ca1 22:26 BP 120 / 61; Pulse 86; Resp 18; Pulse Ox 99% on R/A; Pain 0/10; ld1 23:46 BP 149 / 79; Pulse 86; Resp 18; Pulse Ox 100% ; ld1 MDM: 22:08 Patient medically screened. [facility] 22:45 Differential diagnosis: bacterial infection, URI, bronchitis, pneumonia UTI. Data [facility] reviewed: vital signs, nurses notes, lab test result(s), EKG, radiologic studies, doppler, plain films. Data interpreted: hydrological technical officer: rate is 86 beats/min, rhythm is regular, Pulse oximetry: on room air is 99 %. Test interpretation: by ED physician or midlevel provider: ECG, plain radiologic studies. Counseling: I had a detailed discussion with the patient and/or guardian regarding: the historical points, exam findings, and any diagnostic results supporting the discharge/admit diagnosis, the presence of at least one elevated blood pressure reading (>120/80) during this emergency department visit, lab results, radiology results. 09/19 22:41 Order name: Basic Metabolic Panel [facility] 09/19 22:41 Order name: CBC with Diff [facility] 09/19 22:41 Order name: LFT's; Complete Time: 02:20 [facility] 09/19 22:41 Order name: Magnesium; Complete Time: 02:20 [facility] 09/19 22:41 Order name: NT PRO-BNP; Complete Time: 02:20 [facility] 09/19 22:41 Order name: PT-INR; Complete Time: 02:20 [facility] 09/19 22:41 Order name: Troponin (emerg Dept Use Only); Complete Time: 02:20 [facility] 09/19 22:41 Order name: Blood Culture Adult (2) [facility] 09/19 22:41 Order name: Lactate; Complete Time: 02:20 [facility] 09/19 22:41 Order name: Basic Metabolic Panel; Complete Time: 02:20 [facility] 09/19 22:41 Order name: CBC with Automated Diff; Complete Time: 02:20 [facility] 09/20 00:04 Order name: SARS-COV-2 RT PCR; Complete Time: 02:20 [facility] 09/20 03:01 Order name: Comprehensive Metabolic Panel [facility] 09/19 22:41 Order name: XRAY Chest (1 view) [facility] 09/19 22:41 Order name: EKG; Complete Time: 22:42 [facility] 09/19 22:41 Order name: US Extremity Venous W Compression Bean [facility] 09/20 01:13 Order name: CONS Physician Consult [facility] 09/20 03:01 Order name: Hemoglobin A1c [facility] 09/20 03:02 Order name: Heart Healthy [facility] 09/20 03:02 Order name: Patient Safety Orders [facility] 09/20 03:02 Order name: Urinalysis [facility] 09/20 03:02 Order name: Comprehensive Metabolic Panel [facility] 09/20 03:02 Order name: Comprehensive Metabolic Panel [facility] 09/20 03:02 Order name: Lipid Profile [facility] 09/20 03:02 Order name: Lipid Profile [facility] 09/19 22:41 Order name: Cardiac monitoring; Complete Time: 22:58 [facility] 09/19 22:41 Order name: EKG - Nurse/Tech; Complete Time: 23:45 [facility] 09/19 22:41 Order name: IV Saline Lock; Complete Time: 23:45 [facility] 09/19 22:41 Order name: Labs collected and sent; Complete Time: 23:45 [facility] 09/19 22:41 Order name: O2 Per Protocol; Complete Time: 22:58 [facility] 09/19 22:41 Order name: O2 Sat Monitoring; Complete Time: 22:58 [facility] 09/20 03:02 Order name: Dietitian Consult EDRI EC:47 Rate is 79 beats/min. Rhythm is regular. QRS [place] is Normal. AL interval is normal. QRS aníbal interval is normal. QT interval is normal. No Q waves. T waves are Normal. No ST changes noted. Clinical impression: NSR w/ Non-specific ST/T Changes and No evidence of ischemia. Interpreted by me. Reviewed by me. Administered Medications: 23:45 Drug: Meropenem 1 grams Route: IV; Rate: per protocol; Site: left antecubital; ld1 09/20 03:27 Follow up: Response: No adverse reaction; IV Status: Completed infusion 8 00:04 Drug: NS 0.9% 1000 ml Route: IV; Rate: 1 bolus; Site: left antecubital; ld1 03:27 Follow up: IV Status: Completed infusion jm8 00:04 Drug: vancoMYCIN 1 grams Route: IVPB; Infused Over: 2 hrs; Site: left antecubital; ld1 03:27 Follow up: Response: No adverse reaction; IV Status: Completed infusion 8 03:34 Drug: NS 0.9% 1000 ml Route: IV; Rate: 125 ml/hr; Site: left antecubital; jm8 Disposition Summary: 09/19/20 22:48 Hospitalization Ordered Hospitalization Status: Inpatient Admission aníbal Provider: Jack Cadleron cha Condition: Fair aníbal Problem: new aníbal Symptoms: are unchanged aníbal Bed/Room Type: Standard aníbal Location: Telemetry/MedSurg (Inpatient)(09/20/20 14:51) Room Assignment: 205(09/20/20 14:51) Diagnosis - Cellulitis and acute lymphangitis of other parts of limb - RIGHT LOWER EXTREMITY aníbal - Lymphedema, not elsewhere classified aníbal - Fever, unspecified aníbal - Morbid (severe) obesity due to excess calories aníbal Forms: - Medication Reconciliation Form aníbal - SBAR form aníbal Signatures: Dispatcher [employer] [facility] Rene Mason MD MD cha Smirch, Shelby, RN RN Selena Cosme RN RN Judy Ceja RN RN [facility] Amena Lepe RN RN ld1 Herrera Perez RN RN [email or web address] Corrections: (The following items were deleted from the chart) 09/19 23:12 22:41 CORONAVIRUS+MR.LAB.BRZ ordered. [facility] 09/20 01:20 09/19 22:48 Telemetry/MedSurg (Inpatient) [facility] 09/20 01:20 07 22:48 [facility] 09/20 14:51 01:20 [facility] ER HOLD [facility] 14:51 01:20 ERHOLD- [facility]
[2020-09-19] MEDS ORDERED: Meropenem 1000 MG/VIAL IV ONE (23:40)
[2020-09-19] MEDS ORDERED: NA CHLORIDE 0.9% 100 ML ONE (23:40)
[2020-09-19] MEDS ORDERED: VANCOMYCIN 1 GM/VIAL ONE (23:40)
[2020-09-19] MEDS ORDERED: NA CHLORIDE 0.9% 1,000 ML ONE (23:41)
[2020-09-19] MEDS ORDERED: NA CHLORIDE 0.9% 500 ML ONE (23:41)
[2020-09-19 23:49] LABS: Absolute Lymphocytes (CBC) 1.2 K/uL (0.7-4.9); Basophils % 0.5 % (0-1.3); Hematocrit 36.5 % (36.0-45.0); Lymphocytes % 14.4 % (15.3-44.8); RBC Red Blood Cell Count 4.15 M/uL (3.86-4.86)
[2020-09-19 23:50] LABS: Protime INR 1.14
[2020-09-19 23:59] LABS: ALT/SGPT 21 U/L (12-78); AST/SGOT 20 U/L (15-37); Albumin 3.5 g/dL (3.4-5.0); Alkaline Phosphatase 72 U/L (45-117); BUN Blood Urea Nitrogen 19 mg/dL (7-18); Bicarbonate 29 mmol/L (21-32); Bilirubin Direct 0.3 mg/dL (0-0.2); Bilirubin Total 0.8 mg/dL (0.2-1.0); Glucose Level 96 mg/dL (74-106); Magnesium 2.2 mg/dL (1.8-2.4); NT PRO-BNP 150 pg/mL (<125); Protein, Total 8.6 g/dL (6.4-8.2); Sodium Level 141 mmol/L (136-145); Troponin (Emerg Dept Use Only) < 0.02 ng/mL (0.0-0.045)
[2020-09-20] MEDS: MELATONIN 5 MG TABLET PO SCH ×2 (03:00→20:53)
[2020-09-20] MEDS ORDERED: NA CHLORIDE 0.9% 1,000 ML IV SCH ×2 (03:00→06:57)
[2020-09-20] MEDS ORDERED: MORPHINE 2 MG/ML SYR IV PRN (03:00)
[2020-09-20] MEDS ORDERED: ONDANSETRON 4 MG/2 ML VIAL IV PRN (03:00)
[2020-09-20] MEDS ORDERED: ALBUTEROL 2.5 MG/3 ML NEB SOL NEB PRN (03:00)
[2020-09-20] MEDS ORDERED: NA CHLORIDE 0.9% 1,000 ML ONE (03:50)
[2020-09-20 04:09] VITALS: BMI 49.9
--- NOTE | 2020-09-20 04:15 | P.HP ---
Certification for Inpatient Patient admitted to: Inpatient With expected LOS: >2 Midnights Patient will require the following post-hospital care: None Practitioner: I am a practitioner with admitting privileges, knowledge of patient current condition, hospital course, and medical plan of care. Services: Services provided to patient in accordance with Admission requirements found in Title 42 Section 412.3 of the Code of Federal Regulations Patient History Date of Service: 09/20/20 Reason for admission: cellulitis, fever History of Present Illness: Ms. Ospina is a 65 yo F with HTN, venous insufficiency, chronic lymphedema and recurrent cellulitis and UTI here with one day of fever and R leg pain. She reports night seats, constant pain, edema, erythema, polyuria and incontinence. Reports pain is relieved by nothing, exacerbated by nothing. Does not have a PCP, has not been going to wound care, daughter changes dressing for her. Received vancomycin and merrem in the ED. Allergies No Known Allergies Allergy (Verified 05/26/19 22:18) Home Medications: Amox/Clavulanate [Augmentin 500-125 mg Tab] 500 mg PO BID #20 tab 07/21/20 Doxycycline Hyclate 100 mg PO BID #20 tablet 07/21/20 Melatonin 10 mg PO BEDTIME PRN #30 tablet 07/21/20 traMADol HCL [Ultram*] 50 mg PO BID PRN #10 tab 07/21/20 - Past Medical/Surgical History Diabetic: No -: Chronic lymphedema -: History of DVT -: Morbid obesity -: Recurrent left lower extremity cellulitis -: cellulitis; left calf -: Tubal ligation -: IVC vinny filter placement Psychosocial/ Personal History: Patient is . She lives at home. - Family History Mother -: Lung disease, Other (see notes) Notes: pulmonary embolism; emphysema Father -: Cancer, Other (see notes) Notes: throat and tongue CA - Social History Smoking Status: Unknown if ever smoked Alcohol use: No CD- Drugs: No Caffeine use: Yes Place of Residence: Home Review of Systems 10-point ROS is otherwise unremarkable General: Fever, Sweats Genitourinary: Frequency, Incontinence Musculoskeletal: Leg Pain Physical Examination - Physical Exam General: Alert, In no apparent distress, Obese HEENT: Atraumatic, PERRLA, Mucous membr. moist/pink, EOMI, Sclerae nonicteric Neck: Supple, 2+ carotid pulse no bruit, No LAD, Without JVD or thyroid abnormality Respiratory: Clear to auscultation bilaterally, Normal air movement Cardiovascular: Regular rate/rhythm, Normal S1 S2 Gastrointestinal: Normal bowel sounds, No tenderness Musculoskeletal: No clubbing, No contractures, Swelling, Erythema, Tenderness, Warmth Integumentary: No cyanosis, Rash(es), Skin breakdown, Skin lesion, Tenderness/swelling, Erythema, Warmth Neurological: Normal speech, Normal strength at 5/5 x4 extr, Normal tone, Sensation intact, Cranial nerves 3-12 intact, Normal affect, Abnormal gait Lymphatics: No axilla or inguinal lymphadenopathy - Studies Laboratory Data (last 24 hrs) 09/19/20 23:30: PT 13.1 H, INR 1.14 09/19/20 23:30: WBC 8.50, Hgb 12.0, Hct 36.5, Plt Count 278 09/19/20 23:30: Sodium 141, Potassium 4.0, BUN 19 H, Creatinine 1.26, Glucose 96, Magnesium 2.2, Total Bilirubin 0.8, AST 20, ALT 21, Alkaline Phosphatase 72 Assessment and Plan - Plan Assessment cellulitis in setting of chronic lymphedema and venous insufficiency history of recurrent UTI HTN Plan cellulitis in setting of chronic lymphedema and venous insufficiency - continue IV antibiotics and IVF, ID consulted, pain management as needed, tylenol PRN for fever, needs to be setup with outpatient wound care and PCP history of recurrent UTI - UA pending HTN - stable, continue home medications DVT ppx Discharge Plan: Home Plan to discharge in: 48 Hours - Advance Directives Does patient have a Living Will: No Does patient have a Durable POA for Healthcare: No - Code Status/Comfort Care Code Status Assessed: Yes (full code ) Critical Care: No Time Spent Managing Pts Care (In Minutes): 70
[2020-09-20] MEDS ORDERED: VANCOMYCIN 1 GM in NA CHLORIDE 0.9% 250 ML IVPB ONE (05:00)
[2020-09-20 06:00] LABS: Albumin 3.2 g/dL (3.4-5.0); Bilirubin Total 0.9 mg/dL (0.2-1.0); Protein, Total 8.2 g/dL (6.4-8.2)
[2020-09-20] MEDS ORDERED: VANCOMYCIN 1 GM/VIAL ONE (06:23)
[2020-09-20] MEDS ORDERED: NA CHLORIDE 0.9% 250 ML ONE (06:23)
--- NOTE | 2020-09-20 06:23 | P.PN ---
Subjective Date of Service: 09/20/20 Primary Care Provider: None Chief Complaint: cellulitis, fever Subjective: Improving, Other (Doing well) Physical Examination - Vital Signs Temperature: 97.3 F Blood Pressure: 115/63 Pulse: 68 Respirations: 16 Pulse Ox (%): 98 - Studies Laboratory Data (last 24 hrs) 09/19/20 23:30: PT 13.1 H, INR 1.14 09/19/20 23:30: WBC 8.50, Hgb 12.0, Hct 36.5, Plt Count 278 09/19/20 23:30: Sodium 141, Potassium 4.0, BUN 19 H, Creatinine 1.26, Glucose 96, Magnesium 2.2, Total Bilirubin 0.8, AST 20, ALT 21, Alkaline Phosphatase 72 Assessment & Plan Discharge Plan: Home Plan to discharge in: 48 Hours Physician Review Additional Text: Physical exam: General: Alert, In no apparent distress, Obese HEENT: Atraumatic, PERRLA, Mucous membr. moist/pink, EOMI, Sclerae nonicteric Neck: Supple, 2+ carotid pulse no bruit, No LAD, Without JVD or thyroid abnormality Respiratory: Clear to auscultation bilaterally, Normal air movement Cardiovascular: Regular rate/rhythm, Normal S1 S2 Gastrointestinal: Normal bowel sounds, No tenderness Musculoskeletal: No clubbing, No contractures, Swelling, Erythema, Tenderness, Warmth Integumentary: Erythema to the right upper extremity noted. Bandages in place to the right lower extremity. Neurological: Normal speech, Normal strength at 5/5 x4 extr, Normal tone, Sensation intact, Cranial nerves 3-12 intact, Normal affect, Abnormal gait Lymphatics: No axilla or inguinal lymphadenopathy Impression: Recurrent RLE cellulitis in setting of chronic lymphedema and venous insufficiency Prediabetes Insomnia Morbid Obesity, BMI 49.9 Plan Recurrent RLE cellulitis in setting of chronic lymphedema and venous insufficiency: Continue with IV antibiotic therapyvancomycin and meropenem. At this time. Infectious disease consulted for further recommendation. Continue w ith wound care recommendations by infectious disease. Will provide medication for pain. Anticipate improvement over the next 1 to 3 days. I will turn to service over to the hospitalist team tomorrow. I will go the plan of care with him. Prediabetes: A1c 5.7. Recommend to recheck hemoglobin A1c in 3 to 6 months. Overall stable. We will continue to monitor. Insomnia: Will provide medicationmelatonin. Chronic pain: Continue with Neurontin 600 mg at bedtime. Morbid Obesity, BMI 49.9: Address lifestyle modification education. DVT prophylaxis: Full code CODE STATUS: Lovenox Advance care [id number] minutes: Home at discharge Time Spent Managing Pts Care (In Minutes): 55
[2020-09-20] MEDS ORDERED: TRAMADOL HCL 50 MG TAB PO PRN (06:59)
[2020-09-20] MEDS ORDERED: INSULIN -REGULAR HUMAN 50 UNIT/0.5 ML ML SQ SCH (07:30)
--- NOTE | 2020-09-20 07:50 | RAD REPORT ---
EXAM DESCRIPTION: Karen Single View09/19/2020 11:47 pm CLINICAL HISTORY: Cough COMPARISON: July 2020 FINDINGS: Upper lobe vessels are prominent indicative of pulmonary venous hypertension. The lungs appear clear of acute infiltrate. The heart is mildly enlarged
--- NOTE | 2020-09-20 07:53 | RAD REPORT ---
EXAM DESCRIPTION: USExtrem Venous W Compress Bil09/19/2020 11:13 pm CLINICAL HISTORY: Leg swelling COMPARISON: July 2020 FINDINGS: Examination was somewhat limited. The common femoral, superficial femoral, and popliteal veins bilaterally demonstrate good flow. Compression of the popliteal veins limited. . IMPRESSION: No gross evidence of pulmonary embolism
[2020-09-20] MEDS: THIAMINE HCL 100 MG TABLET PO SCH (08:21)
[2020-09-20] MEDS: FOLIC ACID 1 MG TABLET PO SCH (08:21)
[2020-09-20] MEDS: HEPARIN 5000 UNIT/ML 1 ML VIAL SQ SCH ×2 (08:21→17:15)
[2020-09-20] MEDS: HYDROCODONE/APAP 7.5/325 MG TAB PO PRN ×2 (08:22→15:11)
[2020-09-20] MEDS ORDERED: HYDROCODONE/APAP 7.5/325 MG TAB ONE ×2 (08:40→15:27)
[2020-09-20] MEDS ORDERED: THIAMINE HCL 100 MG TABLET ONE (08:40)
[2020-09-20] MEDS ORDERED: HEPARIN 5000 UNIT/ML 1 ML VIAL ONE (08:40)
[2020-09-20] MEDS ORDERED: FOLIC ACID 1 MG TABLET ONE (08:40)
[2020-09-20] MEDS ORDERED: PNEUMOCOCCAL VACCINE 0.5 ML IMVAC ONE (10:00)
[2020-09-20] MEDS ORDERED: Meropenem 1 GM/100 ML BAG IV SCH (12:00)
[2020-09-20] MEDS ORDERED: Pharmacy Consult 1 EA XX PRN (12:00)
[2020-09-20] MEDS: Meropenem 1 GM/100 ML BAG IV SCH ×2 (14:30→20:53)
--- NOTE | 2020-09-20 14:33 | P.CNS ---
Date of Consult: 09/20/20 Chief Complaint: cellulitis, fever History of Present Illness: Patient is a 65-year-old female who is recently admitted to this facility on 07/19 who has a past medical history of hypertension, venous insufficiency, chronic lymphedema, and recurrent bilateral lower extremity cellulitis and urinary tract infections who presented to the emergency department due to a 1 day of fever and right leg pain with swelling and erythema. Patient reports night sweats, pain, edema, erythema, polyuria, incontinence. Patient's daughter has been taking care of her bilateral lower extremity venous ulcerations and lymphedema, patient were do compression wrapping to legs daily. Patient vidhya jacobo denies nausea, vomiting, diarrhea, chest pain. Patient reports some shortness of breath especially with ambulation. Allergies No Known Allergies Allergy (Verified 05/26/19 22:18) Home Medications: Gabapentin 600 mg PO BEDTIME 09/20/20 - Past Medical/Surgical History Diabetic: No -: Chronic lymphedema -: History of DVT -: Morbid obesity -: Recurrent left lower extremity cellulitis -: cellulitis; left calf -: Tubal ligation -: IVC vinny filter placement Psychosocial/ Personal History: Patient is . She lives at home. - Family History Mother Medical History: Lung disease, Other (see notes) Notes: pulmonary embolism; emphysema Father Medical History: Cancer, Other (see notes) Notes: throat and tongue CA - Social History Smoking Status: Never smoker Alcohol use: No CD- Drugs: No Caffeine use: Yes Place of Residence: Home Review of Systems 10-point ROS is otherwise unremarkable Physical Examination Temp Pulse Resp BP Pulse Ox 97.7 F 62 20 132/53 L 98 09/20/20 12:00 09/20/20 12:00 09/20/20 12:00 09/20/20 12:09/20/20 12:00 General: Alert, In no apparent distress, Oriented x3, Obese HEENT: Atraumatic, Normocephalic Neck: Supple, 2+ carotid pulse no bruit Respiratory: Clear to auscultation bilaterally, Normal air movement Cardiovascular: Normal pulses, Regular rate/rhythm Gastrointestinal: Normal bowel sounds, Soft and benign Integumentary: Other (Bilateral lower extremity stasis dermatitis and lymphedema. Venous ulcerations bilateral lower extremities: Right lower extremity cellulitis: The erythema and swelling.) Laboratory Data (last 24 hrs) 09/19/20 23:30: PT 13.1 H, INR 1.14 09/19/20 23:30: WBC 8.50, Hgb 12.0, Hct 36.5, Plt Count 278 09/19/20 23:30: Sodium 141, Potassium 4.0, BUN 19 H, Creatinine 1.26, Glucose 96, Magnesium 2.2, Total Bilirubin 0.8, AST 20, ALT 21, Alkaline Phosphatase 72 Conclusions/Impression: Assessment: -recurrent bilateral lower extremity cellulitis, this admission more prominent on right side -bilateral lower extremity stasis dermatitis/lymphedema -recurring urinary tract infection -CKD stage 3 -morbid obesity Plan: -continue no hot IV vancomycin at this time. Recommend discontinuing meropenem. Vancomycin trough goal of 10-15. -blood in urine cultures pending. -2 open venous ulcerations: Apply Silvadene ointment, wrapped with Kerlix, wrap with ABD pads. Continue to keep legs elevated at all times. -medical management per primary team Plan of care discussed with Dr. Sanford Thank you for consultation.
[2020-09-20] MEDS: SILVER SULFADIAZINE 1% 50 GM TOP SCH (14:46)
--- NOTE | 2020-09-20 19:15 | EKG ---
Test Date: 2020-09-19 Test Time: 23:35:35 Stock Shaper: MESERET MEASUREMENT RESULTS: Intervals: Rate: 79 TX: 156 QRSD: 100 QT: 394 QTc: 451 [place]: P: 59 TX: 156 QRS: 35 T: 41 INTERPRETIVE STATEMENTS: Sinus rhythm with frequent premature ventricular complexes Otherwise normal ECG Compared to ECG 07/17/2020 18:29:16 Ventricular premature complex(es) now present Atrial premature complex(es) no longer present Electronically Signed On 09-20-20 19:13:37 CDT by Azeem Moran
[2020-09-20] MEDS: ACETAMINOPHEN 500 MG TAB PO PRN (20:54)
[2020-09-20] MEDS ORDERED: GABAPENTIN 300 MG CAP PO SCH (21:00)
[2020-09-21] MEDS: HEPARIN 5000 UNIT/ML 1 ML VIAL SQ SCH ×3 (01:07→16:45)
[2020-09-21] MEDS ORDERED: VANCOMYCIN 2 GM in NA CHLORIDE 0.9% 500 ML IVPB SCH (05:00)
[2020-09-21 06:21] LABS: Magnesium 2.1 mg/dL (1.8-2.4); Phosphorus 3.7 mg/dL (2.5-4.9)
[2020-09-21 06:58] LABS: Absolute Lymphocytes (CBC) 1.9 K/uL (0.7-4.9); Basophils % 0.5 % (0-1.3); Hematocrit 33.9 % (36.0-45.0); Lymphocytes % 32.7 % (15.3-44.8); MPV 7.6 fL (7.6-11.3); RBC Red Blood Cell Count 3.86 M/uL (3.86-4.86)
[2020-09-21] MEDS: FOLIC ACID 1 MG TABLET PO SCH (08:23)
[2020-09-21] MEDS: Meropenem 1 GM/100 ML BAG IV SCH (08:24)
[2020-09-21] MEDS: SILVER SULFADIAZINE 1% 50 GM TOP SCH (08:25)
[2020-09-21] MEDS: ACETAMINOPHEN 500 MG TAB PO PRN (08:28)
[2020-09-21] MEDS: THIAMINE HCL 100 MG TABLET PO SCH (09:00)
--- NOTE | 2020-09-21 10:48 | P.PN ---
Subjective Date of Service: 09/21/20 Primary Care Provider: None Chief Complaint: cellulitis, fever Patient seen examined at bedside, no acute complaints. IV meropenem and Levaquin discontinued, patient started on oral doxycycline 100 mg b.i.d.. Cellulitis improving, educated patient on the importance of keeping legs elevated. Review of Systems 10-point ROS is otherwise unremarkable Physical Examination - Vital Signs Temperature: 97.1 F Blood Pressure: 119/57 Pulse: 75 Respirations: 16 Pulse Ox (%): 94 - Studies Laboratory Last Values WBC 8.50 K/uL (4.3-10.9) 09/19/20 23:30 RBC 4.15 M/uL (3.86-4.86) 09/19/20 23:30 Hgb 12.0 g/dL (12.0-15.0) 09/19/20 23:30 Hct 36.5 % (36.0-45.0) 09/19/20 23:30 MCV 87.8 fL (80-100) 09/19/20 23:30 MCH 28.9 pg (27.0-35.0) 09/19/20 23:30 MCHC 33.0 g/dL (32.0-36.0) 09/19/20 23:30 RDW 16.4 % (12.1-15.2) H 09/19/20 23:30 Plt Count 278 K/uL (152-406) 09/19/20 23:30 MPV 8.0 fL (7.6-11.3) 09/19/20 23:30 Neutrophils % 79.5 % (41.7-73.7) H 09/19/20 23:30 Lymphocytes % 14.4 % (15.3-44.8) L 09/19/20 23:30 Monocytes % 5.3 % (3.3-12.3) 09/19/20 23:30 Eosinophils % 0.3 % (0-4.4) 09/19/20 23:30 Basophils % 0.5 % (0-1.3) 09/19/20 23:30 Absolute Neutrophils 6.8 K/uL (1.8-8.0) 09/19/20 23:30 Absolute Lymphocytes 1.2 K/uL (0.7-4.9) 09/19/20 23:30 Absolute Monocytes 0.5 K/uL (0.1-1.3) 09/19/20 23:30 Absolute Eosinophils 0.0 K/uL (0-0.5) 09/19/20 23:30 Absolute Basophils 0.0 K/uL (0-0.5) 09/19/20 23:30 PT 13.1 SECONDS (9.5-12.5) H 09/19/20 23:30 INR 1.14 09/19/20 23:30 Sodium 141 mmol/L (136-145) 09/19/20 23:30 Potassium 4.0 mmol/L (3.5-5.1) 09/19/20 23:30 Chloride 106 mmol/L (98-107) 09/19/20: Carbon Dioxide 29 mmol/L (21-32) 09/19/20 23:30 BUN 19 mg/dL (7-18) H 09/19/20 23:30 Creatinine 1.26 mg/dL (0.55-1.3) 09/19/20 23: Estimated GFR 43 mL/min (=/>90) L 09/19/20 23:30 Glucose 96 mg/dL (74-106) 09/19/20 23:30 Lactic Acid 1.3 mmol/L (0.4-2.0) 09/19/20: Calcium 9.0 mg/dL (8.5-10.1) 09/19/20 23: Magnesium 2.2 mg/dL (1.8-2.4) 09/19/20:30 Total Bilirubin 0.8 mg/dL (0.2-1.0) 09/19/20: Direct Bilirubin 0.3 mg/dL (0-0.2) H 09/19/20 23:30 AST 20 U/L (15-37) 09/19/20 23:30 ALT 21 U/L (12-78) 09/19/20 23: Alkaline Phosphatase 72 U/L (45-117) 09/19/20 23:30 Rapid Troponin I < 0.02 ng/mL (0.0-0.045) 09/19/20 23:30 NT-Pro-B Natriuret Pep 150 pg/mL (<125) H 09/19/20 23:30 Serum Total Protein 8.6 g/dL (6.4-8.2) H 09/19/20 23:30 Albumin 3.5 g/dL (3.4-5.0) 09/19/20 23:30 Globulin 5.1 g/dL (2.3-3.5) H 09/19/20 23:30 Albumin/Globulin Ratio 0.7 (1.1-1.8) L 09/19/20 23:30 SARS-CoV-2 RNA (RT-PCR) Negative (NEGATIVE) 09/19/20 23:02 Assessment And Plan - Plan Physical Exam: General: Alert, In no apparent distress, Oriented x3, Obese HEENT: Atraumatic, Normocephalic Neck: Supple, 2+ carotid pulse no bruit Respiratory: Clear to auscultation bilaterally, Normal air movement Cardiovascular: Normal pulses, Regular rate/rhythm Gastrointestinal: Normal bowel sounds, Soft and benign Integumentary: Other (Bilateral lower extremity stasis dermatitis and lymphedema. Venous ulcerations bilateral lower extremities: Right lower extremity cellulitis: The erythema and swelling.) Conclusions/Impression: Assessment: -recurrent bilateral lower extremity cellulitis, this admission more prominent on right side -bilateral lower extremity stasis dermatitis/lymphedema -recurring urinary tract infection -CKD stage 3 -morbid obesity Plan: -IV vancomycin and meropenem discontinued. Patient started on oral doxycycline. Continue for total antibiotic duration of 2 weeks. Recommend patient be sta rted on probiotic for duration of antibiotic therapy. Recommend following up outpatient with PCP to obtain follow up labs including CBC and CMP. -blood blood cultures: No growth to date -UA: Pending -2 open venous ulcerations: Apply Silvadene ointment, wrapped with Kerlix, wrap with ABD pads. Continue to keep legs elevated at all times. -medical management per primary team Plan of care discussed with Dr. Sanford Thank you for consultation. Physician Review Additional Text: Physical exam: General: Alert, In no apparent distress, Obese HEENT: Atraumatic, PERRLA, Mucous membr. moist/pink, EOMI, Sclerae nonicteric Neck: Supple, 2+ carotid pulse no bruit, No LAD, Without JVD or thyroid abnormality Respiratory: Clear to auscultation bilaterally, Normal air movement Cardiovascular: Regular rate/rhythm, Normal S1 S2 Gastrointestinal: Normal bowel sounds, No tenderness Musculoskeletal: No clubbing, No contractures, Swelling, Erythema, Tenderness, Warmth Integumentary: Erythema to the right upper extremity noted. Bandages in place to the right lower extremity. Neurological: Normal speech, Normal strength at 5/5 x4 extr, Normal tone, Sensation intact, Cranial nerves 3-12 intact, Normal affect, Abnormal gait Lymphatics: No axilla or inguinal lymphadenopathy Impression: Recurrent RLE cellulitis in setting of chronic lymphedema and venous insufficiency Prediabetes Insomnia Morbid Obesity, BMI 49.9 Plan Recurrent RLE cellulitis in setting of chronic lymphedema and venous i nsufficiency: Continue with IV antibiotic therapyvancomycin and meropenem. At this time. Infectious disease consulted for further recommendation. Continue with wound care recommendations by infectious disease. Will provide medication for pain. Anticipate improvement over the next 1 to 3 days. I will turn to service over to the hospitalist team tomorrow. I will go the plan of care with him. Prediabetes: A1c 5.7. Recommend to recheck hemoglobin A1c in 3 to 6 months. Overall stable. We will continue to monitor. Insomnia: Will provide medicationmelatonin. Chronic pain: Continue with Neurontin 600 mg at bedtime. Morbid Obesity, BMI 49.9: Address lifestyle modification education. DVT prophylaxis: Full code CODE STATUS: Lovenox Advance care [id number] minutes: Home at discharge
[2020-09-21 11:56] VITALS: O2SAT 95
[2020-09-21 16:07] VITALS: BP 118/56; TEMP 98.1
[2020-09-21] MEDS ORDERED: DOXYCYCLINE 100 MG CAP PO SCH (21:00)
== END 2020-09-21 19:20 | disposition home or self-care (01) | DRG 603 ==
LOC: ER 19:06 → ERHOLD 09-20 01:12 → 2ND 09-20 15:24
PROVIDERS: ADMIT Family Medicine; ATTEND Hospitalist
DX: L03.115 Cellulitis of right lower limb (principal); Z68.42 Body mass index [BMI] 45.0-49.9, adult; N39.0 Urinary tract infection, site not specified; E66.01 Morbid (severe) obesity due to excess calories; L03.116 Cellulitis of left lower limb; I89.0 Lymphedema, not elsewhere classified; G47.00 Insomnia, unspecified; G89.29 Other chronic pain; I87.2 Venous insufficiency (chronic) (peripheral); I12.9 Hypertensive chronic kidney disease with stage 1 through stage 4 chronic kidney disease, or unspecified chronic kidney disease; N18.30 Chronic kidney disease, stage 3 unspecified; R73.03 Prediabetes; Z79.899 Other long term (current) drug therapy; Z86.718 Personal history of other venous thrombosis and embolism; Z98.51 Tubal ligation status; Z20.822 Contact with and (suspected) exposure to COVID-19
CPT/HCPCS: 36415; 71045; 80048; 80053; 80061; 80076; 83036; 83605; 83735; 83880; 84100; 84484; 85025; 85610; 87040; 93005; 93970; 94760; 96365; 96366; 99285; J1644; J2185; J3370; J7030; J7040; J7050; U0003

== ENCOUNTER 2020-10-15 00:38 | Emergency (ER) | payer OTHER ==
--- OUTSIDE RECORDS SUMMARY | 2020-10-15 00:40 | XMS REPORT | Continuity of Care Document ---
:[address] [facility] t Address [address] [place] [address] Care Team Providers Name Role Phone Unavailable Unavailable Unavailable Problems This patient has no known problems. Allergies, Adverse Reactions, Alerts This patient has no known allergies or adverse reactions. Medications This patient has no known medications. Procedures This patient has no known procedures. Results This patient has no known results.
[2020-10-15 02:31] LABS: Absolute Lymphocytes (CBC) 0.8 K/uL (0.7-4.9); Basophils % 0.4 % (0-1.3); Hematocrit 36.7 % (36.0-45.0); Lymphocytes % 8.1 % (15.3-44.8); MPV 7.5 fL (7.6-11.3); RBC Red Blood Cell Count 4.14 M/uL (3.86-4.86)
[2020-10-15 02:46] LABS: C-Reactive Protein 73.6 mg/L (<3.00); Potassium 4.3 mmol/L (3.5-5.1)
[2020-10-15] MEDS ORDERED: NA CHLORIDE 0.9% 500 ML ONE (03:01)
[2020-10-15] MEDS ORDERED: ACETAMINOPHEN 500 MG TAB ONE (03:01)
[2020-10-15] MEDS ORDERED: ONDANSETRON 4 MG/2 ML VIAL ONE (03:01)
[2020-10-15 04:11] LABS: Urine Blood Trace-intact (Negative); Urine Glucose Negative (Negative); Urine Protein Trace (Negative)
[2020-10-15 04:42] LABS: Urine Amorphous Sediment 3+ /HPF (NONE SEEN); Urine Bacteria LOADED /HPF (<20); Urine Mucus 3+ /HPF (NONE SEEN)
--- NOTE | 2020-10-15 05:16 | ER ---
Nurse's Notes [facility] Name: Grace Case Age: 65 yrs Sex: Female : 1955 Arrival Date: 10/15/2020 Time: 00:46 Bed DIS1 Private MD: Diagnosis: Acute febfile illness. Urinary tract infection Presentation: 10/15 01:14 Chief complaint: Patient states: she started running fever today, feels nauseous, and bb has leg pain. Coronavirus screen: fever, Client presents with at least one sign or symptom that may indicate coronavirus-19. Standard/surgical mask placed on the client. Ebola Screen: No symptoms or risks identified at this time. Initial Sepsis Screen: Does the patient meet any 2 criteria? Temp <36.0*C (96.8*F)) or > 38.3*C (100.9*F). No. Patient's initial sepsis screen is negative. Does the patient have a suspected source of infection? Yes: Skin breakdown/wound. Risk Assessment: Do you want to hurt yourself or someone else? Patient reports no desire to harm self or others. Onset of symptoms was October 14, 2020. 01:14 Method Of Arrival: Wheelchair bb 01:14 Acuity: ESTEPHANIA 3 bb Triage Assessment: 01:17 General: Appears uncomfortable, obese, Behavior is calm, cooperative. Pain: Complains bb of pain in bilateral lower legs Pain currently is 5 out of 10 on a pain scale. Neuro: Level of Consciousness is awake, alert, obeys commands, Oriented to person, place, time, situation. Cardiovascular: Capillary refill < 3 seconds Patient's skin is warm and dry. Respiratory: Respiratory effort is even, unlabored, Respiratory pattern is regular. GI: Reports nausea. Derm: bilateral lower legs with erythema and edema. Musculoskeletal: Circulation, motion, and sensation intact. Historical: - Allergies: :17 No Known Allergies; bb - PMHx: :17 cellulits; lymphedema; UTI; bb - Immunization history:: Adult Immunizations up to date, Client reports receiving the 1st dose of the Covid vaccine. - Social history:: Smoking status: Patient denies any tobacco usage or history of. Screenin:15 Abuse screen: Denies threats or abuse. Nutritional screening: No deficits noted. bb Tuberculosis screening: No symptoms or risk factors identified. Fall Risk Secondary diagnosis (15 points) impaired mobility, IV access (20 points). Ambulatory Aid- None/Bed Rest/Nurse Assist (0 pts). Gait- Impaired (20 pts.). Total Menon Fall Scale indicates High Risk Score (45 or more points). Fall prevention measures have been instituted. Assessment: 01:15 General: Appears in no apparent distress. uncomfortable, obese, Behavior is calm, bb cooperative. Pain: Complains of pain in bilateral lower extremities. Neuro: Level of Consciousness is awake, alert, obeys commands, Oriented to person, place, time, situation. Cardiovascular: Capillary refill < 3 seconds Patient's skin is warm and dry. Respiratory: Respiratory effort is even, unlabored, Respiratory pattern is regular. GI: Abdomen is obese. Derm: bilateral lower extremities with erythema and edema. Musculoskeletal: bilateral lower extremities with erythema and edema pt has lymphedema. 02:30 Reassessment: Patient is alert, oriented x 3, equal unlabored respirations, skin bb warm/dry/pink. awaiting diagnostic results, IV site intact, patent. 03:30 Reassessment: Patient is alert, oriented x 3, equal unlabored respirations, skin bb warm/dry/pink. pt is awaiting CT scan. 05:19 Reassessment: Patient is alert, oriented x 3, equal unlabored respirations, skin bb warm/dry/pink. IV site intact, patent, no erythema or edema noted pt awaiting dispo Patient states feeling better. 05:49 Reassessment: Patient is alert, oriented x 3, equal unlabored respirations, skin bb warm/dry/pink. pt verbalized understanding of and agrees to plan of care discharge instructions given pt assisted to exit via wheelchair. Vital Signs: 01:14 BP 137 / 62; Pulse 88; Resp 20 S; Temp 102(O); Pulse Ox 96% on R/A; Weight 136.08 kg bb (R); Height 5 ft. 5 in. (165.10 cm) (R); Pain 5/10; 04:30 BP 126 / 57 LA Sitting; Pulse 88; Resp 20; Temp 98.1; Pulse Ox 93% on R/A; Pain 0/10; tt3 05:50 BP 116 / 65; Pulse 77; Resp 18 S; Temp 98(O); Pulse Ox 93% on R/A; bb 01:14 Body Mass Index 49.92 (136.08 kg, 165.10 cm) bb ED Course: 00:46 Patient arrived in ED. es 01:03 Trace Win MD is Attending Physician. pkl 01:14 Jordyn Rubio RN is Primary Nurse. bb 01:15 Patient has correct armband on for positive identification. bb 01:17 Triage completed. bb 01:17 Arm band placed on Patient placed in diagnostic chair. bb 02:06 Inserted saline lock: 22 gauge in left forearm, using aseptic technique. Blood ds4 collected. Missed attempt(s): 24 gauge in left forearm. Bleeding controlled, band aid applied, catheter tip intact. 02:21 XRAY CXR (1 view) In Process Unspecified. EDMS 03:02 Notified ED physician of a critical lab result(s). D-dimer 2342 Dr Win notified. bb 04:31 Chest For Pe Angio In Process Unspecified. EDMS 05:51 No provider procedures requiring assistance completed. IV discontinued, intact, bb bleeding controlled, No redness/swelling at site. Pressure dressing applied. Administered Medications: 02:51 Drug: Tylenol 1000 mg Route: PO; bb 03:30 Follow up: Response: Temperature is decreased bb 02:51 Drug: NS 0.9% 500 ml Route: IV; Rate: bolus; Site: left forearm; bb 03:30 Follow up: IV Status: Completed infusion; IV Intake: 500ml bb 02:51 Drug: Zofran (Ondansetron) 4 mg Route: IVP; Site: left forearm; bb 05:19 Follow up: Response: No adverse reaction bb 05:18 Drug: Phenergan (promethazine) 12.5 mg Route: IVP; Site: left forearm; bb 05:50 Follow up: Response: No adverse reaction bb 05:18 Drug: Rocephin (cefTRIAXone) 1 grams Route: IV; Rate: calculated rate; Site: left bb forearm; 05:23 Follow up: IV Status: Completed infusion; IV Intake: 10ml bb Intake: 03:30 IV: 500ml; Total: 500ml. bb 05:23 IV: 10ml; Total: 510ml. bb Outcome: 05:16 Discharge ordered by . pkl 05:51 Discharged to home via wheelchair, with family. bb 05:51 Condition: stable 05:51 Discharge instructions given to patient, Instructed on discharge instructions, follow up and referral plans. medication usage, Demonstrated understanding of instructions, follow-up care, medications, Prescriptions given X 2. 05:51 Patient left the ED. bb Signatures: Dispatcher [employer] Trace Guerrero MD MD pkl Salyer, Edna es Ballard, Brenda, RN RN bb David Ling ds4 Juan Sagastume tt3 Corrections: (The following items were deleted from the chart) 04:31 04:30 BP 126 / 57; Pulse 88bpm; Resp 20bpm; Pulse Ox 93% RA; Temp 98.1F; Pain 0/10; tt3 tt3
--- NOTE | 2020-10-15 05:16 | EDPHYS ---
Physician Documentation [facility] Name: Grace Case Age: 65 yrs Sex: Female : 1955 Arrival Date: 10/15/2020 Time: 00:46 Bed DIS1 Private MD: ED Physician Trace Win HPI: 10/15 01:36 This 65 yrs old Female presents to ER via Wheelchair with complaints of Fever.pkl 01:36 The patient reports fever, with an emergency department temperature of 102 degrees pkl Fahrenheit. Onset: The symptoms/episode began/occurred today. Associated signs and symptoms: Pertinent positives: chills, nausea, pain both legs. H/O lymphedema . Historical: - Allergies: 01:17 No Known Allergies; bb - PMHx: 01:17 cellulits; lymphedema; UTI; bb - Immunization history:: Adult Immunizations up to date, Client reports receiving the 1st dose of the Covid vaccine. - Social history:: Smoking status: Patient denies any tobacco usage or history of. ROS: 01:36 Eyes: Negative for injury, pain, redness, and discharge, ENT: Negative for injury, pkl pain, and discharge, Neck: Negative for injury, pain, and swelling, Cardiovascular: Negative for chest pain, palpitations, and edema, Respiratory: Negative for shortness of breath, cough, wheezing, and pleuritic chest pain. 01:36 Abdomen/GI: Positive for nausea. 01:36 Back: Negative for acute changes. 01:36 : Negative for urinary symptoms. 01:36 MS/extremity: Positive for swelling, of the both legs. 01:36 Skin: Negative for rash. 01:36 Neuro: Negative for altered mental status, loss of consciousness. Exam: 01:36 Head/Face: Normocephalic, atraumatic. Eyes: Pupils equal round and reactive to light, pkl extra-ocular motions intact. Lids and lashes normal. Conjunctiva and sclera are non-icteric and not injected. Cornea within normal limits. Periorbital areas with no swelling, redness, or edema. ENT: Nares patent. No nasal discharge, no septal abnormalities noted. Tympanic membranes are normal and external auditory canals are clear. Oropharynx with no redness, swelling, or masses, exudates, or evidence of obstruction, uvula midline. Mucous membranes moist. Neck: Trachea midline, no thyromegaly or masses palpated, and no cervical lymphadenopathy. Supple, full range of motion without nuchal rigidity, or vertebral point tenderness. No Meningismus. Chest/axilla: Normal chest wall appearance and motion. Nontender with no deformity. No lesions are appreciated. Cardiovascular: Regular rate and rhythm with a normal S1 and S2. No gallops, murmurs, or rubs. Normal PMI, no JVD. No pulse deficits. Respiratory: Lungs have equal breath sounds bilaterally, clear to auscultation and percussion. No rales, rhonchi or wheezes noted. No increased work of breathing, no retractions or nasal flaring. Abdomen/GI: Soft, non-tender, with normal bowel sounds. No distension or tympany. No guarding or rebound. No evidence of tenderness throughout. Back: No spinal tenderness. No costovertebral tenderness. Full range of motion. Neuro: Awake and alert, GCS 15, oriented to person, place, time, and situation. Cranial nerves II-XII grossly intact. Motor strength 5/5 in all extremities. Sensory grossly intact. Cerebellar exam normal. Normal gait. 01:36 Musculoskeletal/extremity: Extremities: grossly normal except: noted in the both legs: swelling. Vital Signs: 01:14 BP 137 / 62; Pulse 88; Resp 20 S; Temp 102(O); Pulse Ox 96% on R/A; Weight 136.08 kg bb (R); Height 5 ft. 5 in. (165.10 cm) (R); Pain 5/10; 04:30 BP 126 / 57 LA Sitting; Pulse 88; Resp 20; Temp 98.1; Pulse Ox 93% on R/A; Pain 0/10; tt3 05:50 BP 116 / 65; Pulse 77; Resp 18 S; Temp 98(O); Pulse Ox 93% on R/A; bb 01:14 Body Mass Index 49.92 (136.08 kg, 165.10 cm) bb MDM: 01:04 Patient medically screened. pkl 03:36 Data reviewed: vital signs, nurses notes, lab test result(s), radiologic studies. pkl 03:37 Data reviewed: radiologic studies, plain films. pkl 05:12 ED course: . pkl 05:12 Data reviewed: radiologic studies, CT scan. ED course: Patient feeling better. pkl Discussed lab and imaging studies with patient. Advised to follow up with PCP in 2 to 3 days. Patient understood instructions. 10/15 01:33 Order name: CBC with Diff; Complete Time: 02:45 pkl 10/15 01:33 Order name: Chem 7; Complete Time: 03:03 pkl 10/15 01:33 Order name: CRP; Complete Time: 03:03 pkl 10/15 01:33 Order name: Lactate; Complete Time: 02:45 pkl 10/15 01:33 Order name: Strep; Complete Time: 03:36 pkl 10/15 01:33 Order name: XRAY CXR (1 view) pkl 10/15 01:34 Order name: D-Dimer; Complete Time: 03:03 pkl 10/15 03:25 Order name: Throat Culture EDMS 10/15 03:48 Order name: SARS-COV-2 RT PCR; Complete Time: 04:00 EDMS 10/15 04:10 Order name: Urine Dipstick-Ancillary; Complete Time: 04:33 EDMS 10/15 04:11 Order name: Urine Microscopic Only; Complete Time: 04:47 tt3 10/15 04:11 Order name: Urine Culture tt3 10/15 01:33 Order name: Urine Dipstick-Ancillary (obtain specimen); Complete Time: 05:23 pkl 10/15 04:06 Order name: Chest For Pe Angio EDMS Administered Medications: 02:51 Drug: Tylenol 1000 mg Route: PO; bb 03:30 Follow up: Response: Temperature is decreased bb 02:51 Drug: NS 0.9% 500 ml Route: IV; Rate: bolus; Site: left forearm; bb 03:30 Follow up: IV Status: Completed infusion; IV Intake: 500ml bb 02:51 Drug: Zofran (Ondansetron) 4 mg Route: IVP; Site: left forearm; bb 05:19 Follow up: Response: No adverse reaction bb 05:18 Drug: Phenergan (promethazine) 12.5 mg Route: IVP; Site: left forearm; bb 05:50 Follow up: Response: No adverse reaction bb 05:18 Drug: Rocephin (cefTRIAXone) 1 grams Route: IV; Rate: calculated rate; Site: left bb forearm; 05:23 Follow up: IV Status: Completed infusion; IV Intake: 10ml bb Disposition Summary: 10/15/20 05:16 Discharge Ordered Location: Home pkl Problem: new pkl Symptoms: have improved pkl Condition: Stable pkl Diagnosis - Acute febfile illness. Urinary tract infection pkl Followup: pkl - With: Private Physician - When: 2 - 3 days - Reason: Re-evaluation by your physician Discharge Instructions: - Discharge Summary Sheet pkl Forms: - Medication Reconciliation Form pkl - Thank You Letter pkl - Antibiotic Education pkl - Prescription Opioid Use pkl Prescriptions: - Zofran 4 mg Oral Tablet - take 1 tablet by ORAL route every 12 hours As needed; 10 tablet; Refills: 0, pkl Product Selection Permitted - Cipro 500 mg Oral Tablet - take 1 tablet by ORAL route every 12 hours for 7 days; 14 tablet; Refills: 0, pkl Product Selection Permitted Signatures: Dispatcher [employer] EDTrace Leal MD MD pkl Jordyn Rubio RN RN bb [place] Jackson, CONCESSION STAND ATTENDANT-C CONCESSION STAND ATTENDANT-Cla1 Corrections: (The following items were deleted from the chart) 02:17 01:33 CORONAVIRUS+MR.LAB.BRZ ordered. EDMS EDMS 03:18 03:04 Chest For PE Angio+CT.RAD.BRZ ordered. EDMS EDMS
[2020-10-15] MEDS ORDERED: PROMETHAZINE INJ 25 MG/ML AMP ONE (05:33)
[2020-10-15] MEDS ORDERED: CEFTRIAXONE/SWI 1gm 1 GM/10 ML SYR ONE (05:34)
[2020-10-15 06:03] VITALS: O2SAT 93
[2020-10-15 06:04] VITALS: BP 116/65; TEMP 98
--- NOTE | 2020-10-15 08:13 | RAD REPORT ---
EXAM DESCRIPTION: RAD - Chest Single View - 10/15/2020 2:22 am CLINICAL HISTORY: FEVER COMPARISON: Chest Single View dated 09/19/2020; Chest Single View dated 07/17/2020; Chest Single View d ated 05/26/2019; Chest Single View dated 02/21/2019 FINDINGS: Mild left basilar airspace disease. Cardiomegaly.No acute osseous abnormality. Difficult t o exclude a small left effusion. IMPRESSION: Mild left basilar airspace disease could reflect atelectasis and/or pneumonia.
--- NOTE | 2020-10-15 21:22 | RAD REPORT ---
EXAM DESCRIPTION: CT - Chest For Pe Angio - 10/15/2020 6:52 am CLINICAL HISTORY: FEVER COMPARISON: None Available. TECHNIQUE: CTA of the chest obtained following the uncomplicated intravenous administration of iodin ated contrast. 3-D/MIP reformatted images of the chest available for evaluation. This exam was perfor med according to our departmental dose-optimization program, which includes automated exposure contro l, adjustment of the mA and/or kV according to patient size and/or use of iterative reconstruction te chnique. FINDINGS: Chest: Pulmonary arteries: Contrast bolus is suboptimal.No filling defects identified in the pulmonary arter ies to suggest pulmonary embolus. Suboptimal evaluation of the segmental and subsegmental pulmonary a rterial branches due to contrast bolus timing and motion artifact. Thyroid: No abnormalities of the visualized thyroid. Great Vessels: Great vessels have normal anatomic configuration. Thoracic Aorta: No abnormalities of the thoracic aorta identified. Heart: No cardiomegaly, significant pericardial effusion, or coronary artery atherosclerosis Lymph Nodes: No enlarged mediastinal lymph nodes identified. Esophagus: No abnormalities of the esophagus identified. Other: No additional findings. Lungs: No airspace opacities identified. Respiratory motion artifact. Pleura: No pleural effusion or pneumothorax. Trachea/Airways: No abnormalities of the visualized trachea or airways. Bones: Degenerative change of the spine. Upper Abdomen: Limited images of the upper abdomen demonstrate no definite abnormalities of visualize d portions of the liver and spleen. IMPRESSION: 1. No central pulmonary embolus. No acute pulmonary process. Electronically signed by: Todd Tabor 10/15/2020 5:07 AM CDT Due to temporary technical issues with the PACS/Fluency reporting system, reports are being signed by the in house radiologists without review as a courtesy to insure prompt reporting. The interpreting radiologist is fully responsible for the content of the report.
== END 2020-10-15 05:51 | disposition home or self-care (01) ==
LOC: ER 00:38
DX: N39.0 Urinary tract infection, site not specified (principal); Z20.822 Contact with and (suspected) exposure to COVID-19
CPT/HCPCS: 96361; 87070; 87088; 85025; 87086; 80048; 36415; 85379; 87081; 83605; 87077; 87186; 86140; 71275; 71045; 96375; 96374; 99284; U0003; Q9967; J2550; J0696; J7040; J2405; 81003; 81015

== ENCOUNTER 2022-05-07 16:41 | Emergency (ER) | payer OTHER ==
--- OUTSIDE RECORDS SUMMARY | 2022-05-07 16:46 | XMS REPORT | Continuity of Care Document ---
:1955 Author Organization [facility] t Address [address] [facility] [address] [place] [id number] Care Team Providers Name Role Phone [email or web address] Attending Clinician Unavailable Patricia Chen Attending Clinician [phone] [email or web address] Admitting Clinician Unavailable Payers Payer Name Policy Type Policy Number Effective Date Expiration Date S shandra MEDICARE B-[place]: [id number] 2020 [employer] 00:00:00 Problems This patient has no known problems. Allergies, Adverse Reactions, Alerts This patient has no known allergies or adverse reactions. Social History Smoking Status Start Date Stop Date Source Never Smoker [facility] Medications Ordered Filled Start Stop Current Ordering Indication Dosage Frequency Signature Comments Components Source Medication Medication Date Date Medication? Clinician (SIG) Name Name ceftriaxone ceftriaxone 2020-03 No ceftriaxon Dispatc 250 mg 250 mg 1-13 e 250 mg h solution solution 10:31: solution [facility] for for 33 for [id number] injection1 00 mg IM 00 mg IM 000 mg IM administere administere administer d on scene. d on scene. ed on Time Time scene. administere administere Time d: 1010am d: 1010am administer ed: 1010am ceftriaxone ceftriaxone 2020-03 No ceftriaxon Dispatc 250 mg 250 mg 1-13 e 250 mg h solution solution 10:31: solution H ealth for for 33 for [id number] injection1 00 mg IM 00 mg IM 000 mg IM administere administere administer d on scene. d on scene. ed on Time Time scene. administere administere Time d: 1010am d: 1010am administer ed: 1010am ceftriaxone ceftriaxone 2020-03 No ceftriaxon Dispatc 250 mg 250 mg 1-10 e 250 mg h solution solution 21:36: solution H e[facility] for for 07 for [id number] injection2 0 mg IM 0 mg IM 50 mg IM administere administere administer d on scene. d on scene. ed on Time Time scene. administere administere Time d:9:20pm d:9:20pm administer ed:9:20pm ceftriaxone ceftriaxone 2020-03 No ceftriaxon Dispatc 250 mg 250 mg 1-10 e 250 mg h solution solution 21:36: [facility] for [id number] injection1 00 mg IM 00 mg IM 000 mg IM administere administere administer d on scene. d on scene. ed on Time Time scene. administere administere Time d:9:20pm d:9:20pm administer ed:9:20pm furosemide furosemide 2020-03 No furosemide Dispatc 10 mg/mL 10 mg/mL 1-10 10 mg/mL h injection injection 20:44: injection Health 12 [id number] mg IV mg IV mg IV administere administere administer d on scene. d on scene. ed on Time Time scene. administere administere Time d:835pm d:835pm administer ed:835pm furosemide furosemide 2020-03 No furosemide Dispatc 10 mg/mL 10 mg/mL 1-10 10 mg/mL h injection injection 20:44: injection Health [id number] 12 [id number] mg IV mg IV mg IV administere administere administer d on scene. d on scene. ed on Time Time scene. administere administere Time d:835pm d:835pm administer ed:835pm ceftriaxone ceftriaxone No ceftriaxon Dispatc 250 mg 250 mg e 250 mg h solution solution solution [facility] for for for injection injection injection 250 mg IM 250 mg IM 250 mg IM administere administere administer d on scene. d on scene. ed on Time Time scene. administere administere Time d:9:20pm d:9:20pm administer ed:9:20pm furosemide furosemide No furosemide Dispatc 10 mg/mL 10 mg/mL 10 mg/mL h injection injection injection Health solution 20 solution 20 solution mg IV mg IV 20 mg IV administere administere administer d on scene. d on scene. ed on Time Time scene. administere administere Time d:835pm d:835pm administer ed:835pm gabapentin gabapentin No gabapentin Dispatc h Health hydrocodone hydrocodone No 1 Q6H hydrocodon Dispatc 10 10 e 10 h mg-acetamin mg-acetamin mg-acetami Health ophen 300 ophen 300 nophen 300 mg tablet mg tablet mg tablet Take 1 Take 1 Take 1 tablet tablet tablet every 6 every 6 every 6 hours by hours by hours by oral route. oral route. oral route. trazodone trazodone No trazodone Dispatc h Health ceftriaxone ceftriaxone No ceftriaxon Dispatc 250 mg 250 mg e 250 mg h solution solution solution [facility] for for for injection injection injection 1000 mg IM 1000 mg IM 1000 mg IM administere administere administer d on scene. d on scene. ed on Time Time scene. administere administere Time d:9:20pm d:9:20pm administer ed:9:20pm furosemide furosemide No furosemide Dispatc 10 mg/mL 10 mg/mL 10 mg/mL h injection injection injection Health solution 20 solution 20 solution mg IV mg IV 20 mg IV administere administere administer d on scene. d on scene. ed on Time Time scene. administere administere Time d:835pm d:835pm administer ed:835pm gabapentin gabapentin No gabapentin Dispatc h Health hydrocodone hydrocodone No 1 Q6H hydrocodon Dispatc 10 10 e 10 h mg-acetamin mg-acetamin mg-acetami Health ophen 300 ophen 300 nophen 300 mg tablet mg tablet mg tablet Take 1 Take 1 Take 1 tablet tablet tablet every 6 every 6 every 6 hours by hours by hours by oral route. oral route. oral route. trazodone trazodone No trazodone Dispatc h Health ceftriaxone ceftriaxone No ceftriaxon Dispatc 250 mg 250 mg e 250 mg h solution solution solution [facility] for for for injection injection injection 1000 mg IM 1000 mg IM 1000 mg IM administere administere administer d on scene. d on scene. ed on Time Time scene. administere administere Time d: 1010am d: 1010am administer ed: 1010am furosemide furosemide No furosemide Dispatc 10 mg/mL 10 mg/mL 10 mg/mL h injection injection injection Health solution 20 solution 20 solution mg IV mg IV 20 mg IV administere administere administer d on scene. d on scene. ed on Time Time scene. administere administere Time d:835pm d:835pm administer ed:835pm furosemide furosemide No 1 Q1D furosemide Dispatc 40 mg 40 mg 40 mg h tablet Take tablet Take tablet Health 1 tablet 1 tablet Take 1 every day every day tablet by oral by oral every day route as route as by oral needed for needed for route as 30 days. 30 days. needed for 30 days. gabapentin gabapentin No gabapentin Dispatc h Health hydrocodone hydrocodone No 1 Q6H hydrocodon Dispatc 10 10 e 10 h mg-acetamin mg-acetamin mg-acetami Health ophen 300 ophen 300 nophen 300 mg tablet mg tablet mg tablet Take 1 Take 1 Take 1 tablet tablet tablet every 6 every 6 every 6 hours by hours by hours by oral route. oral route. oral route. trazodone trazodone No trazodone Dispatc h Health ceftriaxone ceftriaxone No ceftriaxon Dispatc 250 mg 250 mg e 250 mg h solution solution solution [facility] for for for injection injection injection 1000 mg IM 1000 mg IM 1000 mg IM administere administere administer d on scene. d on scene. ed on Time Time scene. administere administere Time d: 1010am d: 1010am administer ed: 1010am furosemide furosemide No furosemide Dispatc 10 mg/mL 10 mg/mL 10 mg/mL h injection injection injection Health solution 20 solution 20 solution mg IV mg IV 20 mg IV administere administere administer d on scene. d on scene. ed on Time Time scene. administere administere Time d:835pm d:835pm administer ed:835pm furosemide furosemide No 1 Q1D furosemide Dispatc 40 mg 40 mg 40 mg h tablet Take tablet Take tablet Health 1 tablet 1 tablet Take 1 every day every day tablet by oral by oral every day route as route as by oral needed for needed for route as 30 days. 30 days. needed for 30 days. gabapentin gabapentin No gabapentin Dispatc h Health hydrocodone hydrocodone No 1 Q6H hydrocodon Dispatc 10 10 e 10 h mg-acetamin mg-acetamin mg-acetami Health ophen 300 ophen 300 nophen 300 mg tablet mg tablet mg tablet Take 1 Take 1 Take 1 tablet tablet tablet every 6 every 6 every 6 hours by hours by hours by oral route. oral route. oral route. potassium potassium No 1 Q1D potassium Dispatc chloride ER chloride ER chloride h 10 mEq 10 mEq ER 10 mEq Health tablet,exte tablet,exte tablet,ext nded nded ended release release release Take 1 Take 1 Take 1 tablet tablet tablet every day every day every day by oral by oral by oral route at route at route at dinner. dinner. dinner. Take this Take this Take this at night on at night on at night the days the days on the you take you take days you furosemide furosemide take (water (water furosemide pill). Eat pill). Eat (water a banana a banana pill). Eat most days. most days. a banana most days. [facility]one [facility] Vital Name Observation Time Observation Value Comments Source BP Diastolic 2021-01-21 00:00:00 76 mm[Hg] [facility] BP Systolic 2021-01-21 00:00:00 128 mm[Hg] [facility] BP Diastolic 2021-01-18 00:00:00 70 mm[Hg] [facility] BP Systolic 2021-01-18 00:00:00 128 mm[Hg] [facility] Procedures Procedure Date / Time Performed Performing Clinician [facility] e CT, angiogram, chest, w/ 2021-01-18 00:00:00 [facility] Planned Activity Planned Date Details Comments Source Diagnostic Test Pending 2021-01-18 lactate, venous D ispatch [facility] 00:00:00 plasma [code = lactate, venous plasma] Diagnostic Test Pending 2021-01-18 urinalysis, [facility] 00:00:00 dipstick [code = urinalysis, dipstick] Diagnostic Test Pending 2021-01-18 BMP + ionized [facility] 00:00:00 calcium, serum or plasma [code = BMP + ionized calcium, serum or plasma] Diagnostic Test Pending 2021-01-18 culture, urine Di [facility] 00:00:00 [code = culture, urine] [facility] En[facility]ters Start End Encounter Admission Attending Care Care Encounter Source Date/Time Date/Time Type Type Clinicians Facility Department ID 2021-06-02 2021-06-02 Outpatient [id number] DISP DISP [id number] Dispatc 05:33:00 05:33:[address] [facility] 2021-04-28 2021-04-28 Outpatient [id number] DISP DISP [id number] Dispatc 05:14:00 05:14:00 3 [id number] h Health 2021-03-24 2021-03-24 Outpatient [id number] DISP DISP [id number] Dispatc 01:55:00 01:55:00 3 [id number] h Health 2021-02-17 2021-02-17 Outpatient [id number] DISP DISP [id number] Dispatc 03:23:00 03:23:00 3 [id number] h Health 2021-01-23 2021-01-23 Outpatient [id number] DISP DISP [id number] Dispatc 06:53:00 06:53:00 3 [id number] h Health 2021-01-21 2021-01-21 Outpatient [id number] DISP DISP [id number] Dispatc 01:57:00 01:57:00 3 [id number] h Health 2021-01-21 2021-01-21 Outpatient Gustavo DISP DISP [id number] 00:00:00 00:00:00 Patricia [id number] 2021-01-21 2021-01-21 Patricia DISP CO - [id number] Dispatc 00:00:00 00:00:00 Gustavo [facility] [address], [address], [place] [address] , Ph. [phone] 2021-01-21 2021-01-21 Outpatient Gustavo DISP DISP [id number] 00:00:00 00:00:00 Patricia [id number] 2021-01-19 2021-01-19 Outpatient [id number] DISP DISP [id number] Dispatc 12:15:00 12:15:00 3 [id number] h Health 2021-01-18 2021-01-18 Outpatient [id number] DISP DISP [id number] Dispatc 11:51:00 11:51:00 3 [id number] h Health 2021-01-18 2021-01-18 Outpatient Gustavo DISP DISP [id number] 00:00:00 00:00:00 Patricia [id number] 2021-01-18 2021-01-18 Patricia CURTIS CO - [id number] Dispatc 00:00:00 00:00:00 JEF Chen: [facility] [address], [address], [place] [address] , Ph. 2021-01-18 2021-01-18 Outpatient CURTIS Chen DISP [id number] 00:00:00 00:00:00 Patricia [id number] Results Test Description Test Time Test Comments Results Result Comments Source Urinalysis macro (dipstick) panel - Urine 2021-01-18 21:04:3 3 Test Item Value Reference Range Interpretation Comme nts Appearance (test code = Appearance) cloudy Color (test code = Color) yellow Glucose (ref: neg) (test code = Glucose Neg (ref: neg)) Bilirubin (ref: neg) (test code = Neg Bilirubin (ref: neg)) Ketones (ref: neg) (test code = Ketones ? (ref: neg)) Specific [place] (ref: 1.003 - 1.035) 1.010 (test code = Specific [place] (ref: 1.003 - 1.035)) Blood (ref: neg) (test code = Blood (ref: Neg neg)) pH (ref: 5-7) (test code = pH (ref: 5-7)) 5.0 Protein (ref: neg) (test code = Protein Neg (ref: neg)) Urobilinogen (ref: 0.2) (test code = 0.2 Urobilinogen (ref: 0.2)) Nitrites (ref: neg) (test code = Nitrites positive (ref: neg)) Leukocytes (ref: neg) (test code = ++ Leukocytes (ref: neg)) Location (test code = Location) [facility], [id number] [place] [address] [address], [place] [address], [id number] [facility]) panel - [id number] 21:04:33 Test Item Value Reference Range Interpretation Comments Appearance (test code = cloudy Appearance) Color (test code = Color) yellow Glucose (ref: neg) (test Neg code = Glucose (ref: neg)) Bilirubin (ref: neg) Neg (test code = Bilirubin (ref: neg)) Ketones (ref: neg) (test ? code = Ketones (ref: neg)) Specific [place] (ref: 1.010 1.003 - 1.035) (test code = Specific [place] (ref: 1.003 - 1.035)) Blood (ref: neg) (test Neg code = Blood (ref: neg)) pH (ref: 5-7) (test code 5.0 = pH (ref: 5-7)) Protein (ref: neg) (test Neg code = Protein (ref: neg)) Urobilinogen (ref: 0.2) 0.2 (test code = Urobilinogen (ref: 0.2)) Nitrites (ref: neg) (test positive code = Nitrites (ref: neg)) Leukocytes (ref: neg) ++ (test code = Leukocytes (ref: neg)) Location (test code = AUS, Location) [facility], [address] [address], [place] [address], [id number] [facility] panel - [id number] 21:04:33 Test Item Value Reference Range Interpretation Comments Appearance (test code = cloudy Appearance) Color (test code = Color) yellow Glucose (ref: neg) (test Neg code = Glucose (ref: neg)) Bilirubin (ref: neg) Neg (test code = Bilirubin (ref: neg)) Ketones (ref: neg) (test ? code = Ketones (ref: neg)) Specific [place] (ref: 1.010 1.003 - 1.035) (test code = Specific [place] (ref: 1.003 - 1.035)) Blood (ref: neg) (test Neg code = Blood (ref: neg)) pH (ref: 5-7) (test code 5.0 = pH (ref: 5-7)) Protein (ref: neg) (test Neg code = Protein (ref: neg)) Urobilinogen (ref: 0.2) 0.2 (test code = Urobilinogen (ref: 0.2)) Nitrites (ref: neg) (test positive code = Nitrites (ref: neg)) Leukocytes (ref: neg) ++ (test code = Leukocytes (ref: neg)) Location (test code = AUS, Location) [facility], [address], [place] [address], [id number] [facility] (dipstick) panel - [id number] 21:04:33 Test Item Value Reference Range Interpretation Comments Appearance (test code = cloudy Appearance) Color (test code = Color) yellow Glucose (ref: neg) (test Neg code = Glucose (ref: neg)) Bilirubin (ref: neg) Neg (test code = Bilirubin (ref: neg)) Ketones (ref: neg) (test ? code = Ketones (ref: neg)) Specific [place] (ref: 1.010 1.003 - 1.035) (test code = Specific [place] (ref: 1.003 - 1.035)) Blood (ref: neg) (test Neg code = Blood (ref: neg)) pH (ref: 5-7) (test code 5.0 = pH (ref: 5-7)) Protein (ref: neg) (test Neg code = Protein (ref: neg)) Urobilinogen (ref: 0.2) 0.2 (test code = Urobilinogen (ref: 0.2)) Nitrites (ref: neg) (test positive code = Nitrites (ref: neg)) Leukocytes (ref: neg) ++ (test code = Leukocytes (ref: neg)) Location (test code = AUS, Location) [facility], [address] [address], [place] [address], [id number] [facility]
[2022-05-07 17:52] LABS: SARS-COV-2 RT PCR NEGATIVE (NEGATIVE)
--- NOTE | 2022-05-07 18:47 | RAD REPORT ---
[facility] CLINICAL HISTORY: COUGH COMPARISON: Chest Single View dated 10/15/2020; Chest Single View dated 09/19/2020; Chest Single View d ated 07/17/2020; Chest Single View dated 05/26/2019 TECHNIQUE: Portable AP view of the chest. FINDINGS: Persistent patchy left basilar opacities since 2020, could reflect atelectasis or scarring . Persistent elevation of the left hemidiaphragm. Stable diffuse interstitial thickening. No pneumoth orax or effusion. The cardiomediastinal contours are unremarkable. IMPRESSION: No new focal consolidation. Stable findings as above.
--- NOTE | 2022-05-07 18:53 | ER ---
Nurse's Notes [facility] Name: Grace Case Age: 66 yrs Sex: Female : 1955 Arrival Date: 05/07/2022 Time: 16:45 Bed IW1 Private MD: Diagnosis: Acute upper respiratory infection, unspecified Presentation: 05/07 16:48 Chief complaint: Patient states: Patient reports 2 days of cough, sore throat and sg5 worried about having COVID. Chief complaint:. Coronavirus screen: Vaccine status: Patient reports receiving the 1st dose of the Covid vaccine. Client denies travel out of the [place] in the last 14 days. Ebola Screen: No symptoms or risks identified at this time. Initial Sepsis Screen: Does the patient meet any 2 criteria? No. Patient's initial sepsis screen is negative. Does the patient have a suspected source of infection? No. Patient's initial sepsis screen is negative. Risk Assessment: Do you want to hurt yourself or someone else? Patient reports no desire to harm self or others. Onset of symptoms was May 05, 2022. 16:48 Method Of Arrival: Ambulatory sg5 16:48 Acuity: E[place] 4 sg5 Triage Assessment: 16:56 General: Appears comfortable, Behavior is calm, cooperative, appropriate for age. Pain: sg5 Complains of pain in sore throat Pain currently is 2 out of 10 on a pain scale. Cardiovascular: No deficits noted. Respiratory: No deficits noted. Historical: - Allergies: 16:56 No Known Allergies; sg5 - PMHx: 16:56 cellulits; lymphedema; UTI; sg5 - PSHx: 16:56 Gastric Bypass; sg5 - Immunization history:: Adult Immunizations up to date, Client reports receiving the 1st dose of the Covid vaccine, Last tetanus immunization: unknown, Flu vaccine is not up to date. - Social history:: Smoking status: Patient denies any tobacco usage or history of. Screenin:04 [facility] ED Fall Risk Assessment (Adult) History of falling in the last 3 months, sg5 including since admission. Abuse screen: Denies threats or abuse. Nutritional screening: No deficits noted. Tuberculosis screening: No symptoms or risk factors identified. Assessment: 19:04 Reassessment: No changes from previously documented assessment. Patient and/or family sg5 updated on plan of care and expected duration. Pain level reassessed. Patient is alert, oriented x 3, equal unlabored respirations, skin warm/dry/pink. Vital Signs: 16:48 BP 126 / 62; Pulse 103; Resp 20; Temp 98.4; Pulse Ox 97% ; Weight 118.39 kg; Height 5 sg5 ft. 5 in. (165.10 cm); Pain 2/10; 16:48 Body Mass Index 43.43 (118.39 kg, 165.10 cm) sg5 ED Course: 16:45 Patient arrived in ED. am2 16:46 [facility] Flores [facility] 7 16:46 Mitesh Yen DO is Attending Physician. 7 16:56 Triage completed. sg5 16:56 Arm band placed on left wrist. sg5 18:41 XRAY Chest (1 view) In Process Unspecified. EDMS 19:04 Patient has correct armband on for positive identification. Adult w/ patient. sg5 19:04 No provider procedures requiring assistance completed. Patient did not have IV access sg5 during this emergency room visit. Administered Medications: No medications were administered Medication: 19:04 VIS not applicable for this client. sg5 Outcome: 18:52 Discharge ordered by . [facility] 19:04 Discharged to home ambulatory. sg5 19:04 Condition: good 19:04 Discharge instructions given to patient, Instructed on discharge instructions, follow up and referral plans. 19:05 Patient left the ED. sg5 Signatures: Dispatcher [employer] EDPR Dionisio Marjorie 2 Margarita Flores FNP SOFTWARE SUPPORT ENGINEER [facility] Miya Duvall RN RN sg5
--- NOTE | 2022-05-07 18:53 | EDPHYS ---
Physician Documentation [facility] Name: Grace Case Age: 66 yrs Sex: Female : 1955 Arrival Date: 05/07/2022 Time: 16:45 Bed IW1 Private MD: ED Physician Mitesh Yen HPI: 05/07 17:00 This 66 yrs old Female presents to ER via Ambulatory with complaints of Cough, r/o jh7 covid. 17:00 The patient or guardian reports cough, runny nose, sore throat. Onset: The jh7 symptoms/episode began/occurred 2 day(s) ago. Associated signs and symptoms: Pertinent positives: rhinorrhea, sore throat, Pertinent negatives: chest pain, diarrhea, fever. Patient reports that she was hospitalized with COVID in November 2020 and wants to ensure that she does not have COVID again. Reports intermittent cough, sore throat, and runny nose for the past 2 days. Denies fever.. Historical: - Allergies: 16:56 No Known Allergies; sg5 - PMHx: 16:56 cellulits; lymphedema; UTI; sg5 - PSHx: 16:56 Gastric Bypass; sg5 - Immunization history:: Adult Immunizations up to date, Client reports receiving the 1st dose of the Covid vaccine, Last tetanus immunization: unknown, Flu vaccine is not up to date. - Social history:: Smoking status: Patient denies any tobacco usage or history of. ROS: 17:00 Constitutional: Negative for fever, chills, and weight loss, Eyes: Negative for injury, jh7 pain, redness, and discharge, Neck: Negative for injury, pain, and swelling, Cardiovascular: Negative for chest pain, palpitations, and edema, Abdomen/GI: Negative for abdominal pain, nausea, vomiting, diarrhea, and constipation, Back: Negative for injury and pain, MS/Extremity: Negative for injury and deformity, Skin: Negative for injury, rash, and discoloration, Neuro: Negative for headache, weakness, numbness, tingling, and seizure. 17:00 ENT: Positive for nasal discharge, sore throat. 17:00 Respiratory: Positive for cough, Negative for shortness of breath, wheezing. 17:00 All other systems are negative. Exam: 17:00 Constitutional: This is a well developed, well nourished patient who is awake, alert, jh7 and in no acute distress. Head/Face: Normocephalic, atraumatic. Eyes: Pupils equal round and reactive to light, extra-ocular motions intact. Lids and lashes normal. Conjunctiva and sclera are non-icteric and not injected. Cornea within normal limits. Periorbital areas with no swelling, redness, or edema. Neck: Trachea midline, no thyromegaly or masses palpated, and no cervical lymphadenopathy. Supple, full range of motion without nuchal rigidity, or vertebral point tenderness. No Meningismus. Cardiovascular: Regular rate and rhythm with a normal S1 and S2. No gallops, murmurs, or rubs. Normal PMI, no JVD. No pulse deficits. Abdomen/GI: Soft, non-tender, with normal bowel sounds. No distension or tympany. No guarding or rebound. No evidence of tenderness throughout. Back: No spinal tenderness. No costovertebral tenderness. Full range of motion. Skin: Warm, dry with normal turgor. Normal color with no rashes, no lesions, and no evidence of cellulitis. MS/ Extremity: Pulses equal, no cyanosis. Neurovascular intact. Full, normal range of motion. Neuro: Awake and alert, GCS 15, oriented to person, place, time, and situation. Motor strength 5/5 in all extremities. Sensory grossly intact. Normal gait. 17:00 ENT: Nose: nasal drainage, and is seen coming from both nares, that is clear, Posterior pharynx: post nasal drainage. 17:00 Respiratory: the patient does not display signs of respiratory distress, Respirations: normal, Breath sounds: are clear throughout, Respiratory rate: 18 Vital Signs: 16:48 BP 126 / 62; Pulse 103; Resp 20; Temp 98.4; Pulse Ox 97% ; Weight 118.39 kg; Height 5 sg5 ft. 5 in. (165.10 cm); Pain 2/10; 16:48 Body Mass Index 43.43 (118.39 kg, 165.10 cm) sg5 MDM: 16:46 Patient medically screened. [facility] 18:55 Differential Diagnosis: Bronchitis Influenza Upper Respiratory Infection Viral Syndrome 7 Pneumonia Other COVID. Data reviewed: vital signs, nurses notes, radiologic studies, plain films. Independent interpretation of the following test(s) in the Emergency Department X-Ray: My interpretation is No acute findings. Counseling: I had a detailed discussion with the patient and/or guardian regarding: the historical points, exam findings, and any diagnostic results supporting the discharge/admit diagnosis, to return to the emergency department if symptoms worsen or persist or if there are any questions or concerns that arise at home. 05/07 16:52 Order name: XRAY Chest (1 view); Complete Time: 18:51 [facility] 05/07 17:52 Order name: COVID-19/FLU A+B EDMS Administered Medications: No medications were administered Disposition: 19:43 Co-signature as Attending Physician, Mitesh Yen DO I was immediately available on-site ms3 in the Emergency Department for consultation in the care of the patient. Disposition Summary: 05/07/22 18:52 Discharge Ordered Location: Home [facility] Problem: new [facility] Symptoms: are unchanged [facility] Condition: Stable [facility] Diagnosis - Acute upper respiratory infection, unspecified [facility] Followup: [facility] - With: Private Physician - When: 2 - 3 days - Reason: Recheck today's complaints Discharge Instructions: - Discharge Summary Sheet [facility] - Upper Respiratory Infection, Adult [facility] - Viral Respiratory Infection [facility] Forms: - Medication Reconciliation Form [facility] - Thank You Letter [facility] Prescriptions: - Bromfed DM 2-30-10 mg/5 mL Oral syrup - take 10 milliliter by ORAL route every 4-6 hours As needed; 240 milliliter; [facility] Refills: 0, Product Selection Permitted Signatures: Dispatcher [employer] EDMitesh Fenton DO DO ms3 Margarita Flores, INVESTIGATIVE AGENT INVESTIGATIVE AGENT 7 Miya Duvall, RN RN sg5 Corrections: (The following items were deleted from the chart) 17:03 16:52 COVID-19/FLU A+B+MOL.LAB.BRZ ordered. EDMS EDMS
[2022-05-07 19:13] VITALS: BP 126/62; TEMP 98.4; O2SAT 97
== END 2022-05-07 19:05 | disposition home or self-care (01) ==
LOC: ER 16:41
DX: J06.9 Acute upper respiratory infection, unspecified (principal); Z20.822 Contact with and (suspected) exposure to COVID-19
CPT/HCPCS: 0240U; 71045

== ENCOUNTER 2022-07-04 10:16 | Emergency (ER) | payer OTHER ==
--- OUTSIDE RECORDS SUMMARY | 2022-07-04 10:20 | XMS REPORT | Continuity of Care Document ---
:1955 Author Organization [facility] t Address [address] [place] [id number] Care Team Providers Name Role Phone [id number] Attending Clinician Unavailable Patricia Chen Attending Clinician [phone] Admitting Clinician Unavailable Payers Payer Name Policy Type Policy Number Effective Date Expiration Date S ource MEDICARE B-[place]: [id number] 2020 SMR SITE 00:00:00 Problems This patient has no known [...] solution H ealth for for 33 for [id number] oclafwsku63 injection1 00 mg IM 00 mg IM 000 mg IM administere administere administer d on scene. d on scene. ed on Time Time scene. administere administere Time d: 1010am d: 1010am administer ed: 1010am ceftriaxone ceftriaxone 2020-03 No ceftriaxon Dispatc 250 mg 250 mg 1-13 e 250 mg h solution solution 10:31: solution H ealth for for 33 for wwjlvksuy75 ilibsnuav63 injection1 00 mg IM 00 mg IM 000 mg IM administere administere administer d on scene. d on scene. ed on Time Time scene. administere administere Time d: 1010am d: 1010am administer ed: 1010am ceftriaxone ceftriaxone 2020-03 No ceftriaxon Dispatc 250 mg 250 mg 1-10 e 250 mg h solution solution 21:36: solution H ealth for for 07 for [id number] injection2 0 mg IM 0 mg IM 50 mg IM administere administere administer d on scene. d on scene. ed on Time Time scene. administere administere Time d:9:20pm d:9:20pm administer ed:9:20pm ceftriaxone ceftriaxone 2020-03 No ceftriaxon Dispatc 250 mg 250 mg 1-10 e 250 mg h solution solution 21:36: solution H ealt for for 07 for vecjjzxzp31 cekkqqoqi01 injection1 00 mg IM 00 mg IM 000 mg IM administere administere administer d on scene. d on scene. ed on Time Time scene. administere administere Time d:9:20pm d:9:20pm administer ed:9:20pm furosemide furosemide 2020-03 No furosemide Dispatc 10 mg/mL 10 mg/mL 1-10 10 mg/mL h injection injection 20:44: injection Health gncheuwk25 12 ifxjwbss27 mg IV mg IV mg IV administere administere administer d on scene. d on scene. ed on Time Time scene. administere administere Time d:835pm d:835pm administer ed:835pm furosemide furosemide 2020-03 No furosemide Dispatc 10 mg/mL 10 mg/mL 1-10 10 mg/mL h injection injection 20:44: injection Health eyobclbr89 12 uculxzod63 mg IV mg IV mg IV administere administere administer d on scene. d on scene. ed on Time Time scene. administere administere Time d:835pm d:835pm administer ed:835pm ceftriaxone ceftriaxone No ceftriaxon Dispatc 250 mg 250 mg e 250 mg h solution solution solution [facility] for for for injection injection injection 250 [...] e 250 mg h solution solution solution [facility] for for for injection injection injection 1000 [...] e 250 mg h solution solution solution [facility] for for for injection injection injection 1000 [...] e 250 mg h solution solution solution Hea [facility] for for for injection injection injection [...] banana most days. trazodone [facility] Vital Name Observation Time Observation Value Comments Source BP Diastolic 2021-01-21 00:00:00 76 mm[Hg] [facility] BP Systolic 2021-01-21 00:00:00 128 mm[Hg] [facility] BP Diastolic 2021-01-18 00:00:00 70 mm[Hg] [facility] BP Systolic 2021-01-18 00:00:00 128 mm[Hg] [facility] Procedures Procedure Date / Time Performed Performing Clinician [facility] e [facility], angiogram, chest, w/ 2021-01-18 00:00:00 [facility] Planned Activity Planned Date Details Comments Source Diagnostic Test Pending 2021-01-18 lactate, venous D [facility] 00:00:00 plasma [code = lactate, venous plasma] Diagnostic Test Pending 2021-01-18 urinalysis, Disp [facility] 00:00:00 dipstick [code = urinalysis, dipstick] Diagnostic Test Pending 2021-01-18 BMP + ionized [facility] 00:00:00 calcium, serum or plasma [code = BMP + ionized calcium, serum or plasma] Diagnostic Test Pending 2021-01-18 culture, urine Di [facility] 00:00:00 [code = culture, urine] [facility] En[facility]ters Start End Encounter Admission Attending Care Care Encounter Source Date/Time Date/Time Type Type Clinicians Facility Department ID 2021-06-02 2021-06-02 Outpatient [id number] DISP DISP [id number] Dispatc 05:33:00 05:33:00 3 h [facility] 2021-04-28 2021-04-28 Outpatient [id number] DISP DISP [id number] Dispatc 05:14:00 05:14:00 3 [id number] h [facility] 2021-03-24 2021-03-24 Outpatient [id number] DISP DISP [id number] Dispatc 01:55:00 01:55:00 3 [id number] h Health 2021-02-17 2021-02-17 Outpatient [id number] DISP DISP [id number] Dispatc 03:23:00 03:23:00 3 [id number] h Health 2021-01-23 2021-01-23 Outpatient [id number] DISP DISP [id number] Dispatc 06:53:00 06:53:00 3 [id number] h Health 2021-01-21 2021-01-21 Outpatient [id number] DISP DISP [id number] Dispatc 01:57:00 01:57:00 3 [id number] h Health 2021-01-21 2021-01-21 Outpatient Gustavo DISP DISP [id number] 00:00:00 00:00:00 Patricia [id number] 2021-01-21 2021-01-21 Patricia [place] - [id number] Dispatc 00:00:00 00:00:00 JEF [facility] [address] [facility], [address], [place] [address] , Ph. [phone] 2021-01-21 2021-01-21 Outpatient FLORESITA Chen DISP [id number] 00:00:00 00:00:00 Patricia [id number] 2021-01-19 2021-01-19 Outpatient [id number] DISP DISP [id number] Dispatc 12:15:00 12:15:00 3 [id number] h Health 2021-01-18 2021-01-18 Outpatient [id number] DISP DISP [id number] Dispatc 11:51:00 11:51:00 3 [id number] h Health 2021-01-18 2021-01-18 Outpatient Gustavo DISP DISP [id number] 00:00:00 00:00:00 Patricia [id number] 2021-01-18 2021-01-18 Patricia [place] - [id number] Dispatc 00:00:00 00:00:00 JEF Chen: [facility] [address] [facility] - Replaced by [facility], [address], [place] [address] , Ph. 2021-01-18 2021-01-18 Outpatient Gustavo, FLORESITA DISP [id number] 00:00:00 00:00:00 Patricia [id number] Results Test Description Test Time [...] code = Ketones ? (ref: neg)) Specific [place] (ref: 1.003 - 1.035) 1.010 (test code = Specific [place] (ref: 1.003 - 1.035)) Blood (ref: neg) [...] (ref: neg)) Location (test code = Location) [facility], [address] [facility] [address], [place] [address], [id number] [facility] HealthUrinalysis macro (dipstick) panel - [id number] 21:04:33 Test Item Value Reference Range Interpretation Comments Appearance (test code = cloudy Appearance) Color (test code = Color) yellow Glucose (ref: neg) (test Neg code = Glucose (ref: neg)) Bilirubin (ref: neg) Neg (test code = Bilirubin (ref: neg)) Ketones (ref: neg) (test ? code = Ketones (ref: neg)) Specific [place] (ref: 1.010 1.003 - 1.035) (test code = Specific [place] (ref: 1.003 - 1.035)) Blood (ref: neg) [...] neg)) Location (test code = AUS, Location[facility] [address] [facility] [address], [place] [address], [id number] [facility]dip[facility]) panel - [id number] 21:04:33 Test Item Value Reference Range Interpretation Comments Appearance (test code = cloudy Appearance) Color (test code = Color) yellow Glucose (ref: neg) (test Neg code = Glucose (ref: neg)) Bilirubin (ref: neg) Neg (test code = Bilirubin (ref: neg)) Ketones (ref: neg) (test ? code = Ketones (ref: neg)) Specific [place] (ref: 1.010 1.003 - 1.035) (test code = Specific [place] (ref: 1.003 - 1.035)) Blood (ref: neg) [...] neg)) Location (test code = AUS, Location) [facility], [address] [facility] [address], [place] [address], [id number] [facility] (dipstick) panel - [id number] 21:04:33 Test Item Value Reference Range Interpretation Comments Appearance (test code = cloudy Appearance) Color (test code = Color) yellow Glucose (ref: neg) (test Neg code = Glucose (ref: neg)) Bilirubin (ref: neg) Neg (test code = Bilirubin (ref: neg)) Ketones (ref: neg) (test ? code = Ketones (ref: neg)) Specific [place] (ref: 1.010 1.003 - 1.035) (test code = Specific [place] (ref: 1.003 - 1.035)) Blood (ref: neg) [...] neg)) Location (test code = AUS, Location) [facility], [address] [facility] [address], [place] [address], [id number] [facility]
[2022-07-04] MEDS ORDERED: NA CHLORIDE 0.9% 1,000 ML ONE ×2 (11:41→13:45)
[2022-07-04] MEDS ORDERED: MORPHINE 4 MG/ML SYR ONE ×2 (11:41→14:33)
[2022-07-04] MEDS ORDERED: ONDANSETRON 4 MG/2 ML VIAL ONE (11:41)
[2022-07-04 11:58] LABS: Absolute Lymphocytes (CBC) 1.4 K/uL (0.7-4.9); Hematocrit 40.7 % (36.0-45.0); Lymphocytes % 25.1 % (15.3-44.8); MCV 90.6 fL (80-100); MPV 7.9 fL (7.6-11.3); RBC Red Blood Cell Count 4.49 M/uL (3.86-4.86)
[2022-07-04 12:11] LABS: Specific Gravity 1.024 (1.005-1.030); Urine Bacteria 20-50 /HPF (<20); Urine Bilirubin NEGATIVE (Negative); Urine Blood 3+ (Negative); Urine Clarity Extremely Turbid (Clear); Urine Color Yellow (Yellow); Urine Crystals Unidentified Few /HPF (None Seen); Urine Glucose NEGATIVE (Negative); Urine Mucus 4+ /HPF (None Seen); Urine Protein 1+ (Negative); Urine RBC None Seen /HPF (None Seen); Urine Urobilinogen 3+ (Normal); Urine pH 5.5 (5.0-7.0)
[2022-07-04 12:30] LABS: Albumin 3.8 g/dL (3.4-5.0); Bilirubin Total 1.8 mg/dL (0.2-1.0); Potassium 3.6 mEq/L (3.5-5.1)
--- NOTE | 2022-07-04 13:02 | RAD REPORT ---
EXAM DESCRIPTION: CT - Abdomen Pelvis W Contrast - 07/04/2022 12:43 pm CLINICAL HISTORY: Abdominal pain/right lower quadrant pain COMPARISON: 2017 TECHNIQUE: Computed axial tomography of the abdomen pelvis was obtained. 100 cc Isovue-300 was admin istered intravenously. Oral contrast was not requested which limits evaluation of bowel and appendix All CT scans are performed using dose optimization technique as appropriate and may include automated exposure control or mA/KV adjustment according to patient size. FINDINGS: Small hepatic cyst Spleen 16 centimeters. 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 Postsurgical changes stomach. Mild right hydronephrosis with delay in concentration of contrast. Right renal calculi. 3 millimeter calculus proximal right ureter. Atrophic pancreas. Stable left adrenal nodule. Right adrenal gland are unremarkable. Cholecystectomy There is no evidence of diverticulitis. Mild to moderate anterior subluxation L5 on S1. 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
[2022-07-04] MEDS ORDERED: NA CHLORIDE 0.9% 50 ML ONE (13:29)
[2022-07-04] MEDS ORDERED: TAMSULOSIN 0.4 MG SR CAP ONE (13:29)
[2022-07-04] MEDS ORDERED: CEFTRIAXONE 1000 MG/VIAL ONE (13:29)
--- NOTE | 2022-07-04 13:31 | ER ---
Nurse's Notes [facility] Name: Grace Case Age: 66 yrs Sex: Female : 1955 Arrival Date: 07/04/2022 Time: 10:16 Bed 6 Private MD: Diagnosis: Calculus of ureter Presentation: 07/04 10:37 Chief complaint: Patient states: she woke up this morning at approx 0500 with right ap3 lower quadrant pain and nausea. patient states she was dry-heaving this morning but nothing would come out. patient current rates her pain as a 8/10 on the pain scale at this time. patient also reports that she feels she might be dehydrated. Coronavirus screen: At this time, the client does not indicate any symptoms associated with coronavirus-19. Ebola Screen: No symptoms or risks identified at this time. Initial Sepsis Screen: Does the patient meet any 2 criteria? No. Patient's initial sepsis screen is negative. Does the patient have a suspected source of infection? Yes: Acute abdominal pain. Risk Assessment: Do you want to hurt yourself or someone else? Patient reports no desire to harm self or others. Onset of symptoms was July 04, 2022 at 05:00. 10:37 Method Of Arrival: Ambulatory ap3 10:37 Acuity: ESTEPHANIA 3 ap3 Triage Assessment: 10:40 General: Appears uncomfortable, Behavior is calm, cooperative, appropriate for age. ap3 Pain: Complains of pain in right lower quadrant Pain currently is 8 out of 10 on a pain scale. Pain began 0500 this morning. Neuro: Level of Consciousness is awake, alert, obeys commands, Oriented to person, place, time, situation. Cardiovascular: Patient's skin is warm and dry. Respiratory: Airway is patent Respiratory effort is even, unlabored, Respiratory pattern is regular, symmetrical. GI: Reports lower abdominal pain, nausea. Historical: - Allergies: 10:39 No Known Allergies; ap3 - PMHx: 10:39 cellulits; lymphedema; UTI; ap3 - PSHx: 10:39 Gastric Bypass; ap3 - Immunization history:: Client reports having NOT received the Covid vaccine. - Social history:: Smoking status: Patient denies any tobacco usage or history of. Screenin:41 Abuse screen: Denies threats or abuse. Nutritional screening: No deficits noted. ap3 Tuberculosis screening: No symptoms or risk factors identified. 15:26 [facility] ED Fall Risk Assessment (Adult) History of falling in the last 3 months, db including since admission No falls in past 3 months (0 pts) Confusion or Disorientation No (0 pts) Intoxicated or Sedated No (0 pts) Impaired Gait No (0 pts) Mobility Assist Device Used No (0 pt) Altered Elimination No (0 pt) Score/Fall Risk Level 0 - 2 = Low Risk Oriented to surroundings, Maintained a safe environment. Assessment: 11:23 Reassessment: patient not in room at this time. db 11:35 Pain: Complains of pain in abdomen and right lower quadrant Pain does not radiate. Pain ld1 currently is 9 out of 10 on a pain scale. Quality of pain is described as throbbing. 12:21 Reassessment: Patient appears in no apparent distress at this time. Patient and/or db family updated on plan of care and expected duration. Pain level reassessed. Patient is alert, oriented x 3, equal unlabored respirations, skin warm/dry/pink. patient complains of abdominal pain that is better now. General: Appears in no apparent distress. comfortable, Behavior is calm, cooperative. Neuro: Level of Consciousness is awake, alert, obeys commands, Oriented to person, place, time, situation. GI: Bowel sounds present X 4 quads. Abd is soft Abdomen is tender to palpation in right lower quadrant. 12:25 Reassessment: patient requested water or ice chips to multiple staff members. Educated db patient of importance and reason for not drinking water or having anything by mouth until medically cleared. Patient states she just wants ice chips and verbalized understanding the risks of ice chips. This nurse gave small amount of ice chips to patient and notified provider. 13:05 Reassessment: Patient appears in no apparent distress at this time. Patient and/or db family updated on plan of care and expected duration. Pain level reassessed. Patient is alert, oriented x 3, equal unlabored respirations, skin warm/dry/pink. 14:05 Reassessment: Patient appears in no apparent distress at this time. Patient and/or db family updated on plan of care and expected duration. Pain level reassessed. Patient is alert, oriented x 3, equal unlabored respirations, skin warm/dry/pink. Patient states feeling better. Neuro: Level of Consciousness is awake, alert, obeys commands, Oriented to person, place, time, situation. 15:15 Reassessment: Patient appears in no apparent distress at this time. patient assisted to db the restroom via wheelchair. 15:24 Reassessment: Patient appears in no apparent distress at this time. Patient and/or db family updated on plan of care and expected duration. Pain level reassessed. Patient is alert, oriented x 3, equal unlabored respirations, skin warm/dry/pink. General: Appears in no apparent distress. Vital Signs: 10:37 BP 133 / 76; Pulse 74; Resp 17; Temp 97.9; Pulse Ox 100% ; Weight 104.33 kg; Height 5 ap3 ft. 5 in. ; Pain 8/10; 11:35 Pain 9/10; ld1 11:56 BP 113 / 78; Pulse 70; Resp 16; Pulse Ox 97% on R/A; ld1 12:28 BP 120 / 65; Pulse 69; Resp 18; Pulse Ox 92% on R/A; ld1 13:34 BP 111 / 79; Pulse 61; Resp 18; Pulse Ox 98% on R/A; ld1 15:00 BP 101 / 52; Pulse 65; Resp 18; Pulse Ox 99% on R/A; db 10:37 Body Mass Index 38.27 (104.33 kg, 165.1 cm) ap3 10:37 Pain Scale: Adult ap3 11:35 Pain Scale: Adult ld1 ED Course: 10:20 Patient arrived in ED. ts1 10:37 Lucho Henriquez NP is PHCP. pm1 10:37 Ron Calderon MD is Attending Physician. pm1 10:39 Triage completed. ap3 10:40 Arm band placed on right wrist. ap3 11:23 Monika Beckett, GIL is Primary Nurse. db 11:51 Urinalysis w/ reflexes Sent. ld1 11:51 Inserted saline lock: 20 gauge in right antecubital area, using aseptic technique. ld1 Blood collected. 12:22 Patient has correct armband on for positive identification. Bed in low position. Call db light in reach. Side rails up X2. Client placed on continuous cardiac and pulse oximetry monitoring. NIBP monitoring applied. 12:45 CT Abd/Pelvis - IV Contrast Only In Process Unspecified. EDMS 15:26 Warm blanket given. db 15:26 No provider procedures requiring assistance completed. IV discontinued, intact, db bleeding controlled, No redness/swelling at site. Administered Medications: 11:50 Drug: Ondansetron IVP 4 mg Route: IVP; Site: right antecubital; ld1 15:24 Follow up: Response: No adverse reaction db 11:50 Drug: morphine IVP or IV 4 mg Route: IVP; Infused Over: 4 mins; Site: right antecubital;ld1 15:24 Follow up: Response: No adverse reaction db 11:51 Drug: NS 0.9% IV 1000 ml Route: IV; Rate: 1 bolus; Site: right antecubital; ld1 13:05 Follow up: Response: No adverse reaction; IV Status: Completed infusion; IV Intake: db 1000ml 13:25 Drug: Rocephin IV 1 grams Route: IV; Rate: calculated rate; Site: right antecubital; db 14:00 Follow up: Response: No adverse reaction; IV Status: Completed infusion; IV Intake: 50mldb 13:29 Drug: Flomax PO 0.4 mg Route: PO; db 15:24 Follow up: Response: No adverse reaction db 13:38 Not Given (Physician Discretion): NS 0.9% IV 1000 ml IV at 100 ml/hr once pm1 13:48 Drug: NS 0.9% IV 1000 ml Route: IV; Rate: 1000 ml; Site: right antecubital; ld1 15:23 Follow up: Response: No adverse reaction; IV Status: Completed infusion; IV Intake: db 1000ml 14:25 Drug: morphine IVP or IV 4 mg Route: IVP; Infused Over: 4 mins; Site: right antecubital;db 15:23 Follow up: Response: No adverse reaction db Medication: 15:27 VIS not applicable for this client. db Intake: 13:05 IV: 1000ml; Total: 1000ml. db 14:00 IV: 50ml; Total: 1050ml. db 15:23 IV: 1000ml; Total: 2050ml. db Outcome: 13:30 Discharge ordered by MD. pm1 15:26 Discharged to home via wheelchair, with family. db 15:26 Condition: stable 15:26 Discharge instructions given to patient, family, Instructed on discharge instructions, follow up and referral plans. Prescriptions given X 4. 15:29 Patient left the ED. db Addendum: 07/09/2022 11:11 Addendum: Culture Results: Positive urine culture. Bacteria is resistant to, has j l7 intermediate sensitivity, or is not tested against prescribed antibiotics. Report given to MERT for further evaluation and then to property preservation specialist for follow up with patient. Phone call Attempt #1 Left voice mail. 13:07 Addendum: Culture Results: Positive urine culture. Prescription called-in to pharmacy j l7 of choice. Augmentin 875mg PO BID x7 days per CIRO Jason. Signatures: Dispatcher [employer] EDMS Lucho Henriquez, JEF HANDLE SANDER OPERATOR pm1 Karie Valenzulea RN RN jl7 Marjorie Quinteros RN RN ap3 Amena Yen RN RN ld1 Monika Beckett RN RN db Dhara Lara, YO PAS ts1
--- NOTE | 2022-07-04 13:31 | EDPHYS ---
Physician Documentation [facility] Name: Grace Case Age: 66 yrs Sex: Female : 1955 Arrival Date: 07/04/2022 Time: 10:16 Bed 6 Private MD: ED Physician Ron Calderon HPI: 07/04 10:51 This 66 yrs old Female presents to ER via Ambulatory with complaints of Abdominal Pain. pm1 10:51 The patient presents with abdominal pain right lower quadrant. Onset: The pm1 symptoms/episode began/occurred this morning. The symptoms do not radiate. Associated signs and symptoms: Pertinent positives: nausea and vomiting, urinating once per day for the last 4 months since bariatric surgery, Pertinent negatives: chest pain, fever, shortness of breath. The symptoms are described as crampy. Modifying factors: The symptoms are alleviated by nothing, the symptoms are aggravated by nothing. Severity of pain: in the emergency department the pain is actually worse. The patient has not experienced similar symptoms in the past. The patient has not recently seen a physician, out of town, in [place], [place]. Historical: - Allergies: 10:39 No Known Allergies; ap3 - PMHx: 10:39 cellulits; lymphedema; UTI; ap3 - PSHx: 10:39 Gastric Bypass; ap3 - Immunization history:: Client reports having NOT received the Covid vaccine. - Social history:: Smoking status: Patient denies any tobacco usage or history of. ROS: 10:51 Cardiovascular: Negative for chest pain, palpitations, and edema, Respiratory: Negative pm1 for shortness of breath, cough, wheezing, and pleuritic chest pain. 10:51 Back: Negative for injury and pain, MS/Extremity: Negative for injury and deformity, Skin: Negative for injury, rash, and discoloration, Neuro: Negative for headache, weakness, numbness, tingling, and seizure. 10:51 Constitutional: Positive for poor PO intake, Negative for body aches, fever. 10:51 Abdomen/GI: Positive for abdominal pain, nausea and vomiting, of the right lower quadrant, Negative for diarrhea, constipation. 10:51 : Positive for decreased urination due to poor PO intake. Urinates once per day per patient. Exam: 10:51 Constitutional: This is a well developed, well nourished patient who is awake, alert, pm1 and in no acute distress. Head/Face: Normocephalic, atraumatic. 10:51 Skin: Warm, dry with normal turgor. Normal color with no rashes, no lesions, and no evidence of cellulitis. MS/ Extremity: Pulses equal, no cyanosis. Neurovascular intact. Full, normal range of motion. 10:51 Eyes: Exam is negative for acute changes, Extraocular movements: no acute changes. 10:51 ENT: Exam is negative for acute changes, Mouth: no acute changes, Lips: normal, moist, Oral mucosa: normal, pink and intact, moist. 10:51 Cardiovascular: Exam negative for acute changes, Rate: normal, Rhythm: regular, Pulses: no pulse deficits are appreciated. 10:51 Respiratory: Exam negative for acute changes, respiratory distress, shortness of breath. 10:51 Abdomen/GI: Inspection: obese Palpation: soft, in all quadrants, mild abdominal tenderness, in the right lower quadrant. 10:51 Back: Exam negative for acute changes, CVA tenderness, is absent. 10:51 Neuro: Exam negative for acute changes, Orientation: is normal, Mentation: is normal, Motor: is normal, moves all fours. Vital Signs: 10:37 BP 133 / 76; Pulse 74; Resp 17; Temp 97.9; Pulse Ox 100% ; Weight 104.33 kg; Height 5 ap3 ft. 5 in. ; Pain 8/10; 11:35 Pain 9/10; ld1 11:56 BP 113 / 78; Pulse 70; Resp 16; Pulse Ox 97% on R/A; ld1 12:28 BP 120 / 65; Pulse 69; Resp 18; Pulse Ox 92% on R/A; ld1 13:34 BP 111 / 79; Pulse 61; Resp 18; Pulse Ox 98% on R/A; ld1 15:00 BP 101 / 52; Pulse 65; Resp 18; Pulse Ox 99% on R/A; db 10:37 Body Mass Index 38.27 (104.33 kg, 165.1 cm) ap3 10:37 Pain Scale: Adult ap3 11:35 Pain Scale: Adult ld1 MDM: 10:40 Patient medically screened. pm1 11:50 Differential diagnosis: appendicitis, gastritis, non-specific abd pain, Pyelonephritis, pm1 Ureterolithiasis, urinary tract infection. 12:29 ED course: Was informed by nurse that patient insisted on taking ice by mouth. Patient pm1 here for abdominal pain and it was recommended to her she should not have anything by mouth until diagnoses was determined to ensure she is not a surgical patient. 12:34 Data reviewed: vital signs. pm1 12:34 ED course: Updated patient on current results of labs and initial impression UTI. pm1 Patient currently getting fluids and pending CT results prior to antibiotic selection and disposition. 12:37 I considered the following discharge prescriptions or medication management in the pm1 emergency department Medications were administered in the Emergency Department. See MAR. 12:37 Care significantly affected by the following chronic conditions: Care significantly pm1 affected by the following chronic conditions: Obesity, Lymphedema, gastric bypass surgery. 13:29 ED course: Discussed all incidental findings on CT with patient and family member for pm1 follow-up and gave patient a copy of CT result findings along with labs. 13:29 Counseling: I had a detailed discussion with the patient and/or guardian regarding: the pm1 historical points, exam findings, and any diagnostic results supporting the discharge/admit diagnosis, lab results, radiology results, the need for outpatient follow up, a urologist. 14:26 ED course: PMPAware reviewed. Patient found without any prescriptions found. pm1 07/04 10:51 Order name: CBC with Diff; Complete Time: 12:08 pm07/04 10:51 Order name: CMP; Complete Time: 12:31 pm07/04 10:51 Order name: Lipase; Complete Time: 12:31 pm07/04 10:51 Order name: Urinalysis w/ reflexes; Complete Time: 12:20 pm07/04 12:17 Order name: Urine Culture EDKY 07/04 10:51 Order name: CT Abd/Pelvis - IV Contrast Only; Complete Time: 13:05 pm07/04 10:51 Order name: IV Saline Lock; Complete Time: 11:50 pm07/04 10:51 Order name: Labs collected and sent; Complete Time: 11:51 pm1 Administered Medications: 11:50 Drug: Ondansetron IVP 4 mg Route: IVP; Site: right antecubital; ld1 15:24 Follow up: Response: No adverse reaction db 11:50 Drug: morphine IVP or IV 4 mg Route: IVP; Infused Over: 4 mins; Site: right antecubital;ld1 15:24 Follow up: Response: No adverse reaction db 11:51 Drug: NS 0.9% IV 1000 ml Route: IV; Rate: 1 bolus; Site: right antecubital; ld1 13:05 Follow up: Response: No adverse reaction; IV Status: Completed infusion; IV Intake: db 1000ml 13:25 Drug: Rocephin IV 1 grams Route: IV; Rate: calculated rate; Site: right antecubital; db 14:00 Follow up: Response: No adverse reaction; IV Status: Completed infusion; IV Intake: 50mldb 13:29 Drug: Flomax PO 0.4 mg Route: PO; db 15:24 Follow up: Response: No adverse reaction db 13:38 Not Given (Physician Discretion): NS 0.9% IV 1000 ml IV at 100 ml/hr once pm1 13:48 Drug: NS 0.9% IV 1000 ml Route: IV; Rate: 1000 ml; Site: right antecubital; ld1 15:23 Follow up: Response: No adverse reaction; IV Status: Completed infusion; IV Intake: db 1000ml 14:25 Drug: morphine IVP or IV 4 mg Route: IVP; Infused Over: 4 mins; Site: right antecubital;db 15:23 Follow up: Response: No adverse reaction db Disposition: 17:19 Co-signature as Attending Physician, Ron Calderon MD I reviewed the patient's care rn provided by the Advanced Practice Provider and agree with the diagnosis and treatment plan. Disposition Summary: 07/04/22 13:30 Discharge Ordered Location: Home pm1 Problem: new pm1 Symptoms: have improved pm1 Condition: Stable pm1 Diagnosis - Calculus of ureter pm1 Followup: pm1 - With: Emergency Department - When: As needed - Reason: Worsening of condition Followup: pm1 - With: Private Physician - When: 2 - 3 days - Reason: Recheck today's complaints, Continuance of care, Re-evaluation by your physician Discharge Instructions: - Discharge Summary Sheet pm1 - Kidney Stones pm1 - Dietary Guidelines to Help Prevent Kidney Stones pm1 Forms: - Medication Reconciliation Form pm1 - Thank You Letter pm1 - Antibiotic Education pm1 - Prescription Opioid Use pm1 Prescriptions: - Flomax 0.4 mg Oral capsule - take 1 capsule by ORAL route once; 7 capsule; Refills: 0, Product Selection pm1 Permitted - acetaminophen-codeine 300-30 mg Oral tablet - take 2 tablet by ORAL route every 6 hours As needed; 20 tablet; Refills: 0, pm1 Product Selection Permitted - Zofran 4 mg Oral Tablet - take 1 tablet by ORAL route every 12 hours As needed; 20 tablet; Refills: 0, pm1 Product Selection Permitted - Cipro 500 mg Oral Tablet - take 1 tablet by ORAL route every 12 hours for 10 days; 14 tablet; Refills: 0, pm1 Product Selection Permitted Signatures: Dispatcher [employer] EDRon Powers MD MD rn Marinas, Patrick, JEF PIE BAKERY LABORER pm1 Marjorie Quinteros RN RN ap3 Amena Yen RN RN ld1 Monika Beckett RN RN db Corrections: (The following items were deleted from the chart) 11:50 10:51 Emelia navarro. pm1 ld1
[2022-07-04 15:44] VITALS: TEMP 97.9
[2022-07-04 15:54] VITALS: BP 101/52; O2SAT 99
== END 2022-07-04 15:29 | disposition home or self-care (01) ==
LOC: ER 10:16
DX: N20.1 Calculus of ureter (principal)
CPT/HCPCS: 87088; 85025; 81001; 87086; 36415; 83690; 80053; 74177; Q9967; J2405; J7030 ×2; J0696; 87077; 87186; 96361; 96365; 96375; 99284

== ENCOUNTER → 2023-03-05 | Emergency (ER) | payer OTHER ==
--- OUTSIDE RECORDS SUMMARY | 2023-03-05 16:44 | XMS REPORT | Continuity of Care Document ---
Author Name Unknown Address [address] [place] [address] José Luis. [address] thconnect Address [address] [facility] José Luis. 1 [address] [place] [address] Care Team Providers Care Operations Research Group Manager Name Role Phone [email or web address] Attending Clinician Unavailable Patricia Chen Attending Clinician [phone] [id number] Admitting Clinician Unavailable Payers Payer Name Policy Type Policy Number Effective Date Expirati on Date Source [place]IC[place]: [employer] [id number] 2020 00:00:00 Social History Smoking Status Start Date Stop Date Source Never Smoker [facility] Medications Ordered Medication Name Filled Medication Name Start Date Stop Date Current Medication? Ordering Clinician Indication Dosage Frequency Signature (SIG) Comments Components Source ceftriaxone 250 mg solution for [id number] 00 mg IM administere d on scene. Time administere d: 1010am ceftriaxone 250 mg solution for [id number] 00 mg IM administere d on scene. Time administere d: 1010am 2020-03 10:31: 33 No ceftriaxon e 250 mg solution for injection1 000 mg IM administer ed on scene. Time administer ed: 1010am [facility] ceftriaxone 250 mg solution for [id number] 00 mg IM administere d on scene. Time administere d: 1010am ceftriaxone 250 mg solution for [id number] 00 mg IM administere d on scene. Time administere d: 1010am 2020-03 10:31: 33 No ceftriaxon e 250 mg solution for injection1 000 mg IM administer ed on scene. Time administer ed: 1010am [facility] ceftriaxone 250 mg solution for [id number] 0 mg IM administere d on scene. Time administere d:9:20pm ceftriaxone 250 mg solution for [id number] 0 mg IM administere d on scene. Time administere d:9:20pm 2020-03 21:36: 07 No ceftriaxon e 250 mg solution for injection2 50 mg IM administer ed on scene. Time administer ed:9:20pm [facility] ceftriaxone 250 mg solution for [id number] 00 mg IM administere d on scene. Time administere d:9:20pm ceftriaxone 250 mg solution for [id number] 00 mg IM administere d on scene. Time administere d:9:20pm 2020-03 21:36: 07 No ceftriaxon e 250 mg solution for injection1 000 mg IM administer ed on scene. Time administer ed:9:20pm [facility] furosemide 10 mg/mL injection [id number] mg IV administere d on scene. Time administere d:835pm furosemide 10 mg/mL injection [id number] mg IV administere d on scene. Time administere d:835pm 2020-03 20:44: 12 No furosemide 10 mg/mL injection [id number] mg IV administer ed on scene. Time administer ed:835pm [facility] furosemide 10 mg/mL injection [id number] mg IV administere d on scene. Time administere d:835pm furosemide 10 mg/mL injection [id number] mg IV administere d on scene. Time administere d:835pm 2020-03 20:44: 12 No furosemide 10 mg/mL injection [id number] mg IV administer ed on scene. Time administer ed:835pm [facility] ceftriaxone 250 mg solution for injection 250 mg IM administere d on scene. Time administere d:9:20pm ceftriaxone 250 mg solution for injection 250 mg IM administere d on scene. Time administere d:9:20pm No ceftriaxon e 250 mg solution for injection 250 mg IM administer ed on scene. Time administer ed:9:20pm [facility] furosemide 10 mg/mL injection solution 20 mg IV administere d on scene. Time administere d:835pm furosemide 10 mg/mL injection solution 20 mg IV administere d on scene. Time administere d:835pm No furosemide 10 mg/mL injection solution 20 mg IV administer ed on scene. Time administer ed:835pm [facility] gabapentin gabapentin No gabapentin [facility] hydrocodone 10 mg-acetamin ophen 300 mg tablet Take 1 tablet every 6 hours by oral route. hydrocodone 10 mg-acetamin ophen 300 mg tablet Take 1 tablet every 6 hours by oral route. No 1 Q6H hydrocodon e 10 mg-acetami nophen 300 mg tablet Take 1 tablet every 6 hours by oral route. Pending sale to [facility] trazodone trazodone No trazodone Pending sale to [facility] ceftriaxone 250 mg solution for injection 1000 mg IM administere d on scene. Time administere d:9:20pm ceftriaxone 250 mg solution for injection 1000 mg IM administere d on scene. Time administere d:9:20pm No ceftriaxon e 250 mg solution for injection 1000 mg IM administer ed on scene. Time administer ed:9:20pm Pending sale to [facility] furosemide 10 mg/mL injection solution 20 mg IV administere d on scene. Time administere d:835pm furosemide 10 mg/mL injection solution 20 mg IV administere d on scene. Time administere d:835pm No furosemide 10 mg/mL injection solution 20 mg IV administer ed on scene. Time administer ed:835pm Pending sale to [facility] gabapentin gabapentin No gabapentin Pending sale to [facility] hydrocodone 10 mg-acetamin ophen 300 mg tablet Take 1 tablet every 6 hours by oral route. hydrocodone 10 mg-acetamin ophen 300 mg tablet Take 1 tablet every 6 hours by oral route. No 1 Q6H hydrocodon e 10 mg-acetami nophen 300 mg tablet Take 1 tablet every 6 hours by oral route. Pending sale to [facility] trazodone trazodone No trazodone Pending sale to [facility] ceftriaxone 250 mg solution for injection 1000 mg IM administere d on scene. Time administere d: 1010am ceftriaxone 250 mg solution for injection 1000 mg IM administere d on scene. Time administere d: 1010am No ceftriaxon e 250 mg solution for injection 1000 mg IM administer ed on scene. Time administer ed: 1010am Pending sale to [facility] furosemide 10 mg/mL injection solution 20 mg IV administere d on scene. Time administere d:835pm furosemide 10 mg/mL injection solution 20 mg IV administere d on scene. Time administere d:835pm No furosemide 10 mg/mL injection solution 20 mg IV administer ed on scene. Time administer ed:835pm Pending sale to [facility] furosemide 40 mg tablet Take 1 tablet every day by oral route as needed for 30 days. furosemide 40 mg tablet Take 1 tablet every day by oral route as needed for 30 days. No 1 Q1D furosemide 40 mg tablet Take 1 tablet every day by oral route as needed for 30 days. Pending sale to [facility] gabapentin gabapentin No gabapentin Pending sale to [facility] hydrocodone 10 mg-acetamin ophen 300 mg tablet Take 1 tablet every 6 hours by oral route. hydrocodone 10 mg-acetamin ophen 300 mg tablet Take 1 tablet every 6 hours by oral route. No 1 Q6H hydrocodon e 10 mg-acetami nophen 300 mg tablet Take 1 tablet every 6 hours by oral route. Pending sale to [facility] trazodone trazodone No trazodone Pending sale to [facility] ceftriaxone 250 mg solution for injection 1000 mg IM administere d on scene. Time administere d: 1010am ceftriaxone 250 mg solution for injection 1000 mg IM administere d on scene. Time administere d: 1010am No ceftriaxon e 250 mg solution for injection 1000 mg IM administer ed on scene. Time administer ed: 1010am Pending sale to [facility] furosemide 10 mg/mL injection solution 20 mg IV administere d on scene. Time administere d:835pm furosemide 10 mg/mL injection solution 20 mg IV administere d on scene. Time administere d:835pm No furosemide 10 mg/mL injection solution 20 mg IV administer ed on scene. Time administer ed:835pm Pending sale to [facility] furosemide 40 mg tablet Take 1 tablet every day by oral route as needed for 30 days. furosemide 40 mg tablet Take 1 tablet every day by oral route as needed for 30 days. No 1 Q1D furosemide 40 mg tablet Take 1 tablet every day by oral route as needed for 30 days. Pending sale to [facility] gabapentin gabapentin No gabapentin Pending sale to [facility] hydrocodone 10 mg-acetamin ophen 300 mg tablet Take 1 tablet every 6 hours by oral route. hydrocodone 10 mg-acetamin ophen 300 mg tablet Take 1 tablet every 6 hours by oral route. No 1 Q6H hydrocodon e 10 mg-acetami nophen 300 mg tablet Take 1 tablet every 6 hours by oral route. Pending sale to [facility] potassium chloride ER 10 mEq tablet,exte nded release Take 1 tablet every day by oral route at dinner. Take this at night on the days you take furosemide (water pill). Eat a banana most days. potassium chloride ER 10 mEq tablet,exte nded release Take 1 tablet every day by oral route at dinner. Take this at night on the days you take furosemide (water pill). Eat a banana most days. No 1 Q1D potassium chloride ER 10 mEq tablet,ext ended release Take 1 tablet every day by oral route at dinner. Take this at night on the days you take furosemide (water pill). Eat a banana most days. Pending sale to [facility] trazodone trazodone No trazodone Pending sale to [facility] Vital Signs Vital Name Observation Time Observation Value Comments S ource BP Diastolic 2021-01-21 00:00:00 76 mm[Hg] [facility] BP Systolic 2021-01-21 00:00:00 128 mm[Hg] [facility] BP Diastolic 2021-01-18 00:00:00 70 mm[Hg] [facility] BP Systolic 2021-01-18 00:00:00 128 mm[Hg] [facility] Procedures Procedure Date / Time Performed Performing Clinicia n Source CT, angiogram, chest, w/ contrast [facility] Planned Activity Planned Date Details Comments Source Diagnostic Test Pending 2021-01-18 00:00:00 lactate, venous plasma [code = lactate, venous plasma] [facility] Diagnostic Test Pending 2021-01-18 00:00:00 urinalysis, dipstick [code = urinalysis, dipstick] [facility] Diagnostic Test Pending 2021-01-18 00:00:00 BMP + ionized calcium, serum or plasma [code = BMP + ionized calcium, serum or plasma] [facility] Diagnostic Test Pending 2021-01-18 00:00:00 culture, urine [code = culture, urine] [facility] Inst[facility] Encounters Start Date/Time End Date/Time Encounter Type Admission Type Attending [facility] Care Facility Care Department Encounter ID Source 2021-06-02 05:33:00 2021-06-02 05:33:00 Outpatient [id number] DISP DISP [id number] Pending sale to [facility] 2021-04-28 05:14:00 2021-04-28 05:14:00 Outpatient [id number] DISP DISP [id number] Pending sale to [facility] 2021-03-24 01:55:00 2021-03-24 01:55:00 Outpatient [id number] DISP DISP [id number] [facility] 2021-02-17 03:23:00 2021-02-17 03:23:00 Outpatient [id number] DISP DISP [id number] [facility] 2021-01-23 06:53:00 2021-01-23 06:53:00 Outpatient 3 DISP DISP [id number] [facility] 2021-01-21 01:57:00 2021-01-21 01:57:00 Outpatient [id number] DISP DISP [id number] [facility] 2021-01-21 00:00:00 2021-01-21 00:00:00 Outpatient Patricia Chen DISP DISP [id number] 2021-01-21 00:00:00 2021-01-21 00:00:00 Outpatient Patricia Chen DISP DISP [id number] 2021-01-21 00:00:00 2021-01-21 00:00:00 Patricia Chen, MONORAIL HOOKER: [id number] [facility], [facility] [address], [place] [address] , Ph. DISP [facility] [id number] [facility] 2021-01-19 12:15:00 2021-01-19 12:15:00 Outpatient [id number] DISP DISP [id number] [facility] 2021-01-18 11:51:00 2021-01-18 11:51:00 Outpatient [id number] DISP DISP [id number] [facility] 2021-01-18 00:00:00 2021-01-18 00:00:00 Outpatient Patricia Chen DISP DISP [id number] 2021-01-18 00:00:00 2021-01-18 00:00:00 Patricia Chen, MONORAIL HOOKER: [address] [facility], [address] [id number] , Ph. [facility] [id number] [facility] 2021-01-18 00:00:00 2021-01-18 00:00:00 Outpatient Patricia Chen DISP DISP [id number] Results Test Description Test Time Test Comments Results Result Co mments Source [facility] macro (dipstick) panel - [id number] 21:04:33* Test Item Value Reference Range Interpretation Comme nts Appearance (test code = Appearance) cloudy Color (test code = Color) yellow Glucose (ref: neg) (test code = Glucose (ref: neg)) Neg Bilirubin (ref: neg) (test code = Bilirubin (ref: neg)) Neg Ketones (ref: neg) (test code = Ketones (ref: neg)) ? Specific [place] (ref: 1.003 - 1.035) (test code = Specific [place] (ref: 1.003 - 1.035)) 1.010 Blood (ref: neg) (test code = Blood (ref: neg)) Neg pH (ref: 5-7) (test code = pH (ref: 5-7)) 5.0 Protein (ref: neg) (test code = Protein (ref: neg)) Neg Urobilinogen (ref: 0.2) (test code = Urobilinogen (ref: 0.2)) 0.2 Nitrites (ref: neg) (test code = Nitrites (ref: neg)) positive Leukocytes (ref: neg) (test code = Leukocytes (ref: neg)) ++ Location (test code = Location) [facility], [address] [facility] [address], [place] [address], [id number] [facility] HealthUrinalysis macro (dipstick) panel - [id number] 21:04:33* Test Item Value Reference Range Interpretation Comme nts Appearance (test code = Appearance) cloudy Color (test code = Color) yellow Glucose (ref: neg) (test code = Glucose (ref: neg)) Neg Bilirubin (ref: neg) (test code = Bilirubin (ref: neg)) Neg Ketones (ref: neg) (test code = Ketones (ref: neg)) ? Specific [place] (ref: 1.003 - 1.035) (test code = Specific [place] (ref: 1.003 - 1.035)) 1.010 Blood (ref: neg) (test code = Blood (ref: neg)) Neg pH (ref: 5-7) (test code = pH (ref: 5-7)) 5.0 Protein (ref: neg) (test code = Protein (ref: neg)) Neg Urobilinogen (ref: 0.2) (test code = Urobilinogen (ref: 0.2)) 0.2 Nitrites (ref: neg) (test code = Nitrites (ref: neg)) positive Leukocytes (ref: neg) (test code = Leukocytes (ref: neg)) ++ Location (test code = Location) [facility], [address] [facility] [address], [place] [address], [id number] [facility] - [id number] 21:04:33* Test Item Value Reference Range Interpretation Comme nts Appearance (test code = Appearance) cloudy Color (test code = Color) yellow Glucose (ref: neg) (test code = Glucose (ref: neg)) Neg Bilirubin (ref: neg) (test code = Bilirubin (ref: neg)) Neg Ketones (ref: neg) (test code = Ketones (ref: neg)) ? Specific [place] (ref: 1.003 - 1.035) (test code = Specific [place] (ref: 1.003 - 1.035)) 1.010 Blood (ref: neg) (test code = Blood (ref: neg)) Neg pH (ref: 5-7) (test code = pH (ref: 5-7)) 5.0 Protein (ref: neg) (test code = Protein (ref: neg)) Neg Urobilinogen (ref: 0.2) (test code = Urobilinogen (ref: 0.2)) 0.2 Nitrites (ref: neg) (test code = Nitrites (ref: neg)) positive Leukocytes (ref: neg) (test code = Leukocytes (ref: neg)) ++ Location (test code = Location) [facility] [address] [facility] [address], [place] [address], [id number] [facility]
--- NOTE | 2023-03-05 17:11 | EDPHYS ---
Physician Documentation [facility] Name: Grace Case Age: 67 yrs Sex: Female : 1955 Arrival Date: 03/05/2023 Time: 16:41 Bed 11 Private MD: ED Physician Ron Calderon HPI: 03/05 17:07 This 67 yrs old Female presents to ER via Ambulatory with complaints of PICC LINE rn PROBLEM. 17:07 Patient reports problem with PICC line. Patient tried administering her medication rn today and was unable to flush and PICC line started bleeding even though capped. No longer bleeding but came in for further evaluation and to make sure her PICC line was okay.. Onset: The symptoms/episode began/occurred today. Severity of symptoms: At their worst the symptoms were mild in the emergency department the symptoms are unchanged. The patient has not experienced similar symptoms in the past. The patient has not recently seen a physician. Historical: - Allergies: 16:50 No Known Allergies; ll1 - PMHx: 16:50 cellulits; lymphedema; UTI; ll1 - PSHx: 16:50 Gastric Bypass; ll1 - Immunization history:: Adult Immunizations up to date. - Social history:: Smoking status: Patient denies any tobacco usage or history of. - Family history:: not pertinent. - Hospitalizations: : No recent hospitalization is reported. ROS: 17:07 Constitutional: Negative for fever, chills, and weight loss, Respiratory: Negative for rn shortness of breath, cough, wheezing, and pleuritic chest pain, MS/Extremity: Negative for injury and deformity, Neuro: Negative for headache, weakness, numbness, tingling, and seizure, Exam: 17:07 Constitutional: This is a well developed, well nourished patient who is awake, alert, rn and in no acute distress. MS/ Extremity: Right upper extremity PICC line present. No active bleeding. Has long extension tubing attached. No surrounding erythema or warmth. No tenderness proximally along the right arm. Strong distal radius pulse. No cyanosis or pallor Vital Signs: 16:50 BP 103 / 60; Pulse 72; Resp 18; Temp 98.1; Pulse Ox 100% ; Pain 0/10; ll1 16:50 Pain Scale: Adult ll1 MDM: 16:49 Patient medically screened. rn 17:07 Differential Diagnosis PICC line malfunction, extension tubing problem. Data reviewed: rn vital signs, nurses notes, and as a result, I will discharge patient. Counseling: I had a detailed discussion with the patient and/or guardian regarding the historical points, exam findings, and any diagnostic results supporting the discharge/admit diagnosis, the need for outpatient follow up, to return to the emergency department if symptoms worsen or persist or if there are any questions or concerns that arise at home. Response to treatment: the patient's symptoms have resolved after treatment, the patient's condition has returned to base line, and as a result, I will discharge patient. Special discussion: I discussed with the patient/guardian in detail that at this point there is no indication for admission to the hospital. It is understood, however, that if the symptoms persist or worsen the patient needs to return immediately for re-evaluation. ED course: The problem was with the extension tubing, had a crack in it so was leaking. Extension tubing removed, line draws and flushes well. Will DC home with return precautions. No need for further treatment.. Administered Medications: No medications were administered Disposition Summary: 03/05/23 17:10 Discharge Ordered Notes: Location: Home rn Problem: new rn Symptoms: have improved rn Condition: Stable rn Diagnosis - Mechanical complication of PICC line rn Followup: rn - With: Private Physician - When: As needed - Reason: Recheck today's complaints, Re-evaluation by your physician Discharge Instructions: - Discharge Summary Sheet rn - PICC Home Care Guide rn Forms: - Medication Reconciliation Form rn - Thank You Letter rn - Antibiotic rn progressive care - Prescription Opioid Use rn - Patient Portal Instructions rn - Leadership Thank You Letter rn Signatures: Ron Calderon MD MD rn Lewis, Lynsay, RN RN ll1
--- NOTE | 2023-03-05 17:11 | ER ---
Nurse's Notes [facility] Name: Grace Case Age: 67 yrs Sex: Female : 1955 Arrival Date: 03/05/2023 Time: 16:41 Bed 11 Private MD: Diagnosis: Mechanical complication of PICC line Presentation: 03/05 16:50 Chief complaint: Patient states: RUE PICC couldn't flush today, then the blood started ll1 backing up. Used for TPN last night. Coronavirus screen: Client denies travel out of the [place] in the last 14 days. At this time, the client does not indicate any symptoms associated with coronavirus-19. Ebola Screen: Patient denies travel to an Ebola-affected area in the 21 days before illness onset. Initial Sepsis Screen: Does the patient meet any 2 criteria? No. Patient's initial sepsis screen is negative. Does the patient have a suspected source of infection? No. Patient's initial sepsis screen is negative. Risk Assessment: Do you want to hurt yourself or someone else? Patient reports no desire to harm self or others. Onset of symptoms was March 05, 2023. 16:50 Method Of Arrival: Ambulatory ll1 16:50 Acuity: ESTEPHANIA 3 ll1 Triage Assessment: 16:52 General: Appears uncomfortable, Behavior is calm, cooperative, appropriate for age. ll1 General: RUE PICC line not flushing today. Pain: Denies pain. Musculoskeletal: Circulation, motion, and sensation intact. Capillary refill < 3 seconds. Historical: - Allergies: 16:50 No Known Allergies; ll1 - PMHx: 16:50 cellulits; lymphedema; UTI; ll1 - PSHx: 16:50 Gastric Bypass; ll1 - Immunization history:: Adult Immunizations up to date. - Social history:: Smoking status: Patient denies any tobacco usage or history of. - Family history:: not pertinent. - Hospitalizations: : No recent hospitalization is reported. Screenin:13 [facility] ED Fall Risk Assessment (Adult) Score/Fall Risk Level 0 - 2 = Low Risk. Abuse iw screen: Denies threats or abuse. Denies injuries from another. Nutritional screening: No deficits noted. Tuberculosis screening: No symptoms or risk factors identified. Assessment: 17:12 Reassessment: extension tubing removed from purple port , port flushed with 20 mL NS, iw flushes easily, good blood return noted. Vital Signs: 16:50 BP 103 / 60; Pulse 72; Resp 18; Temp 98.1; Pulse Ox 100% ; Pain 0/10; ll1 16:50 Pain Scale: Adult ll1 ED Course: 16:46 Patient arrived in ED. mg5 16:49 Ron Calderon MD is Attending Physician. rn 16:52 Triage completed. ll1 16:52 Arm band placed on. ll1 17:08 Belen Friedman, RN is Primary Nurse. ph 17:12 Patient has correct armband on for positive identification. Provided Education on: PICC iw line care. 17:13 No provider procedures requiring assistance completed. Patient did not have IV access iw during this emergency room visit. Administered Medications: No medications were administered Medication: 17:13 VIS not applicable for this client. iw Outcome: 17:10 Discharge ordered by . rn 17:14 Discharged to home ambulatory, iw 17:14 Condition: good 17:14 Discharge instructions given to patient, Instructed on discharge instructions, follow up and referral plans. Demonstrated understanding of instructions, follow-up care, 17:15 Patient left the ED. iw Signatures: Shelly Kurtz RN RN Ron Calderon MD MD rn Hall, Patricia, RN RN Azucena Spence RN RN [facility] Ling Coello mg5 Corrections: (The following items were deleted from the chart) 16:55 16:50 Pain 0/10, Adult; ll1 ll1
[2023-03-05 20:10] VITALS: BP 103/60; TEMP 98.1; O2SAT 100
== END ==
LOC: ER 16:41
DX: T82.598A Other mechanical complication of other cardiac and vascular devices and implants, initial encounter (principal)
CPT/HCPCS: 99282

== ENCOUNTER 2023-05-21 17:51 | Inpatient (IN) | payer OTHER ==
--- OUTSIDE RECORDS SUMMARY | 2023-05-21 17:54 | XMS REPORT | Continuity of Care Document ---
Author Name Unknown Address [address] [facility]. [address] [place] [address] [facility] thconnect Address [address] [facility] [address] [facility]. [address] [place] [address] Care Team Providers Care Superintendent Menagerie Name Role Phone [email or web address] Attending Clinician Unavailable Patricia Chen Attending Clinician [phone] [email or web address] Admitting Clinician Unavailable Payers Payer Name Policy Type Policy Number Effective Date Expirati on Date Source MEDICARE [place]: Striiv [id number] 2020 00:00:00 Social History Smoking Status Start Date Stop Date Source Never Smoker [facility] Medications Ordered Medication Name Filled Medication Name Start Date Stop Date Current Medication? Ordering Clinician Indication Dosage Frequency Signature (SIG) Comments Components Source ceftriaxone 250 mg solution for 00 mg IM administere d on scene. Time administere d: 1010am ceftriaxone 250 mg solution for 00 mg IM administere d on scene. Time administere d: 1010am 2020-03 10:31: 33 No ceftriaxon e 250 mg solution for injection1 000 mg IM administer ed on scene. Time administer ed: 1010am [facility] ceftriaxone 250 mg solution for [id number] 00 mg IM administere d on scene. Time administere d: 1010am ceftriaxone 250 mg solution for [id number] 00 mg IM administere d on scene. Time administere d: 1010am 2020-03 10:31: 33 No ceftriaxon e 250 mg solution for injection1 000 mg IM administer ed on scene. Time administer ed: 1010am [facility] ceftriaxone 250 mg solution for [id number] 0 mg IM administere d on scene. Time administere d:9:20pm ceftriaxone 250 mg solution for [id number] 0 mg IM administere d on scene. Time administere d:9:20pm 2020-03 21:36: 07 No ceftriaxon e 250 mg solution for injection2 50 mg IM administer ed on scene. Time [facility] ed[facility] mg solution for [id number] 00 mg IM administere d on scene. Time administere d:9:20pm ceftriaxone 250 mg solution for [id number] 00 mg IM administere d on scene. Time administere d:9:20pm 2020-03 21:36: 07 No ceftriaxon e 250 mg solution for injection1 000 mg IM administer ed on scene. Time administer ed[facility]9:20[facility] 10 mg/mL injection [id number] mg IV administere d on scene. Time administere d:835pm furosemide 10 mg/mL injection [id number] mg IV administere d on scene. Time administere d:835pm 2020-03 20:44: 12 No furosemide 10 mg/mL injection [id number] mg IV administer ed on scene. Time administer ed:835[facility] mg/mL injection [id number] mg IV administere d on scene. Time administere d:835pm furosemide 10 mg/mL injection [id number] mg IV administere d on scene. Time administere d:835pm 2020-03 20:44: 12 No furosemide 10 mg/mL injection [id number] mg IV administer ed on scene. Time administer ed:835pm [facility] mg solution for injection 250 mg IM administere d on scene. Time administere d:9:20pm ceftriaxone 250 mg solution for injection 250 mg IM administere d on scene. Time administere d:9:20pm No ceftriaxon e 250 mg solution for injection 250 mg IM administer ed on scene. Time administer ed:9:20pm [facility] furosemide 10 mg/mL injection solution 20 mg IV administere d on scene. Time administere d:835pm furosemide 10 mg/mL injection solution 20 mg IV administere d on scene. Time administere d:835pm No furosemide 10 mg/mL injection solution 20 mg IV administer ed on scene. Time administer ed:835pm [facility] gabap[facility] gabapentin [facility] hydrocodone 10 mg-acetamin ophen 300 mg tablet Take 1 tablet every 6 hours by oral route. hydrocodone 10 mg-acetamin ophen 300 mg tablet Take 1 tablet every 6 hours by oral route. No 1 Q6H hydrocodon e 10 mg-acetami nophen 300 mg tablet Take 1 tablet every 6 hours by oral route. [facility] trazodone trazodone No trazodone [facility] ceftriaxone 250 mg solution for injection 1000 mg IM administere d on scene. Time administere d:9:20pm ceftriaxone 250 mg solution for injection 1000 mg IM administere d on scene. Time administere d:9:20pm No ceftriaxon e 250 mg solution for injection 1000 mg IM administer ed on scene. Time administer ed:9:20pm [facility] furosemide 10 mg/mL injection solution 20 mg IV administere d on scene. Time administere d:835pm furosemide 10 mg/mL injection solution 20 mg IV administere d on scene. Time administere d:835pm No furosemide 10 mg/mL injection solution 20 mg IV administer ed on scene. Time administer ed:835pm [facility] gabapentin gabapentin No gabapentin [facility] hydrocodone 10 mg-acetamin ophen 300 mg tablet Take 1 tablet every 6 hours by oral route. hydrocodone 10 mg-acetamin ophen 300 mg tablet Take 1 tablet every 6 hours by oral route. No 1 Q6H hydrocodon e 10 mg-acetami nophen 300 mg tablet Take 1 tablet every 6 hours by oral route. [facility] trazodone trazodone No trazodone [facility] ceftriaxone 250 mg solution for injection 1000 mg IM administere d on scene. Time administere d: 1010am ceftriaxone 250 mg solution for injection 1000 mg IM administere d on scene. Time administere d: 1010am No ceftriaxon e 250 mg solution for injection 1000 mg IM administer ed on scene. Time administer ed: 1010am [facility] furosemide 10 mg/mL injection solution 20 mg IV administere d on scene. Time administere d:835pm furosemide 10 mg/mL injection solution 20 mg IV administere d on scene. Time administere d:835pm No furosemide 10 mg/mL injection solution 20 mg IV administer ed on scene. Time administer ed:835pm [facility] furosemide 40 mg tablet Take 1 tablet every day by oral route as needed for 30 days. furosemide 40 mg tablet Take 1 tablet every day by oral route as needed for 30 days. No 1 Q1D furosemide 40 mg tablet Take 1 tablet every day by oral route as needed for 30 days. [facility] gabapentin gabapentin No gabapentin [facility] hydrocodone 10 mg-acetamin ophen 300 mg tablet Take 1 tablet every 6 hours by oral route. hydrocodone 10 mg-acetamin ophen 300 mg tablet Take 1 tablet every 6 hours by oral route. No 1 Q6H hydrocodon e 10 mg-acetami nophen 300 mg tablet Take 1 tablet every 6 hours by oral route. [facility] trazodone trazodone No trazodone [facility] ceftriaxone 250 mg solution for injection 1000 mg IM administere d on scene. Time administere d: 1010am ceftriaxone 250 mg solution for injection 1000 mg IM administere d on scene. Time administere d: 1010am No ceftriaxon e 250 mg solution for injection 1000 mg IM administer ed on scene. Time administer ed: 1010am [facility] furosemide 10 mg/mL injection solution 20 mg IV administere d on scene. Time administere d:835pm furosemide 10 mg/mL injection solution 20 mg IV administere d on scene. Time administere d:835pm No furosemide 10 mg/mL injection solution 20 mg IV administer ed on scene. Time administer ed:835pm [facility] furosemide 40 mg tablet Take 1 tablet every day by oral route as needed for 30 days. furosemide 40 mg tablet Take 1 tablet every day by oral route as needed for 30 days. No 1 Q1D furosemide 40 mg tablet Take 1 tablet every day by oral route as needed for 30 days. [facility] gabapentin gabapentin No gabapentin [facility] hydrocodone 10 mg-acetamin ophen 300 mg tablet Take 1 tablet every 6 hours by oral route. hydrocodone 10 mg-acetamin ophen 300 mg tablet Take 1 tablet every 6 hours by oral route. No 1 Q6H hydrocodon e 10 mg-acetami nophen 300 mg tablet Take 1 tablet every 6 hours by oral route. [facility] potassium chloride ER 10 mEq tablet,exte nded [...] (water pill). Eat a banana most days. [facility] trazodone trazodone No trazodone [facility] Vital Signs Vital Name Observation Time Observation Value Comments S ource BP Diastolic 2021-01-21 00:00:00 76 mm[Hg] [facility] BP Systolic 2021-01-21 00:00:00 128 mm[Hg] [facility] BP Diastolic 2021-01-18 00:00:00 70 mm[Hg] Dis [facility] BP Systolic 2021-01-18 00:00:00 128 mm[Hg] [facility] Procedures Procedure Date / Time Performed Performing Clinicia n Source CT, angiogram, chest, w/ contrast 2021-01[facility]18 [facility] Planned Activity Planned Date Details Comments Source Diagnostic Test Pending 2021-01-18 00:00:00 lactate, venous plasma [code = lactate, venous plasma] [facility] Diagnostic Test Pending 2021-01-18 00:00:00 urinalysis, dipstick [code = urinalysis, dipstick] [facility] Diagnostic Test Pending 2021-01-18 00:00:00 BMP + ionized calcium, serum or plasma [code = BMP + ionized calcium, serum or plasma] [facility] Diagnostic Test Pending 2021-01-18 00:00:00 culture, urine [code = culture, urine] [facility] Start Date/Time End Date/Time Encounter Type Admission Type Attending [facility] Facility Care Department Encounter ID Source 2021-06-02 05:33:00 2021-06-02 05:33:00 Outpatient [id number] DISP DISP [id number] [facility] 2021-04-28 05:14:00 2021-04-28 05:14:00 Outpatient [id number] DISP DISP [id number] [facility] 2021-03-24 01:55:00 2021-03-24 01:55:00 Outpatient 3 DISP DISP [id number] [facility] 2021-02-17 03:23:00 2021-02-17 03:23:00 Outpatient [id number] DISP DISP [id number] [facility] 2021-01-23 06:53:00 2021-01-23 06:53:00 Outpatient [id number] DISP DISP [id number] [facility] 2021-01-21 01:57:00 2021-01-21 01:57:00 Outpatient [id number] DISP DISP [id number] [facility] 2021-01-21 00:00:00 2021-01-21 00:00:00 Outpatient Patricia Chen DISP DISP [id number] 2021-01-21 00:00:00 2021-01-21 00:00:00 Patricia Chen, REFERRAL RN: [id number], [address], [place] [address] , Ph. [facility] [id number] [facility] 2021-01-21 00:00:00 2021-01-21 00:00:00 Outpatient Patricia Chen DISP DISP [id number] 2021-01-19 12:15:00 2021-01-19 12:15:00 Outpatient [id number] DISP DISP [id number] [facility] 2021-01-18 11:51:00 2021-01-18 11:51:00 Outpatient [id number] DISP DISP [id number] [facility] 2021-01-18 00:00:00 2021-01-18 00:00:00 Outpatient Patricia Chen DISP DISP [id number] 2021-01-18 00:00:00 2021-01-18 00:00:00 Patricia Chen, REFERRAL RN: [id number], [address], [place] [address] , Ph. [phone] [facility] [id number] [facility] 2021-01-18 00:00:00 2021-01-18 00:00:00 Outpatient Patricia Chen DISP DISP [id number] Results Test Description Test Time Test Comments Results Result Co mments [facility] (dipstick) panel - [id number] 21:04:33* Test Item Value Reference Range Interpretation Comme nts Appearance (test code = Appearance) cloudy Color (test code = Color) yellow Glucose (ref: neg) (test code = Glucose (ref: neg)) Neg Bilirubin (ref: neg) (test code = Bilirubin (ref: neg)) Neg Ketones (ref: neg) (test code = Ketones (ref: neg)) ? Specific Inglis (ref: 1.003 - 1.035) (test code = Specific Inglis (ref: 1.003 - 1.035)) 1.010 Blood (ref: [...] neg)) ++ Location (test code = Location) [facility], [facility], [address] [facility] [address], [place] [address], [id number] [facility] HealthUrinalysis macro (dipstick) panel - [id number] 21:04:33* Test Item Value Reference Range Interpretation Comme nts Appearance (test code = Appearance) cloudy Color (test code = Color) yellow Glucose (ref: neg) (test code = Glucose (ref: neg)) Neg Bilirubin (ref: neg) (test code = Bilirubin (ref: neg)) Neg Ketones (ref: neg) (test code = Ketones (ref: neg)) ? Specific Inglis (ref: 1.003 - 1.035) (test code = Specific Inglis (ref: 1.003 - 1.035)) 1.010 Blood (ref: [...] neg)) ++ Location (test code = Location) [facility], [address] [facility] [address], [place] [address], [id number] [facility] - [id number] 21:04:33* Test Item Value Reference Range Interpretation Comme nts Appearance (test code = Appearance) cloudy Color (test code = Color) yellow Glucose (ref: neg) (test code = Glucose (ref: neg)) Neg Bilirubin (ref: neg) (test code = Bilirubin (ref: neg)) Neg Ketones (ref: neg) (test code = Ketones (ref: neg)) ? Specific Inglis (ref: 1.003 - 1.035) (test code = Specific Inglis (ref: 1.003 - 1.035)) 1.010 Blood (ref: [...] neg)) ++ Location (test code = Location) [facility], [address] [facility] [address], [place] [address], [id number] [facility]
--- NOTE | 2023-05-21 18:38 | RAD REPORT ---
EXAM DESCRIPTION: CT - Head Brain Wo Cont - 05/21/2023 6:19 pm CLINICAL HISTORY: ams Headache, drowsiness COMPARISON: Head Brain Wo Cont dated 02/21/2019 TECHNIQUE: All CT scans are performed using dose optimization technique as appropriate and may inclu de automated exposure control or mA/KV adjustment according to patient size. FINDINGS: No intracranial hemorrhage, hydrocephalus or extra-axial fluid collection.No areas of brai n edema or evidence of midline shift. The paranasal sinuses and mastoids are clear. The calvarium is intact. IMPRESSION: No acute intracranial abnormality.
[2023-05-21 18:43] LABS: Absolute Eosinophils 0.1 K/uL (0-0.5); Absolute Lymphocytes (CBC) 2.7 K/uL (0.7-4.9); Absolute Monocytes 0.4 K/uL (0.1-1.3); Absolute Neutrophil 2.1 K/uL (1.8-8.0); Basophils % 0.2 % (0-1.3); Eosinophils % 1.1 % (0-4.4); Hematocrit 33.7 % (36.0-45.0); Hemoglobin 11.7 g/dL (12.0-15.0); Lymphocytes % 52.2 % (15.3-44.8); MCH 31.7 pg (27.0-35.0); MCHC 34.6 g/dL (32.0-36.0); MCV 91.7 fL (80-100); MPV 7.7 fL (7.6-11.3); Monocytes % 6.9 % (3.3-12.3); Neutrophils % 39.6 % (41.7-73.7); Nucleated Red Blood Cells % 0.1 % (0-0); Platelets 170 thou/uL (152-406); RBC Red Blood Cell Count 3.68 M/uL (3.86-4.86); Red Cell Distribution Width 13.8 % (12.1-15.2)
[2023-05-21 18:48] LABS: Albumin 3.3 g/dL (3.4-5.0); Albumin/Globulin Ratio 0.8 (1.1-1.8); Anion Gap 9.2 mEq/L (5.0-15.0); Bilirubin Direct 0.6 mg/dL (0-0.2); Bilirubin Indirect, Calculated 0.4 mg/dL (0.2-0.8); Globulin 4.2 g/dL (2.3-3.5); Magnesium 1.9 mg/dL (1.6-2.4); Potassium 3.2 mEq/L (3.5-5.1); Protein, Total 7.5 g/dL (6.4-8.2); Thyroid Stimulating Hormone 0.852 uIU/mL (0.358-3.740)
--- NOTE | 2023-05-21 18:56 | RAD REPORT ---
EXAM DESCRIPTION: RAD - Chest Single View - 05/21/2023 6:43 pm CLINICAL HISTORY: syncope Chest pain. COMPARISON: Chest Single View dated 05/07/2022; Chest Single View dated 10/15/2020; Chest Single View d ated 09/19/2020; Chest Single View dated 07/17/2020 FINDINGS: Portable technique limits examination quality. Mild pulmonary edema. The heart is mildly enlarged in size. No displaced fractures. IMPRESSION: Mild CHF.
[2023-05-21 19:39] LABS: Band Neutrophils 2 % (0-1); Blood Morphology Comment NOT SEEN (NOT SEEN); Eosinophils 2 % (0-3); Lymphocytes 58 % (15-42); Monocytes 3 % (0-10); Platelet Estimate ADEQ
--- NOTE | 2023-05-21 20:21 | EDPHYS ---
Physician Documentation [facility] Name: Grace Case Age: 67 yrs Sex: Female : 1955 Arrival Date: 05/21/2023 Time: 17:51 Bed 19 Private MD: ED Physician Dano Guerrero HPI: 05/20 19:54 This 67 yrs old Female presents to ER via Wheelchair with complaints of Altered Mental rt Status. 19:54 Patient presents to the ED with an episode of confusion, diaphoresis with possible loss rt of consciousness. This has improved, patient states that she feels generally weak right now. Denies other acute complaints at this time, symptoms are moderate in severity, no other aggravating alleviating factors. Historical: - Allergies: 17:58 No Known Allergies; ld1 - PMHx: 17:58 cellulits; lymphedema; UTI; ld1 - PSHx: 17:58 Gastric Bypass; ld1 - Immunization history:: Adult Immunizations up to date. - Social history:: Smoking status: Patient denies any tobacco usage or history of. Patient/guardian denies using alcohol. - Family history:: not pertinent. ROS: 19:54 Constitutional: Negative for fever, chills, and weight loss, Cardiovascular: Negative rt for chest pain, palpitations, and edema, Respiratory: Negative for shortness of breath, cough, wheezing, and pleuritic chest pain, Abdomen/GI: Negative for abdominal pain, nausea, vomiting, diarrhea, and constipation, MS/Extremity: Negative for injury and deformity, Psych: Negative for depression, anxiety, suicide ideation, homicidal ideation, and hallucinations, 19:54 Neuro: Positive for dizziness, loss of consciousness, Exam: 19:54 Constitutional: This is a well developed, well nourished patient who is awake, alert, rt and in no acute distress. Head/Face: Normocephalic, atraumatic. Chest/axilla: Normal chest wall appearance and motion. Nontender with no deformity. No lesions are appreciated. Cardiovascular: Regular rate and rhythm with a normal S1 and S2. No gallops, murmurs, or rubs. Normal PMI, no JVD. No pulse deficits. Respiratory: Lungs have equal breath sounds bilaterally, clear to auscultation and percussion. No rales, rhonchi or wheezes noted. No increased work of breathing, no retractions or nasal flaring. Abdomen/GI: Soft, non-tender, with normal bowel sounds. No distension or tympany. No guarding or rebound. No evidence of tenderness throughout. Skin: Warm, dry with normal turgor. Normal color with no rashes, no lesions, and no evidence of cellulitis. MS/ Extremity: Pulses equal, no cyanosis. Neurovascular intact. Full, normal range of motion. Neuro: Awake and alert, GCS 15, oriented to person, place, time, and situation. Cranial nerves II-XII grossly intact. Motor strength 5/5 in all extremities. Sensory grossly intact. Cerebellar exam normal. Normal gait. Psych: Awake, alert, with orientation to person, place and time. Behavior, mood, and affect are within normal limits. 19:54 ECG was reviewed by the Attending Physician. Vital Signs: 17:57 BP 110 / 56; Pulse 61; Resp 18; Temp 97.6(O); Pulse Ox 96% on R/A; Weight 73.48 kg; ld1 Height 5 ft. 5 in. ; Pain 0/10; 18:42 BP 101 / 50; Pulse 66; Resp 18; Pulse Ox 100% on R/A; ap3 19:13 BP 111 / 57; Pulse 65; Resp 17 S; Pulse Ox 99% on R/A; ha1 20:18 BP 124 / 82; Pulse 67; Resp 17 S; Pulse Ox 98% on R/A; ha1 17:57 Body Mass Index 26.96 (73.48 kg, 165.1 cm) ld1 17:57 Pain Scale: Adult ld1 NIH Stroke Scale Scores: 18:41 NIHSS Score: 0 ap3 MDM: 18:02 Patient medically screened. rt 05/21 13:22 Differential Diagnosis: CVA, electrolyte abnormality, intracranial bleed. Data rt reviewed: vital signs, nurses notes, lab test result(s), EKG, radiologic studies. Consideration of Admission/Observation Patient was admitted/placed on observation. Management of patient was discussed with the following: Hospitalist: Agrees to admit. I considered the following discharge prescriptions or medication management in the emergency department Medications were administered in the Emergency Department. See MAR. Independent interpretation of the following test(s) in the Emergency Department CT Scan: My interpretation is No intracranial hemorrhage seen on interpretation of CT scan images. Counseling: I had a detailed discussion with the patient and/or guardian regarding the historical points, exam findings, and any diagnostic results supporting the discharge/admit diagnosis, lab results, radiology results, the need for further work-up and treatment in the hospital. 05/20 18:02 Order name: Basic Metabolic Panel; Complete Time: 19:04 rt 03 18:02 Order name: CBC with Diff; Complete Time: 19:49 rt 05/20 18:02 Order name: LFT's; Complete Time: 19:04 rt 05/20 18:02 Order name: Magnesium; Complete Time: 19:04 rt 05/20 18:02 Order name: Troponin HS; Complete Time: 19:04 rt 05/20 18:02 Order name: TSH; Complete Time: 19:04 rt 05/20 18:02 Order name: UAM rt 03 18:54 Order name: Manual Differential; Complete Time: 19:49 EDMS 05/20 20:18 Order name: BNP rt 05/20 20:39 Order name: Thyroid Stimulating Hormone EDMS 05/20 20:39 Order name: Urinalysis w/ reflexes EDMS 05/20 20:39 Order name: CBC with Automated Diff EDMS 05/20 20:39 Order name: CBC with Automated Diff EDMS 05/20 20:39 Order name: Comprehensive Metabolic Panel EDMS 05/20 20:39 Order name: Comprehensive Metabolic Panel EDMS 05/20 20:39 Order name: Lipid Profile EDMS 05/20 20:39 Order name: Lipid Profile EDMS 05/20 20:39 Order name: Magnesium EDMS 05/20 20:39 Order name: Magnesium EDMS 05/20 20:39 Order name: Phosphorus EDMS 05/20 20:40 Order name: Phosphorus EDMS 05/20 20:40 Order name: Troponin High Sensitivity EDMS 05/20 20:40 Order name: Troponin High Sensitivity EDMS 05/20 20:40 Order name: Troponin High Sensitivity EDMS 05/20 20:40 Order name: Troponin High Sensitivity EDMS 05/20 21:56 Order name: Glucose, Ancillary Testing EDMS 05/20 18:02 Order name: XRAY Chest (1 view); Complete Time: 19:04 rt 05/20 18:02 Order name: CT Head Brain wo Cont; Complete Time: 19:04 rt 03/12 20:42 Order name: Echo with Doppler EDWA 05/21 07:58 Order name: US EDMS 05/20 18:02 Order name: EKG; Complete Time: 18:04 rt 05/20 18:02 Order name: Cardiac monitoring; Complete Time: 18:42 rt 03 18:02 Order name: EKG - Nurse/Tech; Complete Time: 18:42 rt 03 18:02 Order name: IV Saline Lock; Complete Time: 18:24 rt 03 18:02 Order name: Labs collected and sent; Complete Time: 18:24 rt 03 18:02 Order name: O2 Per Protocol; Complete Time: 18:24 rt 03 18:02 Order name: O2 Sat Monitoring; Complete Time: 18:24 rt EC/12 19:54 Rate is 59 beats/min. Rhythm is regular, Sinus bradycardia with No ectopy. QRS Snelling is rt Normal. FL interval is normal. QRS interval is normal. QT interval is normal. No Q waves. T waves are Normal. No ST changes noted. Interpreted by me. Administered Medications: 20:25 Drug: Furosemide IVP 40 mg IVP once; give over 2 minutes Route: IVP; Site: right ha1 antecubital; 20:25 Drug: Potassium Chloride PO Liquid 40 mEq PO once Route: PO; ha1 Disposition Summary: 05/21/23 20:20 Hospitalization Ordered Notes: Hospitalization Status: Observation rt Provider: David De Jesus rt Condition: Stable rt Problem: new rt Symptoms: have improved rt Bed/Room Type: Standard rt Location: Telemetry/MedSurg (Inpatient)(05/22/23 12:05) [facility] Room Assignment: [facility](05/22/23 12:05) [facility] Diagnosis - Syncope rt - Pulmonary edema rt - Hypokalemia rt Forms: - Medication Reconciliation Form rt - SBAR form rt - Leadership Thank You Letter rt NIH Stroke Scale - NIH Stroke Score Date: 05/21/2023 Time: 18:41 Total Score = 0 10. Dysarthria (speech clarity - read or repeat words) - 0(Normal) 11. Extinction and Inattention (visual/tactile/auditory/spatial/personal) - 0(No abnormality) 1a. Level of Consciousness (LOC) - 0(Alert) 1b. Level of Consciousness (LOC) (Month \T\ Age) - 0(Both) 1c. LOC Commands (Open \T\ Closes Eyes/Bean Snipper) - 0(Both) 2. Best Gaze (Lateral Gaze Paresis) - 0(Normal) 3. Visual Field Loss - 0(No visual loss) 4. Facial Palsy - 0(Normal) 5a. Left Arm: Motor (10-second hold) - 0(No drift) 5b. Right Arm: Motor (10-second hold) - 0(No drift) 6a. Left Leg: Motor (5-second hold - always test supine) - 0(No drift) 6b. Right Leg: Motor (5-second hold - always test supine) - 0(No drift) 7. Limb Ataxia (finger/nose \T\ heel/rosen - test with eyes open) - 0(Absent) 8. Sensory Loss (pinprick arms/legs/face) - 0(Normal) 9. Best Language: Aphasia (description/naming/reading) - 0(No aphasia) Initials: ap3 Signatures: Dispatcher [employer] EDMS Jacquie Mcmullen RN RN lg3 Amena Yen RN RN ld1 June Marx RN RN ha1 Dano Guerrero MD MD rt Mckenzie Bravo bc6 Corrections: (The following items were deleted from the chart) 22:38 20:20 Telemetry/MedSurg (observation) rt lg3 22:38 20:20 rt lg3 22:39 22:38 lg3 lg3 05/21 12:05 05/20 22:38 [facility] ER HOLD lg3 bc6 05/21 12:05 05/20 22:39 ERHOLD- lg3 bc6
--- NOTE | 2023-05-21 20:21 | ER ---
Nurse's Notes [facility] Name: Grace Case Age: 67 yrs Sex: Female : 1955 Arrival Date: 05/21/2023 Time: 17:51 Bed 19 Private MD: Diagnosis: Syncope;Pulmonary edema;Hypokalemia Presentation: 05/20 17:57 Chief complaint: Patient states: Prior to arrival pt had episode of confusion and ld1 diaphoresis. Upon arrival to ER pt AAOX4 and c/o feeling warm. Denies pain. Reports fluttering in chest. Coronavirus screen: At this time, the client does not indicate any symptoms associated with coronavirus-19. Ebola Screen: No symptoms or risks identified at this time. Initial Sepsis Screen: Does the patient meet any 2 criteria? No. Patient's initial sepsis screen is negative. Does the patient have a suspected source of infection? No. Patient's initial sepsis screen is negative. Risk Assessment: Do you want to hurt yourself or someone else? Patient reports no desire to harm self or others. Onset of symptoms was May 21, 2023. 17:57 Method Of Arrival: Wheelchair ld1 17:57 Acuity: ESTEPHANIA 2 ld1 Triage Assessment: 17:58 General: Appears in no apparent distress. comfortable, Behavior is calm, cooperative, ld1 appropriate for age. Pain: Denies pain. EENT: No signs and/or symptoms were reported regarding the EENT system. Neuro: Level of Consciousness is awake, alert, obeys commands, Oriented to person, place, time, situation. Cardiovascular: Capillary refill < 3 seconds Patient's skin is warm and dry. Respiratory: Airway is patent Respiratory effort is even, unlabored. Derm:. Historical: - Allergies: 17:58 No Known Allergies; ld1 - PMHx: 17:58 cellulits; lymphedema; UTI; ld1 - PSHx: 17:58 Gastric Bypass; ld1 - Immunization history:: Adult Immunizations up to date. - Social history:: Smoking status: Patient denies any tobacco usage or history of. Patient/guardian denies using alcohol. - Family history:: not pertinent. Screenin:41 [facility] ED Fall Risk Assessment (Adult) History of falling in the last 3 months, ap3 including since admission No falls in past 3 months (0 pts) Confusion or Disorientation No (0 pts) Intoxicated or Sedated No (0 pts) Impaired Gait No (0 pts) Mobility Assist Device Used No (0 pt) Altered Elimination No (0 pt) Score/Fall Risk Level 0 - 2 = Low Risk Oriented to surroundings, Maintained a safe environment, Educated pt \T\ family on fall prevention, incl call for assistance when getting out of bed, Assessed \T\ reinforced patient's understanding of fall precautions, Provided non-skid footwear, Hourly rounding (assess needs \T\ fall precautionary measures) done, Used ambulatory aids as needed (educated on \T\ assisted with). Abuse screen: Denies threats or abuse. Nutritional screening: No deficits noted. Tuberculosis screening: No symptoms or risk factors identified. Assessment: 18:40 General: Appears in no apparent distress. Behavior is calm, cooperative, appropriate ap3 for age. Pain: Denies pain. Neuro: Level of Consciousness is awake, alert, obeys commands, Oriented to person, place, time, situation, Speech is normal, Reports weakness prior to arrival. Cardiovascular: Patient's skin is warm and dry. Respiratory: Airway is patent Respiratory effort is even, unlabored, Respiratory pattern is regular, symmetrical. Derm: Skin is clammy. 18:42 EENT: Reports floaters prior to arrival. ap3 19:02 Reassessment: No changes from previously documented assessment. Patient and/or family ap3 updated on plan of care and expected duration. Pain level reassessed. 19:09 Reassessment: Notified Dr. Guerrero of glucose level. provided snacks( apple juice, ha1 crackers, and pudding. 19:15 General: Appears comfortable, Behavior is calm, cooperative. Pain: Denies pain. Neuro: ha1 Saunders Agitation-Sedation Scale (RASS): 0 - Alert and Calm Level of Consciousness is awake, alert, obeys commands, Oriented to person, place, time, situation. Neuro: Reports weakness generalized. Cardiovascular: Capillary refill < 3 seconds Patient's skin is warm and dry. Respiratory: Airway is patent Respiratory effort is even, unlabored, Respiratory pattern is regular, symmetrical. 20:19 Reassessment: Patient and/or family updated on plan of care and expected duration. Pain ha1 level reassessed. Patient is alert, oriented x 3, equal unlabored respirations, skin warm/dry/pink. Dr. Guerrero in the room. Vital Signs: 17:57 BP 110 / 56; Pulse 61; Resp 18; Temp 97.6(O); Pulse Ox 96% on R/A; Weight 73.48 kg; ld1 Height 5 ft. 5 in. ; Pain 0/10; 18:42 BP 101 / 50; Pulse 66; Resp 18; Pulse Ox 100% on R/A; ap3 19:13 BP 111 / 57; Pulse 65; Resp 17 S; Pulse Ox 99% on R/A; ha1 20:18 BP 124 / 82; Pulse 67; Resp 17 S; Pulse Ox 98% on R/A; ha1 17:57 Body Mass Index 26.96 (73.48 kg, 165.1 cm) ld1 17:57 Pain Scale: Adult ld1 NIH Stroke Scale Scores: 18:41 NIHSS Score: 0 ap3 ED Course: 17:52 Patient arrived in ED. rg4 17:58 Triage completed. ld1 17:58 Arm band placed on right wrist. ld1 18:01 Dano Guerrero MD is Attending Physician. rt 18:21 CT Head Brain wo Cont In Process Unspecified. EDMS 18:24 Inserted saline lock: 22 gauge in right antecubital area, using aseptic technique. ds4 Blood collected. 18:40 Marjorie Quinteros, GIL is Primary Nurse. ap3 18:42 Patient has correct armband on for positive identification. Bed in low position. Call ap3 light in reach. Side rails up X2. monitoring and evaluation advisor on. Pulse ox on. NIBP on. 18:45 XRAY Chest (1 view) In Process Unspecified. EDMS 19:11 Report given to GIL Watkins. ap3 20:19 David De Jesus MD is Hospitalizing Provider. rt 20:55 Primary Nurse role handed off by Marjorie Quinteros RN wm 21:57 June Marx RN is Primary Nurse. ha1 Administered Medications: 20:25 Drug: Furosemide IVP 40 mg IVP once; give over 2 minutes Route: IVP; Site: right ha1 antecubital; 20:25 Drug: Potassium Chloride PO Liquid 40 mEq PO once Route: PO; ha1 Outcome: 20:20 Decision to Hospitalize by Provider. rt 05/21 13:01 Patient left the ED. iw NIH Stroke Scale - NIH Stroke Score Date: 05/21/2023 Time: 18:41 Total Score = 0 10. Dysarthria (speech clarity - read or repeat words) - 0(Normal) 11. Extinction and Inattention (visual/tactile/auditory/spatial/personal) - 0(No abnormality) 1a. Level of Consciousness (LOC) - 0(Alert) 1b. Level of Consciousness (LOC) (Month \T\ Age) - 0(Both) 1c. LOC Commands (Open \T\ Closes Eyes/Rfid Technician) - 0(Both) 2. Best Gaze (Lateral Gaze Paresis) - 0(Normal) 3. Visual Field Loss - 0(No visual loss) 4. Facial Palsy - 0(Normal) 5a. Left Arm: Motor (10-second hold) - 0(No drift) 5b. Right Arm: Motor (10-second hold) - 0(No drift) 6a. Left Leg: Motor (5-second hold - always test supine) - 0(No drift) 6b. Right Leg: Motor (5-second hold - always test supine) - 0(No drift) 7. Limb Ataxia (finger/nose \T\ heel/rosen - test with eyes open) - 0(Absent) 8. Sensory Loss (pinprick arms/legs/face) - 0(Normal) 9. Best Language: Aphasia (description/naming/reading) - 0(No aphasia) Initials: ap3 Signatures: Dispatcher [employer] Shelly Sanchez RN RN iw Swanson, Donovan ds4 Ruth Cosme Amanda, RN RN ap3 Amena Yen RN RN ld1 Marsh, Wendy June Marx RN RN ha1 Dano Guerrero MD MD rt Corrections: (The following items were deleted from the chart) 05/20 20:12 20:11 Reassessment: GIL Cordero nurse to nurse report given ha1 ha1
[2023-05-21] MEDS ORDERED: POTASSIUM CL SA 10 MEQ TAB PO ONE (20:29)
[2023-05-21] MEDS ORDERED: FUROSEMIDE 40 MG/4 ML VIAL ONE (20:29)
[2023-05-21] MEDS ORDERED: ALBUTEROL 2.5 MG/3 ML NEB SOL NEB PRN (20:33)
[2023-05-21] MEDS ORDERED: ACETAMINOPHEN 325 MG TABLET PO PRN (20:33)
[2023-05-21] MEDS ORDERED: ONDANSETRON 4 MG/2 ML VIAL IV PRN (20:33)
--- NOTE | 2023-05-21 20:33 | P.HP ---
Certification for Inpatient Patient admitted to: Inpatient With expected LOS: >2 Midnights Practitioner: I am a practitioner with admitting privileges, knowledge of patient current condition, hospital course, and medical plan of care. Services: Services provided to patient in accordance with Admission requirements found in Title 42 Section 412.3 of the Code of Federal Regulations Patient History Date of Service: 05/21/23 Reason for admission: Syncope . History of Present Illness: 67 yrs old Female with past medical history of obesity status post bariatric surgery, chronic lymphedema, history of COVID, came to ER with syncopal episode. Patient was in the passenger seat traveling when all of a sudden she felt generalized weakness and altered mental status and dizziness, denies any chest pain or shortness of breath. No fever or chills. Patient could not verbalize at that time. Hence was brought to the ER. In the ER she was assessed and had a CT of the brain which was negative for any acute changes and is being admitted for syncope At the time of interview patient is awake alert. Denies any chest pain or shortness of breath. No fever or chills. . Allergies No Known Allergies Allergy (Verified 05/26/19 22:18) Home medications list reviewed: Yes Home Medications: Gabapentin 600 mg PO BEDTIME #30 09/21/20 Gabapentin [Neurontin] 600 mg PO DAILY AFTER SUPPER #30 tablet 09/21/20 Hydrocodone 7.5/APAP 325 [[place] 7.5/325 mg*] 1 tab PO Q6H PRN #28 tab 09/21/20 Melatonin 10 mg PO BEDTIME #30 tablet 09/21/20 Minocycline HCl 100 mg PO BID #28 capsule 09/21/20 Silver Sulfadiazine Crm [Silvadene*] 1 appl TOP DAILY #1 jar 09/21/20 Sulfamethoxazole/Trimethoprim [Bactrim Ds Tablet] 1 each PO DAILY #14 tablet 09/21/20 - Past Medical/Surgical History Diabetic: No Past Medical History: Reviewed- Non-Contributory -: Chronic lymphedema -: History of DVT -: Morbid obesity -: Recurrent left lower extremity cellulitis -: cellulitis; left calf Past Surgical History: Reviewed- Non-Contributory -: Tubal ligation -: IVC vinny filter placement Psychosocial/ Personal History: Patient is . She lives at home. - Family History Family History: Reviewed- Non-Contributory - Family History Mother -: Lung disease, Other (see notes) Notes: pulmonary embolism; emphysema Father -: Cancer, Other (see notes) Notes: throat and tongue CA - Social History Smoking Status: Never smoker Alcohol use: No CD- Drugs: No Caffeine use: Yes Review of Systems 10-point ROS is otherwise unremarkable Physical Examination - Vital Signs Temperature: 98.6 F Blood Pressure: 132/78 Pulse: 76 Respirations: 18 Pulse Ox (%): 93 - Physical Exam General: Alert, In no apparent distress, Oriented x3 HEENT: Atraumatic, Normocephalic Neck: Supple, No Thyromegaly, No LAD Respiratory: Clear to auscultation bilaterally, Normal air movement Cardiovascular: Normal pulses, Regular rate/rhythm, Normal S1 S2, No gallops, No rubs Capillary refill: <2 Seconds Gastrointestinal: Soft and benign, W/out hepatosplenomegaly, No ascites, No tenderness Musculoskeletal: No clubbing, No swelling Integumentary: No rashes, No breakdown Neurological: Normal speech, Normal strength at 5/5 x4 extr, Sensation intact, Cranial nerves 3-12 intact Lymphatics: No axilla or inguinal lymphadenopathy - Studies Laboratory Data (last 24 hrs) 05/21/23 05/21/23 18:16 18:16 WBC 5.30 Hgb 11.7 L Hct 33.7 L Plt Count 170 Sodium 142 Potassium 3.2 L BUN 17 Creatinine 0.98 Glucose 64 L Magnesium 1.9 Total Bilirubin 1.0 AST 23 ALT 20 Alkaline Phosphatase 99 Assessment and Plan - Problems (Diagnosis) (1) Syncope Current Visit: Yes Status: Acute Plan: Syncopal work up CT head No acute changes Monitor under telemetry Will get carotid doppler (2) CHF (congestive heart failure) Current Visit: Yes Status: Acute Plan: Possible acute CHF Will start on Lasix Echocardiogram ordered Will assess LVEF and Valvular pathology Elevated BNP Qualifiers: Heart failure type: combined systolic and diastolic (3) UTI (urinary tract infection) Current Visit: Yes Status: Acute Plan: UA noted Will start on Rocephin Will get culture (4) Hypokalemia Current Visit: Yes Status: Acute Plan: Replace potassium Monitor under telemetry Discharge Plan: Home Plan to discharge in: 48 Hours - Advance Directives Does patient have a Living Will: No Does patient have a Durable POA for Healthcare: No - Code Status/Comfort Care Code Status: Full Code Time Spent Managing Pts Care (In Minutes): 54
[2023-05-21] MEDS ORDERED: HYDROCODONE/APAP 7.5/325 MG TAB PO PRN (20:38)
[2023-05-21] MEDS: GABAPENTIN 300 MG CAP PO SCH (21:00)
[2023-05-21] MEDS: MELATONIN 5 MG TABLET PO SCH (21:00)
[2023-05-21 21:59] LABS: Urine Bacteria <20 /HPF (<20); Urine Bilirubin NEGATIVE (Negative); Urine Blood Negative (Negative); Urine Clarity Extremely Turbid (Clear); Urine Color Light-Yellow (Yellow); Urine Crystals Unidentified Few /HPF (None Seen); Urine Glucose NEGATIVE (Negative); Urine Mucus Slight /HPF (None Seen); Urine Protein NEGATIVE (Negative); Urine RBC <5 /HPF (None Seen); Urine Urobilinogen Normal (Normal); Urine Yeast (Budding) Trace /HPF (None Seen); Urine pH 5.5 (5.0-7.0)
[2023-05-21] MEDS ORDERED: MELATONIN 5 MG TABLET PO ONE (22:31)
[2023-05-21] MEDS ORDERED: GABAPENTIN 300 MG CAP ONE (22:31)
[2023-05-21] MEDS: CEFTRIAXONE 1,000 MG in NA CHLORIDE 0.9% 50 ML IVPB SCH (23:00)
[2023-05-22] MEDS: FUROSEMIDE 20 MG/ 2ML VIAL IV SCH (01:00)
[2023-05-22] MEDS ORDERED: CEFTRIAXONE 1000 MG/VIAL ONE (01:31)
[2023-05-22 02:47] VITALS: BMI 27.8
[2023-05-22 04:49] LABS: Absolute Eosinophils 0.1 K/uL (0-0.5); Absolute Monocytes 0.3 K/uL (0.1-1.3); Absolute Neutrophil 1.9 K/uL (1.8-8.0); Basophils % 0.3 % (0-1.3); Eosinophils % 1.9 % (0-4.4); Hematocrit 32.1 % (36.0-45.0); Hemoglobin 11.4 g/dL (12.0-15.0); MCH 31.9 pg (27.0-35.0); MCHC 35.4 g/dL (32.0-36.0); MCV 90.3 fL (80-100); MPV 7.6 fL (7.6-11.3); Neutrophils % 43.8 % (41.7-73.7); Nucleated Red Blood Cells % 0.1 % (0-0); Platelets 150 thou/uL (152-406); RBC Red Blood Cell Count 3.56 M/uL (3.86-4.86); Red Cell Distribution Width 13.6 % (12.1-15.2)
[2023-05-22 05:02] LABS: Albumin 3.1 g/dL (3.4-5.0); Albumin/Globulin Ratio 0.8 (1.1-1.8); Anion Gap 8.7 mEq/L (5.0-15.0); Bilirubin Total 0.8 mg/dL (0.2-1.0); Globulin 4.1 g/dL (2.3-3.5); Phosphorus 3.3 mg/dL (2.5-4.9); Potassium 3.7 mEq/L (3.5-5.1); Protein, Total 7.2 g/dL (6.4-8.2); Troponin High Sensitivity 4.7 pg/mL (<58.9)
--- NOTE | 2023-05-22 07:58 | RAD REPORT ---
EXAM DESCRIPTION: - CP - 05/21/2023 11:47 pm CLINICAL HISTORY: Syncope Headache, drowsiness, syncope COMPARISON: No comparisons TECHNIQUE: Real-time sonographic evaluation of both carotid systems was performed. Doppler interroga tion was performed with waveform tracing bilaterally. FINDINGS: Normal high resistance waveforms are noted in both external carotid arteries. The common c arotid arteries and internal carotid arteries show normal low resistance waveforms. No significant plaque formation is seen. Peak systolic and end diastolic velocity values and the ICA/ CCA ratios are in the non-hemodynamically significant range. Antegrade flow seen in both vertebral arteries. IMPRESSION: No significant atherosclerotic changes noted. No evidence of a hemodynamically significant stenosis.
[2023-05-22] MEDS: INFLUENZA VACCINE (for 6+ mo) 0.5 ML DOSE IMVAC ONE (08:00)
[2023-05-22] MEDS ORDERED: ENOXAPARIN 40 MG/0.4 ML SQ ONE (08:28)
[2023-05-22] MEDS ORDERED: FUROSEMIDE 20 MG/ 2ML VIAL ONE (08:28)
[2023-05-22] MEDS ORDERED: POTASSIUM CL SA 10 MEQ TAB PO ONE (08:28)
[2023-05-22] MEDS: POTASSIUM CL SA 10 MEQ TAB PO ONE (09:00)
[2023-05-22] MEDS: ENOXAPARIN 40 MG/0.4 ML SQ SCH (09:00)
[2023-05-22] MEDS: FLUCONAZOLE 100 MG TAB PO ONE (11:00)
[2023-05-23 07:03] LABS: Anion Gap 7.7 mEq/L (5.0-15.0); Potassium 3.7 mEq/L (3.5-5.1)
[2023-05-23] MEDS: POTASSIUM CL SA 10 MEQ TAB PO ONE (08:30)
[2023-05-23 10:33] VITALS: O2SAT 96
[2023-05-23 12:39] VITALS: BP 104/51; TEMP 97.3
--- NOTE | 2023-05-24 00:19 | P.PN ---
Date of Service: 05/22/23 Subjective Patient doing well no new complaints. Clinical symptoms are stable. Physical Examination - Vital Signs reviewed - Physical Exam General: Alert, In no apparent distress, Oriented x3 Respiratory: Clear to auscultation bilaterally Cardiovascular: Regular rate/rhythm, Normal S1 S2 Gastrointestinal: Soft and benign, W/out hepatosplenomegaly, No ascites, No tenderness Musculoskeletal: No clubbing, No swelling Integumentary: No rashes, No breakdown Neurological: No focal deficits Assessment and Plan - Problems (Diagnosis) (1) Syncope Current Visit: Yes Status: Acute Plan: Carotid Doppler and echocardiogram completed. Patient is doing well with no new c/o. (2) CHF (congestive heart failure) Current Visit: Yes Status: Acute Plan: Patient unlikely to have CHF (3) UTI (urinary tract infection) Current Visit: Yes Status: Acute Plan: Continue with antibiotics (4) Hypokalemia Current Visit: Yes Status: Acute Plan: Replace potassium - Advance Directives Does patient have a Living Will: No Does patient have a Durable POA for Healthcare: No - Code Status/Comfort Care Code Status: Full Code Time Spent Managing Pts Care (In Minutes): 54
--- NOTE | 2023-05-24 00:21 | P.DS ---
Discharge Date: 05/23/23 Disposition: ROUTINE DISCHARGE Discharge Condition: GOOD Reason for Admission: Syncope Brief History of Present Illness: patient is a 67 yrs old Female with past medical history of obesity status post bariatric surgery, chronic lymphedema, history of COVID, came to ER with syncopal episode. Patient was in the passenger seat traveling when all of a sudden she felt generalized weakness and altered mental status and dizziness, denies any chest pain or shortness of breath. No fever or chills. Patient could not verbalize at that time. Hence was brought to the ER. In the ER she was assessed and had a CT of the brain which was negative for any acute changes and is being admitted for syncope At the time of interview patient is awake alert. Denies any chest pain or shortness of breath. No fever or chills. Hospital Course: Patient has done well during hospital stay. Clinically, patient is much better. At this time, patient is stable for discharge home. Patient will follow-up with Neurology and Cardiology and PCP as an outpatient. Vital Signs/Physical Exam: Temp Pulse Resp BP Pulse Ox 97.3 F 71 16 104/51 L 99 05/23/23 12:00 05/23/23 12:00 05/23/23 12:00 05/23/23 12:00 05/23/23 12:00 General: Alert, In no apparent distress, Oriented x3 Laboratory Data at Discharge: WBC 4.30 thou/uL (4.3-10.9) 05/22/23 04:32 Hgb 11.4 g/dL (12.0-15.0) L 05/22/23 04:32 Hct 32.1 % (36.0-45.0) L 05/22/23 04:32 Plt Count 150 thou/uL (152-406) L 05/22/23 04:32 Sodium 139 mEq/L (136-145) 05/23/23 06:10 Potassium 3.7 mEq/L (3.5-5.1) 05/23/23 06:10 BUN 22 mg/dL (7-18) H 05/23/23 06:10 Creatinine 0.92 mg/dL (0.55-1.02) 05/23/23 06:10 Glucose 91 mg/dL (74-106) 05/23/23 06:10 Phosphorus 3.3 mg/dL (2.5-4.9) 05/22/23 04:32 Magnesium 2.0 mg/dL (1.6-2.4) 05/22/23 04:32 Total Bilirubin 0.8 mg/dL (0.2-1.0) 05/22/23 04:32 AST 24 U/L (15-37) 05/22/23 04:32 ALT 18 U/L (13-56) 05/22/23 04:32 Alkaline Phosphatase 93 U/L (45-117) 05/22/23 04:32 Triglycerides 71 mg/dL (<150) 05/22/23 04:32 Cholesterol 102 mg/dL (<200) 05/22/23 04:32 HDL Cholesterol 55 mg/dL (40-60) 05/22/23 04:32 Cholesterol/HDL Ratio 1.85 05/22/23 04:32 Home Medications: Gabapentin 600 mg PO BEDTIME #30 09/21/20 Gabapentin [Neurontin] 600 mg PO DAILY AFTER SUPPER #30 tablet 09/21/20 Hydrocodone 7.5/APAP 325 [[place] 7.5/325 mg*] 1 tab PO Q6H PRN #28 tab 09/21/20 Melatonin 10 mg PO BEDTIME #30 tablet 09/21/20 Minocycline HCl 100 mg PO BID #28 capsule 09/21/20 Silver Sulfadiazine Crm [Silvadene*] 1 appl TOP DAILY #1 jar 09/21/20 Sulfamethoxazole/Trimethoprim [Bactrim Ds Tablet] 1 each PO DAILY #14 tablet 09/21/20 Physician Discharge Instructions: -DC IV and DC home -Follow-up with PCP in 1 to 2 weeks -Follow-up with Cardiology and Neurologist, for EEG, in 1 to 2 weeks -Please call Dr. Bonner at [phone] if any questions regarding hospital stay -Please call nursing station at [phone] if any nursing or medication questions -Return to the emergency room if symptoms worsen Diet: AHA Activity: Fall precautions Followup: Isaac Roland MD [ASSOCIATE-ACTIVE - CAN ADMIT] - 1-2 Weeks NONE,NONE [Primary Care Provider] - Malachi Avitia MD [ACTIVE - CAN ADMIT] - 1-2 Weeks Time spent managing pt's care (in minutes): 35
--- NOTE | 2023-05-24 07:02 | ECHO ---
HEIGHT: 5 ft 5 in WEIGHT: 162 lb 0 oz DATE OF STUDY: 05/23/[address]: Mateo De Jesus DO 2-DIMENSIONAL: YES M.MODE: YES DOPPLER: YES COLOR FLOW: YES TDS: PORTABLE: YES DEFINITY: BUBBLE STUDY: DIAGNOSIS: CONGESTIVE HEART FAILURE CARDIAC HISTORY: CATHERIZATION: NO SURGERY: NO PROSTHETIC VALVE: NO PACEMAKER: NO MEASUREMENTS (cm) DIASTOLIC (NORMALS) SYSTOLIC (NORMALS) IVSd 1.2 (0.6-1.2) LA Diam 3.1 (1.9-4.0) LVEF 55% LVIDd 3.0 (3.5-5.7) LVIDs 2.1 (2.0-3.5) %FS 28% LVPWd 1.1 (0.6-1.2) Ao Diam 3.3 (2.0-3.7) 2 DIMENSIONAL ASSESSMENT: RIGHT ATRIUM: NORMAL LEFT ATRIUM: NORMAL RIGHT VENTRICLE: NORMAL LEFT VENTRICLE: NORMAL TRICUSPID VALVE: NORMAL MITRAL VALVE: NORMAL PULMONIC VALVE: NORMAL AORTIC VALVE: NORMAL PERICARDIAL EFFUSION: NONE AORTIC ROOT: NORMAL LEFT VENTRICULAR WALL MOTION: NORMAL DOPPLER/COLOR FLOW: GRADE I DIASTOLIC DYSFUNCTION COMMENTS: 1. NORMAL LEFT VENTRICULAR SYSTOLIC FUNCTION, EJECTION FRACTION 55-60%, NORMAL WALL MOTION 2. IMPAIRED RELAXATION DIASTOLIC DYSFUNCTION TECHNOLOGIST: GABY DYER
--- NOTE | 2023-05-24 17:33 | EKG ---
Test Date: 2023-05-21 Test Time: 18:22:02 Email Marketing Intern: KIRSTIN MEASUREMENT RESULTS: Intervals: Rate: 59 MT: 156 QRSD: 110 QT: 470 QTc: 465 [place]: P: 40 MT: 156 QRS: 47 T: 43 INTERPRETIVE STATEMENTS: Sinus bradycardia Otherwise normal ECG Compared to ECG 09/19/2020 23:35:35 Sinus rhythm no longer present Ventricular premature complex(es) no longer present Electronically Signed On 05-24-23 17:25:04 CDT by Malachi Avitia
== END 2023-05-23 12:36 | disposition home or self-care (01) | DRG 292 ==
LOC: ER 17:51 → ERHOLD 20:33 → 4TH 05-22 12:06
PROVIDERS: ADMIT Family Medicine; ATTEND Hospitalist
DX: I50.41 Acute combined systolic (congestive) and diastolic (congestive) heart failure (principal); N39.0 Urinary tract infection, site not specified; E87.6 Hypokalemia; R55 Syncope and collapse; Z98.84 Bariatric surgery status; Z86.16 Personal history of COVID-19; Z79.01 Long term (current) use of anticoagulants; Z98.51 Tubal ligation status; Z79.899 Other long term (current) drug therapy; Z86.718 Personal history of other venous thrombosis and embolism
CPT/HCPCS: 36415; 70450; 71045; 80048; 80053; 80061; 80076; 81001; 82947; 83735; 83880; 84100; 84443; 84484; 85025; 87077; 87086; 87088; 87186; 93005; 93306; 93880; 94760; 96374; 99285; J0696; J1650; J1940

== ENCOUNTER 2024-02-25 10:08 | Emergency (ER) | payer OTHER ==
--- OUTSIDE RECORDS SUMMARY | 2024-02-25 10:12 | XMS REPORT | Continuity of Care Document ---
Author Name Unknown Address [address] [place] [address] José Luis. [address] th[address] Address [address] [facility] José Luis. [address] [place] [address] Care Team Providers Care Bell Person Name Role Phone [id number] Attending Clinician Unavailable Patricia Chen Attending Clinician [phone] Admitting Clinician Unavailable Payers Payer Name Policy Type Policy Number Effective Date Expirati on Date Source [place]IC[place]: [employer] [id number] 2020 00:00:00 Social History Smoking Status Start Date Stop Date Source Never Smoker [facility] Medications Ordered Medication Name Filled Medication Name Start Date Stop Date Current Medication? Ordering Clinician Indication Dosage Frequency Signature (SIG) Comments Components Source ceftriaxone 250 mg solution for injection 250 mg IM administere d on scene. Time administere d:9:20pm ceftriaxone 250 mg solution for injection 250 mg IM administere d on scene. Time administere d:9:20pm No ceftriaxon e 250 mg solution for injection 250 mg IM administer ed on scene. Time administer ed:9:20pm [facility] furosemide 10 mg/mL injection solution 20 mg IV administere d on scene. Time administere d:835pm furosemide 10 mg/mL injection solution 20 mg IV administere d on scene. Time administere d:835pm No furosemide 10 mg/mL injection solution 20 mg IV administer ed on scene. Time administer ed:835pm [facility] gabapentin gabapentin No gabapentin [facility] hydrocodone 10 mg-acetamin ophen 300 mg tablet Take 1 tablet every 6 hours by oral route. hydrocodone 10 mg-acetamin ophen 300 mg tablet Take 1 tablet every 6 hours by oral route. No 1 Q6H hydrocodon e 10 mg-acetami nophen 300 mg tablet Take 1 tablet every 6 hours by oral route. [facility] trazodone trazodone No trazodone [facility] furosemide 40 mg tablet Take 1 tablet every day by oral route as needed for 30 days. furosemide 40 mg tablet Take 1 tablet every day by oral route as needed for 30 days. No 1 Q1D furosemide 40 mg tablet Take 1 tablet every day by oral route as needed for 30 days. [facility] ceftriaxone 250 mg solution for injection 1000 mg IM administere d on scene. Time administere d: 1010am ceftriaxone 250 mg solution for injection 1000 mg IM administere d on scene. Time administere d: 1010am No ceftriaxon e 250 mg solution for injection 1000 mg IM administer ed on scene. Time administer ed: 1010am [facility] furosemide 10 mg/mL injection solution 20 mg IV administere d on scene. Time administere d:835pm furosemide 10 mg/mL injection solution 20 mg IV administere d on scene. Time administere d:835pm No furosemide 10 mg/mL injection solution 20 mg IV administer ed on scene. Time administer ed:835pm [facility] furosemide 40 mg tablet Take 1 tablet every day by oral route as needed for 30 days. furosemide 40 mg tablet Take 1 tablet every day by oral route as needed for 30 days. No 1 Q1D furosemide 40 mg tablet Take 1 tablet every day by oral route as needed for 30 days. [facility] gabapentin gabapentin No gabapentin [facility] hydrocodone 10 mg-acetamin ophen 300 mg tablet Take 1 tablet every 6 hours by oral route. hydrocodone 10 mg-acetamin ophen 300 mg tablet Take 1 tablet every 6 hours by oral route. No 1 Q6H hydrocodon e 10 mg-acetami nophen 300 mg tablet Take 1 tablet every 6 hours by oral route. [facility] potassium chloride ER 10 mEq tablet,exte nded [...] (water pill). Eat a banana most days. [facility] trazodone trazodone No [facility]zodone [facility] Vital Signs Vital Name Observation Time Observation Value Comments S shandra BP Diastolic 2021-01-21 00:00:00 76 mm[Hg] [facility] BP Systolic 2021-01-21 00:00:00 128 mm[Hg] [facility] BP Diastolic 2021-01-18 00:00:00 70 mm[Hg] [facility] BP Systolic 2021-01-18 00:00:00 128 mm[Hg] [facility] Procedures Procedure Date / Time Performed Performing Clinicia n Source CT, angiogram, chest, w/ contrast 2021-01[facility]18 [facility] Planned Activity Planned Date Details Comments Source Diagnostic Test Pending 2021-01-18 00:00:00 lactate, venous plasma [code = lactate, venous plasma] [facility] Diagnostic Test Pending 2021-01-18 00:00:00 urinalysis, dipstick [code = urinalysis, dipstick] [facility] Diagnostic Test Pending 2021-01-18 00:00:00 BMP + ionized calcium, serum or plasma [code = BMP + ionized calcium, serum or plasma] [facility] Diagnostic Test Pending 2021-01-18 00:00:00 culture, urine [code = culture, urine] [facility] Instructions [facility] [place] Encounters Start Date/Time End Date/Time Encounter Type Admission Type Attending [facility] Care Facility Care Department Encounter ID Source 2021-06-02 05:33:00 2021-06-02 05:33:00 Outpatient [id number] 3 DISP DISP [id number] [facility] 2021-04-28 05:14:00 2021-04-28 05:14:00 Outpatient [id number] DISP DISP [id number] [facility] 2021-03-24 01:55:00 2021-03-24 01:55:00 Outpatient [id number] DISP DISP [id number] [facility] 2021-02-17 03:23:00 2021-02-17 03:23:00 Outpatient [id number] 3 DISP DISP [id number] [facility] 2021-01-23 06:53:00 2021-01-23 06:53:00 Outpatient [id number] 3 DISP DISP [id number] [facility] 2021-01-21 01:57:00 2021-01-21 01:57:00 Outpatient [id number] 3 DISP DISP [id number] [facility] 2021-01-21 00:00:00 2021-01-21 00:00:00 Outpatient Gustavo Patricia DISP DISP [id number] 2021-01-21 00:00:00 2021-01-21 00:00:00 Patricia Chen, GRINDER DRESSER: [id number] [facility], [address], [place] [address] , Ph. DISP [facility] [id number] [facility] 2021-01-21 00:00:00 2021-01-21 00:00:00 Outpatient GustavoPatricia DISP DISP [id number] 2021-01-19 12:15:00 2021-01-19 12:15:00 Outpatient [id number] 3 DISP DISP [id number] [facility] 2021-01-18 11:51:00 2021-01-18 11:51:00 Outpatient [id number] 3 DISP DISP [id number] [facility] 2021-01-18 00:00:00 2021-01-18 00:00:00 Outpatient Gustavo Patricia DISP DISP [id number] 2021-01-18 00:00:00 2021-01-18 00:00:00 Patricia Chen, GRINDER DRESSER: [id number] [facility], [address], [place] [address] , Ph. [id number] DISP [facility] - [facility] [id number] [facility] 2021-01-18 00:00:00 2021-01-18 00:00:00 Outpatient Patricia Chen DISP DISP [id number] Results Test Description Test Time Test Comments Results Result Co mments Source [facility]
--- NOTE | 2024-02-25 10:45 | RAD REPORT ---
EXAMINATION: ONE VIEW CHEST XR CLINICAL INDICATION: CHEST PAIN TECHNIQUE: Frontal chest projection is submitted. Examination is limited by patient positioning and t echnique. COMPARISON: 05/21/2023 FINDINGS: Mild interstitial prominence noted, chronic. This may represent mild chronic pulmonary edema. Heart i s moderately enlarged. No displaced fractures identified. IMPRESSION: Findings favor mild chronic CHF pattern.
[2024-02-25] MEDS ORDERED: ASPIRIN 81 MG CHEWABLE TABLET ONE (10:52)
[2024-02-25 10:57] LABS: Absolute Lymphocytes (CBC) 1.6 K/uL (0.7-4.9); Absolute Monocytes 0.2 K/uL (0.1-1.3); Absolute Neutrophil 1.4 K/uL (1.8-8.0); Basophils % 0.8 % (0-1.3); Hematocrit 34.4 % (36.0-45.0); Hemoglobin 11.7 g/dL (12.0-15.0); Lymphocytes % 48.6 % (15.3-44.8); MCH 31.6 pg (27.0-35.0); MCHC 34.1 g/dL (32.0-36.0); MCV 92.9 fL (80-100); MPV 7.6 fL (7.6-11.3); Monocytes % 6.6 % (3.3-12.3); Nucleated Red Blood Cells % 0.2 % (0-0); Platelets 150 thou/uL (152-406); RBC Red Blood Cell Count 3.71 M/uL (3.86-4.86); Red Cell Distribution Width 14.3 % (12.1-15.2)
[2024-02-25 11:16] LABS: Anion Gap 5.8 mEq/L (5.0-15.0); Potassium 3.8 mEq/L (3.5-5.1); Troponin High Sensitivity 4.6 pg/mL (<58.9)
[2024-02-25 11:58] LABS: Blood Morphology Comment NOT SEEN (NOT SEEN); Differential Total Cells Count 100; Lymphocytes 58 % (15-42); Monocytes 9 % (0-10); Platelet Estimate ADEQ; Segmented Neutrophils 33 % (40-80)
--- NOTE | 2024-02-25 12:23 | ER ---
Nurse's Notes [facility] Name: Grace Case Age: 68 yrs Sex: Female : 1955 Arrival Date: 02/25/2024 Time: 10:08 Bed 17 Private MD: Diagnosis: Chest pain, unspecified;Anemia, unspecified;Leukopenia Presentation: 02/24 10:36 Chief complaint: Patient states: chest pain x2 weeks, comes and goes. Feels like tm6 stabbing. Coronavirus screen: Client denies travel out of the [place] in the last 14 days. Ebola Screen: Patient negative for fever greater than or equal to 101.5 degrees Fahrenheit, and additional compatible Ebola Virus Disease symptoms Patient denies exposure to infectious person. Patient denies travel to an Ebola-affected area in the 21 days before illness onset. No symptoms or risks identified at this time. Initial Sepsis Screen: Does the patient meet any 2 criteria? No. Patient's initial sepsis screen is negative. Does the patient have a suspected source of infection? No. Patient's initial sepsis screen is negative. Risk Assessment: Do you want to hurt yourself or someone else? Patient reports no desire to harm self or others. Onset of symptoms was February 11, 2024. 10:36 Method Of Arrival: Ambulatory tm6 10:36 Acuity: ESTEPHANIA 3 tm6 Triage Assessment: 10:37 General: Appears in no apparent distress. Behavior is calm, cooperative. Pain: tm6 Complains of pain in chest Pain currently is 6 out of 10 on a pain scale. Quality of pain is described as stabbing, Pain began x2 weeks. EENT: No signs and/or symptoms were reported regarding the EENT system. Neuro: Level of Consciousness is awake, alert, obeys commands, Oriented to person, place, time, situation. Cardiovascular: Reports chest pain, Patient's skin is warm and dry. Respiratory: Airway is patent Respiratory effort is even, unlabored, Respiratory pattern is regular, symmetrical. GI: No signs and/or symptoms were reported involving the gastrointestinal system. Abdomen is flat, non-distended. : No signs and/or symptoms were reported regarding the genitourinary system. Derm: No signs and/or symptoms reported regarding the dermatologic system. Musculoskeletal: No signs and/or symptoms reported regarding the musculoskeletal system. Historical: - Allergies: 10:37 No Known Allergies; tm6 - PMHx: 10:37 lymphedema; cellulits; UTI; tm6 - PSHx: 10:37 Gastric Bypass; knee replacement (Gastric Bypass); tm6 - Immunization history:: Flu vaccine is up to date. - Infectious Disease History:: Denies. - Social history:: Smoking status: Patient denies any tobacco usage or history of. Screenin:18 [facility] ED Fall Risk Assessment (Adult) History of falling in the last 3 months, ap3 including since admission No falls in past 3 months (0 pts) Confusion or Disorientation No (0 pts) Intoxicated or Sedated No (0 pts) Impaired Gait No (0 pts) Mobility Assist Device Used No (0 pt) Altered Elimination No (0 pt) Score/Fall Risk Level 0 - 2 = Low Risk Oriented to surroundings, Maintained a safe environment, Educated pt \T\ family on fall prevention, incl call for assistance when getting out of bed, Assessed \T\ reinforced patient's understanding of fall precautions, Hourly rounding (assess needs \T\ fall precautionary measures) done, Used ambulatory aids as needed (educated on \T\ assisted with), Used gait belt as appropriate. Abuse screen: Denies threats or abuse. Nutritional screening: No deficits noted. Tuberculosis screening: No symptoms or risk factors identified. Assessment: 11:17 Reassessment: Patient and/or family updated on plan of care and expected duration. Pain ap3 level reassessed. Patient is alert, oriented x 3, equal unlabored respirations, skin warm/dry/pink. General: Appears in no apparent distress. Pain: Complains of pain in anterior aspect of left upper chest Pain does not radiate. Neuro: Level of Consciousness is awake, alert, obeys commands, Oriented to person, place, time, situation, Appropriate for age. Cardiovascular: Patient's skin is warm and dry. Respiratory: Airway is patent Respiratory effort is even, unlabored, Respiratory pattern is regular, symmetrical. Vital Signs: 10:36 BP 112 / 49; Pulse 71; Resp 19; Temp 98.7(O); Pulse Ox 100% on R/A; MAP 66 mmHg; Pain tm6 6/10; 11:32 BP 106 / 70; Pulse 61; Resp 17; Pulse Ox 95% on R/A; ap3 12:16 BP 111 / 71; Pulse 57; Resp 17; Pulse Ox 99% on R/A; ap3 10:36 Pain Scale: Adult tm6 ED Course: 10:12 Patient arrived in ED. sj2 10:13 Mitesh Yen DO is Attending Physician. ms3 10:35 Marjorie Quinteros, GIL is Primary Nurse. ap3 10:37 Triage completed. tm6 10:37 Arm band placed on right wrist. tm6 10:40 XRAY Chest (1 view) In Process Unspecified. EDMS 10:45 Patient has correct armband on for positive identification. Placed in gown. Bed in low ap3 position. Call light in reach. Side rails up X 1. Client placed on continuous cardiac and pulse oximetry monitoring. NIBP monitoring applied. food photographer on. Pulse ox on. NIBP on. Door closed. Noise minimized. 10:45 Initial lab(s) drawn, by me, sent to lab. Inserted saline lock: 20 gauge in right ap3 antecubital area, using aseptic technique. Blood collected. Flushed with 10 mL NS. 10:55 EKG done, by ED staff, reviewed by Mitesh Yen DO. ap3 11:18 No provider procedures requiring assistance completed. Patient maintains SpO2 ap3 saturation greater than 95% on room air. 12:22 Michael Benavides DO is Referral Physician. ms3 12:22 Malachi Avitia MD is Referral Physician. ms3 12:33 Provided Education on: discharge instructions. ap3 12:33 IV discontinued, intact, bleeding controlled, No redness/swelling at site. Pressure ap3 dressing applied. Administered Medications: 10:57 Drug: Aspirin PO Chewable Tablet 324 mg PO once; 81 mg tablets x 4 Route: PO; ap3 12:32 Follow up: Response: No adverse reaction ap3 Medication: 12:33 VIS not applicable for this client. ap3 Outcome: 12:22 Discharge ordered by . ms3 12:32 Discharged to home ambulatory, ap3 12:32 Condition: good 12:32 Discharge instructions given to patient, Instructed on discharge instructions, follow up and referral plans. Demonstrated understanding of instructions, follow-up care, 12:33 Patient left the ED. ap3 Signatures: Dispatcher [employer] EDDE Marjorie Quinteros RN RN ap3 Mitesh Yen DO DO ms3 Jordana Astorga, RN RN tm6 Precious Schwab sj2
--- NOTE | 2024-02-25 12:24 | EDPHYS ---
Physician Documentation [facility] Name: Grace Case Age: 68 yrs Sex: Female : 1955 Arrival Date: 02/25/2024 Time: 10:08 Bed 17 Private MD: ED Physician Mitesh Yen HPI: 02/24 10:24 This 68 yrs old Female presents to ER via Unassigned with complaints of Chest Pain, ms3 CHEST PAIN FOR ABOUT 2 WEEKS NOW. 10:24 Grace Case, a 68-year-old female, presents to the Emergency Department with chest pain ms3 that began two weeks ago. She describes the pain as located on the left side of her chest. The pain varies in intensity, sometimes reaching a six on a scale of one to ten, but is currently at a three or four while sitting still. She reports experiencing nausea last night and sweating at night, which she considers normal. She recently moved back to the area and does not have a primary care physician.. Historical: - Allergies: 10:37 No Known Allergies; tm6 - PMHx: 10:37 lymphedema; cellulits; UTI; tm6 - PSHx: 10:37 Gastric Bypass; knee replacement (Gastric Bypass); tm6 - Immunization history:: Flu vaccine is up to date. - Infectious Disease History:: Denies. - Social history:: Smoking status: Patient denies any tobacco usage or history of. ROS: 10:24 Constitutional: Negative for fever, and chills. Neck: Negative for injury, pain, and ms3 swelling, 10:24 Respiratory: Negative for shortness of breath, cough, wheezing, and pleuritic chest pain, Abdomen/GI: Negative for abdominal pain, nausea, vomiting, diarrhea, and constipation, MS/Extremity: Negative for injury and deformity, Skin: Negative for injury, rash, and discoloration, 10:24 Cardiovascular: Positive for chest pain, Exam: 10:24 Constitutional: This is a well developed, well nourished patient who is awake, alert, ms3 and in no acute distress. Chest/axilla: Normal chest wall appearance and motion. Nontender with no deformity. 10:24 Cardiovascular: Regular rate and rhythm with a normal S1 and S2. No gallops, murmurs, or rubs. Normal PMI, no JVD. No pulse deficits. Abdomen/GI: Soft, non-tender, with normal bowel sounds. No distension or tympany. No guarding or rebound. No evidence of tenderness throughout. Skin: Warm, dry with normal turgor. Normal color with no rashes, no lesions, and no evidence of cellulitis. 10:24 Chest/axilla: Inspection: normal, Palpation: tenderness, that is moderate, of the anterior aspect of left upper chest, 10:59 ECG was reviewed by the Attending Physician. ms3 Vital Signs: 10:36 BP 112 / 49; Pulse 71; Resp 19; Temp 98.7(O); Pulse Ox 100% on R/A; MAP 66 mmHg; Pain tm6 6/10; 11:32 BP 106 / 70; Pulse 61; Resp 17; Pulse Ox 95% on R/A; ap3 12:16 BP 111 / 71; Pulse 57; Resp 17; Pulse Ox 99% on R/A; ap3 10:36 Pain Scale: Adult tm6 MDM: 10:24 Differential diagnosis: abnormal EKG, acute myocardial infarction, chest wall pain. ms3 10:26 Medical Screening Exam initiated ms3 18:23 HEART Score: History: Slightly Suspicious (0), ECG: Non specific repolarization ms3 disturbance / LBTB / PM (1), Age: > or = 65 years (2), Risk Factors: No Risk Factors Known (0), Troponin: < or = 1 x Normal Limit (0), Total Score = 3. 18:23 The patient was given aspirin in the Emergency Department. Data reviewed: vital signs, ms3 nurses notes, lab test result(s), EKG, radiologic studies, and as a result, I will discharge patient. I considered the following discharge prescriptions or medication management in the emergency department Medications were administered in the Emergency Department. See MAR. Independent interpretation of the following test(s) in the Emergency Department EKG: See my EKG interpretation above. Counseling: I had a detailed discussion with the patient and/or guardian regarding the historical points, exam findings, and any diagnostic results supporting the discharge/admit diagnosis, lab results, radiology results, the need for outpatient follow up, to return to the emergency department if symptoms worsen or persist or if there are any questions or concerns that arise at home. Special discussion: Based on the patient's history, exam, and Dx evaluation, there is no indication for emergent intervention or inpatient Tx. It is understood by the patient/guardian that if the Sx's persist or worsen they need to return immediately for re-evaluation. ED course: Discussed normal troponin, EKG, chest x-ray findings with the patient. Patient to follow-up with primary care physician and cardiology in 2 to 3 days. All questions were answered. Return precautions discussed include worsening symptoms, or any other concerns. On reevaluation patient symptoms patient is alert and oriented x 4, no apparent distress, nontoxic-appearing, ambulatory emerged primary, speaking full sentences.. 02/24 10:18 Order name: Basic Metabolic Panel; Complete Time: 11:38 ms3 02/24 10:18 Order name: CBC with Diff; Complete Time: 12:08 ms3 02/24 10:18 Order name: Troponin HS; Complete Time: 11:38 ms3 02/24 11:59 Order name: Manual Differential; Complete Time: 12:08 EDMS 02/24 10:18 Order name: XRAY Chest (1 view); Complete Time: 10:55 ms3 02/24 10:18 Order name: Cardiac monitoring; Complete Time: 10:55 ms3 02/24 10:18 Order name: EKG - Nurse/Tech; Complete Time: 10:55 ms3 02/24 10:18 Order name: IV Saline Lock; Complete Time: 10:45 ms3 02/24 10:18 Order name: Labs collected and sent; Complete Time: 10:45 ms3 02/24 10:18 Order name: O2 Per Protocol; Complete Time: 10:36 ms3 02/24 10:18 Order name: O2 Sat Monitoring; Complete Time: 10:36 ms3 EC:59 Rate is 60 beats/min. Rhythm is regular. QRS [place] is Normal. [place] interval is normal. QRS ms3 interval is prolonged. Clinical impression: NSR w/ Non-specific ST/T Changes and RBBB. Interpreted by me. Reviewed by me. Administered Medications: 10:57 Drug: Aspirin PO Chewable Tablet 324 mg PO once; 81 mg tablets x 4 Route: PO; ap3 12:32 Follow up: Response: No adverse reaction ap3 Disposition Summary: 02/25/24 12:22 Discharge Ordered Notes: Location: Home ms3 Condition: Stable ms3 Diagnosis - Chest pain, unspecified ms3 - Anemia, unspecified ms3 - Leukopenia ms3 Followup: ms3 - With: Michael Benavides DO - When: 2 - 3 days - Reason: Recheck today's complaints Followup: ms3 - With: Malachi Avitia MD - When: 2 - 3 days - Reason: Recheck today's complaints Discharge Instructions: - Discharge Summary Sheet ms3 - Anemia ms3 - Nonspecific Chest Pain, Adult ms3 Forms: - Medication Reconciliation Form ms3 - Antibiotic Education ms3 - Prescription Opioid Use ms3 - Patient Portal Instructions ms3 - Leadership Thank You Letter ms3 Signatures: Dispatcher [employer] EDMS Marjorie Quinteros, RN RN ap3 Mitesh Yen DO DO ms3 Jordana Astorga RN RN tm6 Corrections: (The following items were deleted from the chart) 10:18 10:18 Chest Single View+[id number] ordered. EDMS EDMS 18:25 18:23 HEART Score: History: Slightly Suspicious (0), ECG: ms3 ms3 18:26 18:23 ED course: Discussed normal troponin, EKG, chest x-ray findings with the patient. ms3 Patient to follow-up with primary care physician 2 to 3 days. All questions were answered. Return precautions discussed include worsening symptoms, or any other concerns. On reevaluation patient symptoms patient is alert and oriented x 4, no apparent distress, nontoxic-appearing, ambulatory emerged primary, speaking full sentences.. ms3
[2024-02-25 12:57] VITALS: TEMP 98.7
[2024-02-25 13:00] VITALS: BP 111/71; O2SAT 99
--- NOTE | 2024-02-27 11:33 | EKG ---
Test Date: 2024-02-25 Test Time: 10:51:53 Mcat Instructor: ALP MEASUREMENT RESULTS: Intervals: Rate: 60 AR: 168 QRSD: 148 QT: 426 QTc: 426 Hope: P: 38 AR: 168 QRS: 55 T: 30 INTERPRETIVE STATEMENTS: Normal sinus rhythm Right bundle branch block Abnormal ECG Compared to ECG 05/21/2023 18:22:02 Right bundle-branch block now present Sinus bradycardia no longer present Electronically Signed On 02-27-24 11:30:20 PROFESSIONAL DEVELOPMENT MANAGER by Senthil Jha
== END 2024-02-25 12:33 | disposition home or self-care (01) ==
LOC: ER 10:08
DX: R07.9 Chest pain, unspecified (principal); D64.9 Anemia, unspecified; D72.819 Decreased white blood cell count, unspecified
CPT/HCPCS: 36415; 71045; 80048; 84484; 85025; 93005; 99284

== ENCOUNTER 2024-06-12 18:26 | Emergency (ER) | payer OTHER ==
--- OUTSIDE RECORDS SUMMARY | 2024-06-12 18:29 | XMS REPORT | Continuity of Care Document ---
Author Name Unknown Address [address] [place] [address] [address] [place] [address] Organization [facility] [place] Address [address] [facility] José Luis. [address] [place] [address] Care Team Providers Care [employer]ist Name Role Phone [email or web address] Attending Clinician Unavailable Patricia Chen Attending Clinician [phone] [id number] Admitting Clinician Unavailable Payers Payer Name Policy Type Policy Number Effective Date Expirati on Date Source MEDICARE [place]: [employer] [id number] 2020 00:00:00 Social History Smoking Status Start [...] [facility] trazodone trazodone No trazodone Formerly [facility], [facility] furosemide 40 mg tablet Take 1 tablet every day by oral route as needed for 30 days. furosemide 40 mg tablet Take 1 tablet every day by oral route as needed for 30 days. No 1 Q1D furosemide 40 mg tablet Take 1 tablet every day by oral route as needed for 30 days. Formerly [facility], [facility] ceftriaxone 250 mg solution for injection 1000 mg IM administere d on scene. Time administere d: 1010am ceftriaxone 250 mg solution for injection 1000 mg IM administere d on scene. Time administere d: 1010am No ceftriaxon e 250 mg solution for injection 1000 mg IM administer ed on scene. Time administer ed: 1010am Formerly [facility] furosemide 10 mg/mL injection solution 20 mg IV administere d on scene. Time administere d:835pm furosemide 10 mg/mL injection solution 20 mg IV administere d on scene. Time administere d:835pm No furosemide 10 mg/mL injection solution 20 mg IV administer ed on scene. Time administer ed:835pm Formerly [facility], [facility] furosemide 40 mg tablet Take 1 tablet every day by oral route as needed for 30 days. furosemide 40 mg tablet Take 1 tablet every day by oral route as needed for 30 days. No 1 Q1D furosemide 40 mg tablet Take 1 tablet every day by oral route as needed for 30 days. Formerly [facility] gabapentin gabapentin No gabapentin Formerly [facility] hydrocodone 10 mg-acetamin ophen 300 mg tablet Take 1 tablet every 6 hours by oral route. hydrocodone 10 mg-acetamin ophen 300 mg tablet Take 1 tablet every 6 hours by oral route. No 1 Q6H hydrocodon e 10 mg-acetami nophen 300 mg tablet Take 1 tablet every 6 hours by oral route. Formerly [facility] potassium chloride ER 10 mEq tablet,exte nded [...] (water pill). Eat a banana most days. [facility] trazodone trazodone No [facility] Vital Signs Vital Name Observation Time Observation Value Comments S ource BP Diastolic 2021-01-21 00:00:00 76 mm[Hg] Dis [facility] BP Systolic 2021-01-21 00:00:00 128 mm[Hg] [facility] BP Diastolic 2021-01-18 00:00:00 70 mm[Hg] [facility] BP Systolic 2021-01-18 00:00:00 128 mm[Hg] [facility] Procedures Procedure Date / Time Performed Performing Clinicia n Source CT, angiogram, chest, w/ contrast 2021-01[facility]18 [facility] Planned Activity Planned Date Details Comments Source Diagnostic Test Pending 2021-01-18 00:00:00 lactate, venous plasma [code = lactate, venous plasma] [facility] Diagnostic Test Pending 2021-01-18 00:00:00 urinalysis, dipstick [code = urinalysis, dipstick] [facility] Diagnostic Test Pending 2021-01-18 00:00:00 BMP + ionized calcium, serum or plasma [code = BMP + ionized calcium, serum or plasma] [facility] Diagnostic Test Pending 2021-01-18 00:00:00 culture, urine [code = culture, urine] [facility] Instructions [facility] Encounters Start Date/Time End Date/Time Encounter Type Admission Type Attending [facility] Care Facility Care Department Encounter ID Source 2021-06-02 05:33:00 2021-06-02 05:33:00 Outpatient [id number] DISP DISP [id number] [facility]ly [facility] 2021-04-28 05:14:00 2021-04-28 05:14:00 Outpatient 3 DISP DISP [id number] [facility] 2021-03-24 01:55:00 2021-03-24 01:55:00 Outpatient [id number] DISP DISP [id number] [facility] 2021-02-17 03:23:00 2021-02-17 03:23:00 Outpatient [id number] DISP DISP [id number] [facility] 2021-01-23 06:53:00 2021-01-23 06:53:00 Outpatient [id number] DISP DISP [id number] [facility] 2021-01-21 01:57:00 2021-01-21 01:57:00 Outpatient [id number] DISP DISP [id number] [facility] 2021-01-21 00:00:00 2021-01-21 00:00:00 Outpatient GustavoPatricia DISP DISP [id number] 2021-01-21 00:00:00 2021-01-21 00:00:00 Patricia Chen, SUSTAINABLE AGRICULTURE FACULTY: [id number] [facility], [address], [place] [address] , Ph. DISP CO - [facility] [id number] [facility] 2021-01-21 00:00:00 2021-01-21 00:00:00 Outpatient GustavoPatricia DISP DISP [id number] 2021-01-19 12:15:00 2021-01-19 12:15:00 Outpatient [id number] 3 DISP DISP [id number] [facility] 2021-01-18 11:51:00 2021-01-18 11:51:00 Outpatient [id number] DISP DISP [id number] [facility] 2021-01-18 00:00:00 2021-01-18 00:00:00 Outpatient Gustavo Patricia DISP DISP [id number] 2021-01-18 00:00:00 2021-01-18 00:00:00 Patricia Chen, SUSTAINABLE AGRICULTURE FACULTY: [id number] [facility], [address], [place] [address] , Ph. [id number] DISP CO - [facility] [id number] [facility] 2021-01-18 00:00:00 2021-01-18 00:00:00 Outpatient Patricia Chen DISP DISP [id number] Results Test Description Test Time Test Comments Results Result Co mments Source [facility]
[2024-06-12] MEDS ORDERED: ONDANSETRON 4 MG/2 ML VIAL ONE (19:56)
[2024-06-12] MEDS ORDERED: MORPHINE 4 MG/ML SYR ONE (19:58)
[2024-06-12 20:00] LABS: Absolute Lymphocytes (CBC) 0.7 K/uL (0.7-4.9); Absolute Monocytes 0.2 K/uL (0.1-1.3); Absolute Neutrophil 3.4 K/uL (1.8-8.0); Basophils % 0.8 % (0-1.3); Eosinophils % 0.8 % (0-4.4); Hematocrit 34.1 % (36.0-45.0); Lymphocytes % 16.8 % (15.3-44.8); MCH 31.8 pg (27.0-35.0); MCHC 35.3 g/dL (32.0-36.0); MCV 90.3 fL (80-100); MPV 7.4 fL (7.6-11.3); Monocytes % 5.2 % (3.3-12.3); Neutrophils % 76.4 % (41.7-73.7); Nucleated Red Blood Cells % 0.2 % (0-0); Platelets 152 thou/uL (152-406); RBC Red Blood Cell Count 3.77 M/uL (3.86-4.86)
[2024-06-12 20:09] LABS: PT Prothrombin Time 11.9 SECONDS (10-13.0); PTT, Activated Partial Thromb 30.6 SECONDS (27.2-37.4); Protime INR 1.05
[2024-06-12 20:39] LABS: Albumin 3.6 g/dL (3.4-5.0); Albumin/Globulin Ratio 0.9 (1.1-1.8); Anion Gap 10.5 mEq/L (5.0-15.0); Bilirubin Direct 0.3 mg/dL (0-0.2); Bilirubin Indirect, Calculated 0.4 mg/dL (0.2-0.8); Bilirubin Total 0.7 mg/dL (0.2-1.0); Globulin 3.8 g/dL (2.3-3.5); Potassium 3.5 mEq/L (3.5-5.1); Protein, Total 7.4 g/dL (6.4-8.2); Troponin High Sensitivity 5.9 pg/mL (<58.9)
[2024-06-12] MEDS ORDERED: HYDROMORPHONE HCL 1 MG/ML INJ ONE (21:01)
--- NOTE | 2024-06-12 21:12 | RAD REPORT ---
EXAMINATION: Shoulder Left 2+ Views VIEWS: As above CLINICAL INDICATION: Female, 68 years old. fall COMPARISON: No prior exam. IMPRESSION: Impacted fracture of the surgical neck of the left humerus. No other fractures appreciated. No disloc ation.
--- NOTE | 2024-06-12 21:13 | RAD REPORT ---
EXAM: Chest Single View HISTORY: 68 years Female fall COMPARISON: None. FINDINGS: LUNGS/PLEURA: The lungs are clear. No pleural effusions or pneumothorax. No pulmonary edema. CARDIAC/MEDIASTINUM: Mild cardiomegaly UPPER ABDOMEN: No significant abnormality. BONES: No acute abnormality. LINES/TUBES/OTHER: N/A IMPRESSION: No evidence of acute cardiopulmonary disease.
--- NOTE | 2024-06-12 21:24 | RAD REPORT ---
EXAMINATION: Head C Spine Mpr Wo Con CLINICAL INDICATION: Female, 68 years old. FALL TECHNIQUE: Axial CT images from the skull base to the vertex without intravenous contrast. Axial CT i mages through the cervical spine were obtained without intravenous contrast. Sagittal and coronal reformatted images were created from the data set. Coronal and sagittal reformatted images were creat ed from the data set. One or more of the following dose reduction techniques were used: Automated exposure control, adjustment of the mA and/or kV according to patient size, and/or iterative reconstr uction. Unless otherwise specified, incidental findings do not require dedicated imaging follow-up. [id number]. COMPARISON: No prior exam. FINDINGS: Head: INTRACRANIAL: No acute intracranial hemorrhage. No hydrocephalus. No mass effect or midline shift. No significant white matter disease. VASCULATURE: No visualized abnormalities in the arteries or dural venous sinuses. SCALP/SKULL: No calvarial fracture identified. No acute soft tissue abnormality. SINUSES: The visualized paranasal sinuses are mostly clear. No significant mastoid fluid. Cervical spine: ALIGNMENT: The cervical spine has normal alignment without scoliosis or spondylolisthesis. BONE: Vertebral body heights are maintained. No aggressive osseous lesions. DEGENERATIVE: Multilevel cervical spondylosis with evidence of bilateral neural foraminal narrowing. No high grade central spinal stenosis. SOFT TISSUE: No significant abnormalities in the soft tissue of the neck. The visualized lung apices are clear. IMPRESSION: No acute intracranial abnormality. No acute fracture or traumatic malalignment of the cervical spine.
--- NOTE | 2024-06-12 21:33 | RAD REPORT ---
EXAM: Chest Abdomen Pelvis W Cont CLINICAL INDICATION: Female, 68 years fall TECHNIQUE: CT chest, abdomen and pelvis was performed, with IV contrast, as per department protocol. Axial, sagittal and coronal reconstructions were obtained. One or more of the following dose reduction techniques were used: Automated exposure control, adjustment of the mA and/or kV according to the patient size, and/or iterative reconstruction. Unless otherwise specified, incidental findings do not require dedicated imaging follow-up. [id number]. COMPARISON: 07/04/2022 FINDINGS: ---THORAX--- LOWER NECK AND CHEST WALL: Visualized thyroid gland and soft tissues are normal. LUNGS AND AIRWAYS: Airways are clear. No evidence of airspace or interstitial process.No dominant or clearly suspicious nodule identified. PLEURA: No pleural effusion. No pneumothorax. MEDIASTINUM AND LYMPH NODES: No mediastinal mass or fluid collection. Normal size mediastinal, hilar, and axillary lymph nodes. THORACIC AORTA: No thoracic aortic aneurysm. PULMONARY ARTERIES: Caliber is within normal limits. HEART: Mild cardiomegaly. No coronary calcifications.No significant pericardial effusion. ---ABDOMEN/PELVIS--- UPPER GI: Arminda-en-Y gastric bypass. Fluid is present within the bypassed stomach. The presence of a g astrogastric fistula is not excluded. A repeat CT with oral contrast would be necessary to further evaluate. LIVER: Hepatic steatosis. Benign appearing and/or stable lesions are identified. No suspicious mass. GALLBLADDER/BILE DUCTS: Cholecystectomy. Mild extra-hepatic biliary ductal dilatation is likely relat ed to the post-cholecystectomy state. Consider correlating with LFT's.? PANCREAS: Atrophy, but otherwise unremarkable. SPLEEN: Unremarkable. ADRENALS: Unchanged left adrenal nodule since 2022 measuring 2.3 cm which is benign and does not requ percy follow-up. KIDNEYS AND URETERS: Mild right-sided hydronephrosis secondary to a 4 mm stone at the right UPJ..No s uspicious renal mass.No renal calculi. ABDOMINAL AORTA AND OTHER VESSELS: Mild atherosclerotic changes. IVC filter. Prominent perisplenic co llateral vessels. PERITONEUM: No abnormal free fluid. No free air. LYMPH NODES: No pathologic lymphadenopathy. ABDOMINAL WALL: Intra-abdominal wall laxity. SMALL BOWEL/COLON: Small bowel has normal course and caliber. No colonic wall thickening or pericolon ic inflammatory changes. URINARY BLADDER: Underdistended but grossly unremarkable. REPRODUCTIVE ORGANS: No pathologic process. ---COMBINED--- MUSCULOSKELETAL: Grade 1 anterolisthesis of L5 on S1. Impacted fracture at the left surgical neck of the humerus. No dislocation. Nondisplaced left 10th and 11th rib fractures. ADDITIONAL FINDINGS: None. IMPRESSION: Impacted left proximal humerus fracture and nondisplaced left 10th and 11th rib fractures. No other e vidence of significant acute trauma. Incidental findings as noted above,
[2024-06-12] MEDS ORDERED: HYDROCODONE/APAP 10/325 TAB ONE (22:25)
[2024-06-12] MEDS ORDERED: KETOROLAC 30 MG/ML INJ ONE (22:25)
--- NOTE | 2024-06-12 22:50 | EDPHYS ---
Physician Documentation [facility] Name: Grace Case Age: 68 yrs Sex: Female : 1955 Arrival Date: 06/12/2024 Time: 18:26 Bed 16 Private MD: ED Physician Mitesh Yen HPI: 06/12 19:34 This 68 yrs old Female presents to ER via Unassigned with complaints of Fall Injury. cp 19:34 Details of fall: The patient fell from a height, porch approximately 2-3 feet high, and cp struck a grass-covered surface. Onset: The symptoms/episode began/occurred just prior to arrival. 19:34 Associated injuries: The patient sustained injury to the head, pain, left shoulder, cp decreased range of motion, painful injury. 19:34 Severity of symptoms: in the emergency department the symptoms are unchanged, despite cp home interventions. Historical: - Allergies: 19:46 No Known Allergies; br2 - PSHx: 19:46 Gastric Bypass; knee replacement (c ); br2 - Immunization history:: Adult Immunizations not up to date. - Infectious Disease History:: Denies. - Immunization history: Last tetanus immunization: unknown. - Social history:: Smoking status: Patient denies any tobacco usage or history of. Patient/guardian denies using alcohol, street drugs. ROS: 19:40 Constitutional: Negative for body aches, chills, fever, poor PO intake, cp 19:40 Eyes: Negative for injury, pain, redness, and discharge, cp 19:40 Cardiovascular: Positive for chest pain, of the left lateral chest, Negative for palpitations, 19:40 Respiratory: Negative for cough, shortness of breath, wheezing, 19:40 Abdomen/GI: Negative for abdominal pain, 19:40 Back: Positive for pain at rest, pain with movement, 19:40 MS/extremity: Positive for decreased range of motion, pain, of the left shoulder, 19:40 Neuro: Positive for headache, Negative for altered mental status, dizziness, loss of consciousness, syncope, weakness, 19:40 All other systems are negative, Exam: 19:45 Constitutional: The patient appears in no acute distress, alert, awake, cp non-diaphoretic, non-toxic, well developed, well nourished, in obvious pain, uncomfortable, 19:45 Head/Face: Normocephalic, atraumatic. cp 19:45 Eyes: Periorbital structures: appear normal, Conjunctiva: normal, no exudate, no injection, Sclera: no appreciated abnormality, Lids and lashes: appear normal, bilaterally, 19:45 ENT: External ear(s): are unremarkable, Nose: is normal, Mouth: Lips: moist, Oral mucosa: moist, Posterior pharynx: Airway: no evidence of obstruction, patent, 19:45 Neck: C-spine: C-collar placed in ED, vertebral tenderness, that is mild, appreciated at C5 and C6, crepitus, is not appreciated, 19:45 Chest/axilla: Inspection: normal, 19:45 Cardiovascular: Rate: normal, Rhythm: regular, Edema: is not appreciated, JVD: is not appreciated, 19:45 Respiratory: the patient does not display signs of respiratory distress, Respirations: normal, no use of accessory muscles, no retractions, labored breathing, is not present, Breath sounds: are clear throughout, no decreased breath sounds, no stridor, no wheezing, 19:45 Abdomen/GI: Inspection: abdomen appears normal, Bowel sounds: active, all quadrants, Palpation: soft, in all quadrants, moderate abdominal tenderness, in the posterior aspect of left lateral abdomen and anterior aspect of left lateral abdomen, 19:45 Back: pain, that is moderate, of the thoracic area, 19:45 Musculoskeletal/extremity: Extremities: noted in the left shoulder: decreased ROM, pain, 19:45 Neuro: Orientation: to person, place \T\ time. Mentation: is normal, 20:03 ECG was reviewed by the Attending Physician. cp Vital Signs: 19:30 BP 137 / 49; Pulse 71; Resp 18; Temp 97.3(TE); Pulse Ox 100% on R/A; Weight 81.65 kg; br2 Height 5 ft. 3 in. ; Pain 10/10; 19:30 BP 137 / 60; Pulse 65; Resp 18; Pulse Ox 100% on R/A; Pain 10/10; rg5 20:15 BP 137 / 68; Pulse 66; Resp 19; Pulse Ox 97% on R/A; Pain 8/10; rg5 21:06 BP 134 / 65; Pulse 65; Resp 18; Pain 9/10; rg5 19:30 Body Mass Index 31.89 (81.65 kg, 160.02 cm) br2 19:30 Pain Scale: Adult br2 19:30 Pain Scale: Adult rg5 20:15 Pain Scale: Adult rg5 21:06 Pain Scale: Adult rg5 Essex Coma Score: 19:30 Eye Response: spontaneous(4). Motor Response: obeys commands(6). Verbal Response: rg5 oriented(5). Total: 15. Trauma Score (Adult): 19:30 Eye Response: spontaneous(1); Verbal Response: oriented(1); Motor Response: obeys rg5 commands(2); Systolic BP: > 89 mm Hg(4); Respiratory Rate: 10 to 29 per min(4); Essex Score: 15; Trauma Score: 12 MDM: 19:25 Medical Screening Exam initiated cp 22:48 Data reviewed: vital signs, nurses notes, lab test result(s), EKG, radiologic studies, cp CT scan, plain films, and as a result, I will discharge patient. 22:48 Differential diagnosis: closed head injury, contusion, fracture, laceration, multiple cp trauma. Consideration of Admission/Observation Escalation of care including admission/observation considered. I considered the following discharge prescriptions or medication management in the emergency department Medications were administered in the Emergency Department. See MAR. Independent interpretation of the following test(s) in the Emergency Department EKG: See my EKG interpretation above. Counseling: I had a detailed discussion with the patient and/or guardian regarding the historical points, exam findings, and any diagnostic results supporting the discharge/admit diagnosis, lab results, radiology results, the need for outpatient follow up, a orthopedic surgeon, to return to the emergency department if symptoms worsen or persist or if there are any questions or concerns that arise at home. Response to treatment: the patient's symptoms have markedly improved after treatment, and as a result, I will discharge patient. 06/12 19:38 Order name: Basic Metabolic Panel; Complete Time: 20:42 cp 06/12 21:42 Interpretation: Normal except: CL 110; BUN 21; GFR 62. cp 06/12 19:38 Order name: CBC with Diff; Complete Time: 20:42 cp 06/12 21:42 Interpretation: Normal except: RBC 3.77; HCT 34.1; MPV 7.4; ESA% 76.4. cp 06/12 19:38 Order name: LFT's; Complete Time: 20:42 cp 06/12 19:38 Order name: PT-INR; Complete Time: 20:42 cp 06/12 19:38 Order name: Troponin HS; Complete Time: 20:42 cp 06/12 19:38 Order name: Ptt, Activated; Complete Time: 20:42 cp 06/12 19:38 Order name: XRAY Chest (1 view); Complete Time: 21:39 cp 06/12 21:39 Interpretation: Report review. cp 06/12 19:38 Order name: XRAY Shoulder LEFT 2 view; Complete Time: 21:39 cp 06/12 21:39 Interpretation: Report reviewed. cp 06/12 19:46 Order name: Chest Abdomen Pelvis W Cont; Complete Time: 21:39 EDMS 06/12 21:41 Interpretation: Report reviewed. cp 06/12 19:47 Order name: Head C Spine Mpr Wo Con; Complete Time: 21:39 EDMS 06/12 19:38 Order name: EKG; Complete Time: 19:39 cp 06/12 19:38 Order name: Cardiac monitoring; Complete Time: 20:06 cp 06/12 19:38 Order name: EKG - Nurse/Tech; Complete Time: 20:06 cp 06/12 19:38 Order name: IV Saline Lock; Complete Time: 20:06 cp 06/12 19:38 Order name: Labs collected and sent; Complete Time: 20:06 cp 06/12 19:38 Order name: O2 Per Protocol; Complete Time: 20:06 cp 06/12 19:38 Order name: O2 Sat Monitoring; Complete Time: 20:06 cp 06/12 20:43 Order name: Sling; Complete Time: 20:44 cp EC:03 Rate is 62 beats/min. Rhythm is regular. [place] interval is normal. QRS interval is cp prolonged at 136 msec. QT interval is normal. T waves are Inverted in lead aVR. Interpreted by me. Reviewed by me. Administered Medications: 19:55 Drug: morphine IVP or IV 4 mg IVP once over 4 mins Route: IVP; Infused Over: 4 mins; rg5 Site: right antecubital; 20:44 Follow up: Response: No adverse reaction; Pain is decreased rg5 19:55 Drug: Ondansetron IVP 4 mg IVP once; over 2 minutes Route: IVP; Site: right antecubital;rg5 20:44 Follow up: Response: No adverse reaction rg5 20:06 Drug: morphine IVP or IV 4 mg IVP once over 4 mins Route: IVP; Infused Over: 4 mins; rg5 Site: right antecubital; 20:44 Follow up: Response: No adverse reaction; Pain is decreased rg5 21:00 Drug: HYDROmorphone IVP 1 mg IVP once Route: IVP; Site: right antecubital; rg5 21:45 Follow up: Response: No adverse reaction; Pain is decreased rg5 22:25 Drug: Ketorolac IVP 15 mg IVP once Route: IVP; Site: right antecubital; rg5 23:11 Follow up: Response: No adverse reaction; Pain is decreased rg5 22:25 Drug: HYDROcodone-acetaminophen PO 10 mg-325 mg 1 tabs PO once Route: PO; rg5 23:11 Follow up: Response: No adverse reaction; Pain is decreased rg5 Disposition: 06/13 00:42 I was immediately available on-site in the Emergency Department for consultation in the ms3 care of the patient. Disposition Summary: 06/12/24 22:49 Discharge Ordered Notes: Location: Home cp Condition: Stable cp Diagnosis - Fall (on) (from) other stairs and steps cp - Multiple fractures of ribs, left side cp - 2-part nondisplaced fracture of surgical neck of left humerus, initial encounter cp for closed fracture - Contusion of unspecified part of head, initial encounter cp Discharge Instructions: - Discharge Summary Sheet cp - Facial or Scalp Contusion cp - Head Injury, Adult cp - Humerus Fracture Treated With Immobilization cp - Rib Fracture cp Forms: - Medication Reconciliation Form cp - Antibiotic Education cp - Prescription Opioid Use cp - Patient Portal Instructions cp - Leadership Thank You Letter cp Prescriptions: - methocarbamol 750 mg Oral tablet - take 1 tablet ORAL route 3 times per day; 30 tablet; Refills: 0, Product cp Selection Permitted - Tylenol-Codeine #3 300mg-30mg Oral tablet - take 2 tablets ORAL route every 6 hours As needed; 20 tablet; Refills: 0, cp Product Selection Permitted Signatures: Dispatcher [facility] Rene Zayas PA PA cp Mitesh Yen DO DO ms3 Jan Varela RN RN rg5 [place], Jaylyn, RN RN br2 Corrections: (The following items were deleted from the chart) 06/12 19:46 19:39 Head C Spine CAP W Con+CT.RAD.BRZ ordered. EDMS EDMS 21:59 21:56 IS+RC.RAD.BRZ ordered. EDMS EDMS
--- NOTE | 2024-06-12 22:50 | ER ---
Nurse's Notes [facility] Name: Grace Case Age: 68 yrs Sex: Female : 1955 Arrival Date: 06/12/2024 Time: 18:26 Bed 16 Private MD: Diagnosis: Fall (on) (from) other stairs and steps;Multiple fractures of ribs, left side;2-part nondisplaced fracture of surgical neck of left humerus, initial encounter for closed fracture;Contusion of unspecified part of head, initial encounter Presentation: 06/12 19:30 Chief complaint: Patient states: s/p fall off of a porch approx 2.5 ft in height...pt br2 states she fell on left side. c/o left shoulder, rib and posterior neck pain. c-collar applied during triage. Coronavirus screen: Client denies travel out of the [place] in the last 14 days. Ebola Screen: Patient denies exposure to infectious person. Patient denies travel to an Ebola-affected area in the 21 days before illness onset. Initial Sepsis Screen: Does the patient meet any 2 criteria? No. Patient's initial sepsis screen is negative. Does the patient have a suspected source of infection? No. Patient's initial sepsis screen is negative. Risk Assessment: Do you want to hurt yourself or someone else? Patient reports no desire to harm self or others. Onset of symptoms was June 12, 2024 at 17:30. 19:30 Method Of Arrival: Wheelchair br2 19:30 Acuity: ESTEPHANIA 3 br2 20:48 Care prior to arrival: None. Mechanism of Injury: Fall. Trauma event details: Injury rg5 occurred in the [facility] [place]. Triage Assessment: 19:46 General: Appears uncomfortable, Behavior is anxious, crying. Pain: Complains of pain in br2 back of neck, back of left arm and back Pain currently is 10 out of 10 on a pain scale. EENT: No signs and/or symptoms were reported regarding the EENT system. Neuro: Saunders Agitation-Sedation Scale (RASS): +1 Restless Level of Consciousness is awake, alert, obeys commands, Oriented to person, place, time, situation. Cardiovascular: Capillary refill < 3 seconds. Respiratory: Airway is patent Respiratory effort is even, unlabored, Respiratory pattern is regular, symmetrical. GI: No signs and/or symptoms were reported involving the gastrointestinal system. : No signs and/or symptoms were reported regarding the genitourinary system. Derm: No signs and/or symptoms reported regarding the dermatologic system. Musculoskeletal: Reports pain in back of left arm. Injury Description: fall. Historical: - Allergies: 19:46 No Known Allergies; br2 - PSHx: 19:46 Gastric Bypass; knee replacement (c ); br2 - Immunization history:: Adult Immunizations not up to date. - Infectious Disease History:: Denies. - Immunization history: Last tetanus immunization: unknown. - Social history:: Smoking status: Patient denies any tobacco usage or history of. Patient/guardian denies using alcohol, street drugs. Screenin:30 Abuse screen: Denies threats or abuse. Tuberculosis screening: No symptoms or risk rg5 factors identified. 19:30 [facility] ED Fall Risk Assessment (Adult) History of falling in the last 3 months, rg5 including since admission Yes- physiologic fall (2 pts) Confusion or Disorientation No (0 pts) Intoxicated or Sedated No (0 pts) Impaired Gait Yes (1 pt) Mobility Assist Device Used Yes (1 pt) Altered Elimination Score/Fall Risk Level 3 or more points = High Risk Oriented to surroundings, Maintained a safe environment, Hourly rounding (assess needs \T\ fall precautionary measures) done, Used ambulatory aids as needed (educated on \T\ assisted with). 19:30 Nutritional screening: No deficits noted. rg5 Primary Survey: 19:30 NO uncontrolled hemorrhage observed. rg5 19:30 A: The client is awake and alert. The airway is patent. Breathing/Chest: Spontaneous rg5 respiratory effort, equal unlabored respirations, breath sounds clear bilaterally, regular pattern, symmetrical chest rise and fall. Circulation: No external hemorrhage present. Regular and strong central pulse, skin warm/dry/normal color. Disability Pupils are equal, round, reactive to light and accommodation. Client is alert. Exposure/Environment: All clothing and personal items were removed. Forensic evidence collection is not deemed to be indicated at this time. Items placed in patient belonging bag. There is no evidence of uncontrolled external bleeding. 20:48 Reassessment Breathing: Spontaneous respiratory effort, equal unlabored respirations, rg5 breath sounds clear bilaterally, regular pattern with symmetrical chest rise and fall. Circulation: No external hemorrhage noted. Regular and strong central pulse, skin warm/dry/normal color. Disability: Pupils Pupils are equal, round, reactive to light and accomodation. Alert. 20:48 Reassessment Alertness and Airway: Awake and alert. The airway is patent. Airway Patent.rg5 Vital Signs: 19:30 BP 137 / 49; Pulse 71; Resp 18; Temp 97.3(TE); Pulse Ox 100% on R/A; Weight 81.65 kg; br2 Height 5 ft. 3 in. ; Pain 10/10; 19:30 BP 137 / 60; Pulse 65; Resp 18; Pulse Ox 100% on R/A; Pain 10/10; rg5 20:15 BP 137 / 68; Pulse 66; Resp 19; Pulse Ox 97% on R/A; Pain 8/10; rg5 21:06 BP 134 / 65; Pulse 65; Resp 18; Pain 9/10; rg5 19:30 Body Mass Index 31.89 (81.65 kg, 160.02 cm) br2 19:30 Pain Scale: Adult br2 19:30 Pain Scale: Adult rg5 20:15 Pain Scale: Adult rg5 21:06 Pain Scale: Adult rg5 Rod Coma Score: 19:30 Eye Response: spontaneous(4). Motor Response: obeys commands(6). Verbal Response: rg5 oriented(5). Total: 15. Trauma Score (Adult): 19:30 Eye Response: spontaneous(1); Verbal Response: oriented(1); Motor Response: obeys rg5 commands(2); Systolic BP: > 89 mm Hg(4); Respiratory Rate: 10 to 29 per min(4); Rod Score: 15; Trauma Score: 12 ED Course: 18:30 Patient arrived in ED. al6 18:33 Rene Zayas PA is PHCP. cp 18:33 Ron Calderon MD is Attending Physician. cp 19:26 Jan Varela, GIL is Primary Nurse. rg5 19:30 Patient has correct armband on for positive identification. Bed in low position. Call rg5 light in reach. Side rails up X 1. Adult w/ patient. Patient maintains SpO2 saturation greater than 95% on room air. 19:30 Door closed. Noise minimized. Warm blanket given. rg5 19:30 Arm band placed on left wrist. rg5 19:30 EKG completed in triage. Results shown to MD. rg5 19:30 Patient maintains SpO2 saturation greater than 95% on room air. rg5 19:30 No provider procedures requiring assistance completed. Inserted saline lock: 20 gauge rg5 in right antecubital area, using aseptic technique. Blood collected. Flushed with 10 mL NS. 19:36 EKG done, by ED staff, reviewed by Rene SANTOS. oe 19:46 Triage completed. br2 20:15 Radiology exam delayed due to lab results not completed at this time. (BUN/Creatinine) jc4 IV insertion attempt and/or patient not having appropriate IV at this time. 20:47 XRAY Chest (1 view) In Process Unspecified. EDMS 20:47 XRAY Shoulder LEFT 2 view In Process Unspecified. EDMS 20:49 Thermoregulation: warm blanket given to patient. rg5 21:17 Chest Abdomen Pelvis W Cont In Process Unspecified. EDMS 21:17 Head C Spine Mpr Wo Con In Process Unspecified. EDMS 22:49 Mitesh Yen DO is Attending Physician. cp 22:56 IV discontinued, bleeding controlled, No redness/swelling at site. Pressure dressing rg5 applied. 23:12 Provided Education on: post er care. rg5 Administered Medications: 19:55 Drug: morphine IVP or IV 4 mg IVP once over 4 mins Route: IVP; Infused Over: 4 mins; rg5 Site: right antecubital; 20:44 Follow up: Response: No adverse reaction; Pain is decreased rg5 19:55 Drug: Ondansetron IVP 4 mg IVP once; over 2 minutes Route: IVP; Site: right antecubital;rg5 20:44 Follow up: Response: No adverse reaction rg5 20:06 Drug: morphine IVP or IV 4 mg IVP once over 4 mins Route: IVP; Infused Over: 4 mins; rg5 Site: right antecubital; 20:44 Follow up: Response: No adverse reaction; Pain is decreased rg5 21:00 Drug: HYDROmorphone IVP 1 mg IVP once Route: IVP; Site: right antecubital; rg5 21:45 Follow up: Response: No adverse reaction; Pain is decreased rg5 22:25 Drug: Ketorolac IVP 15 mg IVP once Route: IVP; Site: right antecubital; rg5 23:11 Follow up: Response: No adverse reaction; Pain is decreased rg5 22:25 Drug: HYDROcodone-acetaminophen PO 10 mg-325 mg 1 tabs PO once Route: PO; rg5 23:11 Follow up: Response: No adverse reaction; Pain is decreased rg5 Medication: 20:49 VIS not applicable for this client. rg5 Intake: 19:30 PO: 0ml; Total: 0ml. rg5 Outcome: 22:49 Discharge ordered by MD. cp 23:11 Discharged to home via wheelchair, rg5 23:11 Condition: stable 23:11 Discharge instructions given to patient, family, Instructed on discharge instructions, follow up and referral plans. Demonstrated understanding of instructions, follow-up care, medications, Prescriptions given X 2, 23:12 Patient left the ED. rg5 Signatures: Dispatcher [employer] EDMS Rene Zayas PA PA cp Espinosa, Orlando oe Gallardo, Rommel, RN RN rg5 Jaylyn Cortés RN RN br2 Robert Acevedo jc4 Sherry Jones al6
[2024-06-12 23:28] VITALS: TEMP 97.3
[2024-06-12 23:29] VITALS: O2SAT 97
[2024-06-12 23:31] VITALS: BP 134/65
--- NOTE | 2024-06-15 11:34 | EKG ---
Test Date: 2024-06-12 Test Time: 19:55:56 Manager Lsw: XIANG MEASUREMENT RESULTS: Intervals: Rate: 62 TN: 160 QRSD: 136 QT: 450 QTc: 456 [place]: P: 48 TN: 160 QRS: 80 T: 56 INTERPRETIVE STATEMENTS: Normal sinus rhythm Right bundle branch block Abnormal ECG Compared to ECG 02/25/2024 10:51:53 No significant changes Electronically Signed On 06-15-24 11:30:02 CDT by Senthil Jha
== END 2024-06-12 23:12 | disposition home or self-care (01) ==
LOC: ER 18:26
DX: S42.225A 2-part nondisplaced fracture of surgical neck of left humerus, initial encounter for closed fracture (principal); S22.42XA Multiple fractures of ribs, left side, initial encounter for closed fracture; S00.83XA Contusion of other part of head, initial encounter; W10.8XXA Fall (on) (from) other stairs and steps, initial encounter
CPT/HCPCS: 85025; 80048; 36415; 85610; 80076; 85730; 84484; 70450; 72125; 71260; 74177; 71045; 73030; 94010; 96375; 96374; 99285; Q9967; J1171; J2405; 93005